=== PATIENT | female | born 1975 | race Caucasian/White ===

== ENCOUNTER 2023-11-08 11:26 | Inpatient (IN) ==
[2023-11-08 12:29] LABS: Partial Thromboplastin Ratio 1.1; Partial Thromboplastin Time 30 Seconds (21-31); Prothrombin Time 11.3 Seconds (9.0-12.0)
[2023-11-08 12:35] LABS: Albumin Level 4.5 gm/dl (3.4-5.0); Bilirubin,Total 0.6 mg/dl (0.2-1.0); Calcium 9.8 mg/dl (8.6-10.3); Potassium 3.5 mmol/L (3.5-5.1)
[2023-11-08 12:41] LABS: Albumin Globulin Ratio 1.5 (0.9-2); BUN Creatinine Ratio 17.2 (10-20); Creatinine Clr Calc Pharmacy 125.3 ml/min; Est GFR (African American) 127.2 ml/min; Est GFR (Non-African American) 109.8 ml/min; Globulin 3.1 gm/dl (2.5-4.0); Total Protein 7.6 gm/dl (6.0-8.3)
[2023-11-08 12:46] LABS: Troponin I High Sensitivity 40.5 pg/ml (0-14)
[2023-11-08 12:50] LABS: Basophils # (auto) 0.05 K/uL (0.00-0.20); Basophils % (auto) 0.5 %; Eosinophils # (auto) 0.25 K/uL (0.00-0.50); Eosinophils % (auto) 2.7 %; Hematocrit (blood only) 47.5 % (37.0-47.0); Hemoglobin 16.1 g/dl (12.0-16.0); Immature Granulocytes # (auto) 0.04 K/uL (0.01-0.20); Immature Granulocytes % (auto) 0.4 %; Lymphocytes # (auto) 2.98 K/uL (1.20-3.40); Lymphocytes % (auto) 32.7 %; Mean Corpuscular Hemoglobin 31.3 pg (25.0-34.0); Mean Corpuscular Hgb Conc 33.9 g/dL (32.0-36.0); Mean Corpuscular Volume 92.2 fL (80.0-100.0); Mean Platelet Volume 10.4 fL (9.4-12.4); Monocytes % (auto) 6.6 %; Neutrophils # (auto) 5.19 K/uL (1.40-6.50); Neutrophils % (auto) 57.1 %; Platelet Count 323 K/uL (130-400); RDW Coefficient of Variation 11.5 % (11.5-14.5); Red Blood Count 5.15 M/uL (4.20-5.40); White Blood Count 9.11 K/ul (4.8-10.8)
--- NOTE | 2023-11-08 12:57 | Emergency Department Note ---
Impression & Plan Heart palpitations, Chest pain, Near syncope, Torsades de pointes ED Provider Note NAME: STIVEN CARLSON AGE: 48 SEX: F : 1975 ARRIVES VIA: Walk-In INFORMANT: Patient, ED PROVIDER(S): Quinten Rai DO CHIEF COMPLAINT: Palpitations HPI: The patient is a 48-year-old female who presented to the emergency department at the request of her primary care physician for evaluation of palpitations. The patient was seen at a different emergency department for chest pain palpitations workup. Everything was normal. The patient went to see her family doctor in follow-up. She had a Holter monitor which revealed that she was having runs of polymorphic ventricular tachycardia. She was sent to the emergency department for further evaluation. The patient denies having any current symptoms. She states she did have symptoms earlier today. She describes episodes of near syncope and palpitations. She also has chest pain. She denies having any shortness of breath at this time. ROS: See above HPI for pertinent positives & negatives. A total of 10 systems reviewed and were otherwise negative. PAST MEDICAL HISTORY: See Below PAST SURGICAL HISTORY: See Below FAMILY HISTORY: See Below SOCIAL HISTORY: See Below HOME MEDICATIONS: See Below ALLERGIES: See Below VITALS: See Below PHYSICAL EXAMINATION: GENERAL: Patient is awake alert in no acute distress patient is resting comfortably and showing no signs of anxiety EYES: The conjunctivae are clear. The pupils are round and reactive. EARS, NOSE, MOUTH AND THROAT: The nose is without any evidence of any deformity. Mucous membranes are moist. Tongue is midline. NECK: The neck is nontender and supple. RESPIRATORY: Normal respiratory effort is noted there is no evidence of wheezing rhonchi or rales CARDIOVASCULAR: Regular rate and rhythm noted there no murmurs rubs or gallops normal S1 normal S2. GASTROINTESTINAL: The abdomen is soft. Abdomen is nontender. PELVIS: The Pelvis is stable. No tenderness to palpation is noted. BACK: No midline tenderness or or step-off noted range of motion in flexion extension as well as rotation no signs of muscle spasm noted MUSCULOSKELETAL/EXTREMITIES: There is no evidence of gross deformity full range of motion is noted in the hips and shoulders. SKIN: There is no obvious evidence of any rash. There are no petechiae, pallor or cyanosis noted. NEUROLOGIC: Patient is awake alert and oriented x3 strength is symmetric patellar reflexes are 2+ bilaterally MEDICAL DECISION MAKING: The patient is a 48-year-old female who presented to the emergency department for an evaluation of palpitations. The patient started having episodes of palpitations fast heart rate and near syncope. She also complained of some chest pain. The patient had an outpatient Holter monitor which showed that she was having episodes of wide-complex tachycardia. The patient was sent to the emergency department for further evaluation. I discussed the patient's laboratory and radiographic studies with her. [facility] They have agreed to evaluate the patient in the emergency department for further management and disposition. Triage Nursing notes reviewed. Prior medical records reviewed Vital Signs: reviewed and remarkable for elevated blood pressure. Differential diagnosis: Premature contractions, electrolyte abnormality, cardiac dysrhythmia, thyroid dysfunction, pulmonary embolism, infection, gastrointestinal, as well as other pathologies. ER treatment provided: See below Diagnostics interpreted by me: ECG: EKG was obtained in the emergency department. My interpretation is normal sinus rhythm at 75 bpm. There was no ectopy. There was no acute ST segment abnormalities noted. QTc was 417. No previous tracings available. Cardiac Monitoring: An order was placed for continuous cardiac monitoring. The monitor shows a rate of 63 bpm with sinus rhythm. Laboratory studies: As stated above and show below. Imaging studies: See below. Radiographic imaging was reviewed by myself Consultation(s): I discussed this case with Dr. Calvin who is [facility]. Past Med/Surg History Medical History (Updated 11/08/23 @ 16:49 by Quinten Rai DO) Seasonal allergies Depression Psoriatic arthritis Hypertension Social History Smoking Status: Current every day smoker Tobacco Type: Cigarettes Do You Dip or Chew Tobacco: No; Tobacco Cessation Education Requested by Patient: No Hx Alcohol Use: Yes Alcohol type: beer Hx Substance Use: No Preferred Language: [place] Islander Hand [employer] Required: No Beliefs That Will Affect Care: None Current Living Situation: Family Current Living Situation Comment: mother Other Information That Helps Us Care for You: No Feels Safe at Home: Yes Assistive Devices: Denture - Upper and Glasses Allergies Allergies Allergy/AdvReac Type Severity Reaction Status Date / Time No Known Allergies Allergy Unverified 11/08/23 14:50 Home Meds Home Medications Medication Instructions Recorded Confirmed citalopram 20 mg tablet 20 mg PO DAILY 11/08/23 11/08/23 clobetasol 0.05 % topical ointment 1 applic topical BID PRN Other 11/08/23 11/08/23 hydrochlorothiazide 25 mg tablet 25 mg PO QAM 11/08/23 11/08/23 lisinopril 40 mg tablet 40 mg PO QAM 11/08/23 11/08/23 loratadine 10 mg tablet (Allergy 10 mg PO DAILY 11/08/23 11/08/23 Relief (loratadine)) triamcinolone acetonide 0.5 % 1 applic topical BID PRN Other 11/08/23 11/08/23 topical ointment Results & Data (ED) Vital Signs Vital Signs - 24 hr 11/08/23 11:31 11/08/23 12:52 11/08/23 13:02 Temperature 36.7 C Temperature Source Skin Pulse Rate 80 70 Pulse Rate from SpO2 Sensor 71 Respiratory Rate 18 16 Blood Pressure 172/106 H 131/89 Blood Pressure Mean 128 103 Pulse Oximetry 100 98 97 Oxygen Delivery Method Room Air Room Air Room Air Sepsis Recent Fever Within 48 Hours No Sepsis New/Unexplained Change in Mental Status No Sepsis Action Taken by Nursing No Action Required 11/08/23 13:10 11/08/23 13:19 11/08/23 13:30 Temperature Temperature Source Pulse Rate 71 73 66 Pulse Rate from SpO2 Sensor 70 67 Respiratory Rate 14 16 Blood Pressure 120/74 Blood Pressure Mean 89 Pulse Oximetry 97 95 Oxygen Delivery Method Sepsis Recent Fever Within 48 Hours Sepsis New/Unexplained Change in Mental Status Sepsis Action Taken by Prison Medications Current Medication List: was personally reviewed by me Laboratory Data Attestation: I reviewed the patient's lab results. 11/08/23 11:50 11/08/23 11:50 Lab Results 11/08/23 11/08/23 Range/Units 11:50 12:55 WBC 9.11 (4.8-10.8) K/ul RBC 5.15 (4.20-5.40) M/uL Hgb 16.1 H (12.0-16.0) g/dl Hct 47.5 H (37.0-47.0) % MCV 92.2 (80.0-100.0) fL MCH 31.3 (25.0-34.0) pg MCHC 33.9 (32.0-36.0) g/dL RDW Std Deviation 39.0 (36.4-46.3) fL RDW Coeff of Suhail 11.5 (11.5-14.5) % Plt Count 323 (130-400) K/uL MPV 10.4 (9.4-12.4) fL Immature Gran % (Auto) 0.4 % Neut % (Auto) 57.1 % Lymph % (Auto) 32.7 % Towner % (Auto) 6.6 % Eos % (Auto) 2.7 % Baso % (Auto) 0.5 % Neut # (Auto) 5.19 (1.40-6.50) K/uL Lymph # (Auto) 2.98 (1.20-3.40) K/uL Towner # (Auto) 0.60 H (0.11-0.59) K/uL Eos # (Auto) 0.25 (0.00-0.50) K/uL Baso # (Auto) 0.05 (0.00-0.20) K/uL Immature Gran # (Auto) 0.04 (0.01-0.20) K/uL PT 11.3 (9.0-12.0) Seconds INR 1.0 (0.9-1.1) APTT 30 (21-31) Seconds PTT Ratio 1.1 Sodium 135 L (136-145) mmol/L Potassium 3.5 (3.5-5.1) mmol/L Chloride 100 (98-107) mmol/L Carbon Dioxide 28 (21-32) mmol/L Anion Gap 7 (3-11) BUN 10 (6-23) mg/dl Creatinine 0.58 L (0.6-1.2) mg/dl Est Cr Clr Drug Dosing 125.3 ml/min Est GFR ( Amer) 127.2 ml/min Est GFR (Non-Af Amer) 109.8 ml/min BUN/Creatinine Ratio 17.2 (10-20) Glucose 103 H (70-99(Fasting)) mg/dl Calcium 9.8 (8.6-10.3) mg/dl Magnesium 1.9 (1.7-2.4) mg/dl Total Bilirubin 0.6 (0.2-1.0) mg/dl AST 21 (13-39) U/L ALT 20 (7-52) U/L Alkaline Phosphatase 84 (34-104) U/L Troponin I High Sens 40.5 H (0-14) pg/ml Total Protein 7.6 (6.0-8.3) gm/dl Albumin 4.5 (3.4-5.0) gm/dl Globulin 3.1 (2.5-4.0) gm/dl Albumin/Globulin Ratio 1.5 (0.9-2) TSH 1.011 (0.300-4.500) uIu/ml Administered Medications Metoprolol Tartrate (Metoprolol Tartrate 25 Mg Tab) 12.5 mg PO Q6H [id number] Stop: 12/08/23 14:59 Last Admin: 11/08/23 15:50 Dose: 12.5 mg Documented By: [facility] Discharge Plan Visit Data Chief Complaint: Cardiac Assessment Stated Complaint: REF BY DOC ED Provider: Quinten Rai Discharge Problem: Heart palpitations, Chest pain, Near syncope, Torsades de pointes Patient Disposition: Admitted As Inpatient Discharge Instructions Interventions: ED Discharge Assessment Last Done: 11/08/23 15:01 Discharge Problem: Chest pain Qualifiers: Chest pain type: unspecified Qualified Code(s): R07.9 - Chest pain, unspecified
[2023-11-08 13:52] LABS: Magnesium 1.9 mg/dl (1.7-2.4)
[2023-11-08 14:19] LABS: Thyroid Stimulating Hormone 1.011 uIu/ml (0.300-4.500)
[2023-11-08] MEDS ORDERED: NITROGLYCERIN SL 0.4 MG/TAB TAB SL PRN (15:00)
--- NOTE | 2023-11-08 15:43 | Cardiology Consultation ---
Date of Consultation November 08, 2023 Assessment & Plan (1) Unstable angina pectoris: (2) Non-sustained ventricular tachycardia: (3) Elevated troponin I level: (4) Hypertension: Plan Assessment: 48 year old female with multiple risk factors for coronary disease presents after OP work up for ongoing chest pain , left arm tightness and tightness at base of neck. Recent protracted cardiac monitoring demonstrates episode of Non-sustained Ventricular tachycardiac > 12 seconds. Requested patient to present for further evaluation. Plan: Patient with concerning cardiac symptoms, multiple risk factors, significant family history and now documented Non-sustained VT on recent ZIO monitor. Discussed patient's symptoms in depth with high concern that she has been having multiple episodes with no clear etiology and no prior ischemia work up. Monitor on telemetry. Continue to trend troponin to peak Obtain echocardiogram to obtain baseline for overall structure, function, any valvular disease and wall motion abnormality. Fasting lipid panel Agree with starting metoprolol tartrate 12.5mg PO BID, ASA 81mg QD, Atorvastatin 40mg QD. patient on Lisinopril at home which we will also restart, but need to assess echo findings first with plan for ischemic work up. Patient may eat a heart healthy diet tonight, but advised NPO after midnight for possible cardiac cath tomorrow. Case has been discussed with Dr. Villanueva. Further recommendations regarding plan of care as per his assessment. I spent a total of 40 minutes on the date of service in preparation, delivery, documentation of the care provided to the patient excluding any time spent in the performance of separately billed services. SARA Brown [facility] Card[facility] Supervising Physician Co-Signing Physician Notes Attending attestation: Case reviewed with the advanced practitioner. I have personally performed a history and physical examination on the patient. I have reviewed the advanced practitioner's documentation on the date of service referenced in note, and I agree with, and take responsibility for the plan of care. Patient with recent symptoms highly suggestive of angina pectoris. Asymptomatic at present. EKG performed today reveals sinus rhythm at 75 bpm with age- indeterminate septal infarct pattern in lead V2. Corrected QT within normal limits. Echocardiogram revealing normal left ventricular myocardial thickness, no left ventricular wall motion abnormalities, LVEF normal in the range of 55 to 60%. No significant valvular heart disease, grade 1 diastolic dysfunction. Risk factors for underlying coronary heart disease include smoking, hypertension, untreated dyslipidemia with recent LDL cholesterol of 172 mg/dL in April,, likely nonfasting sample however. She also has a history of psoriatic arthritis. Continue with medications as noted above. Will proceed with ischemic workup tomorrow. Repeat fasting lipid panel. I spent a total of 30 minutes coordinating, documenting, and providing care for this patient excluding time spent in the performance of separately billed services or time spent by another provider. Jesus Villanueva DO History of Present Illness Reason for Consultation: Abnormal Zio Requesting Physician: Bobby lunaist Attending Physician: Estrella Calvin MD History of Present Illness HPI:Patient is a 48 year-old female with PMHx significant for HTN, psoriatic arthritis, tobacco use (12- PPD), and family history of premature CAD that presented to the ED after being alerted of an abnormal ZIO monitor finding. Patient's recent cardiac concerns date back approx 3 weeks when patient was driving and had sudden onset chest discomfort with a globus sensation in her throat. She states she broke out in a sweat, became short of breath, slightly lightheaded, mild nausea, but had left arm tingling sensation. She pulled over immediately and reported that the entire episodes lasted nearly one hour. She did not seek medical attention at that time. The next day she opted to present to [facility] but on the way had a repeat episodes just like the day before. She pulled over and called 911 with transport to [facility]. No records are available for review. She reports that they did and EKG, labs and sent her home and told to follow up with PCP. She saw her PCP and was placed on a 7 day ZIO monitor. Review of monitor does demonstrate a isolated episode of VT, appearing polymorphic in nature that occurred on 10/29/23 11:12 am lasting 12.6 seconds. EKG upon arrival to our ED demonstrates normal Sinus rhythm with possible prior infarct. labs reviewed. serum NA low end of normal. Initial Troponin 40.5, subsequent trop labs are pending. patient is resting comfortably in bed at this time without cardiac complaint. Denies any recent acute illness, no N/V/D, no fevers or concerns of dehydration. No recent medication changes in the past 2-3 months. Prior to that was switched from Humara for her Psoriatic arthritis to Toltz. HCTZ was also added to her regimen. Family history: Mother: History of NH with stents Father: history of CAD (no prior NH), but has stents. Maternal Grandfather after NH (reports younger age) Paternal Grandmother: History of CAD s/p CABG, after post surgical site infection. Sister (half): recent cardiac work up for palpitations (no definitive results) Social history: Social EOTH use-- Yes. Tobacco use -- Yes, 1/2-1PPD > 10 years Illicit drug use--None Allergies Allergy/AdvReac Type Severity Reaction Status Date / Time No Known Allergies Allergy Unverified 11/08/23 14:50 Home Medications Medication Instructions Recorded Confirmed Type citalopram 20 mg tablet 20 mg PO DAILY 11/08/23 11/08/23 History clobetasol 0.05 % topical ointment 1 applic topical BID PRN Other 11/08/23 11/08/23 History hydrochlorothiazide 25 mg tablet 25 mg PO QAM 11/08/23 11/08/23 History ixekizumab 80 mg/mL subcutaneous 80 mg subcut Q4WK 11/08/23 11/08/23 History syringe (Taltz Syringe) lisinopril 40 mg tablet 40 mg PO QAM 11/08/23 11/08/23 History loratadine 10 mg tablet (Allergy 10 mg PO DAILY 11/08/23 11/08/23 History Relief (loratadine)) triamcinolone acetonide 0.5 % 1 applic topical BID PRN Other 11/08/23 11/08/23 History topical ointment Patient History Medical History Hypertension Seasonal allergies Depression Psoriatic arthritis Surgical History History of dental surgery Family History (Updated 11/08/23 @ 17:24 by SARA Lima) Other Coronary heart disease Social History Smoking Status: Current every day smoker Tobacco Type: Cigarettes Do You Dip or Chew Tobacco: No; Tobacco Cessation Education Requested by Patient: No Hx Alcohol Use: Yes Alcohol type: beer Hx Substance Use: No Preferred Language: Mohawk Information Assistant Required: No Beliefs That Will Affect Care: None Current Living Situation: Family Current Living Situation Comment: mother Other Information That Helps Us Care for You: No Feels Safe at Home: Yes Assistive Devices: Denture - Upper and Glasses Review of Systems Review of Systems: All systems reviewed & are unremarkable except as noted in HPI & below Physical Exam Constitutional: well developed and well nourished; no acute distress Neck: normal visual inspection and trachea midline Respiratory: normal respiratory effort, lungs clear to auscultation Cardiovascular: RRR, no murmur, no edema Heart Sounds: normal S1 and normal S2; no murmur Vessels: dorsalis pedis pulses present; no JVD Extremities: no edema Skin: no rashes, warm and dry Psychiatric: A+Ox3, euthymic affect Results & Data Vital Signs (Past 12 Hours) Vital Signs Temp Pulse Resp BP Pulse Ox O2 Del Method 11/08/23 14:30 61 19 119/94 98 Room Air 11/08/23 14:29 66 16 140/94 98 Room Air 11/08/23 14:00 65 12 141/102 H 99 11/08/23 13:30 66 16 120/74 95 11/08/23 13:19 73 11/08/23 13:10 71 14 97 11/08/23 13:02 70 16 131/89 97 Room Air 11/08/23 12:52 98 Room Air 11/08/23 11:31 36.7 C 80 18 172/106 H 100 Room Air Diagnostic Findings OP ZIO monitor 10/25/2023 Results: Patient had a min HR of 51 bpm, max HR of 240 bpm, and avg HR of 83 bpm. Predominant underlying rhythm was Sinus Rhythm. Slight P wave morphology changes were noted. 1 run of Ventricular Tachycardia occurred lasting 12.6 secs with a max rate of 240 bpm (avg 163 bpm). Isolated SVEs were rare (<1.0%), SVE Couplets were rare (<1.0%), and no SVE Triplets were present. Isolated VEs were rare (<1.0%), and no VE Couplets or VE Triplets were present. The patient recorded 2 event markers and 1 diary entry correlating with sinus and sinus tachycardia only Impression: Sinus rhythm, average rate 83 beats per minute with single episode of nonsustained ventricular tachycardia 12.6 seconds in duration. Pattern consistent with torsade Refer to rhythm strips available for review under the MUSE link for additional detail Referring provider contacted
[2023-11-08] MEDS: METOPROLOL TARTRATE 25 MG TAB PO SCH (15:50)
--- NOTE | 2023-11-08 16:30 | Electrocardiogram Report ---
Test Reason : Blood Pressure : / mmHG Vent. Rate : 075 BPM Atrial Rate : 075 BPM P-R Int : 152 ms QRS Dur : 074 ms QT Int : 374 ms P-R-T Axes : 074 086 075 degrees QTc Int : 417 ms Normal sinus rhythm Septal infarct , age undetermined Abnormal ECG No previous ECGs available Confirmed by Quinten Rivera ([id number]) on 11/08/2023 4:30:05 PM Referred By: Confirmed By:Quinten Rivera
--- NOTE | 2023-11-08 16:51 | XRay Report ---
XR chest 1V portable HISTORY: 48 years-old Female Chest pain, nonspecific COMPARISON: None TECHNIQUE: AP view of the chest FINDINGS: Cardiomediastinal and hilar silhouettes are within normal limits. No pneumothorax, pleural effusion o r airspace consolidation. Benign-appearing sclerosis of the proximal left humerus. The bones appear i ntact. IMPRESSION: No acute process. ACT 112: Negative or not required by law. The above report was generated using voice recognition software. It may contain grammatical, syntax o r spelling errors. Electronically signed by: Anthony Blandon M.D. 11/08/2023 4:49 PM
--- NOTE | 2023-11-08 17:17 | History & Physical Report ---
Date of Service November 08, 2023 Assessment & Plan (1) Chest pain: (2) Non-sustained ventricular tachycardia: (3) Torsades de pointes: Plan: Admit to telemetry Patient presenting from home by referral of PCP after outpatient ZIO monitor demonstrated episode of Non-sustained Ventricular tachycardiac > 12 seconds, with possible polymorphic characteristics consistent with torsades. Has been having episodes of intermittent chest/left arm discomfort x 2 weeks In the ED, EKG without acute ST changes, HS troponin 40 -> 45.1 Continue to trend troponin, resting echo Start ASA 81 mg daily, atorvastatin 40 mg daily, metoprolol tartrate 12.5 mg q6h N.p.o. after midnight for possible additional testing tomorrow Cardiology consult, case discussed with Dr. Villanueva via tiger text (4) Hypertension: Plan: BP elevated on presentation to ED 172/106, recently started on HCTZ 25 mg daily in addition to lisinopril 40 mg daily Continue home lisinopril, hold HCTZ for now in light of starting metoprolol as above Monitor BP, make adjustments as needed DVT PROPHYLAXIS SCDs Patient seen in cooperation with Dr. Calvin. I spent a total of 75 minutes coordinating, documenting, and providing care for this patient excluding time spent in the performance of separately billed services. This included personally reviewing all current laboratories and imaging studies, medication reconciliation, outpatient chart review, and discussion with specialists. Admission and Anticipated Discharge Date Admission Date: November 08, 2023 History of Present Illness Chief Complaint: Chest pain Primary Care Provider: Alexandra Carrion MD 48-year-old female with PMH HTN, psoriatic arthritis, anxiety, and other problems listed below who presents to the ED for evaluation of chest pain and also by referral of PCP for abnormal outpatient ZIO monitor. History is obtained from the patient and review of outpatient PCP and cardiology records. Patient reports that about 2 weeks ago, she developed a midsternal chest discomfort with associated left arm pain. She also experienced palpitations, shortness of breath, diaphoresis, nausea. Patient called EMS and was evaluated at [facility]. Reports that she was discharged home with outpatient follow- up. Patient saw PCP on 10/24 and had a 7-day ZIO monitor placed. Due to el evated BP, patient was also started on HCTZ 25 mg daily. Patient reports she received a call today that she had an abnormality on her ZIO monitor and needed to present to the ED for evaluation. Patient describes her chest discomfort as " something being stuck". Continues to occasionally have left arm discomfort with chest discomfort. Reports that symptoms can be brought on with exertion however also sometimes occur at rest. Reports last episode was 2 evenings ago while she was laying in bed watching TV. Patient denies any other recent illnesses, fevers, chills. No syncopal events. Denies abdominal pain, vomiting, diarrhea. No urinary symptoms. In the ED, EKG is without acute ST changes. HS troponin 40 -> 45.1. Allergies Allergy/AdvReac Type Severity Reaction Status Date / Time No Known Allergies Allergy Unverified 11/08/23 14:50 Home Medications Medication Instructions Recorded Confirmed Type citalopram 20 mg tablet 20 mg PO DAILY 11/08/23 11/08/23 History clobetasol 0.05 % topical ointment 1 applic topical BID PRN Other 11/08/23 0 11/08/23 History hydrochlorothiazide 25 mg tablet 25 mg PO QAM 11/08/23 11/08/23 History ixekizumab 80 mg/mL subcutaneous 80 mg subcut Q4WK 11/08/23 11/08/23 History syringe (Taltz Syringe) lisinopril 40 mg tablet 40 mg PO QAM 11/08/23 11/08/23 History loratadine 10 mg tablet (Allergy 10 mg PO DAILY 11/08/23 11/08/23 History Relief (loratadine)) triamcinolone acetonide 0.5 % 1 applic topical BID PRN Other 11/08/23 11/08/23 History topical ointment Past Med/Surg History Medical History Hypertension Seasonal allergies Depression Psoriatic arthritis Surgical History History of dental surgery Family History (Updated 11/08/23 @ 17:24 by SARA Lima) Other Coronary heart disease Social History Smoking Status: Current every day smoker Tobacco Type: Cigarettes Do You Dip or Chew Tobacco: No; Tobacco Cessation Education Requested by Patient: No Hx Alcohol Use: Yes Alcohol type: beer Hx Substance Use: No Preferred Language: [place] Web Page Developer Required: No Beliefs That Will Affect Care: None Current Living Situation: Family Current Living Situation Comment: mother Other Information That Helps Us Care for You: No Feels Safe at Home: Yes Assistive Devices: Denture - Upper and Glasses Physical Exam Constitutional: WD/WN, vitals as above Eyes: PERRL, conjunctivae normal, anicteric sclerae Respiratory: normal respiratory effort, lungs clear to auscultation Cardiovascular: Rate/Rhythm: regular rate and regular rhythm Vessels: normal peripheral pulses Extremities: no edema Gastrointestinal (Abdomen): normal bowel sounds, soft, nontender, no hepatosplenomegaly Musculoskeletal: no cyanosis or clubbing, extremities motor strength 5/5 Skin: no rashes, warm and dry Neurologic: PERRL, EOMI, accommodation nl, no face palsy, no dysarthria Psychiatric: A+Ox3, euthymic affect Results & Data Results & Data Vital Signs (Past 12 Hours) Vital Signs Temp Pulse Pulse Resp BP Pulse Ox O2 Del Method 11/08/23 16:50 63 18 11/08/23 16:40 71 14 11/08/23 16:30 61 18 100 11/08/23 16:20 62 17 99 11/08/23 16:14 63 12 100 Room Air 11/08/23 16:10 63 15 93 11/08/23 16:07 71 11/08/23 16:02 69 11/08/23 16:01 69 16 98 11/08/23 16:01 166/102 H 11/08/23 16:00 65 12 166/102 H 98 11/08/23 15:54 72 19 98 11/08/23 15:00 100 Room Air 11/08/23 14:30 61 19 119/94 98 Room Air 11/08/23 14:29 66 16 140/94 98 Room Air 11/08/23 14:00 65 12 141/102 H 99 11/08/23 13:30 66 16 120/74 95 11/08/23 13:19 73 11/08/23 13:10 71 14 97 11/08/23 13:02 70 16 131/89 97 Room Air 11/08/23 12:52 98 Room Air 11/08/23 11:31 36.7 C 80 18 172/106 H 100 Room Air Laboratory Results Short CBC 11/08/23 Range/Units 11:50 WBC 9.11 (4.8-10.8) K/ul Hgb 16.1 H (12.0-16.0) g/dl Hct 47.5 H (37.0-47.0) % Plt Count 323 (130-400) K/uL BMP 11/08/23 11:50 Sodium 135 L Potassium 3.5 Chloride 100 Carbon Dioxide 28 BUN 10 Creatinine 0.58 L Glucose 103 H Calcium 9.8 Liver Function 11/08/23 Range/Units 11:50 Total Bilirubin 0.6 (0.2-1.0) mg/dl AST 21 (13-39) U/L ALT 20 (7-52) U/L Alkaline Phosphatase 84 (34-104) U/L Albumin 4.5 (3.4-5.0) gm/dl Diagnostic Findings Chest X-Ray 11/08/23 00:00 XR chest 1V portable HISTORY: 48 years-old Female Chest pain, nonspecific COMPARISON: None TECHNIQUE: AP view of the chest FINDINGS: Cardiomediastinal and hilar silhouettes are within normal limits. No pneumothorax, pleural effusion or airspace consolidation. Benign-appearing sclerosis of the proximal left humerus. The bones appear intact. IMPRESSION: No acute process. ACT 112: Negative or not required by law. The above report was generated using voice recognition software. It may contain grammatical, syntax or spelling errors. Electronically signed by: Anthony Blandon M.D. 11/08/2023 4:49 PM Code Status & VTE Plan VTE Prophylaxis Plan VTE Prophylaxis will be ordered: Yes Supervising Physician Co-Signing Physician Notes Pt was seen and examined by myself, Estrella Calvin MD on the day of service. Care was coordinated with SARA Lima. 48yoF presenting for further evaluation after noted palpitations and heart monitor noting runs of nonsustained v tach. States that she is currently asymptomatic, concerned about her BP on the monitor. AAOx3 on exam RRR Breath sounds clear bilaterally NSVT, elevated trop- hs-trop elevated at ~40, EKG currently showing NSR, echo pending, cardiology consulted, appreciate recs. Ischemic workup planned. Hyponatremia- slight decrease of sodium at 135, continue to monitor with AM labs. Hyperglycemia- AM [id number], r/o pre/DMII Otherwise as above. I spent a total [id number] coordinating, documenting, and providing care for this patient excluding time spent in the performance of separately billed services (1) Chest pain Chest pain type: unspecified Qualified Code(s): R07.9 - Chest pain, unspecified
[2023-11-08] MEDS: MELATONIN 3 MG TAB PO PRN (21:47)
[2023-11-09 07:23] LABS: Estimated Average Glucose 111 mg/dl; Hemoglobin A1C 5.5 % (4.5-5.6)
[2023-11-09 07:27] LABS: Hematocrit (blood only) 45.9 % (37.0-47.0); Hemoglobin 15.3 g/dl (12.0-16.0); Mean Corpuscular Hemoglobin 31.7 pg (25.0-34.0); Mean Corpuscular Hgb Conc 33.3 g/dL (32.0-36.0); Mean Corpuscular Volume 95.2 fL (80.0-100.0); Platelet Count 300 K/uL (130-400); RDW Coefficient of Variation 11.9 % (11.5-14.5); RDW Standard Deviation 41.1 fL (36.4-46.3); Red Blood Count 4.82 M/uL (4.20-5.40); White Blood Count 9.52 K/ul (4.8-10.8)
[2023-11-09 07:45] LABS: BUN Creatinine Ratio 21.3 (10-20); Calcium 9.3 mg/dl (8.6-10.3); Chol HDL Ratio 5.9 (0-5); Creatinine Clr Calc Pharmacy 119.5 ml/min; Est GFR (African American) 125.1 ml/min; Potassium 4.5 mmol/L (3.5-5.1)
[2023-11-09] MEDS: ACETAMINOPHEN 325 MG TAB PO PRN (08:31)
[2023-11-09] MEDS: ASPIRIN 81 MG ECTAB PO SCH (08:32)
[2023-11-09] MEDS: ATORVASTATIN 40 MG TAB PO SCH (08:32)
[2023-11-09] MEDS: LORATADINE 10 MG TAB PO SCH (08:33)
[2023-11-09] MEDS: CITALOPRAM 20 MG TAB PO SCH (08:33)
[2023-11-09] MEDS: lisinopril 40 MG TAB PO SCH (08:34)
[2023-11-09] MEDS: ASPIRIN 81 MG CHEW PO STA (09:21)
--- NOTE | 2023-11-09 12:01 | Pre Anesthesia Assessment ---
Date of Service November 09, 2023 Pre Sedation Assessment Vital Signs Temp Pulse Pulse Resp BP BP BP 11/09/23 11:21 50 L 16 107/49 L 11/09/23 10:55 97.9 F 52 L 21 108/61 11/09/23 08:17 98.1 F 59 L 20 112/69 11/09/23 04:05 97.9 F 71 18 105/65 11/08/23 23:23 66 11/08/23 23:07 97.9 F 63 18 105/67 11/08/23 20:19 66 11/08/23 20:15 98.1 F 65 17 128/75 11/08/23 19:10 124/83 11/08/23 19:10 63 16 124/83 11/08/23 19:01 64 17 11/08/23 18:57 64 18 109/67 11/08/23 18:40 66 18 11/08/23 18:30 67 12 11/08/23 18:20 62 21 11/08/23 18:10 64 21 11/08/23 18:00 63 16 11/08/23 17:50 72 20 11/08/23 17:40 68 15 11/08/23 17:30 59 L 14 11/08/23 17:20 60 13 11/08/23 17:10 75 17 11/08/23 17:00 64 19 11/08/23 16:50 63 18 11/08/23 16:40 71 14 11/08/23 16:30 61 18 11/08/23 16:20 62 17 11/08/23 16:14 63 12 11/08/23 16:10 63 15 11/08/23 16:07 71 11/08/23 16:02 69 11/08/23 16:01 69 16 11/08/23 16:01 166/102 H 11/08/23 16:00 65 12 166/102 H 11/08/23 15:54 72 19 11/08/23 15:00 11/08/23 14:30 61 19 119/94 11/08/23 14:29 66 16 140/94 11/08/23 14:00 65 12 141/102 H 11/08/23 13:30 66 16 120/74 11/08/23 13:19 73 11/08/23 13:10 71 14 11/08/23 13:02 70 16 131/89 11/08/23 12:52 Pulse Ox O2 Del Method 11/09/23 11:21 98 Room Air 11/09/23 10:55 98 Room Air 11/09/23 08:17 97 Room Air 11/09/23 04:05 97 Room Air 11/08/23 23:23 11/08/23 23:07 97 Room Air 11/08/23 20:19 11/08/23 20:15 97 Room Air 11/08/23 19:10 11/08/23 19:10 96 11/08/23 19:01 11/08/23 18:57 96 Room Air 11/08/23 18:40 97 11/08/23 18:30 11/08/23 18:20 11/08/23 18:10 11/08/23 18:00 11/08/23 17:50 11/08/23 17:40 11/08/23 17:30 11/08/23 17:20 11/08/23 17:10 11/08/23 17:00 11/08/23 16:50 11/08/23 16:40 11/08/23 16:30 100 11/08/23 16:20 99 11/08/23 16:14 100 Room Air 11/08/23 16:10 93 11/08/23 16:07 11/08/23 16:02 11/08/23 16:01 98 11/08/23 16:01 11/08/23 16:00 98 11/08/23 15:54 98 11/08/23 15:00 100 Room Air 11/08/23 14:30 98 Room Air 11/08/23 14:29 98 Room Air 11/08/23 14:00 99 11/08/23 13:30 95 11/08/23 13:19 11/08/23 13:10 97 11/08/23 13:02 97 Room Air 11/08/23 12:52 98 Room Air Cardiovascular + regular rate Respiratory + respiratory effort normal Pre-Sedation Airway Assessment Smoking Status: Current every day smoker Hx Sleep Apnea: No Short, Thick Neck: No Thyromental Distance: > or= 3.5 Finger Breadths Oral Cavity: + WNL Mallampati Class: II ASA: ASA3 NPO Status Date of Last Intake of Fluids: 11/08/23 Time of Last Intake of Fluids: 20:00 Date of Last Intake of Solid Food: 11/08/23 Time of Last Intake of Solid Foods: 20:00 Procedure Planning Contraindications for Sedation: none Current Medications Reviewed: Yes Notes The planned sedation has been discussed with the patient. Informed Consent was obtained. I have identified the patient, determined the appropriateness of sedation and have assessed the patient immediately prior to the procedure. All medicine(s) and interventions are by my order.
[2023-11-09] MEDS: fentaNYL citrate PF 100 MCG/2 ML VIAL ONE ×2 (13:26→13:27)
[2023-11-09] MEDS: HEPARIN (PORCINE) 1000 UNIT/ML 10 ML (CATH LAB USE ONLY) ONE ×2 (13:27→13:29)
[2023-11-09] MEDS: MIDAZOLAM HCL 1 MG/ML 2ML VIAL ONE ×2 (13:27→13:29)
--- NOTE | 2023-11-09 13:27 | Hospitalist Progress Note ---
Date of Service November 09, 2023 Assessment & Plan (1) Chest pain: Plan: Patient presenting from home by referral of PCP after outpatient ZIO monitor demonstrated episode of Non-sustained Ventricular tachycardiac > 12 seconds, with possible polymorphic characteristics consistent with torsades. Has been having episodes of intermittent chest/left arm discomfort x 2 weeks In the ED, EKG without acute ST changes, HS troponin 40 -> 45.1 Start ASA 81 mg daily, atorvastatin 40 mg daily, metoprolol tartrate 12.5 mg q6h N.p.o. after midnight for possible additional testing tomorrow Serial troponins were not significantly high and did not have any EKG changes Remains free from any more chest pain since admission Echo of the heart showed-normal LV wall thickness, LV systolic function is normal, EF 55 to 60%, RV is normal in size and function, grade 1 diastolic dy sfunction, there is no significant valvular heart disease and no prior studies to compare Appreciate cardiology input and recommendation She will have cardiac cath this afternoon for further evaluation (2) Non-sustained ventricular tachycardia: Plan: As above (3) Torsades de pointes: Plan: As above (4) Hypertension: Plan: BP elevated on presentation to ED 172/106, recently started on HCTZ 25 mg daily in addition to lisinopril 40 mg daily Continue home lisinopril, hold HCTZ for now in light of starting metoprolol as above Monitor BP, make adjustments as needed Blood pressure remains on the lower side of normal at 107/49 DVT PROPHYLAXIS SCDs Patient seen in cooperation with Dr. Calvin. Admission and Anticipated Discharge Date Admission Date: November 08, 2023 Subjective 11/09/2023 The patient was seen and examined in telemetry unit She has significant risk factors and was admitted with ongoing chest pain No ACS but she will go for cardiac cath this afternoon Review of Systems Review of Systems: All systems reviewed and are unremarkable except as noted below Physical Exam Physical Exam: Sitting on a chair without any acute distress Constitutional: well developed, well nourished and + obese; not ill appearing Eyes: PERRL, conjunctivae normal, anicteric sclerae ENMT: external ear and nose normal, oropharynx normal Neck: trachea midline, no thyromegaly Respiratory: no respiratory distress Auscultation: lungs clear to auscultation bilaterally Cardiovascular: Rate/Rhythm: regular rate, regular rhythm, + bradycardic and + tachycardic Heart Sounds: normal S1 and normal S2; no murmur Extremities: no edema Gastrointestinal (Abdomen): Inspection/Auscultation: normal bowel sounds; abdomen not distended Percussion/Palpation: abdomen soft; abdomen nontender Musculoskeletal: No acute arthritis involving any of the joints Neurologic: normal touch/pain/proprioception and moves all extremities; no focal motor deficits Psychiatric: A+Ox3, euthymic affect Lymphatic: no cervical or axillary lymphadenopathy Results & Data Results & Data Vital Signs (Past 12 Hours) Vital Signs Temp Pulse Resp BP BP Pulse Ox O2 Del Method 11/09/23 11:21 50 L 16 107/49 L 98 Room Air 11/09/23 10:55 36.6 C 52 L 21 108/61 98 Room Air 11/09/23 08:17 36.7 C 59 L 20 112/69 97 Room Air 11/09/23 04:05 36.6 C 71 18 105/65 97 Room Air Laboratory Results Short CBC 11/09/23 Range/Units 06:35 WBC 9.52 (4.8-10.8) K/ul Hgb 15.3 (12.0-16.0) g/dl Hct 45.9 (37.0-47.0) % Plt Count 300 (130-400) K/uL [facility] 11/09/23 06:35 Sodium 140 Potassium 4.5 D Chloride 105 Carbon Dioxide 32 BUN 13 Creatinine 0.61 Glucose 95 Calcium 9.3 Medications Administered Current Inpatient Medications Acetaminophen (Acetaminophen 325 Mg Tab) 650 mg PO Q4H PRN PRN Reason: Pain or Fever Stop: 12/08/23 14:59 Last Admin: 11/09/23 08:31 Dose: 650 mg Aspirin (Aspirin 81 Mg Ectab) [facility] [place] [facility]: 12/09/23 08:59 Last Admin: 11/09/23 08:32 Dose: 81 mg Atorvastatin Calcium (Atorvastatin 40 Mg Tab) 40 mg PO [facility] Stop: 12/09/23 08:59 Last Admin: 11/09/23 08:32 Dose: 40 mg Citalopram Hydrobromide (Citalopram 20 Mg Tab) 20 mg PO DAILY [facility] Stop: 12/09/23 08:59 Last Admin: 11/09/23 08:33 Dose: 20 mg Lisinopril (Lisinopril 40 Mg Tab) 40 mg PO QAM [facility] Stop: 12/09/23 08:59 Last Admin: 11/09/23 08:34 Dose: 40 mg Loratadine (Loratadine 10 Mg Tab) 10 mg PO DAILY [facility] Stop: 12/09/23 08:59 Last Admin: 11/09/23 08:33 Dose: 10 mg Melatonin (Melatonin 3 Mg Tab) 3 mg PO HS PRN PRN Reason: Sleep Stop: 12/08/23 20:30 Last Admin: 11/08/23 21:47 Dose: 3 mg Metoprolol Tartrate (Metoprolol Tartrate 25 Mg Tab) 12.5 mg PO Q6H [facility] Stop: 12/08/23 14:59 Last Admin: 11/09/23 08:33 Dose: 12.5 mg Nitroglycerin (Nitroglycerin Sl 0.4 Mg/Tab Tab) 0.4 mg SL Q5M PRN PRN Reason: Chest Pain Stop: 12/08/23 14:59 (1) Chest pain Chest pain type: unspecified Qualified Code(s): R07.9 - Chest pain, unspecified
[2023-11-09] MEDS: niCARdipine HCL INJ 2.5 MG/ML 10 ML AMP ONE (13:28)
[2023-11-09] MEDS: CLOPIDOGREL BISULFATE 300 MG TAB ONE (13:29)
[2023-11-09] MEDS: NITROGLYCERIN/D5W 100MCG/ML 20ML SYR ONE (13:29)
[2023-11-09] MEDS: OPTIRAY 350 ONE (13:30)
--- OUTSIDE RECORDS SUMMARY | 2023-11-09 13:30 | External Medical Summary | Summary of Care ---
Author Name Unknown Organization [facility] Address [address] [place] [address] Phone [phone] Care Team Providers Care Production Ski Repairer Name Role Phone Alexandra Carrion MD Primary Care Provide r Reason for Visit * Reason Onset Date Comments Medication Question 10/25/2023 Encounter Details Date Type Department Care Team (Late st Contact Info) Description 10/25/2023 Telephone Rheumatology [facility] [address] [place] [address] Yareli Burns CRNP [address] [place] [address] Medication Question Allergies Active Allergy Reactions Criticality Noted Date Comments Caffeine 05/07/2001 Ephedrine Pseudoephedrine 04/01/2008 documented as of this encounter (statuses as of 10/30/2023) Medications Medication Sig Dispensed Refills Start Date End Date Status Clindamycin Phosphate 1 % External GelIndications:Foll iculitis Put 1-2x daily to spots (2x daily when flared) and only 1x daily to areas to prevent spots when not flared 180 g 3 09/16/2021 Active Nystatin 417881 UNIT/GM External Powder (Nystop)Indications :Intertrigo Apply topically to affected area 3 times a day . Apply to groin 60 g 1 09/16/2021 Active Ibuprofen 800 MG Oral Tablet (Motrin)Indications :PSA (psoriatic arthritis) ([facility]) Take by mouth 0.5 Tablets 2 times a day as needed for Pain, Severe. 100 Tablet 1 09/16/2021 Active Citalopram Hydrobromide 20 MG Oral Tablet (CeleXA) TAKE ONE TABLET BY MOUTH EVERY DAY 90 Tablet 2 05/02/2023 Active Lisinopril 40 MG Oral TabletIndications:H TN, goal below 130/80 Take 1 Tablet by mouth in the morning. 90 Tablet 1 05/09/2023 Active Clobetasol Propionate 0.05 % External Ointment (Temovate)Indicatio ns:Pruritus of genitalia Apply topically to affected area 2 times a day. To affected area for up to two weeks. 60 g 1 05/09/2023 Active Allergy Relief 10 MG Oral Tablet (Loratadine)Indicat ions:Seasonal allergic rhinitis due to pollen TAKE ONE TABLET BY MOUTH EVERY DAY 90 Tablet 3 06/01/2023 Active Triamcinolone Acetonide 0.5 % External OintmentIndications :Pustular psoriasis of palms and soles,PSA (psoriatic arthritis) ([facility]) Apply topically to affected area 2 times a day. Apply to hands and feet as directed or more if itchy instead of scratching 45 g 5 06/06/2023 Active Taltz 80 MG/ML Subcutaneous Solution Auto-injector (Ixekizumab) Inject 1 mL under the skin every 4 weeks. Dx code L40.50, loading dose not needed. 1 mL 5 10/03/2023 Active Additional Information Patient not taking.Reported on 10/25/2023 hydroCHLOROthiazide 25 MG Oral Tablet (Hydrodiuril)Indica tions:HTN, goal below 130/80 Take 1 Tablet by mouth in the morning. 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 HTN, goal below 130/80 03/07/2011 Generalized anxiety disorder 04/01/2008 Other acne 04/01/2008 Allergic rhinitis due to pollen 09/08/2004 Adjustment disorder with depressed mood documented as of this encounter (statuses as of 10/30/2023) Resolved Problems Problem Noted Date Diagnosed Date Resolved Date Psoriasis 04/01/2008 10/28/2015 BMI 30.0-30.9,adult 08/23/19 19 documented as of this encounter (statuses as of 10/30/2023) Immunizations Name Administration Dates Next Due Pneumococcal Polysaccharide PPV23 (Pneumovax) Seasonal Influenza, PF, 6 M & above, IM , (FluLaval or Fluzone) 09/16/2021 Seasonal Influenza, Split, IIV3, With Preserve, Inj 07/28/2010 documented as of this encounter Social History Tobacco Use Types Packs/Day Years Used Date Smoking Tobacco: Every Day Cigarettes 1 10 Smokeless Tobacco: Never Alcohol Use Standard Drinks/Week Comments Yes 0 (1 standard drink = 0.6 oz pur e alcohol) ocass PHQ-2 Answer Date Recorded PHQ Adult Total Score 0 05/09/2023 Hunger Vital Sign Answer Date Recorded Within the past 12 months, y ou worried that your food would run out before you got the money to buy more. Never true 01/01/20 21 Within the past 12 months, t he food you bought just didn't last and you didn't have money to get more. Never true 12/31/2020 Sex and Gender Information Value Date Recorded Sex Assigned at Not on file Gender Identity Not on file Sexual Orientation Not on file Job Start Date Occupation Industry Not on file Not on file Not on file documented as of this encounter Miscellaneous Notes * Telephone Encounter - Angelica Deleon RPh - 10/30/2023 10:06 AM EDT LMOM to instruct pt to follow up with pharmacy given message below * Telephone Encounter - Angelica Deleon RPh - 10/25/2023 2:16 PM EDT [facility] claim and was sending to their pharmacist for review. Will follow up with patient again in a few days to ensure patient was contacted to fill medication. * Telephone Encounter - Gabriella Neff OSA - 10/25/2023 11:21 AM EDT Patient wanted to let you know that she still has not received her Taltz. Does not know what to do.Please call her back [phone] documented in this encounter Plan of Treatment Upcoming Encounters Date Type Department Care Team (Late st Contact Info) Description 11/21/2023 1:00 PM EDT Office Visit Cardiology, [facility] [address] [place] [address] [place], [address] [place] [address] 11/22/2023 10:00 AM EDT Office Visit Dermatology [address] [place] [address] Beatriz Solis PA-C [address] [place] [address] [place] [address] 11/22/2023 12:20 PM EDT Office Visit Family Medicine [address] [place] [phone] Olesya Sy PA-C [address] [place] [address] [place] [address] 01/12/2024 1:30 PM EDT Office Visit Rheumatology [address] [place] [phone] Yareli Burns CRNP [address] [place] [address] [place] [address] 01/19/2024 9:20 AM EDT Office Visit Family Medicine [address] [place] [phone] Alexandra Carrion MD [address] [place] [address] [place] [address] Health Maintenance Due Date Last Done Comments DTaP,Tdap,and Td Vaccines (1 - Tdap) 1995 Hepatitis B (1 of 3 - 19+ 3-dose series) 1995 HPV/Co-Test 2006 Pneumococcal Vaccine: Pediatrics (0 to 5 Years) and At-Risk Patients (6 to 64 Years) (2 of 2 - PCV) 07/28/2011 07/28/2010 Mammogram 2016 Colonoscopy 2021 Fecal Occult Blood Test 2021 Sigmoidoscopy 2021 COVID-19 Vaccine (1 - 2022- season) 2023 Influenza Vaccine (FLU shot) (Season Ended) 2024 09/16/2021, 07/28/2010 Depression Screening 05/09/2024 05/09/2023 GFR 10/17/2024 10/18/2023, 04/17, 10/21/2022, Additional history exists Albumin/Creatinine Ratio 05/10/2025 05/10/2022 Cervical Cancer Screening 05/10/2025 Pap Smear 05/10/2025 05/10/2022, 12/16, 05/17/2013 (Done elsewhere), Additional history exists Cologuard 05/25/2026 05/25/2023, 07/2022, 05/17/2023 Colorectal Cancer Screening 05/25/2026 Diabetes Screening 10/17/2026 10/18/2023, 1 , 07/22/2022, Additional history exists Lipid Panel 05/09/2028 05/09/2023, 04/17, 12/31/2020, Additional history exists GARDASIL-HPV IMMUNIZATION SERIES Aged Out No longer eligible based on patient's age to complete this topic MENINGOCOCCAL (MENACTRA/MENVEO) Aged Out No longer eligible based on patient's age to complete this topic documented as of this encounter Medical Devices Not on filedocumented as of this encounter Care Teams Production Ski Repairer Relationship Specialty Start Date End Date Alexandra Carrion MD [address] [place] [address] [place] [id number] PCP - General Family Medicine 02/17/15 documented as of this encounter
--- OUTSIDE RECORDS SUMMARY | 2023-11-09 13:30 | External Medical Summary | Summary of Care ---
Author Name Unknown Organization [facility] Address [address] [place] [address] Phone [phone] Care Team Providers Care Printing Machine Operator Name Role Phone Alexandra Carrion MD Primary Care Provide r Reason for Visit * Reason Comments Medication Refill Encounter Details Date Type Department Care Team (Late st Contact Info) Description 10/05/2023 Refill Rheumatology [place] [address] [place] [address] Yareli Burns CRNP [facility] [place] [address] Allergies Active Allergy Reactions Criticality Noted Date Comments Caffeine 05/07/2001 Ephedrine Pseudoephedrine 04/01/2008 documented as of this encounter (statuses as of 10/09/2023) Medications Medication Sig Dispensed Refills Start Date End Date Status Clindamycin Phosphate 1 % External GelIndications:Foll iculitis Put 1-2x daily to spots (2x daily when flared) and only 1x daily to areas to prevent spots when not flared 180 g 3 09/16/2021 Active Nystatin 467237 UNIT/GM External Powder (Nystop)Indications :Intertrigo Apply topically to affected area 3 times a day . Apply to groin 60 g 1 09/16/2021 Active Ibuprofen 800 MG Oral Tablet (Motrin)Indications :PSA (psoriatic arthritis) ([facility]) Take by mouth 0.5 Tablets 2 times a day as needed for Pain, Severe. 100 Tablet 1 09/16/2021 Active Albuterol Sulfate HFA 108 (90 Base) MCG/ACT Inhalation Aerosol Solution As needed 0 Active Citalopram Hydrobromide 20 MG Oral Tablet [...] of scratching 45 g 5 06/06/2023 Active predniSONE 5 MG Oral Tablet (Deltasone) Take 3 Tablets by mouth daily for 10 days, THEN 2 Tablets daily for 10 days, THEN 1 Tablet daily for 10 days, THEN 0.5 Tablets daily for 10 days. 65 Tablet 0 08/30/2023 10/09/2023 Active Taltz 80 MG/ML Subcutaneous Solution Auto-injector (Ixekizumab) Inject 1 mL under the skin every 4 weeks. Dx code L40.50, loading dose not needed. 1 mL 5 10/03/2023 Active documented as of this encounter (statuses as of 10/09/2023) Active Problems Problem Noted Date Diagnosed Date PSA (psoriatic arthritis) 04/20/2018 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 HTN, goal below 130/80 03/07/2011 Generalized anxiety disorder 04/01/2008 Other acne 04/01/2008 Allergic rhinitis due to pollen 09/08/2004 Adjustment disorder with depressed mood documented as of this encounter (statuses as of 10/09/2023) Resolved Problems Problem Noted Date Diagnosed Date Resolved Date Psoriasis 04/01/2008 10/28/2015 BMI 30.0-30.9,adult 08/23/19 19 documented as of this encounter (statuses as of 10/09/2023) Immunizations Name Administration Dates Next Due Pneumococcal [...] encounter Miscellaneous Notes * Telephone Encounter - Herb Jain RPh - 10/09/2023 9:49 AM EDTRefused Prescriptions: Disp Refills Taltz 80 MG/ML Subcutaneous Solution Auto-*3 mL 0 Sig: Inject 160 mg (2 pens) under the skin once, followed by 80 mg (1 pen) every 4 weeks.Refused By: Robert JAIN for Refusal: Refill Not AppropriateReason for Refusal Comment: using [facility] documented in this encounter Plan of Treatment Upcoming Encounters Date Type Department Care Team (Late st Contact Info) Description 11/22/2023 10:00 AM EDT Office Visit Dermatology [address] [place] [address] Beatriz Solis PA-C [address] [place] [address] [place] [address] 01/12/2024 1:30 PM EDT Office Visit Rheumatology [address] [place] [phone] Yareli Burns CRNP [address] [employer] [place] [address] 01/19/2024 9:20 AM EDT Office Visit Family Medicine [address] [place] [phone] Alexandra Carrion MD [address] [place] [address] [place] [address] Health Maintenance Due Date Last Done Comments DTaP,Tdap,and Td Vaccines (1 - Tdap) 1995 Hepatitis B (1 of 3 - 19+ 3-dose series) 1995 HPV/Co-Test 2006 Pneumococcal Vaccine: Pediatrics (0 to 5 Years) and At-Risk Patients (6 to 64 Years) (2 of 2 - PCV) 07/28/2011 07/28/2010 Mammogram 2016 Colonoscopy 2021 Fecal Occult Blood Test 2021 Sigmoidoscopy 2021 COVID-19 Vaccine (1 - season) 2023 Influenza Vaccine (FLU shot) (#1) 2023 09/16/2021, 07/28/2010 Depression Screening 05/09/2024 05/09/2023 GFR 05/09/2024 05/09/2023, 04/0 01/2023, 07/22/2022, Additional history exists Albumin/Creatinine Ratio 05/10/2025 05/10/2022 Cervical Cancer Screening 05/10/2025 Pap Smear 05/10/2025 05/10/2022, 12/16, 05/17/2013 (Done elsewhere), Additional history exists Diabetes Screening 05/09/2026 05/09/2023, 0 07/22/2022, 05/10/2022, Additional history exists Cologuard 05/25/2026 05/25/2023, 110 07/2022, 05/17/2023 Colorectal Cancer Screening 05/25/2026 Lipid Panel 05/09/2028 05/09/2023, 04/17, 12/31/2020, Additional history exists GARDASIL-HPV IMMUNIZATION SERIES Aged Out No longer eligible based on patient's age to complete this topic MENINGOCOCCAL (MENACTRA/MENVEO) Aged Out No longer eligible based on patient's age to complete this topic documented as of this encounter Medical Devices Not on filedocumented as of this encounter Care Teams Printing Machine Operator Relationship Specialty Start Date End Date Alexandra Carrion MD [address] [place] [address] [place] [address] PCP - General Family Medicine 02/17/15 documented as of this encounter
--- OUTSIDE RECORDS SUMMARY | 2023-11-09 13:30 | External Medical Summary | Summary of Care ---
Author Name Unknown Organization [facility] Address [address] [facility] [place] [address] Phone [phone] Care Team Providers Care Teacher Resource Name Role Phone Alexandra Carrion MD Primary Care Provide r Encounter Details Date Type Department Care Team (Late st Contact Info) Description 11/08/[address] [place] [phone] Olesya Sy PA-C [address] [place] [address] [place] [address] Allergies Active Allergy Reactions Criticality Noted Date Comments Caffeine 05/07/2001 Ephedrine Pseudoephedrine 04/01/2008 documented as of this encounter (statuses as of 11/08/2023) Medications Medication Sig Dispensed Refills Start Date End Date Status Clindamycin Phosphate 1 % External GelIndications:Foll iculitis Put 1-2x daily to spots (2x daily when flared) and only 1x daily to areas to prevent spots when not flared 180 g 3 09/16/2021 Active Nystatin 288744 UNIT/GM External Powder (Nystop)Indications :Intertrigo Apply topically to affected area 3 times a day . 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 HTN, goal below 130/80 03/07/2011 Generalized anxiety disorder 04/01/2008 Other acne 04/01/2008 Allergic rhinitis due to pollen 09/08/2004 Adjustment disorder with depressed mood documented as of this encounter (statuses as of 11/08/2023) Resolved Problems Problem Noted Date Diagnosed Date Resolved Date Psoriasis 04/01/2008 10/28/2015 BMI 30.0-30.9,adult 08/23/19 19 documented as of this encounter (statuses as of 11/08/2023) Immunizations Name Administration Dates Next Due Pneumococcal [...] encounter Miscellaneous Notes * Telephone Encounter - Mai Macias CMA - 11/08/2023 10:14 AM EDT Anastacia called back. She wanted to speak to Olesya. I told her that Olesya was in a room and she neededto go the ER and they would be able to answer all her questions there. She mostly wanted to know how long she would be inpatient. I told her that we couldn't answer that. It would depend on the treatment required. She sounded reluctant to go to the ER but said she was going to before getting off the phone. I called [place] ED and spoke to the charge nurse. Faxed the report from the o to them. * Telephone Encounter - Camila Shea LPN - 11/08/2023 10:00 AM EDT Patient is aware and verbalizes understanding. Patient wanted to speak with Olesya directly. Called and spoke with Mai and warm transferred call. * Telephone Encounter - Lidya Willson LPN - 11/08/2023 9:57 AM EDT Attempted to call patient, no answer, left message to return call. Please transfer patient when they return call to [facility] Triage # [phone] Thank you! * Telephone Encounter - Olesya Sy PA-C - 11/08/2023 9:53 AM EDT Please call pt. Zio shows a type of fast heart rate called torsades. Cardiology contacted me and they want her to go to ER for inpatient treatment. Can we call [facility] and let them know what the zio shows. documented in this encounter Plan of Treatment Upcoming Encounters Date Type Department Care Team (Late st Contact Info) Description 11/21/2023 1:00 PM EDT Office Visit Cardiology, [facility] [address] [place] [address] Adam [place], [address] [facility] [place] [address] 11/22/2023 10:00 AM EDT Office Visit Dermatology [address] [place] [address] Beatriz Solis PA-C [address] [place] [address] [place] [address] 11/22/2023 12:20 PM EDT Office Visit Family Medicine [address] [place] [phone] Olesya Sy PA-C [address] [place] [address] [place] [address] 01/12/2024 1:30 PM EDT Office Visit Rheumatology [address] [place] [phone] Yareli Burns CRNP [address] [facility] [place] [address] 01/19/2024 9:20 AM EDT Office Visit Family Medicine [address] [place] [phone] Alexandra Carrion MD [address] [place] [address] [place] [address] Health Maintenance Due Date Last Done Comments [...] - season) 2023 Influenza Vaccine (FLU shot) (Season Ended) 2024 09/16/2021, 07/28/2010 Depression Screening 05/09/2024 05/09/2023 GFR 10/17/2024 10/18/2023, 04/17, 10/21/2022, Additional history exists Albumin/Creatinine Ratio 05/10/2025 05/10/2022 Cervical Cancer Screening 05/10/2025 Pap Smear 05/10/2025 05/10/2022, 12/16, 05/17/2013 (Done elsewhere), Additional history exists Cologuard 05/25/2026 05/25/2023, 1107/2022, 05/17/2023 Colorectal Cancer Screening 05/25/2026 Diabetes Screening [...] filedocumented as of this encounter Care Teams Teacher Resource Relationship Specialty Start Date End Date Alexandra Carrion MD [address] [place] [address] [place] [id number] PCP - General Family Medicine 02/17/15 documented as of this encounter
--- OUTSIDE RECORDS SUMMARY | 2023-11-09 13:30 | External Medical Summary | Summary of Care ---
Author Name Unknown Organization [facility] Address [address] [place] [address] Phone [phone] Care Team Providers Care Deck Worker Name Role Phone Alexandra Carrion MD Primary Care Provide r Encounter Details Date Type Department Care Team (Late st Contact Info) Description 10/18/2023 Result Scan Unspecified Department <No scans attached> Allergies Active Allergy Reactions Criticality Noted Date Comments Caffeine 05/07/2001 Ephedrine Pseudoephedrine 04/01/2008 documented as of this encounter (statuses as of 10/21/2023) Medications Medication Sig Dispensed Refills Start Date End Date Status Clindamycin Phosphate 1 % External GelIndications:Folli culitis Put 1-2x daily to spots (2x daily when flared) and only 1x daily to areas to prevent spots when not flared 180 g 3 09/16/2021 Active Nystatin 642629 UNIT/GM External Powder (Nystop)Indications: Intertrigo Apply topically to affected area 3 times a day . Apply to groin 60 g 1 09/16/2021 Active Ibuprofen 800 MG Oral Tablet (Motrin)Indications: PSA (psoriatic arthritis) ([facility]) Take by mouth 0.5 Tablets 2 times a day as needed for Pain, Severe. 100 Tablet 1 09/16/2021 Active Albuterol Sulfate HFA 108 (90 Base) MCG/ACT Inhalation Aerosol Solution As needed 0 Active Citalopram Hydrobromide 20 MG Oral Tablet (CeleXA) TAKE ONE TABLET BY MOUTH EVERY DAY 90 Tablet 2 05/02/2023 Active Lisinopril 40 MG Oral TabletIndications:HT N, goal below 130/80 Take 1 Tablet by mouth in the morning. 90 Tablet 1 05/09/2023 Active Clobetasol Propionate 0.05 % External Ointment (Temovate)Indication s:Pruritus of genitalia Apply topically to affected area 2 times a day. To affected area for up to two weeks. 60 g 1 05/09/2023 Active Allergy Relief 10 MG Oral Tablet (Loratadine)Indicati ons:Seasonal allergic rhinitis due to pollen TAKE ONE TABLET BY MOUTH EVERY DAY 90 Tablet 3 06/01/2023 Active Triamcinolone Acetonide 0.5 % External OintmentIndications: Pustular psoriasis of palms and soles,PSA (psoriatic arthritis) [...] as of this encounter (statuses as of 10/21/2023) Active Problems Problem Noted Date Diagnosed Date PSA (psoriatic arthritis) 04/20/2018 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 HTN, goal below 130/80 03/07/2011 Generalized anxiety disorder 04/01/2008 Other acne 04/01/2008 Allergic rhinitis due to pollen 09/08/2004 Adjustment disorder with depressed mood documented as of this encounter (statuses as of 10/21/2023) Resolved Problems Problem Noted Date Diagnosed Date Resolved Date Psoriasis 04/01/2008 10/28/2015 BMI 30.0-30.9,adult 08/23/19 19 documented as of this encounter (statuses as of 10/21/2023) Immunizations Name Administration Dates Next Due Pneumococcal [...] on file documented as of this encounter Plan of Treatment Upcoming Encounters Date Type Department Care Team (Late st Contact Info) Description 10/25/2023 11:00 AM EDT Office Visit Family Medicine [address] [place] [phone] Olesya Sy PA-C [address] [place] [address] [place] [address] 11/22/2023 10:00 AM EDT Office Visit Dermatology [address] [place] [address] Beatriz Solis PA-C [address] [place] [address] [place] [address] 01/12/2024 1:30 PM EDT Office Visit Rheumatology [address] [place] [phone] Yareli Burns CRNP [address] [facility] [place] [address] 01/19/2024 9:20 AM EDT Office Visit Family Medicine [address] [place] [phone] Alexandra Carrion MD [address] [place] [address] [place] [address] Health Maintenance Due Date Last Done Comments DTaP,Tdap,and Td Vaccines (1 - Tdap) 1995 Hepatitis B (1 of 3 - 19+ 3-dose series) 1995 HPV/Co-Test 2006 Pneumococcal Vaccine: Pediatrics (0 to 5 Years) and At-Risk Patients (6 to 64 Years) (2 of 2 - PCV) 07/28/2011 07/28/2010 Mammogram 2016 Colonoscopy 2021 Fecal Occult Blood Test 2021 Sigmoidoscopy 2021 COVID-19 Vaccine ( - 2022- season) 2023 Influenza Vaccine (FLU shot) (Season Ended) 2024 09/16/2021, 07/28/2010 Depression Screening 05/09/2024 05/09/2023 GFR 05/09/2024 10/18/2023, 04/17, 10/21/2022, Additional history exists Albumin/Creatinine Ratio 05/10/2025 05/10/2022 Cervical Cancer Screening 05/10/2025 Pap Smear 05/10/2025 05/10/2022, 12/16, 05/17/2013 (Done elsewhere), Additional history exists Diabetes Screening 05/09/2026 10/18/2023, 1 , 07/22/2022, Additional history exists Cologuard 05/25/2026 05/25/2023, 11/0 07/2022, 05/17/2023 Colorectal Cancer Screening 05/25/2026 Lipid Panel 05/09/2028 05/09/2023, 04/17, 12/31/2020, Additional history exists GARDASIL-HPV IMMUNIZATION SERIES Aged Out No longer eligible based on patient's age to complete this topic MENINGOCOCCAL (MENACTRA/MENVEO) Aged Out No longer eligible based on patient's age to complete this topic documented as of this encounter Medical Devices Not on filedocumented as of this encounter Procedures Procedure Name Priority Date/Time Associated Diagnosis Comments EKG SCANNED RESULT 10/18/2023 documented in this encounter Results * EKG SCANNED RESULT (10/18/2023) 10/18/2023 No Physician Data Unknown EKG documented in this encounter Care Teams Deck Worker Relationship Specialty Start Date End Date Alexandra Carrion MD [address] [place] [address] [place] [address] PCP - General Family Medicine 02/17/15 documented as of this encounter
--- OUTSIDE RECORDS SUMMARY | 2023-11-09 13:30 | External Medical Summary | Summary of Care ---
Author Name Unknown Organization [facility] Address [address] [place] [address] Phone [phone] Care Team Providers Care Legal Financial Specialist Name Role Phone Alexandra Carrion MD Primary Care Provide r Reason for Referral * Evaluate & Treat - Unlimited Visits (Within 10 days (routine)) - Pending Review Specialty Diagnoses / Procedures Referred By Jason vail Referred To Contact Cardiovascular Medicine / Cardiology Diagnoses Chest pain, unspecified type Olesya Sy PA-C [address] [place] [address] [place] [address] Referral ID Status Reason Start Date Expiration Date Visits Requested Visits Authorized [id number] Pending Review Specialty Services Required 10/25/[phone] Question Answer Referral Priority Within 10 days (routine) Where should this appointment be scheduled? Bobby To which of the following clinics are you referring your patient? General Cardiology Clinic Reason for Visit * Reason Comments Emergency Department Follow-Up Encounter Details Date Type Department Care Team (Late st Contact Info) Description 10/25/2023 11:00 AM EDT Office Visit Family Medicine [address] [place] [phone] Olesya Sy PA-C [address] [place] [address] [place] [address] Chest pain, unspecified type*; HTN, goal below 130/80 Allergies Active Allergy Reactions Criticality Noted Date Comments Caffeine 05/07/2001 Ephedrine Pseudoephedrine 04/01/2008 documented as of this encounter (statuses as of 10/25/2023) Medications Medication Sig Dispensed Refills Start Date End Date Status Clindamycin Phosphate 1 % External GelIndications:Fo lliculitis Put 1-2x daily to spots (2x daily when flared) and only 1x daily to areas to prevent spots when not flared 180 g 3 09/16/2021 Active Nystatin 405760 UNIT/GM External Powder (Nystop)Indicatio ns:Intertrigo Apply topically to affected area 3 times a day . Apply to groin 60 g 1 09/16/2021 Active Ibuprofen 800 MG Oral Tablet (Motrin)Indicatio ns:PSA (psoriatic arthritis) ([facility]) Take by mouth 0.5 Tablets 2 times a day as needed for Pain, Severe. 100 Tablet 1 09/16/2021 Active Citalopram Hydrobromide 20 MG Oral Tablet (CeleXA) TAKE ONE TABLET BY MOUTH EVERY DAY 90 Tablet 2 05/02/2023 Active Lisinopril 40 MG Oral TabletIndications :HTN, goal below 130/80 Take 1 Tablet by mouth in the morning. 90 Tablet 1 05/09/2023 Active Clobetasol Propionate 0.05 % External Ointment (Temovate)Indicat ions:Pruritus of genitalia Apply topically to affected area 2 times a day. To affected area for up to two weeks. 60 g 1 05/09/2023 Active Allergy Relief 10 MG Oral Tablet (Loratadine)Indic ations:Seasonal allergic rhinitis due to pollen TAKE ONE TABLET BY MOUTH EVERY DAY 90 Tablet 3 06/01/2023 Active Triamcinolone Acetonide 0.5 % External OintmentIndicatio ns:Pustular psoriasis of palms and soles,PSA (psoriatic arthritis) ([facility]) Apply topically to affected area 2 times a day. Apply to hands and feet as directed or more if itchy instead of scratching 45 g 5 06/06/2023 Active Taltz 80 MG/ML Subcutaneous Solution Auto-injector (Ixekizumab) Inject 1 mL under the skin every 4 weeks. Dx code L40.50, loading dose not needed. 1 mL 5 10/03/2023 Active Additional Information Patient not taking.Reported on 10/25/2023 hydroCHLOROthiazi de 25 MG Oral Tablet (Hydrodiuril)Zenaida cations:HTN, goal below 130/80 Take 1 Tablet by mouth in the morning. 30 Tablet 11 10/25/2023 Active Albuterol Sulfate HFA 108 (90 Base) MCG/ACT Inhalation Aerosol Solution As needed 0 10/25/19 24 Discontinued documented as of this encounter (statuses as of 10/25/2023) Active Problems Problem Noted Date Diagnosed Date PSA (psoriatic arthritis) 04/20/2018 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 HTN, goal below 130/80 03/07/2011 Generalized anxiety disorder 04/01/2008 Other acne 04/01/2008 Allergic rhinitis due to pollen 09/08/2004 Adjustment disorder with depressed mood documented as of this encounter (statuses as of 10/25/2023) Resolved Problems Problem Noted Date Diagnosed Date Resolved Date Psoriasis 04/01/2008 10/28/2015 BMI 30.0-30.9,adult 08/23/19 19 documented as of this encounter (statuses as of 10/25/2023) Immunizations Name Administration Dates Next Due Pneumococcal [...] on file documented as of this encounter Last Filed Vital Signs Vital Sign Reading Time Taken Comments Blood Pressure 170/104 10/25/2023 10:45 AM EDT Pulse 80 10/25/2023 10:45 AM EDT Temperature 36.4 C (97.6 F) 10/25/2023 10:45 AM E DT Respiratory Rate - - Oxygen Saturation 98% 10/25/2023 10:45 AM EDT Inhaled Oxygen Concentration - - Weight 83 kg (183 lb) 10/25/2023 10:45 AM EDT Height 165.1 cm (5' 5") 10/25/2023 10:45 AM EDT Body Mass Index 30.45 10/25/2023 10:45 AM EDT documented in this encounter Progress Notes * Olesya Sy PA-C - 10/25/2023 10:45 AM EDT Nursing Notes: Lidya Willson LPN 10/25/23 1045 Sign at exiting of workspace [facility] Chest pain Pain in left arm SOB Pt here today for ER FU. Pt went to ER on 10/18/23 with chest pain. She called the ambulance but the pain cleared before they got there. She still went to ER. EKG normal - labs normal - chest xray normal. BP was elevated in ER. Pt is taking lisinopril 40 mg daily. BP elevated today at 170/104. Pt doesn't have any chest pain at this time. She has had only 3 episodes of chest pain. It comes on at random. Doesn't seem to happen with activity or exertion. Pt states that she does get SOB, lightheadedness, pain into left arm when she has the episode. Pt denies pain into neck or jaw, heartburn, belching, bloating, cough, URI sx, fever, chills. She does get headaches. Pt has never had anything like this in the past. There is a family hx of heart disease and stroke. She drinks water, some caffeine. Review of patient's allergies indicates: Allergen Reactions Caffeine Ephedrine Pseudo [Pseudoephedrine] Current Outpatient Medications Medication Sig Dispense Refill Clindamycin Phosphate 1 % External Gel Put 1-2x daily to spots (2x daily when flared) and only 1x daily to areas to prevent spots when not flared 180 g 3 Nystatin 533343 UNIT/GM External Powder (Nystop) Apply topically to affected area 3 times a day . Apply to groin 60 g 1 Ibuprofen 800 MG Oral Tablet (Motrin) Take by mouth 0.5 Tablets 2 times a day as needed for Pain, Severe. 100 Tablet 1 Citalopram Hydrobromide 20 MG Oral Tablet (CeleXA) TAKE ONE TABLET BY MOUTH EVERY DAY 90 Tablet 2 Lisinopril 40 MG Oral Tablet Take 1 Tablet by mouth in the morning. 90 Tablet 1 Clobetasol Propionate 0.05 % External Ointment (Temovate) Apply topically to affected area 2 times a day. To affected area for up to two weeks. 60 g 1 Allergy Relief 10 MG Oral Tablet (Loratadine) TAKE ONE TABLET BY MOUTH EVERY DAY 90 Tablet 3 Triamcinolone Acetonide 0.5 % External Ointment Apply topically to affected area 2 times a day. Apply to hands and feet as directed or more if itchy instead of scratching 45 g 5 Taltz 80 MG/ML Subcutaneous Solution Auto-injector (Ixekizumab) Inject 1 mL under the skin every 4 weeks. Dx code L40.50, loading dose not needed. (Patient not taking: Reported on 10/25/2023) 1 mL 5 No current facility-administered medications for this visit. Past Medical History: Diagnosis Date Acne Adjustment disorder with depressed mood Allergic rhinitis due to pollen BMI 30.0-30.9,adult Generalized anxiety disorder HTN, goal below 140/90 Psoriasis Social History Socioeconomic History Marital status: Single Spouse name: Not on file Number of children: Not on file Years of education: Not on file Highest education level: Not on file Occupational History Occupation: unemployed since January 2004 Comment: for depression Tobacco Use Smoking status: Every Day Current packs/day: 1.00 Average packs/day: 1 pack/day for 10.0 years (10.0 ttl pk-yrs) Types: Cigarettes Smokeless tobacco: Never Substance and Sexual Activity Alcohol use: Yes Comment: ocass Drug use: No Sexual activity: Yes Partners: Male Other Topics Concern Not on file Social History Narrative Not on file Social Determinants of Health Financial Resource Strain: Not on file Food Insecurity: No Food Insecurity (12/31/2020) Hunger Vital Sign Worried About Running Out of Food in the Last Year: Never true Ran Out of Food in the Last Year: Never true Transportation Needs: Not on file Physical Activity: Not on file Stress: Not on file Social Connections: Not on file Intimate Partner Violence: Not on file Housing Stability: Not on file O:Blood pressure 170/104, pulse 80, temperature 36.4 C (97.6 F), temperature source Tympanic, height 1.651 m (5' 5"), weight 83 kg (183 lb), SpO2 98%. GENERAL: alert, healthy, and no distress NECK: supple, no adenopathy, no bruits, thyroid normal size, non-tender, without nodularity HEART: regular rate & rhythm, no murmur, and no gallops LUNGS: chest symmetric with normal AP diameter, no chest deformities noted, no chest wall tenderness, lungs clear to auscultation EXTREMITIES: no edema A:Chest pain, unspecified type (Primary) - EXTERNAL EKG 2 TO 7 DAYS; Future; Expected date: 10/26/2023 - CARDIOLOGY REFERRAL OP HTN, goal below 130/80 - hydroCHLOROthiazide 25 MG Oral Tablet (Hydrodiuril); Take 1 Tablet by mouth in the morning. Will get zio. Start HCTZ 25 mg daily. Nurse visit BP recheck in 3 weeks. Schedule with cardiology. Any questions/problems, please call. If anything changes, worsens, develops new sx, please call KRISTINA. Follow Up: Return if symptoms worsen or fail to improve. Olesya Sy PA-C documented in this encounter Nursing Notes * Lidya Willson LPN - 10/25/2023 10:45 AM EDT [facility] Chest pain Pain in left arm SOB documented in this encounter Plan of Treatment Upcoming Encounters Date Type Department Care Team (Late st Contact Info) Description 11/21/2023 1:00 PM EDT Office Visit Cardiology, [facility] [address] [place] [address] Adam Beverly, DO [address] [place] [address] 11/22/2023 10:00 AM EDT Office Visit Dermatology [address] [place] [address] Beatriz Solis PA-C [address] [place] [address] [place] [address] 11/22/2023 12:20 PM EDT Office Visit Family Medicine [address] [phone] Olesya Sy PA-C [address] [place] [address] [place] [address] 01/12/2024 1:30 PM EDT Office Visit Rheumatology [address] [place] [phone] Yareli Burns CRNP [address] [place], [place] [address] [address] 01/19/2024 9:20 AM EDT Office Visit Family Medicine [address] [place] [phone] Alexandra Carrion MD [address] [place] [address] [place] [address] Scheduled Orders Name Type Priority Associated Diagnoses Orde r Schedule EXTERNAL EKG 2 TO 7 DAYS Holter Routine Chest pain, unspecified type Expected: 10/26/2023 (Approximate), Expires: 10/24/2024 Scheduled Referrals Name Type Priority Associated Diagnoses Orde r Schedule CARDIOLOGY REFERRAL OP Referral Within 10 days (routine) Chest pain, unspecified type Ordered: 10/25/2023 Health Maintenance Due Date Last Done Comments [...] elsewhere), Additional history exists Cologuard 05/25/2026 05/25/2023, 11/0 07/2022, 05/17/2023 Colorectal Cancer Screening 05/25/2026 Diabetes [...] Not on filedocumented as of this encounter Visit Diagnoses Diagnosis Chest pain, unspecified type- Primary HTN, goal below 130/80 Unspecified essential hypertension documented in this encounter Care Teams Legal Financial Specialist Relationship Specialty Start Date End Date Alexandra Carrion MD [address] [place] [address] [place] [address] PCP - General Family Medicine 02/17/15 documented as of this encounter
--- OUTSIDE RECORDS SUMMARY | 2023-11-09 13:30 | External Medical Summary | Summary of Care ---
Author Name Unknown Organization [facility] Address [address] [place] [address] Phone [phone] Care Team Providers Care Truck Hopper Name Role Phone Alexandra Carrion MD Primary Care Provide r Reason for Visit * Reason Comments Medication Refill Encounter Details Date Type Department Care Team (Late st Contact Info) Description 10/26/2023 Refill [address]umatology [address] [place] [address] Yareli Burns CRNP [facility] [place] [address] Allergies Active Allergy Reactions Criticality Noted Date Comments Caffeine 05/07/2001 Ephedrine Pseudoephedrine 04/01/2008 documented as of this encounter (statuses as of 10/26/2023) Medications Medication Sig Dispensed Refills Start Date End Date Status Clindamycin Phosphate 1 % External GelIndications:Foll iculitis Put 1-2x daily to spots (2x daily when flared) and only 1x daily to areas to prevent spots when not flared 180 g 3 09/16/2021 Active Nystatin 226412 UNIT/GM External Powder (Nystop)Indications :Intertrigo Apply topically to affected area 3 times a day . Apply to groin 60 g 1 09/16/2021 Active Ibuprofen 800 MG Oral Tablet (Motrin)Indications :PSA (psoriatic arthritis) (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 HTN, goal below 130/80 03/07/2011 Generalized anxiety disorder 04/01/2008 Other acne 04/01/2008 Allergic rhinitis due to pollen 09/08/2004 Adjustment disorder with depressed mood documented as of this encounter (statuses as of 10/26/2023) Resolved Problems Problem Noted Date Diagnosed Date Resolved Date Psoriasis 04/01/2008 10/28/2015 BMI 30.0-30.9,adult 08/23/19 19 documented as of this encounter (statuses as of 10/26/2023) Immunizations Name Administration Dates Next Due Pneumococcal [...] encounter Miscellaneous Notes * Telephone Encounter - Etelvina De Paz CPhT - 10/26/2023 2:56 PM EDTNo prescriptions requested or ordered in this encounter documented in this encounter Plan of Treatment Upcoming Encounters Date Type Department Care Team (Late st Contact Info) Description 11/21/2023 1:00 PM EDT Office Visit Cardiology, [facility] [address] [place] [address] Adam Beverly, 132 [place] [address] 11/22/2023 10:00 AM EDT Office Visit Dermatology [address] [place] [address] Beatriz Solis PA-C [address] [place] [address] [place] [address] 11/22/2023 12:20 PM EDT Office Visit Family Medicine [address] [place] [phone] Olesya Sy PA-C [address] [place] [address] [place] [address] 01/12/2024 1:30 PM EDT Office Visit Rheumatology [address] [place] [phone] Yareli Burns CRNP [address] [place], [place] [address] [address] 01/19/2024 9:20 AM EDT Office Visit [address] [place] [phone] Alexandra Carrion MD [address] [place] [address] [place] [address] Health Maintenance Due Date Last Done Comments [...] filedocumented as of this encounter Care Teams Truck Hopper Relationship Specialty Start Date End Date Alexandra Carrion MD [address] [place] [address] [place] [address] PCP - General Family Medicine 02/17/15 documented as of this encounter
--- OUTSIDE RECORDS SUMMARY | 2023-11-09 13:30 | External Medical Summary | Summary of Care ---
Author Name Unknown Organization [facility] Address [address] [place] [address] Phone [phone] Care Team Providers Care Printing Services Coordinator Name Role Phone Alexandra Carrion MD Primary Care Provide r Encounter Details Date Type Department Care Team (Late st Contact Info) Description 10/21/2023 Orders Only Family Medicine [address] [phone] Alexandra Carrion MD [address] [place], [place] [address] [phone] Allergies Active Allergy Reactions Criticality Noted Date [...] flared 180 g 3 09/16/2021 Active Nystatin 691520 UNIT/GM External Powder (Nystop)Indications: Intertrigo Apply topically to affected area 3 times a day . Apply to groin 60 g 1 09/16/2021 Active Ibuprofen 800 MG Oral Tablet (Motrin)Indications: PSA (psoriatic arthritis) ([facility]) Take by mouth 0.5 Tablets 2 times [...] 11:00 AM EDT Office Visit Family Medicine [address] [place] [phone] Olesya Sy PA-C [address] [place] [address] [place] [address] 11/22/2023 10:00 AM EDT Office Visit Dermatology [address] [place] [address] Beatriz Solis PA-C [address] [place] [address] [place] [address] 01/12/2024 1:30 PM EDT Office Visit Rheumatology [address] [place] [phone] Yareli Burns CRNP [address] [facility] [place] [address] 01/19/2024 9:20 AM EDT Office Visit Family Medicine [address] [place] [phone] Alexandra Carrion MD [address] [place] [address] [place] [address] Health Maintenance Due Date Last Done Comments DTaP,Tdap,and Td Vaccines (1 - Tdap) 1995 Hepatitis B (1 of 3 - 19+ 3-dose series) 1995 HPV/Co-Test 2006 Pneumococcal Vaccine: Pediatrics (0 to 5 Years) and At-Risk Patients (6 to 64 Years) (2 of 2 - PCV) 07/28/2011 07/28/2010 Mammogram 2016 Colonoscopy 2021 Fecal Occult Blood Test 2021 Sigmoidoscopy 2021 COVID-19 Vaccine ( - season) 2023 Influenza Vaccine (FLU shot) [...] Procedure Name Priority Date/Time Associated Diagnosis Comments XR CHEST 1 VIEW Routine 10/18/2023 CHEMISTRY-OUTSIDE Routine 10/18/2023 documented in this encounter Results * CHEMISTRY-OUTSIDE (10/18/2023) Not all results display below - see scan for full detail OUTSIDE LAB (SEE SCANNED REPORT) Comment:SCAN INCLUDES: CBCD, D-DIMER, CMP, LIPASE, TROP X 2 CREATININE-OUTSID E LAB 0.68 0.55 - 1.02 MG/DL OUTSIDE LAB (SEE SCANNED REPORT) EGFR-OUTSIDE LAB >90 >=60 ML/MIN OUTSIDE LAB (SEE SCANNED REPORT) POTASSIUM-OUTSIDE LAB 3.8 3.5 - 5.1 MMOL/L OUTSIDE LAB (SEE SCANNED REPORT) GLUCOSE-OUTSIDE LAB 91 70 - 110 MG/DL OUTSIDE LAB (SEE SCANNED REPORT) HOURS FASTING OUTSID E LAB (SEE SCANNED REPORT) TRIGLYCERIDES-OUT SIDE LAB OUTSIDE LAB (SEE SCANNED REPORT) CHOLESTEROL-OUTSI DE LAB OUTSIDE LAB (SEE SCANNED REPORT) HDL-OUTSIDE LAB OUTS TILA LAB (SEE SCANNED REPORT) CHOL/HDL RATIO-OUTSIDE LAB OUTSIDE LA B (SEE SCANNED REPORT) LDL (CALCULATED)-OUTS TILA LAB OUTSIDE LAB (SEE SCANNED REPORT) LDL (DIRECT MEASURE)-OUTSIDE LAB OUTSIDE LAB (SEE SCANNED REPORT) HEMOGLOBIN, [id number] LAB OUTSIDE LAB (SEE SCANNED REPORT) PHOSPHORUS-OUTSID E LAB OUTSIDE LAB (SEE SCANNED REPORT) PTH-OUTSIDE LAB OUTS TILA LAB (SEE SCANNED REPORT) MICROALBUMIN RATIO-OUTSIDE LAB OUTSIDE LA B (SEE SCANNED REPORT) PROTEIN, UA-OUTSIDE LAB OUTSIDE LAB (SEE SCANNED REPORT) HGB 15.8 12.0 - 16.0 GM/DL OUTSIDE LAB (SEE SCANNED REPORT) 10/18/2023 Etelvina Hayden PA-C LABORATORY OUTSIDE LAB (SEE SCANNED REPORT) * XR CHEST 1 VIEW (10/18/2023) Anatomical Region Laterality Modality Chest Other 10/18/2023 Etelvina Hayden PA-C RADIOLOGY (RAD GENERAL) documented in this encounter Care Teams Printing Services Coordinator Relationship Specialty Start Date End Date Alexandra Carrion MD [address] [place] [address] [place] [address] PCP - General Family Medicine 02/17/15 documented as of this encounter
--- OUTSIDE RECORDS SUMMARY | 2023-11-09 13:31 | External Medical Summary | Summary of Care ---
Author Name Unknown Organization [facility] Address [address] [place] [address] Phone [phone] Care Team Providers Care Commissary Representative Name Role Phone Alexandra Carrion MD Primary Care Provide r Reason for Referral * Evaluate & Treat - Unlimited Visits (Within 3 days (urgent)) - Authorized Specialty Diagnoses / Procedures Referred By Jason vail Referred To Contact Pharmacist / Pharmacy Diagnoses PSA (psoriatic arthritis) ([facility]) Yareli Burns CRNP [address] [place] [id number] Referral ID Status Reason Start Date Expiration Date Visits Requested Visits Authorized [id number] Authorized Specialty Services Required 08/22/2023 99 99 Question Answer Referral Priority Within 3 days (urgent) Where should this appointment be scheduled? [facility] Referring Provider Role: Specialist Specialty: Rheum Reason for Referral: Med Education Comments Rheumatology Pharmacist Disease Modifying Antirheumatic Drug (DMARD) Co- Management Referral for: Char med education Minimum frequency patient should be seen in person for medication management: As appropriate per clinical condition and patient status By my signature, I understand that my patient, Anastacia Zhong will have her medication therapy managed by the [facility] ([facility]) per established policies, procedures, and protocols. I also certify that this referral may serve as an initiation of service for the management of drug therapy in the above noted patient. [facility] providers will be responsible for scheduling patient visits, obtaining appropriate laboratory studies, and adjusting medication management therapy per patient's need, in addition to those roles spelled out in the clinic policy, procedures, and drug management protocols. I understand that the service provided by the [facility] is voluntary and have informed patient that they can refuse the service at their discretion. I am aware that the [facility] will provide me with a copy of the patient encounter via my Guide Financial In-Basket. I authorize the [facility] to carry out these activities on my behalf. I consider this program to be a necessary part of the patient's medical care. Abhi Barrera [facility] Reason for Visit * Reason Onset Date Comments Precert Approved 08/21/2023 TALTZ 80 MG/ML AUTOINJECTOR Encounter Details Date Type Department Care Team (Late st Contact Info) Description 08/21/2023 Refill Rheumatology [address] [place] [address] Yareli Burns CRNP [facility]0 [place] [id number] PSA (psoriatic arthritis) ([facility])* Allergies Active Allergy Reactions Criticality Noted Date Comments Caffeine 05/07/2001 Ephedrine Pseudoephedrine 04/01/2008 documented as of this encounter (statuses as of 08/24/2023) Medications Medication Sig Dispensed Refills Start Date End Date Status Clindamycin Phosphate 1 % External GelIndications:Folli culitis Put 1-2x daily to spots (2x daily when flared) and only 1x daily to areas to prevent spots when not flared 180 g 3 09/16/2021 Active Nystatin 847959 UNIT/GM External Powder (Nystop)Indications: Intertrigo Apply topically to affected area 3 times a day . Apply to groin 60 g 1 09/16/2021 Active Ibuprofen 800 MG Oral Tablet (Motrin)Indications: PSA (psoriatic arthritis) ([facility]) Take by mouth 0.5 Tablets 2 times [...] of scratching 45 g 5 06/06/2023 Active documented as of this encounter (statuses as of 08/24/2023) Active Problems Problem Noted Date Diagnosed Date PSA (psoriatic arthritis) 04/20/2018 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 HTN, goal below 130/80 03/07/2011 Generalized anxiety disorder 04/01/2008 Other acne 04/01/2008 Allergic rhinitis due to pollen 09/08/2004 Adjustment disorder with depressed mood documented as of this encounter (statuses as of 08/24/2023) Resolved Problems Problem Noted Date Diagnosed Date Resolved Date Psoriasis 04/01/2008 10/28/2015 BMI 30.0-30.9,adult 08/23/19 19 documented as of this encounter (statuses as of 08/24/2023) Immunizations Name Administration Dates Next Due Pneumococcal [...] as of this encounter Miscellaneous Notes * Addendum Note - Etelvina Asher CPhT - 08/24/2023 7:40 AM ESTAddended by: ETELVINA ASHER on: 08/24/2023 07:40 AM Modules accepted: Orders * Telephone Encounter - Etelvina Asher CPhT - 08/24/2023 7:38 AM EST Rheumatology Pre-Certification Response Approved - Script pended - to be filled at [facility] (P: [phone]) Etelvina Asher CPhT-Gin Book Mender III [facility] ([facility]) (formerly Telepharmacy) 08/24/2023,7:38 AM * Telephone Encounter - Etelvina Asher CPhT - 08/23/2023 10:18 AM EST Patient Phone Numbers Appointment scheduled as noted below. 09/08/2023 Etelvina Asher CPhT-Gin Book Mender III [facility] ([facility] (formerly Telepharmacy) 08/23/2023,10:18 AM * Telephone Encounter - Abhi Barrera [facility] - 08/22/2023 7:44 AM EST Rheumatology Pharmacist Appointment Request Char medication education in 2 weeks. Rheum west Department & Provider: Rheumatology [facility] Cecilia [[id number]] - Pharmacist Rheumatology [facility] [[id number]] Patient to be scheduled for visit type: Dosage Adj In Person [[id number]], New Video Visit Home [[id number]], or Telephonic Medicine Visit [[id number]] Length of visit: 30 min Reason for visit: Medication Education Time Frame: within 2 weeks Request routed to [facility] Specialty Scheduling Pool ([id number]) Please route this encounter back to [facility] Pharmacist Refill Pool/Class [p [phone]] if unable to schedule patient after 3 attempts. Abhi Barrera Pharm[facility] DP[facility], [facility] Clinical Pharmacist 08/22/2023,7:44 AM * Telephone Encounter - Abhi Barrera RPh - 08/22/2023 7:42 AM EST Rheumatology Pre-Certification Request Required Screening Information: Vaccination(s): Patient has [facility] PCP - plan in place for CDC/ACIP vaccination guidelines usingHealth Maintenance Topics, Best Practice Alerts, and Anticipatory Management Reports within EHR TB Testing: Completed under scans, care everywhere or epic Hepatitis B Screenings: Completed under scans, care everywhere or epic Hepatitis C Screenings: Completed under scans, care everywhere or epic No active, severe, and/or uncontrolled infection Reauthorization: No Rheumatology Office Information: Nuclear Medicine Pet Ct Technologist: JODY COX Rheumatology Pharmacist: Abhi Barrera ([facility] Thank you and have a wonderful day, Abhi Barrera Pharm[facility] DP[facility], [facility] Clinical Pharmacist 08/22/2023,7:42 AM * Telephone Encounter - Yareli Burns CRNP - 08/21/2023 11:22 AM EST Rheumatology Education, Pre-Certification, and/or Pharmacist Co-Management Request Medication Education: yes Pre-Certification: [facility]: Pre-cert for Prednisone, DMARDs & IV/IM/SC Osteoporosis Meds (route rheumatology pharmacist pool p [phone]) Pharmacist Co-Management ([facility] ONLY; [place] select "no"): No Pharmacist Co-Management Medication/Disease State Information: Diagnosis: PSA (psoriatic arthritis) [L40.50] Medication:Ixekizumab 160 mg once, followed by 80 mg every 4 weeks Failed or Intolerant to or Contraindicated: [facility] up to date. Thank you. Rheumatology Pharmacist Disease Modifying Antirheumatic Drug (DMARD) Co- Management (If Applicable) Minimum frequency patient should be seen in person for medication management: As appropriate per clinical condition and patient status By my signature, I understand that my patient will [facility] per established policies, procedures, and protocols. I also certify that this referral may serve as an initiation of service for the management of drug therapy in the above noted patient. [facility] providers will be responsible for scheduling patient visits, obtaining appropriate laboratory studies, and adjusting medication management therapy per patient's need, in addition to those roles spelled out in the clinic policy, procedures, and drug management protocols. I understand that the service provided by the [facility] is voluntary and have informed patient that they can refuse the service at their discretion. I am aware that the [facility] will provide me with a copy of the patient encounter via my Guide Financial In-Basket. I authorize the [facility] to carryout these activities on my behalf. I consider this program to be a necessary part of the patient's medical care. SARA Morales documented in this encounter Plan of Treatment Upcoming Encounters Date Type Department Care Team (Late st Contact Info) Description 09/08/2023 10:30 AM EST Telemedicine Rheumatology, [place] [address] [place] [address] Agc5, Pharmacist Rheumatology [address] [place] [address] 11/22/2023 10:00 AM EDT Office Visit Dermatology [address] [place] [address] Beatriz Solis PA-C [address] [place] [address] [place] [address] 01/12/2024 1:30 PM EDT Office Visit Rheumatology [address] [place] [phone] Yareli Burns CRNP [facility] [address] 01/19/2024 9:20 AM EDT Office Visit Family Medicine [address] [place] [phone] Alexandra Carrion MD [address] [place] [address] [place] [address] Scheduled Referrals Name Type Priority Associated Diagnoses Orde r Schedule PHARMACIST MEDS THERAPY MGMT REFERRAL OP Referral Within 3 days (urgent) PSA (psoriatic arthritis) (HCC) Ordered: 08/22/2023 Health Maintenance Due Date Last Done Comments Hepatitis B (1 of 3 - 3-dose series) 1976 COVID-19 Vaccine (#1) 03/02/1977 DTaP,Tdap,and Td Vaccines (1 - Tdap) 1995 HPV/Co-Test 2006 Pneumococcal Vaccine: Pediatrics (0 to 5 Years) and At-Risk Patients (6 to 64 Years) (2 - PCV) 07/28/2011 07/28/2010 Mammogram 2016 Colonoscopy 2021 Fecal Occult Blood Test 2021 Sigmoidoscopy 2021 Influenza Vaccine (FLU shot) (#1) 2023 09/16/2021, 07/28/2010 Depression Screening 05/09/2024 05/09/2023 GFR 05/09/2024 05/09/2023, 04/0 01/2023, 07/22/2022, Additional history exists Albumin/Creatinine Ratio 05/10/2025 05/10/2022 Cervical Cancer Screening 05/10/2025 Pap Smear 05/10/2025 05/10/2022, 12/16, 05/17/2013 (Done elsewhere), Additional history exists Diabetes Screening 05/09/2026 05/09/2023, 0 07/22/2022, 05/10/2022, Additional history exists Cologuard 05/25/2026 05/25/2023, 1107/2022, 05/17/2023 Colorectal Cancer Screening 05/25/2026 Lipid Panel 05/09/2028 05/09/2023, 04/17, 12/31/2020, Additional history exists GARDASIL-HPV IMMUNIZATION SERIES Aged Out No longer eligible based on patient's age to complete this topic MENINGOCOCCAL (MENACTRA/MENVEO) Aged Out No longer eligible based on patient's age to complete this topic documented as of this encounter Medical Devices Not on filedocumented as of this encounter Visit Diagnoses Diagnosis PSA (psoriatic arthritis) (HCC)- Primary Psoriatic arthropathy documented in this encounter Care Teams Commissary Representative Relationship Specialty Start Date End Date Alexandra Carrion MD [address] [place] [address] [place] [id number] PCP - General Family Medicine 02/17/15 documented as of this encounter
--- OUTSIDE RECORDS SUMMARY | 2023-11-09 13:31 | External Medical Summary | Summary of Care ---
Author Name Unknown Organization [facility] Address [address] [place] [address] Phone [phone] Care Team Providers Care Galvanizer Zinc Name Role Phone Alexandra Carrion MD Primary Care Provide r Reason for Visit * Reason Comments Medication Management Dosage Adjustment Via Phone (anticoag Cl inic) Encounter Details Date Type Department Care Team (Late st Contact Info) Description 09/08/2023 10:30 AM EST Telemedicine Rheumatology, [place] [address], [place] [id number] Agc5, Pharmacist Rheumatology [address] [place] [id number] PSA (psoriatic arthritis) ([facility])* Allergies Active Allergy Reactions Criticality Noted Date Comments Caffeine 05/07/2001 Ephedrine Pseudoephedrine 04/01/2008 documented as of this encounter (statuses as of 09/08/2023) Medications Medication Sig Dispensed Refills Start Date End Date Status Clindamycin Phosphate 1 % External GelIndications:Foll iculitis Put 1-2x daily to spots (2x daily when flared) and only 1x daily to areas to prevent spots when not flared 180 g 3 09/16/2021 Active Nystatin 970622 UNIT/GM External Powder (Nystop)Indications :Intertrigo Apply topically to affected area 3 times a day . Apply to groin 60 g 1 09/16/2021 Active Ibuprofen 800 MG Oral Tablet (Motrin)Indications :PSA (psoriatic arthritis) ([facility]) Take by mouth 0.5 Tablets 2 times [...] 80 MG/ML Subcutaneous Solution Auto-injector (Ixekizumab) Inject 160 mg (2 pens) under the skin once, followed by 80 mg (1 pen) every 4 weeks. 3 mL 0 08/24/2023 Active Taltz 80 MG/ML Subcutaneous Solution Auto-injector (Ixekizumab) Inject 1 mL under the skin every 4 weeks. 1 mL 0 08/24/2023 Active predniSONE 5 MG Oral Tablet (Deltasone) Take 3 Tablets by mouth daily for 10 days, THEN 2 Tablets daily for 10 days, THEN 1 Tablet daily for 10 days, THEN 0.5 Tablets daily for 10 days. 65 Tablet 0 08/30/2023 10/09/2023 Active documented as of this encounter (statuses as of 09/08/2023) Active Problems Problem Noted Date Diagnosed Date PSA (psoriatic arthritis) 04/20/2018 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 HTN, goal below 130/80 03/07/2011 Generalized anxiety disorder 04/01/2008 Other acne 04/01/2008 Allergic rhinitis due to pollen 09/08/2004 Adjustment disorder with depressed mood documented as of this encounter (statuses as of 09/08/2023) Resolved Problems Problem Noted Date Diagnosed Date Resolved Date Psoriasis 04/01/2008 10/28/2015 BMI 30.0-30.9,adult 08/23/19 19 documented as of this encounter (statuses as of 09/08/2023) Immunizations Name Administration Dates Next Due Pneumococcal [...] on file documented as of this encounter Progress Notes * Angelica Deleon, [facility] - 09/08/2023 10:30 AM EST Clinical Pharmacy Service (Rheumatology): Medication Education ASSESSMENT PSA History of TB/Hep B: No History of IBD: No History of Malignancies: No Current Symptomology: Skin and joints PLAN OF ACTION Medication Regimen: START Inject 160 mg (2 pens) under the skin once, followed by 80 mg (1 pen) every 4 weeks. Follow-Up Appointment: 01/12/2024 EDUCATION Medication Information: IL-17 Inhibitors The following information was verbally provided to the patient and afterwards, a copy of the ACR medication guide was provided to supplement with more extensive information: Ixekizumab (Brand Name: Taltz), is within a class of medications known as IL-17 Inhibitors that block further formation of inflammatory markers within your immune system. This medication is availablein a subcutaneous injection. Side effects may include but are not limited to headache, dizziness, upset stomach, rash, infection, runny nose, sore throat, injection site reactions such as localized burning or itching, and the risk of developing malignancies or IBD. Because this medication can lowerthe ability of your immune system to fight infections, there is an increased risk of developing infections, including TB or fungal infections. If any of the above-mentioned side effects occur, please inform your physician or rheumatology pharmacist so that we can take the next appropriate steps in your care. Please make your physician aware if you are or planning to become , have kidney/liver damage, have current infection, any new cancer or malignancy, have a latex allergy, planning to get any vaccinations, or if you have new or changed medications on your medication list as these factors may impact your care plan. This medication may take up to 16-24 weeks to see an effect on your joints. For your safety, we will monitor you routinely through a series of blood work. For further inquiries, please refer to the medication information provided to you as well as your rheumatology care team. Patient Global = 9 Considering all the ways in which your illness may affect you at this time, how are you doing? Angelica Deleon RPh [facility] Clinical Pharmacist Rheumatology Department 09/08/2023,10:30 AM documented in this encounter Plan of Treatment Upcoming Encounters Date Type Department Care Team (Late st Contact Info) Description 11/22/2023 10:00 AM EDT Office Visit Dermatology [address] [place] [address] Beatriz Solis PA-C [address] [place] [address] [place] [address] 01/12/2024 1:30 PM EDT Office Visit Rheumatology [address] [place] [phone] Yareli Burns CRNP [facility] [facility] [address] 01/19/2024 9:20 AM EDT Office Visit Family Medicine [address] [place] [phone] Alexandra Carrion MD [address] [place] [address] [place] [address] Health Maintenance Due Date Last Done Comments [...] arthropathy documented in this encounter Care Teams Galvanizer Zinc Relationship Specialty Start Date End Date Alexandra Carrion MD [address] [place] [address] [place] [address] PCP - General Family Medicine 02/17/15 documented as of this encounter
--- OUTSIDE RECORDS SUMMARY | 2023-11-09 13:31 | External Medical Summary | Summary of Care ---
Author Name Unknown Organization [facility] Address [address] [place] [address] Phone [phone] Care Team Providers Care Support Coordinator Name Role Phone Alexandra Carrion MD Primary Care Provide r Reason for Referral * Evaluate & Treat - Unlimited Visits (Within 3 days (urgent)) - Authorized Specialty Diagnoses / Procedures Referred By Jason vail Referred To Contact Pharmacist / Pharmacy Diagnoses PSA (psoriatic arthritis) ([facility]) Yareli Burns CRNP [address] [place] [address] Referral ID Status Reason Start Date Expiration Date Visits Requested Visits Authorized [id number] Authorized Specialty Services Required 08/22/2023 99 99 Question Answer Referral Priority Within 3 days (urgent) Where should this appointment be scheduled? [facility] Referring Provider Role: Specialist Specialty: Rheum [...] have her medication therapy managed by the [facility] Medication Therapy Disease Management [facility] ([facility]) per established policies, procedures, and protocols. I also certify that this referral may serve as an initiation of service for the management of drug therapy in the above noted patient. [facility] providers will be responsible for scheduling patient [...] their discretion. I am aware that the [facility] Clinic will provide me with a copy of the patient encounter via my C2C Link In-Basket. I authorize the [facility] to carry out these activities on my behalf. I consider this program to be a necessary part of the patient's medical care. Abhi Barrera [facility] Reason for Visit * Reason Onset Date Comments Precert Approved 08/21/2023 TALTZ 80 MG/ML AUTOINJECTOR Encounter Details Date Type Department Care Team (Late st Contact Info) Description 08/21/2023 Telephone Rheumatology [place] [id number] [facility] [place] [address] Yareli Burns CRNP [address] [place] [address] Precert Approved (TALTZ 80 MG/ML AUTOINJEC... Allergies Active Allergy Reactions Criticality Noted Date Comments Caffeine 05/07/2001 Ephedrine Pseudoephedrine 04/01/2008 documented as of this encounter (statuses as of 08/23/2023) Medications Medication Sig Dispensed Refills Start Date End Date Status Clindamycin Phosphate 1 % External GelIndications:Folli culitis Put 1-2x daily to spots (2x daily when flared) and only 1x daily to areas to prevent spots when not flared 180 g 3 09/16/2021 Active Nystatin 893851 UNIT/GM External Powder (Nystop)Indications: Intertrigo Apply topically to affected area 3 times a day . Apply to groin 60 g 1 09/16/2021 Active Ibuprofen 800 MG Oral Tablet (Motrin)Indications: PSA (psoriatic arthritis) (HCC) Take by mouth 0.5 [...] as of this encounter (statuses as of 08/23/2023) Active Problems Problem Noted Date Diagnosed Date PSA (psoriatic arthritis) 04/20/2018 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 HTN, goal below 130/80 03/07/2011 Generalized anxiety disorder 04/01/2008 Other acne 04/01/2008 Allergic rhinitis due to pollen 09/08/2004 Adjustment disorder with depressed mood documented as of this encounter (statuses as of 08/23/2023) Resolved Problems Problem Noted Date Diagnosed Date Resolved Date Psoriasis 04/01/2008 10/28/2015 BMI 30.0-30.9,adult 08/23/19 19 documented as of this encounter (statuses as of 08/23/2023) Immunizations Name Administration Dates Next Due Pneumococcal [...] Miscellaneous Notes * Telephone Encounter - Etelvina Asher CPhT - 08/23/2023 10:18 AM EST Patient Phone Numbers Appointment scheduled as noted below. 09/08/2023 Etelvina Asher CPhT-Adv Laborer [employer] [facility] ([facility]) (formerly Telepharmacy) 08/23/2023,10:18 AM * Telephone Encounter - Abhi Barrera RP - 08/22/2023 7:44 AM EST Rheumatology Pharmacist Appointment Request Char medication education in 2 weeks. [facility] Department & Provider: Rheumatology [facility] [place] [[id number]] - Pharmacist Rheumatology [facility] [[id number]] Patient to be scheduled for visit type: Dosage Adj In Person [[id number]], New Video Visit Home [[id number]], or Telephonic Medicine Visit [[id number]] Length of visit: 30 min Reason for visit: Medication Education Time Frame: within 2 weeks Request routed to [facility] Specialty Scheduling Pool ([id number]) Please route this encounter back to Rheum Pharmacist Refill Pool/Class [p [phone]] if unable to schedule patient after 3 attempts. Abhi Barrera, Pharm. D., [facility] Clinical Pharmacist 08/22/2023,7:44 AM * Telephone Encounter - Abhi Barrera RPh - 08/22/2023 7:42 AM EST Rheumatology Pre-Certification Request Required Screening Information: Vaccination(s): Patient has Bobby PCP - plan in place for CDC/ACIP vaccination guidelines usingHealth Maintenance Topics, Best Practice Alerts, and Anticipatory Management Reports within EHR TB Testing: Completed under scans, care everywhere or epic Hepatitis B Screenings: Completed under scans, care everywhere or epic Hepatitis C Screenings: Completed under scans, care everywhere or epic No active, severe, and/or uncontrolled infection Reauthorization: No Rheumatology Office Information: Refinery Operator Vapor Recovery Unit: JODY [facility] Rheumatology Pharmacist: Abhi Barrera ([facility]) Thank you and have a wonderful day, Abhi Barrera, Pharm. D., [facility] Clinical Pharmacist 08/22/2023,7:42 AM * Telephone Encounter - Yareli Burns CRNP - 08/21/2023 11:22 AM EST Rheumatology Education, Pre-Certification, and/or Pharmacist Co-Management Request Medication Education: yes Pre-Certification: [facility]: Pre-cert for Prednisone, DMARDs & IV/IM/SC Osteoporosis Meds ([facility] rheumatology pharmacist pool p [phone]) Pharmacist Co-Management ([facility] ONLY; West select "no"): No Pharmacist Co-Management Medication/Disease State Information: Diagnosis: PSA (psoriatic arthritis) [L40.50] Medication:Ixekizumab 160 mg once, followed by 80 mg every 4 weeks Failed or Intolerant to or Contraindicated: [facility] up to date. Thank you. Rheumatology Pharmacist Disease Modifying Antirheumatic Drug (DMARD) Co- Management (If Applicable) Minimum frequency patient should be seen in person for medication management: As appropriate per clinical condition and patient status By my signature, I understand that my patient will [facility]) per established policies, procedures, and protocols. I also certify that this referral may serve as an initiation of service for the management of drug therapy in the above noted patient. [facility] providers will be responsible for scheduling patient visits, obtaining appropriate laboratory studies, and adjusting medication management therapy per patient's need, in addition to those roles spelled out in the clinic policy, procedures, and drug management protocols. I understand that the service provided by the [facility] is voluntary and have informed patient that they can refuse the service at their discretion. I am aware that the [facility] will provide me with a copy of the patient encounter via my C2C Link In-Basket. I authorize the [facility] to carryout these activities on my behalf. I consider this program to be a necessary part of the patient's medical care. SARA Morales documented in this encounter Plan of Treatment Upcoming Encounters Date Type Department Care Team (Late st Contact Info) Description 09/08/2023 10:30 AM EST Telemedicine [place] [address] [place] [address] Agc5, Pharmacist Rheumatology [address] [place] [place] [address] 11/22/2023 10:00 AM EDT Office Visit Dermatology [address] [place] [address] Beatriz Solis PA-C [address] [place] [address] [place] [address] 01/12/2024 1:30 PM EDT Office Visit Rheumatology [address] [place] [phone] Yareli Burns CRNP [address] [place] [address] 01/19/2024 9:20 AM EDT Office Visit Family Medicine [address] [phone] Alexandra Carrion MD [address] [place] [address] [place] [address] Scheduled Referrals Name Type Priority Associated Diagnoses [...] Cancer Screening 05/10/2025 Pap Smear 05/10/2025 05/10/2022, 06/12/2018, 05/17/2013 (Done elsewhere), Additional history exists Diabetes Screening 05/09/2026 05/09/2023, 0 07/22/2022, 05/10/2022, Additional history exists Cologuard 05/25/2026 05/25/2023, 11/0 [...] arthropathy documented in this encounter Care Teams Support Coordinator Relationship Specialty Start Date End Date Alexandra Carrion MD [address] [place] [address] [place] [id number] PCP - General Family Medicine 02/17/15 documented as of this encounter
--- OUTSIDE RECORDS SUMMARY | 2023-11-09 13:31 | External Medical Summary | Summary of Care ---
Author Name Unknown Organization [facility] [address] [facility] [address] Phone [phone] Care Team Providers Care Attendant Lodging Facilities Name Role Phone Alexandra Carrion MD Primary Care Provide r Reason for Visit * Reason Onset Date Comments Pre Cert/Prior Auth 09/14/2023 Char Encounter Details Date Type Department Care Team (Late st Contact Info) Description 09/14/2023 Telephone Rheumatology [facility] [address] [place] [address] Yareli Burns CRNP [address] [place] [address] Pre Cert/Prior Auth (Char) Allergies Active Allergy Reactions Criticality Noted Date Comments Caffeine 05/07/2001 Ephedrine Pseudoephedrine 04/01/2008 documented as of this encounter (statuses as of 09/27/2023) Medications Medication Sig Dispensed Refills Start Date End Date Status Clindamycin Phosphate 1 % External GelIndications:Fol liculitis Put 1-2x daily to spots (2x daily when flared) and only 1x daily to areas to prevent spots when not flared 180 g 3 09/16/2021 Active Nystatin 859515 UNIT/GM External Powder (Nystop)Indication s:Intertrigo Apply topically to affected area 3 times a day . Apply to groin 60 g 1 09/16/2021 Active Ibuprofen 800 MG Oral Tablet (Motrin)Indication s:PSA (psoriatic arthritis) (HCC) Take by mouth 0.5 Tablets 2 times a day as needed for Pain, Severe. 100 Tablet 1 09/16/2021 Active Albuterol Sulfate HFA 108 (90 Base) MCG/ACT Inhalation Aerosol Solution As needed 0 Active Citalopram Hydrobromide 20 MG Oral Tablet (CeleXA) TAKE ONE TABLET BY MOUTH EVERY DAY 90 Tablet 2 05/02/2023 Active Lisinopril 40 MG Oral TabletIndications: HTN, goal below 130/80 Take 1 Tablet by mouth in the morning. 90 Tablet 1 05/09/2023 Active Clobetasol Propionate 0.05 % External Ointment (Temovate)Indicati ons:Pruritus of genitalia Apply topically to affected area 2 times a day. To affected area for up to two weeks. 60 g 1 05/09/2023 Active Allergy Relief 10 MG Oral Tablet (Loratadine)Indica tions:Seasonal allergic rhinitis due to pollen TAKE ONE TABLET BY MOUTH EVERY DAY 90 Tablet 3 06/01/2023 Active Triamcinolone Acetonide 0.5 % External OintmentIndication s:Pustular psoriasis of palms and soles,PSA (psoriatic arthritis) [...] for 10 days. 65 Tablet 0 08/30/2023 4 Active Taltz 80 MG/ML Subcutaneous Solution Auto-injector (Ixekizumab) Inject 160 mg (2 pens) under the skin once, followed by 80 mg (1 pen) every 4 weeks. 3 mL 0 08/24/2023 4 Discontinue d(Medicatio n List Clean Up) documented as of this encounter (statuses as of 09/27/2023) Active Problems Problem Noted Date Diagnosed Date PSA (psoriatic arthritis) 04/20/2018 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 HTN, goal below 130/80 03/07/2011 Generalized anxiety disorder 04/01/2008 Other acne 04/01/2008 Allergic rhinitis due to pollen 09/08/2004 Adjustment disorder with depressed mood documented as of this encounter (statuses as of 09/27/2023) Resolved Problems Problem Noted Date Diagnosed Date Resolved Date Psoriasis 04/01/2008 10/28/2015 BMI 30.0-30.9,adult 08/23/19 19 documented as of this encounter (statuses as of 09/27/2023) Immunizations Name Administration Dates Next Due Pneumococcal [...] encounter Miscellaneous Notes * Telephone Encounter - Concepcion Garcia LPN - 09/27/2023 9:37 AM EDT See message from 09/24 * Telephone Encounter - Ritika Garcia LPN - 09/14/2023 10:08 AM EST Called, left a voice message for pt that a copy of her new insurance card is needed to be able to request a prior auth for Enbrel. * Telephone Encounter - Elly Car OSA - 09/14/2023 8:48 AM EST [place] - Patient Related Communication Reason for Call: Prior auth/approval of non-DMARD ([place]): received call from pt. Her insurance will change as of 09.15.2023. [facility] for You will replace [facility]. Pt was informed by insurance that a new auth would be needed under new insurance for medication: Taltz 80 MG/ML Subc Auto-injector [facility] for [facility] ID# [id number] Effective 3.1.24 Please call pt to let her know when auth completed under new insurance EDISON Santana documented in this encounter Plan of Treatment Upcoming Encounters Date Type Department Care Team (Late st Contact Info) Description 11/22/2023 10:00 AM EDT Office Visit Dermatology [address] [place] [address] Beatriz Solis PA-C [address] [place] [address] [place] [address] 01/12/2024 1:30 PM EDT Office Visit Rheumatology [address] [place] [phone] Yareli Burns CRNP [address] [place] [address] [place] [address] 01/19/2024 9:20 AM EDT Office Visit Family Medicine [address] [place] [phone] Alexandra Carrion MD [address] [place] [address] [place] [address] Health Maintenance Due Date Last Done Comments [...] 2022- season) 2023 Influenza Vaccine (FLU shot) (#1) [...] filedocumented as of this encounter Care Teams Attendant Lodging Facilities Relationship Specialty Start Date End Date Alexandra Carrion MD [address] [place] [address] [place] [phone] PCP - General Family Medicine 02/17/15 documented as of this encounter
--- OUTSIDE RECORDS SUMMARY | 2023-11-09 13:31 | External Medical Summary | Summary of Care ---
Author Name Unknown Organization [facility] Address [address] [place] [address] Phone [phone] Care Team Providers Care Food Adviser Name Role Phone Alexandra Carrion MD Primary Care Provide r Reason for Referral * Evaluate & Treat - Unlimited Visits (Within 3 days (urgent)) - Authorized Specialty Diagnoses / Procedures Referred By Jason vail Referred To Contact Pharmacist / Pharmacy Diagnoses PSA (psoriatic [facility]) [facility]) Yareli Burns CRNP [address] [place] [address] Referral ID Status Reason Start Date Expiration Date Visits Requested Visits Authorized [id number] Authorized Specialty Services Required 08/22/2023 99 99 Question Answer Referral Priority Within 3 days (urgent) Where should this appointment be scheduled? [facility] Referring Provider Role: Specialist Specialty: Rheum Reason for Referral: Med Education Comments Rheumatology Pharmacist Disease Modifying Antirheumatic Drug (DMARD) Co- Management Referral for: Char med education Minimum frequency patient should be seen in person for medication management: As appropriate per clinical condition and patient status By my signature, I understand that my patient, Anastacia Zhong will have her medication therapy managed by the [facility] Medication Therapy Disease Management [facility] ([facility]) per established policies, procedures, and protocols. I also certify that this referral may serve as an initiation of service for the management of drug therapy in the above noted patient. [facility] providers will be responsible for scheduling patient [...] their discretion. I am aware that the [facility] Clinic will provide me with a copy of the patient encounter via my [email or web address] In-Basket. I authorize the [facility] [facility] to carry out these activities on my behalf. I consider this program to be a necessary part of the patient's medical care. Abhi Barrera [facility] Reason for Visit * Reason Onset Date Comments Precert In Process 08/21/2023 06 IESHA MILLER TALMYLES 80 MG/ML AUTOINJECTOR Encounter Details Date Type Department Care Team (Late st Contact Info) Description 08/21/2023 Telephone Rheumatology [place] [id number] [place] [facility] [place] [address] Yareli Burns CRNP [address] [place] [address] Precert In Process ( IESHA MILLER TALMYLES 80... Allergies Active Allergy Reactions Criticality Noted Date Comments Caffeine 05/07/2001 Ephedrine Pseudoephedrine 04/01/2008 documented as of this encounter (statuses as of 08/22/2023) Medications Medication Sig Dispensed Refills Start Date End Date Status Clindamycin Phosphate 1 % External GelIndications:Folli culitis Put 1-2x daily to spots (2x daily when flared) and only 1x daily to areas to prevent spots when not flared 180 g 3 09/16/2021 Active Nystatin 628100 UNIT/GM External Powder (Nystop)Indications: Intertrigo Apply topically [...] as of this encounter (statuses as of 08/22/2023) Active Problems Problem Noted Date Diagnosed Date PSA (psoriatic arthritis) 04/20/2018 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 HTN, goal below 130/80 03/07/2011 Generalized anxiety disorder 04/01/2008 Other acne 04/01/2008 Allergic rhinitis due to pollen 09/08/2004 Adjustment disorder with depressed mood documented as of this encounter (statuses as of 08/22/2023) Resolved Problems Problem Noted Date Diagnosed Date Resolved Date Psoriasis 04/01/2008 10/28/2015 BMI 30.0-30.9,adult 08/23/19 19 documented as of this encounter (statuses as of 08/22/2023) Immunizations Name Administration Dates Next Due Pneumococcal [...] encounter Miscellaneous Notes * Telephone Encounter - Abhi Barrera [facility] - 08/22/2023 7:44 AM EST Rheumatology Pharmacist Appointment Request Char medication education in 2 weeks. [facility] Department & Provider: Rheumatology [facility] [place] [[id number]] - Pharmacist Rheumatology [facility] [[id number]] Patient to be scheduled for visit type: Dosage Adj In Person [[id number]], New Video Visit Home [[id number]], or Telephonic Medicine Visit [[id number]] Length of visit: 30 min Reason for visit: Medication Education Time Frame: within 2 weeks Request routed to [facility] Specialty Scheduling Pool ([id number]) Please route this encounter back to Rheum Pharmacist Refill Pool/Class [p [phone]] if unable to schedule patient after 3 attempts. Abhi Barrera, Pharm. D., [facility] Clinical Pharmacist 08/22/2023,7:44 AM * Telephone Encounter - Abhi Barrera [facility] - 08/22/2023 7:42 AM EST Rheumatology Pre-Certification [...] uncontrolled infection Reauthorization: No Rheumatology Office Information: Roller Mill Tender: JODY COX Rheumatology Pharmacist: Abhi Barrera ([facility]) Thank you and have a wonderful day, Abhi Barrera, Pharm. D., [facility] Clinical Pharmacist 08/22/2023,7:42 AM * Telephone Encounter - GrantYareli CRNP - 08/21/2023 11:22 AM EST Rheumatology Education, Pre-Certification, and/or Pharmacist Co-Management Request Medication Education: yes Pre-Certification: [facility]: Pre-cert for Prednisone, DMARDs & IV/IM/SC Osteoporosis Meds ([facility] rheumatology pharmacist pool p [phone]) Pharmacist Co-Management ([facility] ONLY; West select "no"): [...] will have medication [facility]) per established policies, procedures, and protocols. I also certify that this referral may serve as an initiation of service for the management of drug therapy in the above noted patient. [facility] providers will be responsible for scheduling patient visits, obtaining appropriate laboratory studies, and adjusting medication management therapy per patient's need, in addition to those roles spelled out in the clinic policy, procedures, and drug management protocols. I understand that the service provided by the [facility] is voluntary and have informed patient that they can refuse the service at their discretion. I am aware that the [facility] Clinic will provide me with a copy of the patient encounter via my [email or web address] In-Basket. I authorize the [employer] to carryout these activities on my behalf. I consider this program to be a necessary part of the patient's medical care. SARA Morales documented in this encounter Plan of Treatment Upcoming Encounters Date Type Department Care Team (Late st Contact Info) Description 09/08/2023 10:30 AM EST Telemedicine Rheumatology, [address] [address] Agc5, Pharmacist Rheumatology [address] [place] [address] 11/22/2023 10:00 AM EDT Office Visit Dermatology [address] [place] [address] Beatriz Solis PA-C [address] [place] [address] [place] [address] 01/12/2024 1:30 PM EDT Office Visit Rheumatology [address] [place] [phone] Yareli Burns CRNP [address] [facility] [place] [address] 01/19/2024 9:20 AM EDT Office Visit Family Medicine [address] [place] [phone] Alexandra Carrion MD [address] [place] [address] [place] [address] Scheduled Referrals Name Type Priority Associated Diagnoses [...] arthropathy documented in this encounter Care Teams Food Adviser Relationship Specialty Start Date End Date Alexandra Carrion MD [address] [place] [address] [place] [phone] PCP - General Family Medicine 02/17/15 documented as of this encounter
--- OUTSIDE RECORDS SUMMARY | 2023-11-09 13:31 | External Medical Summary | Summary of Care ---
Author Name Unknown Organization [facility] Address [address] [place] [address] Phone [phone] Care Team Providers Care Ledger Clerk Name Role Phone Alexandra Carrion MD Primary Care Provide r Reason for Referral * Evaluate & Treat - Unlimited Visits (Within 3 days (urgent)) - Authorized Specialty Diagnoses / Procedures Referred By Jason vail Referred To Contact Pharmacist / Pharmacy Diagnoses PSA (psoriatic arthritis) ([facility]) Yareli Alcala CRNP [address] [place] [address] Referral ID Status Reason Start Date Expiration Date Visits Requested Visits Authorized [id number] Authorized Specialty Services Required 08/22/2023 99 99 Question Answer Referral Priority Within 3 days (urgent) Where should this appointment be scheduled? [facility] Referring Provider Role: Specialist Specialty: [...] have her medication therapy managed by the [facility] Medication Therapy Disease Management [facility] ([facility]) per established policies, procedures, and protocols. I also certify that this referral may serve as an initiation of service for the management of drug therapy in the above noted patient. [facility] providers will be responsible for scheduling [...] their discretion. I am aware that the [facility] Clinic will provide me with a copy of the patient encounter via my GoPlaceIt In-Basket. I authorize the [facility] to carry out these activities on my behalf. I consider this program to be a necessary part of the patient's medical care. Abhi Barrera [facility] Reason for Visit * Reason Onset Date Comments Precert Approved 08/21/2023 TALTZ 80 MG/ML AUTOINJECTOR Encounter Details Date Type Department Care Team (Late st Contact Info) Description 08/21/2023 Refill Rheumatology [address] [place] [address] Yareli Alcala CRNP [facility] [employer] [place] [address] PSA (psoriatic arthritis) ([facility])* Allergies Active Allergy Reactions Criticality Noted Date [...] flared 180 g 3 09/16/2021 Active Nystatin 574349 UNIT/GM External Powder (Nystop)Indications: Intertrigo Apply topically to affected area 3 times a day . Apply to groin 60 g 1 09/16/2021 Active Ibuprofen 800 MG Oral Tablet (Motrin)Indications: PSA (psoriatic arthritis) ([facility]) Take by mouth 0.5 Tablets 2 times [...] the skin once, followed by 80 mg every 4 weeks 3 mL 0 08/24/2023 Active Taltz 80 MG/ML Subcutaneous Solution Auto-injector (Ixekizumab) Inject 1 mL under the skin every 4 weeks. 1 mL 0 08/24/2023 Active documented as of this encounter (statuses [...] encounter Miscellaneous Notes * Telephone Encounter - Jerman Cuellar [facility] - 08/24/2023 8:44 AM ESTSigned Prescriptions: Disp Refills Taltz 80 MG/ML Subcutaneous Solution Auto-*3 mL 0 Sig: Inject 160 mg (2 pens) under the skin once, followed by 80 mg every 4 weeksAuthorizing Provider: YARELI ALCALA User: JERMAN CUELLAR Taltz 80 MG/ML Subcutaneous Solution Auto-*1 mL 0 Sig: Inject 1 mL under the skin every 4 weeks.Authorizing Provider: YARELI ALCALA User: JERMAN CEE * Addendum Note - Jerman Cuellar [facility] - 08/24/2023 8:44 AM ESTAddended by: JERMAN CUELLAR on: 08/24/2023 08:44 AM Modules accepted: Orders * Telephone Encounter - Jerman Cuellar [facility] - 08/24/2023 8:42 AM EST Sent with zero refills so that dept can be changed to [place] for 340B purposes upon refill Fatou, Jerman Cuellar, PharmD [facility] Clinical Pharmacist Rheumatology Department [phone] 08/24/2023, 8:42 AM * Addendum Note - Etelvina Asher CPhT - 08/24/2023 7:40 AM ESTAddended by: ETELVINA ASHER on: 08/24/2023 07:40 AM Modules accepted: Orders * Telephone Encounter - Etelvina Asher CPhT - 08/24/2023 7:38 AM EST Rheumatology Pre-Certification Response Approved - Script pended - to be filled at [facility] (P: [phone]) Etelvina Asher CPhT-Gin Director Case Management III [facility]acy Services ([facility]) (formerly Telepharmacy) 08/24/2023,7:38 AM * Telephone Encounter - Etelvina Asher CPhT - 08/23/2023 10:18 AM EST Patient Phone Numbers Appointment scheduled as noted below. 09/08/2023 Etelvina Asher CPhT-Gin Director Case Management III [facility] ([facility]) (formerly Telepharmacy) 08/23/2023,10:18 AM * Telephone Encounter - Abhi Barrera RP - 08/22/2023 7:44 AM EST Rheumatology Pharmacist Appointment Request Char medication education in 2 weeks. [facility] Department & Provider: Rheumatology AGC5 Cecilia [[id number]] - Pharmacist Rheumatology [facility] [[id number]] Patient to be scheduled for visit type: Dosage Adj In Person [[id number]], New Video Visit Home [04421], or Telephonic Medicine Visit [[id number]] Length of visit: 30 min Reason for visit: Medication Education Time Frame: within 2 weeks Request routed to [facility] Specialty Scheduling Pool ([id number]) Please route this encounter back to Rheum Pharmacist Refill Pool/Class [p [phone]] if unable to schedule patient after 3 attempts. Abhi Barrera PharmPipo Mcguire, [facility] Clinical Pharmacist 08/22/2023,7:44 AM * Telephone Encounter - Abhi Barrera RPh - 08/22/2023 7:42 AM EST Rheumatology Pre-Certification Request Required Screening Information: Vaccination(s): Patient has [facility] PCP - plan in place for CDC/ACIP vaccination guidelines usingHealth Maintenance Topics, Best Practice Alerts, and Anticipatory Management Reports within EHR TB Testing: Completed under scans, care everywhere or epic Hepatitis B Screenings: Completed under scans, care everywhere or epic Hepatitis C Screenings: Completed under scans, care everywhere or epic No active, severe, and/or uncontrolled infection Reauthorization: No Rheumatology Office Information: Tumbling Instructor: JODY COX Rheumatology Pharmacist: Abhi Barrera ([facility] Thank you and have a wonderful day, Abhi Barrera PharmPipo DPipo, [facility] Clinical Pharmacist 08/22/2023,7:42 AM * Telephone Encounter - Yareli Alcala CRNP - 08/21/2023 11:22 AM EST Rheumatology Education, Pre-Certification, and/or Pharmacist Co-Management Request Medication Education: yes Pre-Certification: [facility]: Pre-cert for Prednisone, DMARDs & IV/IM/SC Osteoporosis Meds (routeto rheumatology pharmacist pool p [phone]) Pharmacist Co-Management ([facility] ONLY; West select "no"): [...] [facility]) per established policies, procedures, and protocols. I also certify that this referral may serve as an initiation of service for the management of drug therapy in the above noted patient. [facility] providers will be responsible for scheduling patient visits, obtaining appropriate laboratory studies, and adjusting medication management therapy per patient's need, in addition to those roles spelled out in the clinic policy, procedures, and drug management protocols. I understand that the service provided by the [facility] Clinic is voluntary and have informed patient that they can refuse the service at their discretion. I am aware that the [facility] will provide me with a copy of the patient encounter via my GoPlaceIt In-Basket. I authorize the [facility] Clinic to carryout these activities on my behalf. I consider this program to be a necessary part of the patient's medical care. SARA Morales documented in this encounter Plan of Treatment Upcoming Encounters Date Type Department Care Team (Late st Contact Info) Description 09/08/2023 10:30 AM EST Telemedicine Rheumatology, [place] [address] [place] [address] Agc5, Pharmacist Rheumatology [address] [place] [address] 11/22/2023 10:00 AM EDT Office Visit Dermatology [address] [place] [address] Beatriz Solis PA-C [address] [place] [address] [place] [address] 01/12/2024 1:30 PM EDT Office Visit Rheumatology [address] [place] [phone] Yareli Alcala CRNP [address] [place], [place] [address] [address] 01/19/2024 9:20 AM EDT Office Visit Family Medicine [address] [place] [phone] Alexandra Carrion MD [address] [place] [address] [place] [address] Scheduled Referrals Name Type Priority Associated Diagnoses [...] arthropathy documented in this encounter Care Teams Ledger Clerk Relationship Specialty Start Date End Date Alexandra Carrion MD [address] [place] [address] [place] [address] PCP - General Family Medicine 02/17/15 documented as of this encounter
--- OUTSIDE RECORDS SUMMARY | 2023-11-09 13:31 | External Medical Summary | Summary of Care ---
Author Name Unknown Organization [facility] Address [address] [facility] [place] [address] Phone [phone] Care Team Providers Care Mortar Carrier Name Role Phone Alexandra Carrion MD Primary Care Provide r Reason for Visit * Reason Onset Date Comments Precert Approved 09/25/2023 Char Encounter Details Date Type Department Care Team (Late st Contact Info) Description 09/25/2023 Telephone Rheumatology [place] [id number] [place] [address] Yareli Burns CRNP [address] [place] [address] Precert Approved ( Char ) Allergies Active Allergy Reactions Criticality Noted Date Comments Caffeine 05/07/2001 Ephedrine Pseudoephedrine 04/01/2008 documented as of this encounter (statuses as of 10/03/2023) Medications Medication Sig Dispensed Refills Start Date End Date Status Clindamycin Phosphate 1 % External GelIndications:Fol liculitis Put 1-2x daily to spots (2x daily when flared) and only 1x daily to areas to prevent spots when not flared 180 g 3 09/16/2021 Active Nystatin 912644 UNIT/GM External Powder (Nystop)Indication s:Intertrigo Apply topically [...] skin every 4 weeks. 1 mL 0 09/28/2023 Active Taltz 80 MG/ML Subcutaneous Solution Auto-injector (Ixekizumab) Inject 160 mg (2 pens) under the skin once, followed by 80 mg (1 pen) every 4 weeks. 3 mL 0 08/24/2023 4 Discontinue d(Medicatio n List Clean Up) Taltz 80 MG/ML Subcutaneous Solution Auto-injector (Ixekizumab) Inject 1 mL under the skin every 4 weeks. 1 mL 0 08/24/2023 4 Discontinue d(Refill) documented as of this encounter (statuses as of 10/03/2023) Active Problems Problem Noted Date Diagnosed Date PSA (psoriatic arthritis) 04/20/2018 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 HTN, goal below 130/80 03/07/2011 Generalized anxiety disorder 04/01/2008 Other acne 04/01/2008 Allergic rhinitis due to pollen 09/08/2004 Adjustment disorder with depressed mood documented as of this encounter (statuses as of 10/03/2023) Resolved Problems Problem Noted Date Diagnosed Date Resolved Date Psoriasis 04/01/2008 10/28/2015 BMI 30.0-30.9,adult 08/23/19 19 documented as of this encounter (statuses as of 10/03/2023) Immunizations Name Administration Dates Next Due Pneumococcal [...] encounter Miscellaneous Notes * Addendum Note - Concepcion Garcia LPN - 10/03/2023 10:20 AM EDTAddended by: CONCEPCION GARCIA on: 10/03/2023 10:20 AM Modules accepted: Orders * Telephone Encounter - Concepcion Garcia LPN - 10/03/2023 10:19 AM EDT Please sign Rx to go to [facility] * Telephone Encounter - Concepcion Garcia LPN - 10/03/2023 10:16 AM EDT TALTZ 80 MG/ML AUTOINJECTOR How Prescribed(directions/sig): MONTHLY Day Supply: 08/13 Valid auth start date: 09/28/23 Valid auth end date: 09/27/24 Rx Insurance Info: [facility] * Telephone Encounter - Concepcion Garcia LPN - 09/27/2023 9:33 AM EDT Please reauth Char for pt under her new insurance, she already did her loading dose just needs themaintenance dose authed thru her new insurance, thx * Telephone Encounter - Gabriella Neff OSA - 09/25/2023 2:29 PM EDT Patient wanted it aware that her new card is in her chart so med can be auth. Just an FYI documented in this encounter Plan of Treatment Upcoming Encounters Date Type Department Care Team (Late st Contact Info) Description 11/22/2023 10:00 AM EDT Office Visit Dermatology [address] [place] [address] Beatriz Solis PA-C [address] [place] [address] [place] [address] 01/12/2024 1:30 PM EDT Office Visit Rheumatology [address] [place] [phone] Yareli Burns CRNP [address] [place] [address] 01/19/2024 9:20 AM EDT Office Visit Family Medicine [address] [phone] Alexandra Carrion MD [address] [place] [address] [place] [address] Scheduled Orders Name Type Priority Associated Diagnoses Orde r Schedule CBC WITH WBC DIFFERENTIAL Lab Routine Encounter for long-term (current) use of medications Expected: 09/28/2023, Expires: 09/26/2024 CREATININE Lab Routine Encounter for long-term (current) use of medications Expected: 09/28/2023, Expires: 09/26/2024 HEPATIC FUNCTION PANEL Lab Routine Encounter for long-term (current) use of medications Expected: 09/28/2023, Expires: 09/26/2024 Health Maintenance Due Date Last Done Comments [...] as of this encounter Visit Diagnoses Diagnosis Encounter for long-term (current) use of medications- Primary Encounter for long-term (current) use of other medications documented in this encounter Care Teams Mortar Carrier Relationship Specialty Start Date End Date Alexandra Carrion MD [address] [place] [address] [place] [address] PCP - General Family Medicine 02/17/15 documented as of this encounter
--- OUTSIDE RECORDS SUMMARY | 2023-11-09 13:31 | External Medical Summary | Summary of Care ---
Author Name Unknown Organization [facility] Address [address] [facility] [place] [address] Phone [phone] Care Team Providers Care Inspector Precision Assembly Name Role Phone Alexandra Carrion MD Primary Care Provide r Reason for Visit * Reason Onset Date Comments Med Request 09/29/2023 Pt called to inf rajani Downs that --Taltz 80 MG/ML Subcutaneous Solution Auto-injector (Ixekizumab) [[id number]]---medication needs to be pre-Auth in order for her insurance to cover this medication, Pt is now with [facility] if you can then fax the script to [phone], she will no longer be using [facility].Please reach out to pt at [phone] when this has been processed. Thank-you! Encounter Details Date Type Department Care Team (Late st Contact Info) Description 09/29/2023 Telephone Rheumatology [facility] [address] [place] [address] [place] [address] Yareli Burns CRNP [address] [facility] [place] [address] Med Request (Pt called to inform Yareli ho Allergies Active Allergy Reactions Criticality Noted Date Comments Caffeine 05/07/2001 Ephedrine Pseudoephedrine 04/01/2008 documented as of this encounter (statuses as of 09/29/2023) Medications Medication Sig Dispensed Refills Start Date End Date Status Clindamycin Phosphate 1 % External GelIndications:Foll iculitis Put 1-2x daily to spots (2x daily when flared) and only 1x daily to areas to prevent spots when not flared 180 g 3 09/16/2021 Active Nystatin 627566 UNIT/GM External Powder (Nystop)Indications :Intertrigo Apply topically to affected area 3 times a day . Apply to groin 60 g 1 09/16/2021 Active Ibuprofen 800 MG Oral Tablet (Motrin)Indications :PSA (psoriatic arthritis) ([facility]) Take by mouth 0.5 Tablets [...] psoriasis of palms and soles,PSA (psoriatic arthritis) ([facility]) Apply topically to affected area 2 times [...] 4 weeks. 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 HTN, goal below 130/80 03/07/2011 Generalized anxiety disorder 04/01/2008 Other acne 04/01/2008 Allergic rhinitis due to pollen 09/08/2004 Adjustment disorder with depressed mood documented as of this encounter (statuses as of 09/29/2023) Resolved Problems Problem Noted Date Diagnosed Date Resolved Date Psoriasis 04/01/2008 10/28/2015 BMI 30.0-30.9,adult 08/23/19 19 documented as of this encounter (statuses as of 09/29/2023) Immunizations Name Administration Dates Next Due Pneumococcal [...] Telephone Encounter - Concepcion Garcia LPN - 09/29/2023 1:16 PM EDT See message from 09/24, we are already working on the auth * Telephone Encounter - DillardIda OSA - 09/29/2023 11:46 AM EDT Pt called to inform Yareli that --Taltz 80 MG/ML Subcutaneous Solution Auto- injector (Ixekizumab) [[id number]]---medication needs to be pre-Auth in order for her insurance to cover this medication, Pt is now with [facility] if you can then fax the script to [phone], she will no longer be using [facility]. Please reach out to pt at [phone] when this has been processed. Thank-you! Ida documented in this encounter Plan of Treatment Upcoming Encounters Date Type Department Care Team (Late st Contact Info) Description 11/22/2023 10:00 AM EDT Office Visit Dermatology [address] [place] [address] Beatriz Solis PA-C [address] [place] [address] [place] [address] 01/12/2024 1:30 PM EDT Office Visit Rheumatology [address] [place] [phone] Yareli Burns CRNP [facility] [place] [address] 01/19/2024 9:20 AM EDT Office Visit Family Medicine [address] [place] [phone] Alexandra Carrion MD [address] [place] [address] [place] [address] Health Maintenance Due Date Last Done Comments [...] filedocumented as of this encounter Care Teams Inspector Precision Assembly Relationship Specialty Start Date End Date Alexandra Carrion MD [address] [place] [address] [place] [id number] PCP - General Family Medicine 02/17/15 documented as of this encounter
--- OUTSIDE RECORDS SUMMARY | 2023-11-09 13:31 | External Medical Summary | Summary of Care ---
Author Name Unknown Organization [facility] Address [address] [place] [facility] [place] [address] Phone [phone] Care Team Providers Care Wool Hat Finisher Name Role Phone Alexandra Carrion MD Primary Care Provide r Reason for Visit * Reason Onset Date Comments Precert Approved 09/25/2023 Char Encounter Details Date Type Department Care Team (Late st Contact Info) Description 09/25/2023 Telephone Rheumatology [place] [id number] [place] [address] Yareli Burns CRNP [address] [place] [address] Precert Approved ( Char ) Allergies Active [...] flared 180 g 3 09/16/2021 Active Nystatin 952991 UNIT/GM External Powder (Nystop)Indication s:Intertrigo Apply topically [...] not needed. 1 mL 5 10/03/2023 Active Taltz 80 MG/ML Subcutaneous Solution Auto-injector (Ixekizumab) Inject 160 mg (2 pens) under the skin once, followed by 80 mg (1 pen) every 4 weeks. 3 mL 0 08/24/2023 4 Discontinue d(Medicatio n List Clean Up) Taltz 80 MG/ML Subcutaneous Solution Auto-injector (Ixekizumab) Inject 1 mL under the skin every 4 weeks. 1 mL 0 08/24/2023 4 Discontinue d(Refill) Taltz 80 MG/ML Subcutaneous Solution Auto-injector (Ixekizumab) Inject 1 mL under the skin every 4 weeks. 1 mL 0 09/28/2023 Discontinue d(Refill) documented as of this encounter [...] encounter Miscellaneous Notes * Addendum Note - Hunter Hernandez, [facility] - 10/03/2023 10:47 AM EDTAddended by: HUNTER HERNANDEZ on: 10/03/2023 10:47 AM Modules accepted: Orders * Addendum Note - Concepcion Garcia LPN - 10/03/2023 10:20 AM EDTAddended by: CONCEPCION GARCIA on: 10/03/2023 10:20 AM Modules accepted: Orders * Telephone Encounter - Concepcion Garcia LPN - 10/03/2023 10:19 AM EDT Please sign Rx to go to [facility] * Telephone Encounter - Concepcion Garcia LPN - 10/03/2023 10:16 AM EDT CHAR 80 MG/ML AUTOINJECTOR How Prescribed(directions/sig): MONTHLY Day Supply: 08/13 Valid auth start date: 09/28/23 Valid auth end date: 09/27/24 Rx Insurance Info: [facility] * Telephone Encounter - Concepcion Garcia [...] 11/22/2023 10:00 AM EDT Office Visit Dermatology [address] [place] [address] Beatriz Solis PA-C [address] [place] [address] [place] [address] 01/12/2024 1:30 PM EDT Office Visit Rheumatology [address] [place] [phone] Yareli Burns CRNP [facility] [place] [address] 01/19/2024 9:20 AM EDT Office Visit Family Medicine [address] [place] [phone] Alexandra Carrion MD [address] [place] [address] [place] [address] Scheduled Orders Name Type Priority Associated Diagnoses [...] Test 2021 Sigmoidoscopy 2021 COVID-19 Vaccine ( season) 2023 Influenza Vaccine (FLU shot) (#1) [...] medications documented in this encounter Care Teams Wool Hat Finisher Relationship Specialty Start Date End Date Alexandra Carrion MD [address] [place] [address] [place] [address] PCP - General Family Medicine 02/17/15 documented as of this encounter
--- OUTSIDE RECORDS SUMMARY | 2023-11-09 13:31 | External Medical Summary | Summary of Care ---
Author Name Unknown Organization [facility] Address [address] [place] [address] Phone [phone] Care Team Providers Care Hooking Machine Operator Name Role Phone Alexandra Carrion MD Primary Care Provide r Reason for Referral * Evaluate & Treat - Unlimited Visits (Within 3 days (urgent)) - Authorized Specialty Diagnoses / Procedures Referred By Jason vail Referred To Contact Pharmacist / Pharmacy Diagnoses PSA (psoriatic arthritis) ([facility]) Yareli Burns CRNP [address] [place] [address] Referral ID Status Reason Start Date Expiration Date Visits Requested Visits Authorized [id number] Authorized Specialty Services Required 08/22/2023 99 99 Question Answer Referral Priority Within 3 days (urgent) Where should this appointment be scheduled? [facility] Referring Provider Role: Specialist Specialty: Rheum Reason for Referral: Med Education Comments Rheumatology Pharmacist Disease Modifying Antirheumatic Drug (DMARD) Co- Management Referral for: Char med education Minimum frequency patient should be seen in person for medication management: As appropriate per clinical condition and patient status By my signature, I understand that my patient, Anastacia Zhong will have her medication therapy managed by the [facility] Medication Therapy Disease Management Clinic ([facility]) per established policies, procedures, and protocols. I also certify that this referral may serve as an initiation of service for the management of drug therapy in the above noted patient. [facility] providers will be responsible for [...] their discretion. I am aware that the [facility] Clinic will provide me with a copy of the patient encounter via my TestObject In-Basket. I authorize the [facility] to carry out these activities on my behalf. I consider this program to be a necessary part of the patient's medical care. Abhi Barrera [facility] Reason for Visit * Reason Onset Date Comments Precert In Process 08/21/2023 06 IESHA MILLER TALMYLES 80 MG/ML AUTOINJECTOR Encounter Details Date Type Department Care Team (Late st Contact Info) Description 08/21/2023 Telephone Rheumatology [place] [id number] [place] [address] Yareli Burns CRNP [address] [place] [address] Precert In Process ( IESHA MILLER TALTZ 80... Allergies Active Allergy Reactions Criticality Noted [...] flared 180 g 3 09/16/2021 Active Nystatin 673150 UNIT/GM External Powder (Nystop)Indications: Intertrigo Apply topically [...] scheduled as noted below. 09/08/2023 Etelvina Asher CPhT-[facility] Cardiovascular Service Line III Centralized Clinical Pharmacy Services (CCPS) (formerly Telepharmacy) 08/23/2023,10:18 AM * Telephone Encounter - Abhi Barrera RPh - 08/22/2023 7:44 AM EST Rheumatology Pharmacist Appointment Request Char medication education in 2 weeks. [facility] Department & Provider: Rheumatology [facility] Obion [[id number]] - Pharmacist Rheumatology [facility] [[id number]] Patient to be scheduled for visit type: Dosage Adj In Person [[id number]], New Video Visit Home [36634], or Telephonic Medicine Visit [80308] Length of visit: 30 min Reason for visit: Medication Education Time Frame: within 2 weeks Request routed to [facility] Specialty Scheduling Pool ([id number]) Please route this encounter back to Rheum Pharmacist Refill Pool/Class [p [phone]] if unable to schedule patient after 3 attempts. Abhi Barrera, Pharm. D., [facility] Clinical Pharmacist 08/22/2023,7:44 AM * Telephone Encounter [...] uncontrolled infection Reauthorization: No Rheumatology Office Information: Hydro Plant Site Manager: JODY COX Rheumatology Pharmacist: Abhi Barrera ([facility]) Thank you and have a wonderful day, Abhi Barrera, Pharm. D., [facility] Clinical Pharmacist 08/22/2023,7:42 AM * Telephone Encounter - Yareli Burns CRNP - 08/21/2023 11:22 AM EST Rheumatology Education, Pre-Certification, and/or Pharmacist Co-Management Request Medication Education: yes Pre-Certification: [facility]: Pre-cert for Prednisone, DMARDs & IV/IM/SC Osteoporosis Meds ([facility] rheumatology pharmacist pool p [phone]) Pharmacist Co-Management ([facility] ONLY; West select "no"): [...] will have [facility] ([facility]) per established policies, procedures, and protocols. I also certify that this referral may serve as an initiation of service for the management of drug therapy in the above noted patient. [facility] providers will be responsible for scheduling patient visits, obtaining appropriate laboratory studies, and adjusting medication management therapy per patient's need, in addition to those roles spelled out in the clinic policy, procedures, and drug management protocols. I understand that the service provided by the [facility] Clinic is voluntary and have informed patient that they can refuse the service at their discretion. I am aware that the [facility] will provide me with a copy of the patient encounter via my TestObject In-Basket. I authorize the [facility] to carryout these activities on my behalf. I consider this program to be a necessary part of the patient's medical care. SARA Morales documented in this encounter Plan of Treatment Upcoming Encounters Date Type Department Care Team (Late st Contact Info) Description 09/08/2023 10:30 AM EST Telemedicine Rheumatology, [address] [address] Agc5, Pharmacist Rheumatology [address] [place] [address] 11/22/2023 10:00 AM EDT Office Visit Dermatology [address] [place] [address] Beatriz Solis PA-C [address] [place] [address] [place] [address] 01/12/2024 1:30 PM EDT Office Visit Rheumatology [address] [place] [phone] Yareli Burns CRNP [address] [place] [address] 01/19/2024 9:20 AM EDT Office Visit Family Medicine [address] [place] [phone] Alexandra Carrion MD [address] [place] [address] [place] [address] Scheduled Referrals Name Type Priority Associated Diagnoses [...] arthropathy documented in this encounter Care Teams Hooking Machine Operator Relationship Specialty Start Date End Date Alexandra Carrion MD [address] [place] [address] [place] [id number] PCP - General Family Medicine 02/17/15 documented as of this encounter
--- OUTSIDE RECORDS SUMMARY | 2023-11-09 13:31 | External Medical Summary | Summary of Care ---
Author Name Unknown Organization [facility] Address [address] [place] [address] Phone [phone] Care Team Providers Care Hall Clerk Name Role Phone Alexandra Carrion MD Primary Care Provide r Reason for Referral * Evaluate & Treat - Unlimited Visits (Within 3 days (urgent)) - Authorized Specialty Diagnoses / Procedures Referred By Jason vail Referred To Contact Pharmacist / Pharmacy Diagnoses PSA (psoriatic arthritis) ([facility]) Yareli Burns CRNP [address] [place] [address] Referral ID Status Reason Start Date Expiration Date Visits Requested Visits Authorized [id number] Authorized Specialty Services Required 08/22/2023 99 99 Question Answer Referral Priority Within 3 days (urgent) Where should this appointment be scheduled? [facility] Referring Provider Role: Specialist Specialty: Rheum [...] have her medication therapy managed by the [facility] Medication Therapy [facility] [...] copy of the patient encounter via my [employer] In-Basket. I authorize the [facility] to carry out these activities on my behalf. I consider this program to be a necessary part of the patient's medical care. Abhi Barrera [facility] Reason for Visit * Reason Onset Date Comments Medication Pre-auth 08/21/2023 Char Encounter Details Date Type Department Care Team (Late st Contact Info) Description 08/21/2023 Telephone Rheumatology [facility] [address] [place] [address] Yareli Burns CRNP [address] [place] [address] Medication Pre-auth (Char) Allergies Active Allergy Reactions Criticality Noted [...] flared 180 g 3 09/16/2021 Active Nystatin 578406 UNIT/GM External Powder (Nystop)Indications: Intertrigo Apply topically [...] Notes * Telephone Encounter - Abhi Barrera [facility] - 08/22/2023 7:44 AM EST Rheumatology Pharmacist Appointment Request Char medication education in 2 weeks. [facility] [place] Department & Provider: Rheumatology [facility] Cec[place] [[id number]] - Pharmacist Rheumatology [facility] [[id number]] Patient to be scheduled for visit type: Dosage Adj In Person [[id number]], New Video Visit Home [26465], or Telephonic Medicine Visit [29850] Length of visit: 30 min Reason for visit: Medication Education Time Frame: within 2 weeks Request routed to [facility] Specialty Scheduling Pool ([id number]) Please route this encounter back to Rheum Pharmacist Refill Pool/Class [p [id number]] if unable to schedule patient after 3 attempts. Abhi Barrera, Pharm. D., [facility] Clinical Pharmacist 08/22/2023,7:44 AM * Telephone Encounter - Abhi Barrera RPh - 08/22/2023 7:42 AM EST Rheumatology Pre-Certification Request Required Screening Information: Vaccination(s): Patient has [facility] PCP - plan in place for CDC/ACIP vaccination guidelines usingHealth Maintenance Topics, Best Practice Alerts, and Anticipatory Management Reports within EHR TB Testing: Completed under scans, care everywhere or epic Hepatitis B Screenings: Completed under scans, care everywhere or epic Hepatitis C Screenings: Completed under scans, care everywhere or epic No active, severe, and/or uncontrolled infection Reauthorization: No Rheumatology Office Information: Drop Hammer Operator Helper: JODY COX Rheumatology Pharmacist: Abhi Barrera ([facility]) Thank you and have a wonderful day, Abhi Barrera, Pharm. D., [facility] Clinical Pharmacist 08/22/2023,7:42 AM * Telephone Encounter - Yareli BurnsSARA - 08/21/2023 11:22 AM EST Rheumatology Education, Pre-Certification, and/or Pharmacist Co-Management Request Medication Education: yes Pre-Certification: [facility]: Pre-cert for Prednisone, DMARDs & IV/IM/SC Osteoporosis Meds ([facility] rheumatology pharmacist pool p [phone]) Pharmacist Co-Management ([facility] ONLY; West select "no"): [...] [facility]) [...] understand that the service provided by the [facility] is voluntary and have informed patient that they can refuse the service at their discretion. I am aware that the [facility] Clinic will provide me with a copy of the patient encounter via my [employer] In-Basket. I authorize the [facility] to carryout these activities on my behalf. I consider this program to be a necessary part of the patient's medical care. SARA Morales documented in this encounter Plan of Treatment Upcoming Encounters Date Type Department Care Team (Late st Contact Info) Description 09/08/2023 10:30 AM EST Telemedicine Rheumatology, [address] [address] Agc5, Pharmacist Rheumatology [address] [place] [address] 11/22/2023 10:00 AM EDT Office Visit Dermatology [address] [place] [address] Beatriz Solis PA-C [address] [place] [address] [place] [address] 01/12/2024 1:30 PM EDT Office Visit Rheumatology [address] [place] [phone] Yareli Burns CRNP [address] [facility] [place] [address] 01/19/2024 9:20 AM EDT Office Visit Family Medicine [address] [place] [phone] Alexandra Carrion MD [address] [place] [address] [place] [address] Scheduled Referrals Name Type Priority Associated Diagnoses [...] arthropathy documented in this encounter Care Teams Hall Clerk Relationship Specialty Start Date End Date Alexandra Carrion MD [address] [place] [address] [place] [address] PCP - General Family Medicine 02/17/15 documented as of this encounter
--- OUTSIDE RECORDS SUMMARY | 2023-11-09 13:31 | External Medical Summary | Summary of Care ---
Author Name Unknown Organization [facility] Address [address] [place] [address] Phone [phone] Care Team Providers Care Court Worker Name Role Phone Alexandra Carrion MD Primary Care Provide r Reason for Visit * Reason Onset Date Comments Medication Refill 08/30/2023 Encounter Details Date Type Department Care Team (Late st Contact Info) Description 08/30/2023 Telephone Rheumatology [facility] [address] [place] [address] Yareli Burns CRNP [address] [place] [address] Medication Refill Allergies Active Allergy Reactions Criticality Noted Date Comments Caffeine 05/07/2001 Ephedrine Pseudoephedrine 04/01/2008 documented as of this encounter (statuses as of 08/30/2023) Medications Medication Sig Dispensed Refills Start Date End Date Status Clindamycin Phosphate 1 % External GelIndications:Foll iculitis Put 1-2x daily to spots (2x daily when flared) and only 1x daily to areas to prevent spots when not flared 180 g 3 09/16/2021 Active Nystatin 171596 UNIT/GM External Powder (Nystop)Indications :Intertrigo Apply topically [...] as of this encounter (statuses as of 08/30/2023) Active Problems Problem Noted Date Diagnosed Date PSA (psoriatic arthritis) 04/20/2018 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 HTN, goal below 130/80 03/07/2011 Generalized anxiety disorder 04/01/2008 Other acne 04/01/2008 Allergic rhinitis due to pollen 09/08/2004 Adjustment disorder with depressed mood documented as of this encounter (statuses as of 08/30/2023) Resolved Problems Problem Noted Date Diagnosed Date Resolved Date Psoriasis 04/01/2008 10/28/2015 BMI 30.0-30.9,adult 08/23/19 19 documented as of this encounter (statuses as of 08/30/2023) Immunizations Name Administration Dates Next Due Pneumococcal [...] encounter Miscellaneous Notes * Telephone Encounter - Yareli Burns CRNP - 08/30/2023 3:38 PM EST Spoke to the patient at this time. Sendtin a prednisone taper. Patient complaining of back and neckpains. States her Taltz did not get delivered yet she is still waiting. Encouraged patient to contact clinic with any questions or concerns. * Telephone Encounter - Denisha Solorzano CPhT - 08/30/2023 11:31 AM EST Pt requesting a steroid while she waits for the new med to be authorized. She has pain and inflammation. Pt uses [facility] [place]. Thanks, Denisha Solorzano CPhT, Tech II Centralized Clincal Pharmacy Services (CCPS) (formerly Telepharmacy) [address] [place] [address] documented in this encounter Plan of Treatment Upcoming Encounters Date Type Department Care Team (Late st Contact Info) Description 09/08/2023 10:30 AM EST Telemedicine Rheumatology, [place] [address] [place] [address] Agc5, Pharmacist Rheumatology [address] [place] [address] 11/22/2023 10:00 AM EDT Office Visit Dermatology [address] [place] [address] Beatriz Solis PA-C [address] [place] [address] [place] [address] 01/12/2024 1:30 PM EDT Office Visit Rheumatology [address] [place] [phone] Yareli Burns CRNP [facility] [address] 01/19/2024 9:20 AM EDT Office Visit Family Medicine [address] [place] [phone] Alexandra Carrion MD [address] [place] [address] [place] [address] Health Maintenance Due Date Last Done Comments [...] filedocumented as of this encounter Care Teams Court Worker Relationship Specialty Start Date End Date Alexandra Carrion MD [address] [place] [address] [place] [id number] PCP - General Family Medicine 02/17/15 documented as of this encounter
--- OUTSIDE RECORDS SUMMARY | 2023-11-09 13:31 | External Medical Summary | Summary of Care ---
Author Name Unknown Organization [facility] Address [address] [place] [place] [address] Phone [phone] Care Team Providers Care Candle Making Supervisor Name Role Phone Alexandra Carrion MD Primary Care Provide r Reason for Visit * Reason Onset Date Comments Precert Approved 09/25/2023 Char Encounter Details Date Type Department Care Team (Late st Contact Info) Description 09/25/2023 Telephone Rheumatology [place] [address] [place] [address] Yareli Burns CRNP [address] [place] [address] Precert Approved ( Char ) Allergies Active Allergy Reactions Criticality Noted Date Comments Caffeine 05/07/2001 Ephedrine Pseudoephedrine 04/01/2008 documented as of this encounter (statuses as of 09/28/2023) Medications Medication Sig Dispensed Refills Start Date End Date Status Clindamycin Phosphate 1 % External GelIndications:Fol liculitis Put 1-2x daily to spots (2x daily when flared) and only 1x daily to areas to prevent spots when not flared 180 g 3 09/16/2021 Active Nystatin 150545 UNIT/GM External Powder (Nystop)Indication s:Intertrigo Apply topically [...] as of this encounter (statuses as of 09/28/2023) Active Problems Problem Noted Date Diagnosed Date PSA (psoriatic arthritis) 04/20/2018 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 HTN, goal below 130/80 03/07/2011 Generalized anxiety disorder 04/01/2008 Other acne 04/01/2008 Allergic rhinitis due to pollen 09/08/2004 Adjustment disorder with depressed mood documented as of this encounter (statuses as of 09/28/2023) Resolved Problems Problem Noted Date Diagnosed Date Resolved Date Psoriasis 04/01/2008 10/28/2015 BMI 30.0-30.9,adult 08/23/19 19 documented as of this encounter (statuses as of 09/28/2023) Immunizations Name Administration Dates Next Due Pneumococcal [...] 11/22/2023 10:00 AM EDT Office Visit Dermatology [address] [place] [address] Beatriz Solis PA-C [address] [place] [address] [place] [address] 01/12/2024 1:30 PM EDT Office Visit Rheumatology [address] [place] [phone] Yareli Burns CRNP [address] [place] [address] [place] [address] 01/19/2024 9:20 AM EDT Office Visit Family Medicine [address] [place] [phone] Alexandra Carrion MD [address] [place] [address] [place] [address] Scheduled Orders Name Type Priority Associated Diagnoses [...] medications documented in this encounter Care Teams Candle Making Supervisor Relationship Specialty Start Date End Date Alexandra Carrion MD [address] [place] [address] [place] [address] PCP - General Family Medicine 02/17/15 documented as of this encounter
--- OUTSIDE RECORDS SUMMARY | 2023-11-09 13:32 | External Medical Summary | Summary of Care ---
Author Name Unknown Organization [facility] Address [address] [place] [address] Phone [phone] Care Team Providers Care Asphalt Coater Name Role Phone Alexandra Carrion MD Primary Care Provide r Reason for Visit * Reason Comments Medication Refill Encounter Details Date Type Department Care Team (Late st Contact Info) Description 08/15/2023 Refill Rheumatology, [place] [address] [place] [address] Hany Lyn MD [facility] [place] [address] PSA (psoriatic arthritis) ([facility]) Allergies Active Allergy Reactions Criticality Noted Date Comments Caffeine 05/07/2001 Ephedrine Pseudoephedrine 04/01/2008 documented as of this encounter (statuses as of 08/15/2023) Medications Medication Sig Dispensed Refills Start Date End Date Status Clindamycin Phosphate 1 % External GelIndications:Folli culitis Put 1-2x daily to spots (2x daily when flared) and only 1x daily to areas to prevent spots when not flared 180 g 3 09/16/2021 Active Nystatin 771542 UNIT/GM External Powder (Nystop)Indications: Intertrigo Apply topically to affected area 3 times a day . Apply to groin 60 g 1 09/16/2021 Active Ibuprofen 800 MG Oral Tablet (Motrin)Indications: PSA (psoriatic arthritis) ([facility]) Take by mouth 0.5 Tablets 2 [...] as of this encounter (statuses as of 08/15/2023) Active Problems Problem Noted Date Diagnosed Date PSA (psoriatic arthritis) 04/20/2018 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 HTN, goal below 130/80 03/07/2011 Generalized anxiety disorder 04/01/2008 Other acne 04/01/2008 Allergic rhinitis due to pollen 09/08/2004 Adjustment disorder with depressed mood documented as of this encounter (statuses as of 08/15/2023) Resolved Problems Problem Noted Date Diagnosed Date Resolved Date Psoriasis 04/01/2008 10/28/2015 BMI 30.0-30.9,adult 08/23/19 19 documented as of this encounter (statuses as of 08/15/2023) Immunizations Name Administration Dates Next Due Pneumococcal [...] encounter Miscellaneous Notes * Telephone Encounter - Kindra Houston CPhT - 08/15/2023 11:28 AM ESTNo prescriptions requested or ordered in this encounter documented in this encounter Plan of Treatment Upcoming Encounters Date Type Department Care Team (Late st Contact Info) Description 09/08/2023 10:30 AM EST Telemedicine Rheumatology, [place] [address] [place] [address] Agc5, Pharmacist Rheumatology [facility] [place] [address] 11/22/2023 10:00 AM EDT Office Visit Dermatology [address] [place] [address] Beatriz Solis PA-C [address] [place] [address] [place] [address] 01/12/2024 1:30 PM EDT Office Visit Rheumatology [address] [place] [phone] Yareli Burns CRNP [address] [facility] [address] 01/19/2024 9:20 AM EDT Office Visit Family Medicine [address] [place] [phone] Alexandra Carrion MD [address] [place] [address] [place] [address] Health Maintenance Due Date Last Done Comments [...] encounter Visit Diagnoses Diagnosis PSA (psoriatic arthritis) (HCC) Psoriatic arthropathy documented in this encounter Care Teams Asphalt Coater Relationship Specialty Start Date End Date Alexandra Carrion MD [address] [place] [address] [place] [address] PCP - General Family Medicine 02/17/15 documented as of this encounter
--- OUTSIDE RECORDS SUMMARY | 2023-11-09 13:32 | External Medical Summary | Summary of Care ---
Author Name Unknown Organization [facility] Address [address] [place] [address] Phone [phone] Care Team Providers Care Pre Billing Clinician Name Role Phone Alexandra Carrion MD Primary Care Provide r Reason for Visit * Reason Onset Date Comments Pre Cert/Prior Auth 08/21/2023 Encounter Details Date Type Department Care Team (Late st Contact Info) Description 08/21/2023 Telephone [facility] [place] [address] [place], [place] [phone] [facility] [address] [place], [place] [phone] Pre Cert/Prior Auth Allergies Active Allergy Reactions Criticality Noted Date Comments Caffeine 05/07/2001 Ephedrine Pseudoephedrine 04/01/2008 documented as of this encounter (statuses as of 08/21/2023) Medications Medication Sig Dispensed Refills Start Date End Date Status Clindamycin Phosphate 1 % External GelIndications:Folli culitis Put 1-2x daily to spots (2x daily when flared) and only 1x daily to areas to prevent spots when not flared 180 g 3 09/16/2021 Active Nystatin 010181 UNIT/GM External Powder (Nystop)Indications: Intertrigo Apply topically [...] as of this encounter (statuses as of 08/21/2023) Active Problems Problem Noted Date Diagnosed Date PSA (psoriatic arthritis) 04/20/2018 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 HTN, goal below 130/80 03/07/2011 Generalized anxiety disorder 04/01/2008 Other acne 04/01/2008 Allergic rhinitis due to pollen 09/08/2004 Adjustment disorder with depressed mood documented as of this encounter (statuses as of 08/21/2023) Resolved Problems Problem Noted Date Diagnosed Date Resolved Date Psoriasis 04/01/2008 10/28/2015 BMI 30.0-30.9,adult 08/23/19 19 documented as of this encounter (statuses as of 08/21/2023) Immunizations Name Administration Dates Next Due Pneumococcal [...] Encounter - Yareli Burns CRNP - 08/21/2023 11:26 AM EST Thank you. * Telephone Encounter - Colleen Esquivel RPh - 08/21/2023 10:17 AM EST Images from the original note were not included. Insurance denied Cosentyx and provided formulary alternatives as follows: Of note, patient has tried and failed Humira. Mellissa - I received your TE that you would like to start PA for Taltz. Please place initial SmartPhrase then route to endo [facility] pool if you would still like to proceed with Taltz. We can then submit forauth. Thanks! documented in this encounter Plan of Treatment Upcoming Encounters Date Type Department Care Team (Late st Contact Info) Description 09/08/2023 10:30 AM EST [place]icine [place] [address] [place] [address] Agc5, Pharmacist Rheumatology [facility] [place] [address] 11/22/2023 10:00 AM EDT Office Visit Dermatology [address] [place] [address] Beatriz Solis PA-C [address] [place] [address] [place] [address] 01/12/2024 1:30 PM EDT Office Visit Rheumatology [address] [place] [phone] Yareli Burns CRNP [address] [facility] [place] [address] 01/19/2024 9:20 AM EDT Office Visit Family Medicine [address] [place] [phone] Alexandra Carrion MD [address] [place] [address] [place] [address] Health Maintenance Due Date Last Done Comments [...] filedocumented as of this encounter Care Teams Pre Billing Clinician Relationship Specialty Start Date End Date Alexandra Carrion MD [address] [place] [address] [place] [address] PCP - General Family Medicine 02/17/15 documented as of this encounter
--- OUTSIDE RECORDS SUMMARY | 2023-11-09 13:32 | External Medical Summary | Summary of Care ---
Author Name Unknown Organization [facility] Address [address] [place] [address] Phone [phone] Care Team Providers Care Oracle Application Architect Name Role Phone Alexandra Carrion MD Primary Care Provide r Reason for Referral * Evaluate & Treat - Unlimited Visits (Within 3 days (urgent)) - Authorized Specialty Diagnoses / Procedures Referred By Jason vail Referred To Contact Pharmacist / Pharmacy Diagnoses PSA (psoriatic arthritis) ([facility]) Yareli Burns CRNP [address] [place] [address] Referral ID Status Reason Start Date Expiration Date Visits Requested Visits Authorized [id number] Authorized Specialty Services Required 08/22/2023 99 99 Question Answer Referral Priority Within 3 days (urgent) Where should this appointment be scheduled? [facility] Referring Provider Role: Specialist [...] her medication therapy managed by the [facility] Medication Therapy Disease Management Clinic ([facility]) per established policies, procedures, and protocols. I also certify that this referral may serve as an initiation of service for the management of drug therapy in the above noted patient. [facility] providers will be responsible for scheduling [...] their discretion. I am aware that the [facility] Clinic will provide me with a copy of the patient encounter via my Scoop.it In-Basket. I authorize the [facility] to carry out these activities on my behalf. I consider this program to be a necessary part of the patient's medical care. Abhi Barrera [facility] Reason for Visit * Reason Onset Date Comments Medication Pre-auth 08/21/2023 Char Encounter Details Date Type Department Care Team (Late st Contact Info) Description 08/21/2023 Telephone Rheumatology [facility] [address] [place] [address] Yareli Burns CRNP [address] [place] [address] Medication Pre-auth (Char) Allergies Active Allergy Reactions [...] flared 180 g 3 09/16/2021 Active Nystatin 331926 UNIT/GM External Powder (Nystop)Indications: Intertrigo Apply topically [...] * Telephone Encounter - Abhi Barrera [facility] - 08/22/2023 7:44 AM EST Rheumatology Pharmacist Appointment Request Char medication education in 2 weeks. Rheum spraggs Department & Provider: Rheumatology [facility] [place] [[id number]] - Pharmacist Rheumatology [facility] [[id number]] Patient to be scheduled for visit type: Dosage Adj In Person [[id number]], New Video Visit Home [62882], or Telephonic Medicine Visit [68868] Length of visit: 30 min Reason for visit: Medication Education Time Frame: within 2 weeks [address] routed [address] [facility] Specialty Scheduling Pool ([id number]) Please route this encounter back to Rheum Pharmacist Refill Pool/Class [p [phone]] if unable to schedule patient after 3 attempts. Abhi Barrera, Pharm. D., [facility] Clinical Pharmacist 08/22/2023,7:44 AM * Telephone Encounter - Abhi Barrera RPh - 08/22/2023 7:42 AM EST Rheumatology Pre-Certification Request Required Screening Information: Vaccination(s): Patient has [facility] PCP - plan in [...] uncontrolled infection Reauthorization: No Rheumatology Office Information: Community Health Education Coordinator: JODY COX Rheumatology Pharmacist: Abhi Barrera ([facility]) Thank you and have a wonderful day, Abhi Barrera, Pharm. D., [facility] Clinical Pharmacist 08/22/2023,7:42 AM * Telephone Encounter - Yareli BurnsSARA - 08/21/2023 11:22 AM EST Rheumatology Education, Pre-Certification, and/or Pharmacist Co-Management Request Medication Education: yes Pre-Certification: [facility]: Pre-cert for Prednisone, DMARDs & IV/IM/SC Osteoporosis Meds ([facility] rheumatology pharmacist pool p [phone]) Pharmacist Co-Management ([facility] ONLY; West select "no"): [...] will have medication [facility]) per established policies, procedures, and protocols. I also certify that this referral may serve as an initiation of service for the management of drug therapy in the above noted patient. [facility] providers will be responsible for scheduling patient visits, obtaining appropriate laboratory studies, and adjusting medication management therapy per patient's need, in addition to those roles spelled out in the clinic policy, procedures, and drug management protocols. I understand that the service provided by the [facility] is voluntary and have informed patient that they can refuse the service at their discretion. I am aware that the [facility] Clinic will provide me with a copy of the patient encounter via my Scoop.it In-Basket. I authorize the [facility] to carryout these activities on my behalf. I consider this program to be a necessary part of the patient's medical care. SARA [place] documented in this encounter Plan of Treatment Upcoming Encounters Date Type Department Care Team (Late st Contact Info) Description 09/08/2023 10:30 AM EST Telemedicine Rheumatology, [address] [address] Agc5, Pharmacist Rheumatology [address] [place] [address] 11/22/2023 10:00 AM EDT Office Visit Dermatology [address] [place] [address] Beatriz Solis PA-C [address] [place] [address] [place] [address] 01/12/2024 1:30 PM EDT Office Visit Rheumatology [address] [place] [phone] Yareli Burns CRNP [address] [facility] [place] [address] 01/19/2024 9:20 AM EDT Office Visit Family Medicine [address] [place] [phone] Alexandra Carrion MD [address] [place] [address] [place] [address] Scheduled Referrals Name Type Priority Associated Diagnoses [...] arthropathy documented in this encounter Care Teams Oracle Application Architect Relationship Specialty Start Date End Date Alexandra Carrion MD [address] [place] [address] [place] [address] PCP - General Family Medicine 02/17/15 documented as of this encounter
--- OUTSIDE RECORDS SUMMARY | 2023-11-09 13:32 | External Medical Summary | Summary of Care ---
Author Name Unknown Organization [facility] Address [address] [place] [address] Phone [phone] Care Team Providers Care Nut And Bolt Assembler Name Role Phone Alexandra Carrion MD Primary Care Provide r Reason for Referral * Evaluate & Treat - Unlimited Visits (Within 3 days (urgent)) - Authorized Specialty Diagnoses / Procedures Referred By Jason vail Referred To Contact Pharmacist / Pharmacy Diagnoses PSA (psoriatic arthritis) ([facility]) Yareli Burns CRNP [address] [place] [address] Referral ID Status Reason Start Date Expiration Date Visits Requested Visits Authorized [id number] Authorized Specialty Services Required 08/11/2023 99 99 Question Answer Referral Priority Within 3 days (urgent) Where should this appointment be scheduled? [facility] Referring Provider Role: Specialist Specialty: Rheum Reason for Referral: Med Education Comments Rheumatology Pharmacist Disease Modifying Antirheumatic Drug (DMARD) Co- Management Referral for: cosentyx med education Minimum frequency patient should be seen in person for medication management: As appropriate per clinical condition and patient status By my signature, I understand that my patient, Anastacia Zhong will have her medication therapy managed by the [facility] Medication Therapy Disease Management Clinic ([facility]) per established policies, procedures, and protocols. I also certify that this referral may serve as an initiation of service for the management of drug therapy in the above noted patient. [facility] providers will be responsible for scheduling patient [...] their discretion. I am aware that the [facility] Clinic will provide me with a copy of the patient encounter via my FrameBuzz In-Basket. I authorize the [facility] to carry out these activities on my behalf. I consider this program to be a necessary part of the patient's medical care. Abhi Barrera [facility] Reason for Visit * Reason Onset Date Comments Precert Denied 08/11/2023 COSENTYX SENSORE ARAMIS 150 MG PEN Encounter Details Date Type Department Care Team (Late st Contact Info) Description 08/11/2023 Telephone Rhe[address] [place] [phone] Yareli Burns CRNP [address] [facility] [place] [address] Precert Denied (COSENTYX SENSOREADY 150 MG... Allergies Active Allergy Reactions Criticality Noted Date [...] flared 180 g 3 09/16/2021 Active Nystatin 866481 UNIT/GM External Powder (Nystop)Indications: Intertrigo Apply topically [...] encounter Miscellaneous Notes * Telephone Encounter - Colleen Esquivel RPh - 08/21/2023 10:17 AM EST See TE 08/21/2023. * Telephone Encounter - Yareli Burns CRNP - 08/18/2023 12:55 PM EST The patient has to try Char, could you please get approval. Thank you, SARA Thomas Rheumatology Department * Telephone Encounter - Etelvina Asher CPhT - 08/14/2023 1:15 PM EST Patient Phone Numbers Left message for patient to schedule [facility] appointment for Medication Education. Appointment scheduled as noted below. 09/08/2023 Etelvina Asher CPhT-Adv Assistant Bookkeeper III Central[facility] Services ([facility]) (formerly Telepharmacy) 08/14/2023,1:15 PM * Telephone Encounter - Abhi Barrera RPh - 08/11/2023 3:16 PM EST Rheumatology Pharmacist Appointment Request Cosentyx med education. Rheum west Department & Provider: Rheumatology [facility] [place] [[id number]] - Pharmacist Rheumatology [facility] [[id number]] Patient to be scheduled for visit type: Dosage Adj In Person [[id number]], New Video Visit Home [54076], or Telephonic Medicine Visit [68103] Length of visit: 30 min Reason for visit: Medication Education Time Frame: within 2 weeks Request routed to [facility] Specialty Scheduling Pool ([id number]) Please route this encounter back to Rheum Pharmacist Refill Pool/Class [p [phone]] if unable to schedule patient after 3 attempts. Abhi Barrera PharmPipo Mcguire, [facility] Clinical Pharmacist 08/11/2023,3:16 PM * Telephone Encounter - Abhi Barrera RPh - 08/11/2023 3:15 PM EST Rheumatology Pre-Certification Request Required Screening Information: Vaccination(s): Patient has [facility] PCP - plan in place for CDC/ACIP vaccination guidelines usingHealth Maintenance Topics, Best Practice Alerts, and Anticipatory Management Reports within EHR TB Testing: Completed under scans, care everywhere or epic Hepatitis B Screenings: Completed under scans, care everywhere or epic Hepatitis C Screenings: Completed under scans, care everywhere or epic No active, severe, and/or uncontrolled infection Reauthorization: No Rheumatology Office Information: Commercial Sewing Instructor: JODY COX Rheumatology Pharmacist: Abhi Barrera ([facility]) Thank you and have a wonderful day, Abhi Barrera PharmPipo Mcguire, [facility] Clinical Pharmacist 08/11/2023,3:15 PM * Telephone Encounter - Yareli Burns CRNP - 08/11/2023 1:06 PM EST Rheumatology Education, Pre-Certification, and/or Pharmacist Co-Management Request Medication Education: yes Pre-Certification: [facility]: Pre-cert for Prednisone, DMARDs & IV/IM/SC Osteoporosis Meds (route rheumatology pharmacist pool p [phone]) Pharmacist Co-Management ([facility] ONLY; West select "no"): No Pharmacist Co-Management Medication/Disease State Information: Diagnosis: PSA (psoriatic arthritis) [L40.50] Medication:Secukinumab SQ Intial/Maintenance: 150 mg weekly x 5 weeks, then 150 mg once monthly Failed or Intolerant to or Contraindicated: Phan Tejada Labs up to date Rheumatology Pharmacist Disease Modifying Antirheumatic Drug (DMARD) Co- Management (If Applicable) Minimum frequency patient should be seen in person for medication management: As appropriate per clinical condition and patient status By my signature, I understand that my patient will have medication [facility]) per established policies, procedures, and protocols. I also certify that this referral may serve as an initiation of service for the management of drug therapy in the above noted patient. [facility] providers will be responsible for scheduling patient [...] copy of the patient encounter via my FrameBuzz In-Basket. I authorize the [facility] to carryout these activities on my behalf. I consider this program to be a necessary part of the patient's medical care. SARA [place] documented in this encounter Plan of Treatment Upcoming Encounters Date Type Department Care Team (Late st Contact Info) Description 09/08/2023 10:30 AM EST Telemedicine Rheumatology, [place] [address] [place] [address] Agc5, Pharmacist Rheumatology [address] [place] [address] 11/22/2023 10:00 AM EDT Office Visit Dermatology [address] [place] [address] Beatriz Solis PA-C [address] [place] [address] [place] [address] 01/12/2024 1:30 PM EDT Office Visit Rheumatology [address] [place] [phone] Yareli Burns CRNP [facility] [employer] [facility] [place] [address] 01/19/2024 9:20 AM EDT Office Visit Family Medicine [address] [place] [phone] Alexandra Carrion MD [address] [place] [address] [place] [address] Scheduled Referrals Name Type Priority Associated Diagnoses Orde r Schedule PHARMACIST MEDS THERAPY MGMT REFERRAL OP Referral Within 3 days (urgent) PSA (psoriatic arthritis) (HCC) Ordered: 08/11/2023 Health Maintenance Due Date Last Done Comments [...] arthropathy documented in this encounter Care Teams Nut And Bolt Assembler Relationship Specialty Start Date End Date Alexandra Carrion MD [address] [place] [address] [place] [id number] PCP - General Family Medicine 02/17/15 documented as of this encounter
--- OUTSIDE RECORDS SUMMARY | 2023-11-09 13:32 | External Medical Summary | Summary of Care ---
Author Name Unknown Organization [facility] Address [address] [place] [address] Phone [phone] Care Team Providers Care Meat Slicer Name Role Phone Alexandra Carrion MD Primary Care Provide r Reason for Visit * Reason Onset Date Comments Med Request 08/18/2023 Encounter Details Date Type Department Care Team (Late st Contact Info) Description 08/18/2023 Telephone Rheumatology [facility] [address] [place] [address] Yareli Burns CRNP [address] [place] [id number] Med Request Allergies Active Allergy Reactions Criticality Noted Date Comments Caffeine 05/07/2001 Ephedrine Pseudoephedrine 04/01/2008 documented as of this encounter (statuses as of 08/18/2023) Medications Medication Sig Dispensed Refills Start Date End Date Status Clindamycin Phosphate 1 % External GelIndications:Folli culitis Put 1-2x daily to spots (2x daily when flared) and only 1x daily to areas to prevent spots when not flared 180 g 3 09/16/2021 Active Nystatin 332054 UNIT/GM External Powder (Nystop)Indications: Intertrigo Apply topically to affected area 3 times a day . Apply to groin 60 g 1 09/16/2021 Active Ibuprofen 800 MG Oral Tablet (Motrin)Indications: PSA (psoriatic arthritis) ([facility]) Take by mouth 0.5 Tablets 2 [...] psoriasis of palms and soles,PSA (psoriatic arthritis) ([facility]) Apply topically to affected area 2 times a day. 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 HTN, goal below 130/80 03/07/2011 Generalized anxiety disorder 04/01/2008 Other acne 04/01/2008 Allergic rhinitis due to pollen 09/08/2004 Adjustment disorder with depressed mood documented as of this encounter (statuses as of 08/18/2023) Resolved Problems Problem Noted Date Diagnosed Date Resolved Date Psoriasis 04/01/2008 10/28/2015 BMI 30.0-30.9,adult 08/23/19 19 documented as of this encounter (statuses as of 08/18/2023) Immunizations Name Administration Dates Next Due Pneumococcal [...] Encounter - Yareli Burns CRNP - 08/18/2023 12:58 PM EST Left voicemail to call back regarding medication changes. * Telephone Encounter - Lucille Gambino OSA - 08/18/2023 8:55 AM EST Pt calling in about new medication that her insurance denied it. Pt wants to know if she can stay on humira she is getting new insurance as of September 14. Can someone please advise? documented in this encounter Plan of Treatment Upcoming Encounters Date Type Department Care Team (Late st Contact Info) Description 09/08/2023 10:30 AM EST Telemedicine Rheumatology, [place] [address] [place] [address] Agc5, Pharmacist Rheumatology [facility][note 3] [place] [address] 11/22/2023 10:00 AM EDT Office Visit Dermatology [address] [place] [address] Beatriz Solis PA-C [address] [place] [address] [place] [address] 01/12/2024 1:30 PM EDT Office Visit Rheumatology [address] [place] [address] Yareli Burns, SARA [address] [facility] [place] [address] 01/19/2024 9:20 AM EDT Office Visit Family Medicine [address] [place] [phone] Alexandra Carrion MD [address] [place] [address] [place] [address] Health Maintenance Due Date Last Done Comments [...] filedocumented as of this encounter Care Teams Meat Slicer Relationship Specialty Start Date End Date Alexandra Carrion MD [address] [place] [address] [place] [address] PCP - General Family Medicine 02/17/15 documented as of this encounter
--- OUTSIDE RECORDS SUMMARY | 2023-11-09 13:32 | External Medical Summary | Summary of Care ---
Author Name Unknown Organization [facility] Address [address] [place] [address] Phone [phone] Care Team Providers Care Financial Reporting Analyst Name Role Phone Alexandra Carrion MD Primary Care Provide r Reason for Visit * Reason Onset Date Comments Med Request 08/18/2023 Encounter Details Date Type Department Care Team (Late st Contact Info) Description 08/18/2023 Telephone Rheumatology [facility] [address] [place] [address] Yareli Burns CRNP [address] [place] [id number] Med Request Allergies Active Allergy Reactions Criticality [...] flared 180 g 3 09/16/2021 Active Nystatin 491212 UNIT/GM External Powder (Nystop)Indications: Intertrigo Apply topically to affected area 3 times a day . Apply to groin 60 g 1 09/16/2021 Active Ibuprofen 800 MG Oral Tablet (Motrin)Indications: PSA (psoriatic arthritis) ([facility]) Take by mouth 0.5 Tablets [...] psoriasis of palms and soles,PSA (psoriatic arthritis) ([facility]) Apply topically to affected area [...] encounter Miscellaneous Notes * Telephone Encounter - Lucille Gambino OSA [...] Description 09/08/2023 10:30 AM EST Telemedicine Rheumatology, [place] [address] [place] [address] Agc5, Pharmacist Rheumatology [address] [place] [address] 11/22/2023 10:00 AM EDT Office Visit Dermatology [address] [place] [address] Beatriz Solis PA-C [address] [place] [address] [place] [address] 01/12/2024 1:30 PM EDT Office Visit Rheumatology [address] [place] [phone] Yareli Burns CRNP [address] [place] [address] 01/19/2024 9:20 AM EDT Office Visit Family Medicine [address] [phone] Alexandra Carrion MD [address] [place] [address] [place] [address] Health Maintenance Due Date Last Done Comments [...] filedocumented as of this encounter Care Teams Financial Reporting Analyst Relationship Specialty Start Date End Date Alexandra Carrion MD [address] [place] [address] [place] [id number] PCP - General Family Medicine 02/17/15 documented as of this encounter
--- OUTSIDE RECORDS SUMMARY | 2023-11-09 13:32 | External Medical Summary | Summary of Care ---
Author Name Unknown Organization [facility] Address [address] [place] [address] Phone [phone] Care Team Providers Care Retail Experience Specialist Name Role Phone Alexandra Carrion MD Primary Care Provide r Reason for Referral * Evaluate & Treat - Unlimited Visits (Within 3 days (urgent)) - Authorized Specialty Diagnoses / Procedures Referred By Jason vail Referred To Contact Pharmacist / Pharmacy Diagnoses PSA (psoriatic arthritis) ([facility]) Yareli Burns CRNP [address] [place] [address] Referral ID Status Reason Start Date Expiration Date Visits Requested Visits Authorized [id number] Authorized Specialty Services Required 08/11/2023 99 99 Question Answer Referral Priority Within 3 days (urgent) Where should this appointment be scheduled? [facility] Referring Provider Role: Specialist Specialty: [...] have her medication therapy managed by the [facility] Medication Therapy Disease Management Clinic ([facility]) per established policies, procedures, and protocols. I also certify that this referral may serve as an initiation of service for the management of drug therapy in the above noted patient. [facility] providers will be responsible for scheduling [...] their discretion. I am aware that the [facility] will provide me with a copy of the patient encounter via my [employer] In-Basket. I authorize the [facility] to carry out these activities on my behalf. I consider this program to be a necessary part of the patient's medical care. Abhi Barrera [facility] Reason for Visit * Reason Onset Date Comments Precert Denied 08/11/2023 COSENTYX SENSORE ARAMIS 150 MG PEN Encounter Details Date Type Department Care Team (Late st Contact Info) Description 08/11/2023 Telephone Rheumatology [address] [place] [phone] Yareli Burns CRNP [address] [facility] [place] [address] Precert Denied (COSENTYX SENSOREADY 150 MG... Allergies Active Allergy Reactions Criticality Noted Date Comments Caffeine 05/07/2001 Ephedrine Pseudoephedrine 04/01/2008 documented as of this encounter (statuses as of 08/14/2023) Medications Medication Sig Dispensed Refills Start Date End Date Status Clindamycin Phosphate 1 % External GelIndications:Folli culitis Put 1-2x daily to spots (2x daily when flared) and only 1x daily to areas to prevent spots when not flared 180 g 3 09/16/2021 Active Nystatin 991436 UNIT/GM External Powder (Nystop)Indications: Intertrigo Apply topically [...] as of this encounter (statuses as of 08/14/2023) Active Problems Problem Noted Date Diagnosed Date PSA (psoriatic arthritis) 04/20/2018 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 HTN, goal below 130/80 03/07/2011 Generalized anxiety disorder 04/01/2008 Other acne 04/01/2008 Allergic rhinitis due to pollen 09/08/2004 Adjustment disorder with depressed mood documented as of this encounter (statuses as of 08/14/2023) Resolved Problems Problem Noted Date Diagnosed Date Resolved Date Psoriasis 04/01/2008 10/28/2015 BMI 30.0-30.9,adult 08/23/19 19 documented as of this encounter (statuses as of 08/14/2023) Immunizations Name Administration Dates Next Due Pneumococcal [...] Numbers Left message for patient to schedule [facility] appointment for Medication Education. Appointment scheduled as noted below. 09/08/2023 Etelvina Asher CPhT-Adv [employer] III Centralized Clinical Pharmacy Services (CCPS) (formerly Telepharmacy) 08/14/2023,1:15 PM * Telephone Encounter - Abhi Barrera RP - 08/11/2023 3:16 PM EST Rheumatology Pharmacist Appointment Request Cosentyx med education. [facility] Department & Provider: Rheumatology [facility] Cecilia [[id number]] - Pharmacist Rheumatology [facility] [[id number]] Patient to be scheduled for visit type: Dosage Adj In Person [235508], New Video Visit Home [[id number]], or Telephonic Medicine Visit [[id number]] Length of visit: 30 min Reason for visit: Medication Education Time Frame: within 2 weeks Request routed to [facility] Specialty Scheduling Pool ([id number]) Please route this encounter back to Rheum Pharmacist Refill Pool/Class [p [phone]] if unable to schedule patient after 3 attempts. Abhi Barrera, Pharm. D., [facility] Clinical Pharmacist 08/11/2023,3:16 PM * Telephone Encounter - Abhi Barrera [facility] - 08/11/2023 3:15 PM EST Rheumatology Pre-Certification [...] uncontrolled infection Reauthorization: No Rheumatology Office Information: Infectious Diseases Physician: JODY COX Rheumatology Pharmacist: Abhi Barrera ([facility]) Thank you and have a wonderful day, Abhi Barrera, Pharm. D., [facility] Clinical Pharmacist 08/11/2023,3:15 PM * Telephone Encounter - Yareli Burns CRNP - 08/11/2023 1:06 PM EST Rheumatology Education, Pre-Certification, and/or Pharmacist Co-Management Request Medication Education: yes Pre-Certification: [facility]: Pre-cert for Prednisone, DMARDs & IV/IM/SC Osteoporosis Meds ([facility] rheumatology pharmacist pool p [phone]) Pharmacist Co-Management ([facility] ONLY; West select "no"): No Pharmacist Co-Management Medication/Disease State Information: Diagnosis: PSA (psoriatic arthritis) [L40.50] Medication:Secukinumab SQ Intial/Maintenance: 150 mg weekly x 5 weeks, then 150 mg once monthly Failed or Intolerant to or Contraindicated: Phan Comments Labs up to date Rheumatology Pharmacist Disease Modifying Antirheumatic Drug (DMARD) Co- Management (If Applicable) Minimum frequency patient should be seen in person for medication management: As appropriate per clinical condition and patient status By my signature, I understand that my patient [facility] per established policies, procedures, and protocols. I also certify that this referral may serve as an initiation of service for the management of drug therapy in the above noted patient. [facility] providers will be responsible for scheduling patient visits, obtaining appropriate laboratory studies, and adjusting medication management therapy per patient's need, in addition to those roles spelled out in the clinic policy, procedures, and drug management protocols. I understand that the service provided by the [facility] is voluntary and have informed patient that they can refuse the service at their discretion. I am aware that the [facility] will provide me with a copy of the patient encounter via my [employer] In-Basket. I authorize the [facility] to carryout these activities on my behalf. I consider this program to be a necessary part of the patient's medical care. SARA Morales documented in this encounter Plan of Treatment Upcoming Encounters Date Type Department Care Team (Late st Contact Info) Description 09/08/2023 10:30 AM EST Telemedicine Rheumatology[address] [address] Agc5, Pharmacist Rheumatology [address] [place] [address] 11/22/2023 10:00 AM EDT Office Visit Dermatology [address] [place] [address] Beatriz Solis PA-C [address] [place] [address] [place] [address] 01/12/2024 1:30 PM EDT Office Visit Rheumatology [address] [place] [phone] Yareli Burns CRNP [address] [facility] [place] [address] 01/19/2024 9:20 AM EDT Office Visit Family Medicine [address] [place] [phone] Alexandra Carrion MD [address] [place] [address] [place] [address] Scheduled Referrals Name Type Priority Associated Diagnoses [...] arthropathy documented in this encounter Care Teams Retail Experience Specialist Relationship Specialty Start Date End Date Alexandra Carrion MD [address] [place] [address] [place] [address] PCP - General Family Medicine 02/17/15 documented as of this encounter
--- OUTSIDE RECORDS SUMMARY | 2023-11-09 13:32 | External Medical Summary | Summary of Care ---
Author Name Unknown Organization [facility] Address [address] [place] [address] Phone [phone] Care Team Providers Care Drier Belt Conveyor Name Role Phone Alexandra Carrion MD Primary Care Provide r Reason for Visit * Reason Comments Medication Refill Encounter Details Date Type Department Care Team (Late st Contact Info) Description 08/16/2023 Refill Rheumatology, [place] [address] [place] [address] Hany Lyn MD [facility] [place] [address] PSA (psoriatic arthritis) ([facility]) Allergies Active Allergy Reactions Criticality Noted Date Comments Caffeine 05/07/2001 Ephedrine Pseudoephedrine 04/01/2008 documented as of this encounter (statuses as of 08/16/2023) Medications Medication Sig Dispensed Refills Start Date End Date Status Clindamycin Phosphate 1 % External GelIndications:Folli culitis Put 1-2x daily to spots (2x daily when flared) and only 1x daily to areas to prevent spots when not flared 180 g 3 09/16/2021 Active Nystatin 663903 UNIT/GM External Powder (Nystop)Indications: Intertrigo Apply topically to affected area 3 times a day . Apply to groin 60 g 1 09/16/2021 Active Ibuprofen 800 MG Oral Tablet (Motrin)Indications: PSA (psoriatic arthritis) ([facility]) Take by mouth 0.5 Tablets [...] as of this encounter (statuses as of 08/16/2023) Active Problems Problem Noted Date Diagnosed Date PSA (psoriatic arthritis) 04/20/2018 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 HTN, goal below 130/80 03/07/2011 Generalized anxiety disorder 04/01/2008 Other acne 04/01/2008 Allergic rhinitis due to pollen 09/08/2004 Adjustment disorder with depressed mood documented as of this encounter (statuses as of 08/16/2023) Resolved Problems Problem Noted Date Diagnosed Date Resolved Date Psoriasis 04/01/2008 10/28/2015 BMI 30.0-30.9,adult 08/23/19 19 documented as of this encounter (statuses as of 08/16/2023) Immunizations Name Administration Dates Next Due Pneumococcal [...] encounter Miscellaneous Notes * Telephone Encounter - Karuna Shea PHARM Tech - 08/16/2023 4:26 PM ESTNo prescriptions requested or ordered in this encounter documented in this encounter Plan of Treatment Upcoming Encounters Date Type Department Care Team (Late st Contact Info) Description 09/08/2023 10:30 AM EST Telemedicine Rheumatology, [place] [address] [place] [address] Agc5, Pharmacist Rheumatology [facility] [place] [address] 11/22/2023 10:00 AM EDT Office Visit Dermatology [address] [place] [address] Beatriz Solis PA-C [address] [place] [address] [place] [address] 01/12/2024 1:30 PM EDT Office Visit Rheumatology [address] [place] [phone] Yareli Burns CRNP [address] [facility] [place] [address] 01/19/2024 9:20 AM EDT Office Visit Family Medicine [address] [place] [phone] Alexandra Carrion MD [address] [place] [address] [place] [address] Health Maintenance Due Date Last Done Comments [...] arthropathy documented in this encounter Care Teams Drier Belt Conveyor Relationship Specialty Start Date End Date Alexandra Carrion MD [address] [place] [address] [place] [address] PCP - General Family Medicine 02/17/15 documented as of this encounter
--- OUTSIDE RECORDS SUMMARY | 2023-11-09 13:32 | External Medical Summary | Summary of Care ---
Author Name Unknown Organization [facility] Address [address] [place] [address] Phone [phone] Care Team Providers Care Hair Boiler Operator Name Role Phone Alexandra Carrion MD Primary Care Provide r Reason for Visit * Reason Onset Date Comments Pre Cert/Prior Auth 08/21/2023 Encounter Details Date Type Department Care Team (Late st Contact Info) Description 08/21/2023 Telephone [facility] [place] [address] [place], [place] [id number] [facility] [address] [place], [place] [phone] Pre Cert/Prior Auth Allergies Active Allergy Reactions [...] flared 180 g 3 09/16/2021 Active Nystatin 524898 UNIT/GM External Powder (Nystop)Indications: Intertrigo Apply topically [...] psoriasis of palms and soles,PSA (psoriatic arthritis) ([facility]) Apply topically to affected area [...] Notes * Telephone Encounter - Colleen Esquivel [facility] - 08/21/2023 10:17 AM EST Images from the original note were not included. Insurance denied Cosentyx and provided formulary alternatives as follows: Of note, patient has tried and failed Humira. Mellissa - I received your TE that you would like to start PA for Taltz. Please place initial SmartPhrase then route to [facility]o [facility] pool if you would still like to proceed with Taltz. We can then submit forauth. Thanks! documented in this encounter Plan of Treatment Upcoming Encounters Date Type Department Care Team (Late st Contact Info) Description 09/08/2023 10:30 AM EST Telemedicine Rheumatology, [place] [address] [place] [address] Agc5, Pharmacist Rheumatology [place] [address] 11/22/2023 10:00 AM EDT Office Visit Dermatology [address] [place] [address] Beatriz Solis PA-C [address] [place] [address] [place] [address] 01/12/2024 1:30 PM EDT Office Visit Rheumatology [address] [place] [phone] Yareli Burns CRNP [address] [facility] [place] [address] 01/19/2024 9:20 AM EDT Office Visit Family Medicine [address] [place] [phone] Alexandra Carrion MD [address] [place] [address] [place] [address] Health Maintenance Due Date Last Done Comments [...] 05/10/2022, Additional history exists Cologuard 05/25/2026 05/25/2023, 07/2022, 05/17/2023 Colorectal Cancer Screening 05/25/2026 Lipid Panel 05/09/2028 05/09/2023, 04/17, 12/31/2020, Additional history exists GARDASIL-HPV IMMUNIZATION SERIES Aged Out No longer eligible based on patient's age to complete this topic MENINGOCOCCAL (MENACTRA/MENVEO) Aged Out No longer eligible based on patient's age to complete this topic documented as of this encounter Medical Devices Not on filedocumented as of this encounter Care Teams Hair Boiler Operator Relationship Specialty Start Date End Date Alexandra Carrion MD [address] [place] [address] [place] [id number] PCP - General Family Medicine 02/17/15 documented as of this encounter
--- OUTSIDE RECORDS SUMMARY | 2023-11-09 13:32 | External Medical Summary | Summary of Care ---
Author Name Unknown Organization [facility] Address [address] [place] [address] Phone [phone] Care Team Providers Care Riprap Worker Name Role Phone Alexandra Carrion MD Primary Care Provide r Reason for Referral * Evaluate & Treat - Unlimited Visits (Within 3 days (urgent)) - Authorized Specialty Diagnoses / Procedures Referred By Jason vail Referred To Contact Pharmacist / Pharmacy Diagnoses PSA (psoriatic arthritis) ([facility]) Yareli Burns CRNP [address] [place] [address] Referral ID Status Reason Start Date Expiration Date Visits Requested Visits Authorized [id number] Authorized Specialty Services Required 08/11/2023 99 99 Question Answer Referral Priority Within 3 days (urgent) Where should this appointment be scheduled? [facility] Referring Provider Role: Specialist Specialty: Rheum Reason for Referral: Med Education Comments Rheumatology Pharmacist Disease Modifying Antirheumatic Drug (DMARD) Co- Management Referral for: cosentyx med education Minimum frequency patient should be seen in person for medication management: As appropriate per clinical condition and patient status By my signature, I understand that my patient, Anastacia Zhong will have her medication therapy managed by the [facility] Medication Therapy Disease Management Clinic ([facility]) per established policies, procedures, and protocols. I also certify that this referral may serve as an initiation of service for the management of drug therapy in the above noted patient. [facility] providers will be responsible for scheduling [...] their discretion. I am aware that the [facility] Clinic will provide me with a copy of the patient encounter via my [employer] In-Basket. I authorize the [facility] to carry out these activities on my behalf. I consider this program to be a necessary part of the patient's medical care. Abhi Barrera formerly [facility] Reason for Visit * Reason Onset Date Comments Precert Denied 08/11/2023 COSENTYX SENSORE ARAMIS 150 MG PEN Encounter Details Date Type Department Care Team (Late st Contact Info) Description 08/11/2023 Telephone Rheumatology [address] [place] [phone] Yareli Burns CRNP [address] [facility] [place] [address] Precert Denied (COSENTYX SENSOREADY 150 MG... Allergies [...] flared 180 g 3 09/16/2021 Active Nystatin 142784 UNIT/GM External Powder (Nystop)Indications: Intertrigo Apply topically [...] Numbers Left message for patient to schedule [facility] appointment for Medication Education. Appointment scheduled as noted below. 09/08/2023 Etelvina Asher CPhT-[facility] Administration Internship III Centralized Clinical Pharmacy Services (CCPS) (formerly Telepharmacy) 08/14/2023,1:15 PM * Telephone Encounter - Abhi Barrera formerly [facility] - 08/11/2023 3:16 PM EST Rheumatology Pharmacist Appointment Request Cosentyx med education. [facility] [place] Department & Provider: Rheumatology [facility] [place] [[id number]] - Pharmacist Rheumatology [facility] [[id number]] Patient to be scheduled for visit type: Dosage Adj In Person [067160], New Video Visit Home [33645], or Telephonic Medicine Visit [85719] Length of visit: 30 min Reason for visit: Medication Education Time Frame: within 2 weeks Request routed to [facility] Specialty Scheduling Pool ([id number]) Please route this encounter back to [facility] Pharmacist Refill Pool/Class [p [id number]] if unable to schedule patient after 3 attempts. Pharm. Shayla Khan, [facility] Clinical Pharmacist 08/11/2023,3:16 PM * Telephone Encounter - Abhi Barrera [facility] - 08/11/2023 3:15 PM EST Rheumatology Pre-Certification Request Required Screening Information: Vaccination(s): Patient has [facility] PCP - plan in place for CDC/ACIP vaccination guidelines usingHealth Maintenance Topics, Best Practice Alerts, and Anticipatory Management Reports within EHR TB Testing: Completed under scans, care everywhere or epic Hepatitis B Screenings: Completed under scans, care everywhere or epic Hepatitis C Screenings: Completed under scans, care everywhere or epic No active, severe, and/or uncontrolled infection Reauthorization: No Rheumatology Office Information: Driver'S License Reviewing Officer: JODY COX Rheumatology Pharmacist: Abhi Barrera ([facility]) Thank you and have a wonderful day, Pharm. Shayla Khan, [facility] Clinical Pharmacist 08/11/2023,3:15 PM * Telephone Encounter - Yareli Burns CRNP - 08/11/2023 1:06 PM EST Rheumatology Education, Pre-Certification, and/or Pharmacist Co-Management Request Medication Education: yes Pre-Certification: [facility]: Pre-cert for Prednisone, DMARDs & IV/IM/SC Osteoporosis Meds ([facility] rheumatology pharmacist pool p [phone]) Pharmacist Co-Management ([facility] ONLY; West select "no"): No Pharmacist Co-Management Medication/Disease State Information: Diagnosis: PSA (psoriatic arthritis) [L40.50] Medication:Secukinumab SQ Intial/Maintenance: 150 mg weekly x 5 weeks, then 150 mg once monthly Failed or Intolerant to or Contraindicated: Humira Comments Labs up to date Rheumatology Pharmacist Disease Modifying Antirheumatic Drug (DMARD) Co- Management (If Applicable) Minimum frequency patient should be seen in person for medication management: As appropriate per clinical condition and patient status By my signature, I understand that my patient will [facility] per established policies, procedures, and protocols. I also certify that this referral may serve as an initiation of service for the management of drug therapy in the above noted patient. [facility] providers will be responsible for scheduling patient visits, obtaining appropriate laboratory studies, and adjusting medication management therapy per patient's need, in addition to those roles spelled out in the clinic policy, procedures, and drug management protocols. I understand that the service provided by the [facility] is voluntary and have informed patient that they can refuse the service at their discretion. I am aware that the [facility] Clinic will provide me with a copy of the patient encounter via my [employer] In-Basket. I authorize the [facility] to carryout these activities on my behalf. I consider this program to be a necessary part of the patient's medical care. SARA Morales documented in this encounter Plan of Treatment Upcoming Encounters Date Type Department Care Team (Late st Contact Info) Description 09/08/2023 10:30 AM EST [place]medicine [place] [address] [place] [address] Agc5, Pharmacist Rheumatology [address] [place] [address] 11/22/2023 10:00 AM EDT Office Visit Dermatology [address] [place] [address] Beatriz Solis PA-C [address] [place] [address] [place] [address] 01/12/2024 1:30 PM EDT Office Visit Rheumatology [address] [place] [phone] Yareli Burns CRNP [address] [facility] [place] [address] 01/19/2024 9:20 AM EDT Office Visit Family Medicine [address] [place] [phone] Alexandra Carrion MD [address] [place] [address] [place] [address] Scheduled Referrals Name Type Priority Associated Diagnoses [...] encounter Visit Diagnoses Diagnosis PSA (psoriatic arthritis) ([facility])- Primary Psoriatic arthropathy documented in this encounter Care Teams Riprap Worker Relationship Specialty Start Date End Date Alexandra Carrion MD [address] [place] [address] [place] [id number] PCP - General Family Medicine 02/17/15 documented as of this encounter
--- OUTSIDE RECORDS SUMMARY | 2023-11-09 13:33 | External Medical Summary | Summary of Care ---
Author Name Unknown Organization [facility] [address] [facility] [address] Phone [phone] Care Team Providers Care Business Intelligence Director Name Role Phone Alexandra Carrion MD Primary Care Provide r Reason for Visit * Reason Comments Rheum Follow Up Recheck PSA Encounter Details Date Type Department Care Team (Late st Contact Info) Description 08/11/2023 10:00 AM EST Office Visit Rheumatology [address] [place] [address] Yareli Burns CRNP [address] [place] [address] [place] [address] PSA (psoriatic arthritis) ([facility])*; Encounter for long-term (current) use of medications; Pustular psoriasis of palms and soles Allergies Active Allergy Reactions Criticality Noted Date Comments Caffeine 05/07/2001 Ephedrine Pseudoephedrine 04/01/2008 documented as of this encounter (statuses as of 08/11/2023) Medications Medication Sig Dispensed Refills Start Date End Date Status Clindamycin Phosphate 1 % External GelIndications:Folli culitis Put 1-2x daily to spots (2x daily when flared) and only 1x daily to areas to prevent spots when not flared 180 g 3 09/16/2021 Active Nystatin 581193 UNIT/GM External Powder (Nystop)Indications: Intertrigo Apply topically [...] psoriasis of palms and soles,PSA (psoriatic arthritis) ([facility]) Apply topically to affected area 2 times a day. Apply to hands and feet as directed or more if itchy instead of scratching 45 g 5 06/06/2023 Active Humira Pen 40 MG/0.8ML Subcutaneous Pen-injector Kit (Adalimumab)Indicati ons:PSA (psoriatic arthritis) (HCC) Inject 40 mg (1 pen) under the skin every 14 days. 2 mL 2 07/24/2023 Active documented as of this encounter (statuses as of 08/11/2023) Active Problems Problem Noted Date Diagnosed Date PSA (psoriatic arthritis) 04/20/2018 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 HTN, goal below 130/80 03/07/2011 Generalized anxiety disorder 04/01/2008 Other acne 04/01/2008 Allergic rhinitis due to pollen 09/08/2004 Adjustment disorder with depressed mood documented as of this encounter (statuses as of 08/11/2023) Resolved Problems Problem Noted Date Diagnosed Date Resolved Date Psoriasis 04/01/2008 10/28/2015 BMI 30.0-30.9,adult 08/23/19 19 documented as of this encounter (statuses as of 08/11/2023) Immunizations Name Administration Dates Next Due Pneumococcal Polysaccharide PPV23 (Pneumovax) Seasonal Influenza, PF, 6 M & above, IM , (FluLaval or Fluzone) 09/16/2021 Seasonal Influenza, Split, IIV3, With Preserve, Inj 07/28/2010 documented as of this encounter Social History Tobacco Use Types Packs/Day Years Used Date Smoking Tobacco: Every Day Cigarettes 1 10 Smokeless Tobacco: Never Tobacco Cessation:Ready to Q uit: Not Asked; Counseling Given: Not Answered Alcohol Use Standard Drinks/Week Comments Yes 0 [...] Sign Reading Time Taken Comments Blood Pressure 150/100 08/11/2023 9:54 AM EST Pulse - - Temperature 36.6 C (97.8 F) 08/11/2023 9:54 AM ES T Respiratory Rate - - Oxygen Saturation - - Inhaled Oxygen Concentration - - Weight 81.2 kg (179 lb) 08/11/2023 9:54 AM EST Height - - Body Mass Index 29.79 01/23/2023 10:00 AM EDT documented in this encounter Patient Instructions * Patient Instructions* Yareli Burns CRNP - 08/11/2023 10:30 AM EST Update labs 1 month after starting New Biologic Discontinue Humira Follow up 4 months Contact clinic with any questions or concerns Secukinumab Prefilled Syringe Brands: Cosentyx Uses This medicine is used for the following purposes: arthritis psoriasis Instructions This medicine is injected into the skin. Ask your doctor, nurse, or pharmacist where on your body this medicine can be injected and how to inject it. The liquid should be clear or light yellow. Check the medicine before each use. If the liquid medicine has any particles in it, appears discolored, or if the vial appears damaged, do not use it. Do not shake the medicine before using. Keep medicine in refrigerator. Do not freeze. Protect from light. Keep the medicine in its original container. Take the medicine out of the refrigerator about 30 minutes before use to warm to room temperature. Speak with your nurse or pharmacist about how long the medicine can be stored safely at room temperature or in the refrigerator before it needs to be discarded. Never use any medicine that has . Discard any remaining medicine after your dose is given. Please ask your doctor, nurse, or pharmacist how to discard unused medicines safely. Wash your hands before and after handling this medicine. You or a family member can be trained to give this medicine at home. Avoid injecting the medicine within 2 inches around the navel. Do not inject into skin that is red, swollen or itchy. If your dose is 2 syringes or injections, inject each in 2 different locations. Change the location of the injection each time. Choose a location at least 1 inch from the last injection. Do not rub or massage the area where the injection was given. Tell your doctor if you have ever had an allergic reaction to latex. It is important that you keep taking each dose of this medicine on time even if you are feeling well. If you miss a dose, contact your doctor for instructions. Drug interactions can change how medicines work or increase risk for side effects. Tell your healthcare providers about all medicines taken. Include prescription and [id number]-tlnlxje medicines, vitamins, and herbal medicines. Speak with your doctor or pharmacist before starting or stopping any medicine. Tell your doctor if symptoms do not get better or if they get worse. Talk to your doctor before taking other medicines, including aspirins and ibuprofen containing products. Speak to your doctor about which medicines are safe to use while you are on this medicine. Keep all appointments for medical exams and tests while on this medicine. Cautions During , this medicine should be used only when clearly needed. Talk to your doctor about the risks and benefits. Tell your doctor and pharmacist if you ever had an allergic reaction to a medicine. Your doctor should check you for tuberculosis (TB) before you start this medicine and while you areusing it. Tell your doctor if you are being treated for TB or any other infection. Some patients on this medicine have developed severe, life-threatening infections. Please speak with your doctor about the risks and benefits of using this medicine. Do not use the medication any more than instructed. This medicine may reduce your body's ability to fight infections. Avoid contact with people with colds, flu or other infections. Contact your doctor if you develop fever, cough, sore throat, or chills. Speak with your health care provider before receiving any vaccinations. It is unknown if this medicine passes into breast milk. Ask your doctor before . Ask your pharmacist how to properly throw away used needles or syringes. Do not share this medicine with anyone who has not been prescribed this medicine. Some patients have serious side effects from this medicine. Ask your pharmacist to show you the information from the Food and Drug Administration (FDA) and discuss it with you. Side Effects The following is a list of some common side effects from this medicine. Please speak with your doctor about what you should do if you experience these or other side effects. diarrhea Call your doctor or get medical help right away if you notice any of these more serious side effects: severe abdominal or pelvic pain coughing severe, watery or bloody diarrhea fever or chills sore throat stomach pain yeast infection of mouth A few people may have an allergic reaction to this medicine. Symptoms can include difficulty breathing, skin rash, itching, swelling, or severe dizziness. If you notice any of these symptoms, seek medical help quickly. documented in this encounter Progress Notes * Yareli Burns CRNP - 08/11/2023 9:56 AM EST Date of last clinic visit reviewed: 10/21/2022 Current medication therapy: Humira Date of last labs reviewed from 05/09/2023 ESR, CMP, CRP Subjective: Patient seen today for further follow up evaluation of psoriatic arthritis. Since the last visit she continues on Humira and thinks she it is not working as well for her skin and joint. She reports on a bad every couple weeks she has limited mobility. She notes she will get stiffness and pain in her hands. She notes heat and ibuprofen will benefit her joints but she tires to limit the amount due to side effects of HTN. She notes she did not find benefit the last time she [facility] would like to find a new one. Her X-ray from Jul, 2022 show C-spine DDD. She notes she uses Voltaren or Icy hot for her neck as needed with minimal benefit. She continue taking Triamcinolone and Clobetasol but her Psoriasis is worsening on her feet. Patient is due for Humira today. Musculoskeletal ROS: . Abnormal: joint pain, joint swelling, and neck pain . AM stiffness (hours): 1 . Pain scale (0-10): 5 . Fatigue scale (0-10): 5 Other ROS: . Constitutional: fatigue and trouble sleeping . Head headaches . Eyes: dryness . Ears, nose, throat, mouth: normal . Cardiovascular: normal . Respiratory: normal . Gastrointestinal: normal . Genitourinary: normal . Skin: Psoriasis on heel and sides of feet . Neurologic: normal . Psychiatric: normal . Endocrine: normal . Hematologic/lymphatic: normal . Allergic/immunologic: normal Social History: Social History Tobacco Use Smoking status: Every Day Packs/day: 1.00 Years: 10.00 Additional pack years: 0.00 Total pack years: 10.00 Types: Cigarettes Smokeless tobacco: Never Substance Use Topics Alcohol use: Yes Comment: ocass Vaping/E-Cigarette Use Vaping/E-Cigarette Substances Vaping/E-Cigarette Devices Current Outpatient Medications Medication Sig Dispense Refill Clindamycin Phosphate 1 % External Gel Put 1-2x daily to spots (2x daily when flared) and only 1x daily to areas to prevent spots when not flared 180 g 3 Nystatin 383918 UNIT/GM External Powder (Nystop) Apply topically to affected area 3 times a day . Apply to groin 60 g 1 Ibuprofen 800 MG Oral Tablet (Motrin) Take by mouth 0.5 Tablets 2 times a day as needed for Pain, Severe. 100 Tablet 1 Albuterol Sulfate HFA 108 (90 Base) MCG/ACT Inhalation Aerosol Solution As needed Citalopram Hydrobromide 20 MG Oral Tablet (CeleXA) [...] itchy instead of scratching 45 g 5 Humira Pen 40 MG/0.8ML Subcutaneous Pen-injector Kit (Adalimumab) Inject 40 mg (1 pen) under the skin every 14 days. 2 mL 2 No current facility-administered medications for this visit. Physical Exam: BP 150/100 | Temp 36.6 C (97.8 F) (Infrared ) | Wt 81.2 kg (179 lb) | BMI 29.79 kg/m | BSA 1.93 m General: alert, healthy, and no distress HENT: normocephalic, external ears normal, no mucosal erythema, no mucosal edema, moist mucosa, no oral ulcers Eye Exam: PERRL, EOMI, conjunctiva are pink and non-injected, sclera clear Neck: supple, no adenopathy, no bruits, thyroid normal size, non-tender, without nodularity Lymph: no palpable lymphadenopathy Heart: regular rate & rhythm, no murmur, and no gallops Lungs: clear to auscultation , no rales, wheezes or rhonchi Pulses: radial=2/4, dorsalis pedis=2/4 Abdomen: abdomen soft, non-tender, normal bowel sounds, and no masses or organomegaly Extremities: no edema, no clubbing, no cyanosis Neuro Exam: alert & oriented x 3 with fluent speech, no focal motor/sensory deficits, gait normal, reflexes normal and symmetric Skin: Dry skin on hands, psoriasis patches on bilateral feet Musculoskeletal Exam: . Synovitis: bilateral 2nd and 3rd MCPs . Tenderness: Bilateral MCPs and PIPs . Range of Motion: Reduced ROM of shoulders Assessment: (L40.50) PSA (psoriatic arthritis) ([facility]) (primary encounter diagnosis) (Z79.899) Encounter for long-term (current) use of medications (L40.3) Pustular psoriasis of palms and soles Ms. Zhong presents today with worsening Skin and joint disease. She has been on Humria for 1 year at this point. She is having worsening psoriasis on her feet, and increased joint pain and swelling of the hands. Recommend discontinuing Humira and starting an auth for Cosentyx. Will update labs one month after starting Cosentyx. Side effects and benefits discussed with patient and printed out at checkout. Discussed taking Humria dose today then starting Cosentyx no sooner than two weeks. Patient advised to hold any immunosuppressant medication if they are sick or on antibiotics. Labs ordered for monitoring for medication toxicity. Patient advised to contact the clinic with questions. Plan: Update labs 1 month after starting New Biologic Discontinue Humira Follow up 4 months Contact clinic with any questions or concerns Discussed the above in detail with the patient. All questions answered. CC SARA Hoffman Department of Rheumatology The patient was discussed with me. I agree with the findings and plan as documented by Yareli RUIZ in this note. Hany Lyn MD Rheumatology Department documented in this encounter Nursing Notes * Osiris Das LPN - 08/11/2023 9:53 AM EST Chief Complaint Patient presents with Rheum Follow Up Recheck PSA documented in this encounter Plan of Treatment Upcoming Encounters Date Type Department Care Team (Late st Contact Info) Description 11/22/2023 10:00 AM EDT Office Visit Dermatology [address] [place] [address] Beatriz Solis PA-C [address] [place] [address] [place] [address] 01/12/2024 1:30 PM EDT Office Visit Rheumatology [address] [place] [phone] Yareli Burns CRNP [address] [place] [address] [place] [address] 01/19/2024 9:20 AM EDT Office Visit Family Medicine [address] [place] [phone] Alexandra Carrion MD [address] [place] [address] [place] [address] Health Maintenance Due Date Last Done Comments Hepatitis B (1 of 3 - 3-dose series) 1976 COVID-19 Vaccine (#1) 1981 DTaP,Tdap,and Td Vaccines (1 - Tdap) 1995 [...] PSA (psoriatic arthritis) (HCC)- Primary Psoriatic arthropathy Encounter for long-term (current) use of medications Encounter for long-term (current) use of other medications Pustular psoriasis of palms and soles Other psoriasis documented in this encounter Care Teams Business Intelligence Director Relationship Specialty Start Date End Date Alexandra Carrion MD [address] [place] [address] [place] [address] PCP - General Family Medicine 02/17/15 documented as of this encounter"
--- OUTSIDE RECORDS SUMMARY | 2023-11-09 13:33 | External Medical Summary | Summary of Care ---
Author Name Unknown Organization [facility] Address [address] [place] [address] Phone [phone] Care Team Providers Care Vice President Of Compliance Name Role Phone Alexandra Carrion MD Primary Care Provide r Reason for Referral * Evaluate & Treat - Unlimited Visits (Within 3 days (urgent)) - Authorized Specialty Diagnoses / Procedures Referred By Jason vail Referred To Contact Pharmacist / Pharmacy Diagnoses PSA (psoriatic arthritis) ([facility]) Yareli Burns CRNP [address] [place] [address] Referral ID Status Reason Start Date Expiration Date Visits Requested Visits Authorized [id number] Authorized Specialty Services Required 08/11/2023 99 99 Question Answer Referral Priority Within 3 days (urgent) Where should this appointment be scheduled? [facility] Referring Provider Role: Specialist Specialty: Rheum Reason for Referral: Med Education Comments Rheumatology Pharmacist Disease Modifying Antirheumatic Drug (DMARD) Co- Management Referral for: cosentyx med education Minimum frequency patient should be seen in person for medication management: As appropriate per clinical condition and patient status By my signature, I understand that my patient, Anastacia Zhong will have her medication therapy managed by the [facility] Medication Therapy Disease Management Clinic ([facility]) per established policies, procedures, and protocols. I also certify that this referral may serve as an initiation of service for the management of drug therapy in the above noted patient. [facility] providers will be responsible for [...] their discretion. I am aware that the [facility] Clinic will provide me with a copy of the patient encounter via my [facility] In[facility]. I authorize the [facility] to carry out these activities on my behalf. I consider this program to be a necessary part of the patient's medical care. Abhi Barrera [facility] Reason for Visit * Reason Onset Date Comments Medication Pre-auth 08/11/2023 Cosentyx Encounter Details Date Type Department Care Team (Late st Contact Info) Description 08/11/2023 Telephone Rheumatology [address] [place] [phone] Yareli Burns CRNP [address] [facility] [place] [address] Medication Pre-auth (Cosentyx) Allergies Active Allergy Reactions Criticality Noted Date [...] flared 180 g 3 09/16/2021 Active Nystatin 987111 UNIT/GM External Powder (Nystop)Indications: Intertrigo Apply topically [...] Notes * Telephone Encounter - Abhi Barrera RP - 08/11/2023 3:16 PM EST Rheumatology Pharmacist Appointment Request Cosentyx med education. Rheum mather Department & Provider: Rheumatology [facility] [place] [[id number]] - Pharmacist Rheumatology [facility] [[id number]] Patient to be scheduled for visit type: Dosage Adj In Person [[id number]], New Video Visit Home [[id number]], or Telephonic Medicine Visit [[id number]] Length of visit: 30 min Reason for visit: Medication Education Time Frame: within 2 weeks Request routed to [facility] Specialty Scheduling Pool ([id number]) Please route this encounter back to Rheum Pharmacist Refill Pool/Class [p [phone]] if unable to schedule patient after 3 attempts. Abhi Barrera, Pharm. D., [facility] Clinical Pharmacist 08/11/2023,3:16 PM * Telephone Encounter - Abhi Barrera RPh - 08/11/2023 3:15 PM EST Rheumatology Pre-Certification Request Required Screening Information: Vaccination(s): Patient has [facility] - plan in place for CDC/ACIP vaccination guidelines usingHealth Maintenance Topics, Best Practice Alerts, and Anticipatory Management Reports within EHR TB Testing: Completed under scans, care everywhere or epic Hepatitis B Screenings: Completed under scans, care everywhere or epic Hepatitis C Screenings: Completed under scans, care everywhere or epic No active, severe, and/or uncontrolled infection Reauthorization: No Rheumatology Office Information: Transplant Worker: JODY COX Rheumatology Pharmacist: Abhi Barrera ([facility]) Thank you and have a wonderful day, Abhi Barrera, Pharm. D., [facility] Clinical Pharmacist 08/11/2023,3:15 PM * Telephone Encounter - Yareli BurnsSARA - 08/11/2023 1:06 PM EST Rheumatology Education, Pre-Certification, and/or Pharmacist Co-Management Request Medication Education: yes Pre-Certification: [facility]: Pre-cert for Prednisone, DMARDs & IV/IM/SC Osteoporosis Meds ([facility] rheumatology pharmacist pool p [id number]) Pharmacist Co-Management ([facility] ONLY; [place] select "no"): No Pharmacist Co-Management [...] [facility] per established policies, procedures, and protocols. I also certify that this referral may serve as an initiation of service for the management of drug therapy in the above noted patient. [facility] providers will be responsible for scheduling patient visits, obtaining appropriate laboratory studies, and adjusting medication management therapy per patient's need, in addition to those roles spelled out in the clinic policy, procedures, and drug management protocols. I understand that the service provided by the [facility] is voluntary and have informed patient that they can refuse the service at their discretion. I am aware that the [facility] Clinic will provide me with a copy of the patient encounter via my [facility]. I authorize the [facility] to carryout these activities on my behalf. I consider this program to be a necessary part of the patient's medical care. SARA Morales documented in this encounter Plan of Treatment Upcoming Encounters Date Type Department Care Team (Late st Contact Info) Description 11/22/2023 10:00 AM EDT Office Visit Dermatology [address] [place] [address] Beatriz Solis PA-C [address] [place] [address] [place] [address] 01/12/2024 1:30 PM EDT Office Visit Rheumatology [address] [place] [phone] Yareli Burns CRNP [address] [place] [address] 01/19/2024 9:20 AM EDT Office Visit Family Medicine [address] [place] [phone] Alexandra Carrion MD [address] [place] [address] [place] [address] Scheduled Referrals Name Type Priority Associated Diagnoses [...] arthropathy documented in this encounter Care Teams Vice President Of Compliance Relationship Specialty Start Date End Date Alexandra Carrion MD [address] [place] [address] [place] [address] PCP - General Family Medicine 02/17/15 documented as of this encounter
--- OUTSIDE RECORDS SUMMARY | 2023-11-09 13:33 | External Medical Summary | Summary of Care ---
Author Name Unknown Organization [facility] Address [address] [place] [address] Phone [phone] Care Team Providers Care Solar Energy Installation Manager Name Role Phone Alexandra Carrion MD Primary Care Provide r Reason for Referral * Evaluate & Treat - Unlimited Visits (Within 3 days (urgent)) - Authorized Specialty Diagnoses / Procedures Referred By Jason vail Referred To Contact Pharmacist / Pharmacy Diagnoses PSA (psoriatic arthritis) ([facility]) Yareli Burns CRNP [address] [place] [address] Referral ID Status Reason Start Date Expiration Date Visits Requested Visits Authorized [id number] Authorized Specialty Services Required 08/11/2023 99 99 Question Answer Referral Priority Within 3 days (urgent) Where should this appointment be scheduled? [facility] Referring Provider Role: Specialist Specialty: Rheum Reason for Referral: Med Education Comments Rheumatology Pharmacist Disease Modifying Antirheumatic Drug (DMARD) Co- Management Referral for: cosentyx med education Minimum frequency patient should be seen in person for medication management: As appropriate per clinical condition and patient status By my signature, I understand that my patient, Anastacia Zhong will have her medication therapy managed by the [facility] Medication Therapy Disease Management Clinic ([facility]) per established policies, procedures, and protocols. I also certify that this referral may serve as an initiation of service for the management of drug therapy in the above noted patient. [facility] providers will be responsible for scheduling patient [...] their discretion. I am aware that the [facility] Clinic will provide me with a copy of the patient encounter via my Echo360 In-Basket. I authorize the [facility] to carry out these activities on my behalf. I consider this program to be a necessary part of the patient's medical care. Abhi Barrera [facility] Reason for Visit * Reason Onset Date Comments Precert In Process 08/11/2023 26 IESHA Hiwot COSENTYX SENSOREADY 150 MG PEN Encounter Details Date Type Department Care Team (Late st Contact Info) Description 08/11/2023 Telephone Rheumatology [address] [place] [address] Yareli Burns CRNP [address] [place] [address] [place] [address] Precert In Process ( IESHA MILLER COSENTYX... Allergies Active Allergy Reactions Criticality Noted Date [...] flared 180 g 3 09/16/2021 Active Nystatin 284449 UNIT/GM External Powder (Nystop)Indications: Intertrigo Apply topically [...] Rheumatology Pharmacist Appointment Request Cosentyx med education. [facility] Department & Provider: Rheumatology [facility] Kiron [[id number]] - Pharmacist Rheumatology [facility] [[id number]] Patient to be scheduled for visit type: Dosage Adj In Person [237090], New Video Visit Home [96757], or Telephonic Medicine Visit [08527] Length of visit: 30 min Reason for visit: Medication Education Time Frame: within 2 weeks Request routed to [facility] Specialty Scheduling Pool ([id number]) Please route this encounter back to Rheum Pharmacist Refill Pool/Class [p [phone]] if unable to schedule patient after 3 attempts. Abhi Barrera, Pharm. D., [facility] Clinical Pharmacist 08/11/2023,3:16 PM * Telephone Encounter - Ahbi Barrera RPh - 08/11/2023 3:15 PM EST [...] uncontrolled infection Reauthorization: No Rheumatology Office Information: Records Management Specialist: JODY COX Rheumatology Pharmacist: Abhi Barrera ([facility]) Thank you and have a wonderful day, Abhi Barrera, Pharm. D., [facility] Clinical Pharmacist 08/11/2023,3:15 PM * Telephone Encounter - Yareli Burns CRNP - 08/11/2023 1:06 PM EST Rheumatology Education, Pre-Certification, and/or Pharmacist Co-Management Request Medication Education: yes Pre-Certification: [facility]: Pre-cert for Prednisone, DMARDs & IV/IM/SC Osteoporosis Meds ([facility] rheumatology pharmacist pool p [id number]) Pharmacist Co-Management ([facility] ONLY; West select "no"): [...] [facility]) per established policies, procedures, and protocols. I also certify that this referral may serve as an initiation of service for the management of drug therapy in the above noted patient. [facility] providers will be responsible for scheduling patient visits, obtaining appropriate laboratory studies, and adjusting medication management therapy per patient's need, in addition to those roles spelled out in the clinic policy, procedures, and drug management protocols. I understand that the service provided by the [facility] is voluntary and have informed patient that they can refuse the service at their discretion. I am aware that the [facility] will provide me with a copy of the patient encounter via my Echo360 In-Basket. I authorize the [facility] to carryout these activities on my behalf. I consider this program to be a necessary part of the patient's medical care. SARA Morales documented in this encounter Plan of Treatment Upcoming Encounters Date Type Department Care Team (Late st Contact Info) Description 11/22/2023 10:00 AM EDT Office Visit Dermatology [address] [place] [address] Beatriz Solis PA-C [address] [place] [address] [place] [address] 01/12/2024 1:30 PM EDT Office Visit Rheumatology [address] [place] [address] Yareli Burns CRNP [facility] [facility] [address] 01/19/2024 9:20 AM EDT Office Visit Family Medicine [address] [place] [address] Alexandra Cariron MD [address] [place] [address] [place] [address] Scheduled Referrals Name Type Priority Associated Diagnoses [...] Sigmoidoscopy 2021 Influenza Vaccine (FLU shot) (#1) 03/17/202309/16/2021, 07/28/2010 Depression Screening 05/09/2024 05/09/2023 GFR 05/09/2024 [...] arthropathy documented in this encounter Care Teams Solar Energy Installation Manager Relationship Specialty Start Date End Date Alexandra Carrion MD [address] [place] [address] [place] [address] PCP - General Family Medicine 02/17/15 documented as of this encounter
--- OUTSIDE RECORDS SUMMARY | 2023-11-09 13:33 | External Medical Summary | Summary of Care ---
Author Name Unknown Organization [facility] Address [address] [place] [address] Phone [phone] Care Team Providers Care Leverman Name Role Phone Alexandra Carrion MD Primary Care Provide r Reason for Referral * Evaluate & Treat - Unlimited Visits (Within 3 days (urgent)) - Authorized Specialty Diagnoses / Procedures Referred By Jason vail Referred To Contact Pharmacist / Pharmacy Diagnoses PSA (psoriatic arthritis) ([facility]) Yareli Burns CRNP [address] [place] [address] Referral ID Status Reason Start Date Expiration Date Visits Requested Visits Authorized [id number] Authorized Specialty Services Required 08/11/2023 99 99 Question Answer Referral Priority Within 3 days (urgent) Where should this appointment be scheduled? [facility] Referring Provider Role: Specialist Specialty: Rheum [...] have her medication therapy managed by the [facility] Medication Therapy Disease Management Clinic ([facility]) per established policies, procedures, and protocols. I also certify that this referral may serve as an initiation of service for the management of drug therapy in the above noted patient. [facility] providers will be responsible for scheduling [...] their discretion. I am aware that the [facility] Clinic will provide me with a copy of the patient encounter via my Electron Database In-Basket. I authorize the [facility] to carry out these activities on my behalf. I consider this program to be a necessary part of the patient's medical care. Abhi Barrera [facility] Reason for Visit * Reason Onset Date Comments Precert Denied 08/11/2023 COSENTYX SENSORE [place]AMIS 150 MG PEN Encounter Details Date Type Department Care Team (Late st Contact Info) Description 08/11/2023 Telephone Rheumatology [address] [place] [address] Yareli Burns CRNP [address] [employer] [facility] [place] [address] Precert Denied (COSENTYX SENSOREADY 150 MG... Allergies [...] flared 180 g 3 09/16/2021 Active Nystatin 840737 UNIT/GM External Powder (Nystop)Indications: Intertrigo Apply topically [...] Rheumatology Pharmacist Appointment Request Cosentyx med education. [facility] Department & Provider: Rheumatology [facility] Cecilia [[id number]] - Pharmacist Rheumatology [facility] [[id number]] Patient to be scheduled for visit type: Dosage Adj In Person [973574], New Video Visit Home [62684], or Telephonic Medicine Visit [33950] Length of visit: 30 min Reason for visit: Medication Education Time Frame: within 2 weeks Request routed to [facility] Specialty Scheduling Pool ([id number]) Please route this encounter back to Rheum Pharmacist Refill Pool/Class [p [id number]] if unable to schedule patient after 3 attempts. Abhi Barrera, Pharm. D., [facility] Clinical Pharmacist 08/11/2023,3:16 PM * Telephone Encounter - Abhi Barrera RP - 08/11/2023 3:15 PM EST Rheumatology Pre-Certification [...] uncontrolled infection Reauthorization: No Rheumatology Office Information: Manager Social Work: JODY COX Rheumatology Pharmacist: Abhi Barrera ([facility]) Thank you and have a wonderful day, Abhi Barrera, Pharm. D., [facility] Clinical Pharmacist 08/11/2023,3:15 PM * Telephone Encounter - GrantYareli CRNP - 08/11/2023 1:06 PM EST Rheumatology Education, Pre-Certification, and/or Pharmacist Co-Management Request Medication Education: yes Pre-Certification: [facility]: Pre-cert for Prednisone, DMARDs & IV/IM/SC Osteoporosis Meds ([facility] pharmacist pool p [id number]) Pharmacist Co-Management ([facility] ONLY; West select "no"): [...] [facility]) per established policies, procedures, and protocols. I also certify that this referral may serve as an initiation of service for the management of drug therapy in the above noted patient. [facility] providers will be responsible for scheduling patient visits, obtaining appropriate laboratory studies, and adjusting medication management therapy per patient's need, in addition to those roles spelled out in the clinic policy, procedures, and drug management protocols. I understand that the service provided by the [facility] is voluntary and have informed patient that they can refuse the service at their discretion. I am aware that the [facility] Clinic will provide me with a copy of the patient encounter via my Electron Database In-Basket. I authorize the [facility] to carryout these activities on my behalf. I consider this program to be a necessary part of the patient's medical care. SARA Morales documented in this encounter Plan of Treatment Upcoming Encounters Date Type Department Care Team (Late st Contact Info) Description 11/22/2023 10:00 AM EDT Office Visit Dermatology [address] [place] [address] Beatriz Solis PA-C [address] [place] [address] [place] [address] 01/12/2024 1:30 PM EDT Office Visit Rheumatology [address] [place] [address] Yareli Burns CRNP [address] [facility] [place] [address] 01/19/2024 9:20 AM EDT Office Visit Family Medicine [address] [place] [address] Alexandra Carrion MD [address] [place] [address] [place] [address] Scheduled Referrals Name Type Priority Associated Diagnoses [...] arthropathy documented in this encounter Care Teams Leverman Relationship Specialty Start Date End Date Alexandra Carrion MD [address] [place] [address] [place] [id number] PCP - General Family Medicine 02/17/15 documented as of this encounter
--- OUTSIDE RECORDS SUMMARY | 2023-11-09 13:33 | External Medical Summary | Summary of Care ---
Author Name Unknown Organization [facility] Address [address] [place] [address] Phone [phone] Care Team Providers Care Shell Mold Bonder Name Role Phone Alexandra Carrion MD Primary Care Provide r Reason for Referral * Evaluate & Treat - Unlimited Visits (Within 3 days (urgent)) - Authorized Specialty Diagnoses / Procedures Referred By Jason vail Referred To Contact Pharmacist / Pharmacy Diagnoses PSA (psoriatic arthritis) ([facility]) Yareli Burns CRNP [address] [place] [address] Referral ID Status Reason Start Date Expiration Date Visits Requested Visits Authorized [id number] Authorized Specialty Services Required 08/11/2023 99 99 Question Answer Referral Priority Within 3 days (urgent) Where should this appointment be scheduled? [facility] Referring Provider Role: Specialist Specialty: Rheum Reason for Referral: Med Education Comments Rheumatology Pharmacist Disease Modifying Antirheumatic Drug (DMARD) Co- Management Referral for: cosentyx med education Minimum frequency patient should be seen in person for medication management: As appropriate per clinical condition and patient status By my signature, I understand that my patient, Anastacia Zhong will have her medication therapy managed by the [facility] Medication Therapy Disease Management Clinic ([facility]) per established policies, procedures, and protocols. I also certify that this referral may serve as an initiation of service for the management of drug therapy in the above noted patient. [facility] providers will be responsible for scheduling [...] their discretion. I am aware that the [facility] Clinic will provide me with a copy of the patient encounter via my Cuciniale In-Basket. I authorize the [facility] to carry out these activities on my behalf. I consider this program to be a necessary part of the patient's medical care. Abhi Barrera [facility] Reason for Visit * Reason Onset Date Comments Medication Pre-auth 08/11/2023 Cosentyx Encounter Details Date Type Department Care Team (Late st Contact Info) Description 08/11/2023 Telephone Rheumatology [address] [place] [address] Yareli Burns CRNP [address] [employer] [facility] [place] [address] Medication Pre-auth (Cosentyx) Allergies Active Allergy Reactions [...] flared 180 g 3 09/16/2021 Active Nystatin 439732 UNIT/GM External Powder (Nystop)Indications: Intertrigo Apply topically [...] Pharmacist Appointment Request Cosentyx med education. [facility] [place] Department & Provider: Rheumatology [facility] [place] [[id number]] - Pharmacist Rheumatology [facility] [[id number]] Patient to be scheduled for visit type: Dosage Adj In Person [[id number]], New Video Visit Home [14183], or Telephonic Medicine Visit [81624] Length of visit: 30 min Reason for visit: Medication Education Time Frame: within 2 weeks Request routed to [facility] Specialty Scheduling Pool ([id number]) Please route this encounter back to Rheum Pharmacist Refill Pool/Class [p [id number]] if unable to schedule patient after 3 attempts. Abhi Barrera, Pharm. D., [facility] Clinical Pharmacist 08/11/2023,3:16 PM * Telephone Encounter - Abhi Barrera RPh - 08/11/2023 3:15 PM EST Rheumatology Pre-Certification Request Required Screening Information: Vaccination(s): Patient has [facility] PCP - plan in place for CDC/ACIP vaccination guidelines usingHealth Maintenance Topics, Best Practice Alerts, and Anticipatory Management Reports within EHR TB Testing: Completed under scans, care everywhere or epic Hepatitis B Screenings: Completed under scans, care everywhere or epic Hepatitis C Screenings: Completed under scans, care everywhere or epic No active, severe, and/or uncontrolled infection Reauthorization: No Rheumatology Office Information: Production Statistical Clerk: JODY COX Rheumatology Pharmacist: Abhi Barrera ([facility]) Thank you and have a wonderful day, Abhi Barrera, Pharm. D., [facility] Clinical Pharmacist 08/11/2023,3:15 PM * Telephone Encounter - Yareli BurnsSARA - 08/11/2023 1:06 PM EST Rheumatology Education, Pre-Certification, and/or Pharmacist Co-Management Request Medication Education: yes Pre-Certification: [facility]: Pre-cert for Prednisone, DMARDs & IV/IM/SC Osteoporosis Meds ([facility] rheumatology pharmacist pool p [phone]) Pharmacist Co-Management ([facility] ONLY; West select "no"): No Pharmacist Co-Management [...] drug therapy in the above noted patient. [facility] providers will be responsible for scheduling patient visits, obtaining appropriate laboratory studies, and adjusting medication management therapy per patient's need, in addition to those roles spelled out in the clinic policy, procedures, and drug management protocols. I understand that the service provided by the [facility] is voluntary and have informed patient that they can refuse the service at their discretion. I am aware that the [facility] will provide me with a copy of the patient encounter via my Cuciniale In-Basket. I authorize the [facility] to carryout these activities on my behalf. I consider this program to be a necessary part of the patient's medical care. SARA Morales documented in this encounter Plan of Treatment Upcoming Encounters Date Type Department Care Team (Late st Contact Info) Description 11/22/2023 10:00 AM EDT Office Visit Dermatology [address] [place] [address] Beatriz Solis PA-C [address] [place] [address] [place] [address] 01/12/2024 1:30 PM EDT Office Visit Rheumatology [address] [place] [phone] Yareli Burns CRNP [address] [facility] [place] [address] 01/19/2024 9:20 AM EDT Office Visit Family Medicine [address] [place] [address] Alexandra Carrion MD [address] [place] [address] [place] [address] Scheduled Referrals Name Type Priority Associated Diagnoses [...] arthropathy documented in this encounter Care Teams Shell Mold Bonder Relationship Specialty Start Date End Date Alexandra Carrion MD [address] [place] [address] [place] [address] PCP - General Family Medicine 02/17/15 documented as of this encounter
--- OUTSIDE RECORDS SUMMARY | 2023-11-09 13:33 | External Medical Summary | Summary of Care ---
Author Name Unknown Organization [facility] Address [address] [facility] [address] Phone [phone] Care Team Providers Care Cargo Surveyor Name Role Phone Alexandra Carrion MD Primary Care Provide r Reason for Visit * Reason Comments Rheum Follow Up Recheck PSA Encounter Details Date Type Department Care Team (Late st Contact Info) Description 08/11/2023 10:00 AM EST Office Visit Rheumatology [address] [place] [address] Umu Alcala CRNP [address] [place] [address] [place] [address] PSA (psoriatic arthritis) ([facility])*; Encounter for long-term (current) use [...] flared 180 g 3 09/16/2021 Active Nystatin 008029 UNIT/GM External Powder (Nystop)Indication s:Intertrigo Apply topically [...] psoriasis of palms and soles,PSA (psoriatic arthritis) ([facility]) Apply topically to affected area 2 times a day. Apply to hands and feet as directed or more if itchy instead of scratching 45 g 5 06/06/2023 Active Humira Pen 40 MG/0.8ML Subcutaneous Pen-injector Kit (Adalimumab)Indica tions:PSA (psoriatic arthritis) ([facility]) Inject 40 mg (1 pen) under the skin every 14 days. 2 mL 2 07/24/2023 Discontinue d(Medicatio n/Dose Changed) documented as of this encounter (statuses as [...] this encounter Patient Instructions * Patient Instructions* Umu Alcala CRNP - 08/11/2023 10:30 AM EST Update [...] about all medicines taken. Include prescription and [id number] medicines, vitamins, and herbal medicines. Speak with [...] documented in this encounter Progress Notes * Umu Alcala CRNP - 08/11/2023 9:56 AM EST Date [...] when not flared 180 g 3 Nystatin 921663 UNIT/GM External Powder (Nystop) Apply topically to [...] of shoulders Assessment: (L40.50) PSA (psoriatic arthritis) ([facility]) (primary encounter diagnosis) (Z79.899) Encounter [...] the findings and plan as documented by Umu RUIZ in this note. Hany Lyn MD Rheumatology Department documented in this encounter Nursing Notes * Osiris Das LPN - 08/11/2023 9:53 AM EST Chief Complaint Patient presents with Rheum Follow Up Recheck PSA documented in this encounter Miscellaneous Notes * Addendum Note - Umu Alcala CRNP - 08/11/2023 3:12 PM ESTAddended by: UMU ALCALA on: 08/11/2023 03:12 PM Modules accepted: Orders documented in this encounter Plan of Treatment Upcoming Encounters Date Type Department Care Team (Late st Contact Info) Description 11/22/2023 10:00 AM EDT Office Visit Dermatology [address] [place] [address] Beatriz Solis PA-C [address] [place] [address] [place] [address] 01/12/2024 1:30 PM EDT Office Visit Rheumatology [address] [place] [address] Umu Alcala CRNP [facility] [address] 01/19/2024 9:20 AM EDT Office Visit Family Medicine [address] [place] [phone] Alexandra Carrion MD [address] [place] [address] [place] [address] Health Maintenance Due Date Last Done Comments [...] psoriasis documented in this encounter Care Teams Cargo Surveyor Relationship Specialty Start Date End Date Alexandra Carrion MD [address] [place] [address] [place] [address] PCP - General Family Medicine 02/17/15 documented as of this encounter"
--- OUTSIDE RECORDS SUMMARY | 2023-11-09 13:34 | External Medical Summary | Summary of Care ---
Author Name Unknown Organization [facility] Address [address] [place] [address] Phone [phone] Care Team Providers Care Bell Captain Name Role Phone Alexandra Carrion MD Primary Care Provide r Reason for Visit * Reason Comments Medication Refill Encounter Details Date Type Department Care Team (Late st Contact Info) Description 07/20/2023 Refill Rheumatology, [place] [address] [place] [address] Jody Cox MD [facility] [place] [address] PSA (psoriatic arthritis) ([facility]) Allergies Active Allergy Reactions Criticality Noted Date Comments Caffeine 05/07/2001 Ephedrine Pseudoephedrine 04/01/2008 documented as of this encounter (statuses as of 07/24/2023) Medications Medication Sig Dispensed Refills Start Date End Date Status Clindamycin Phosphate 1 % External GelIndications:Fol liculitis Put 1-2x daily to spots (2x daily when flared) and only 1x daily to areas to prevent spots when not flared 180 g 3 09/16/2021 Active Nystatin 533423 UNIT/GM External Powder (Nystop)Indication s:Intertrigo Apply topically to affected area 3 times a day . Apply to groin 60 g 1 09/16/2021 Active Ibuprofen 800 MG Oral Tablet (Motrin)Indication s:PSA (psoriatic arthritis) ([facility]) Take by mouth 0.5 Tablets 2 times [...] of palms and soles,PSA (psoriatic arthritis) ([facility]) Apply topically to affected area 2 times a day. Apply to hands and feet as directed or more if itchy instead of scratching 45 g 5 06/06/2023 Active Humira Pen 40 MG/0.8ML Subcutaneous Pen-injector Kit (Adalimumab)Indica tions:PSA (psoriatic arthritis) ([facility]) INJECT 40MG UNDER THE SKIN EVERY 14 DAYS 2 mL 2 07/24/2023 Active Adalimumab 40 MG/0.8ML Subcutaneous Pen-injector Kit (Humira)Indication s:PSA (psoriatic arthritis) ([facility]) INJECT 40MG UNDER THE SKIN EVERY 14 DAYS 2 mL 5 01/13/2023 Discontinue d(Refill) documented as of this encounter (statuses as of 07/24/2023) Active Problems Problem Noted Date Diagnosed Date PSA (psoriatic arthritis) 04/20/2018 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 HTN, goal below 130/80 03/07/2011 Generalized anxiety disorder 04/01/2008 Other acne 04/01/2008 Allergic rhinitis due to pollen 09/08/2004 Adjustment disorder with depressed mood documented as of this encounter (statuses as of 07/24/2023) Resolved Problems Problem Noted Date Diagnosed Date Resolved Date Psoriasis 04/01/2008 10/28/2015 BMI 30.0-30.9,adult 08/23/19 19 documented as of this encounter (statuses as of 07/24/2023) Immunizations Name Administration Dates Next Due Pneumococcal [...] Telephone Encounter - Herb Jain RPh - 07/24/2023 2:05 PM ESTSigned Prescriptions: Disp Refills Humira Pen 40 MG/0.8ML Subcutaneous Pen-in*2 mL 2 Sig: INJECT 40MG UNDER THE SKIN EVERY 14 DAYSAuthorizing Provider: JODY COX User: TIM JAIN * Telephone Encounter - Herb Jain RPh - 07/24/2023 2:03 PM EST Rheumatology: Refill Request(s) Per review of the refill parameters, Medication was refilled Herb Jain RPh [facility] Clinical Pharmacist Rheumatology Department 07/24/2023,2:03 PM documented in this encounter Plan of Treatment Upcoming Encounters Date Type Department Care Team (Late st Contact Info) Description 08/11/2023 10:00 AM EST Office Visit Rheumatology [address] [place] [phone] Yareli Burns CRNP [address] [facility] [place] [address] 11/22/2023 10:00 AM EDT Office Visit Dermatology [address] [place] [address] Beatriz Solis PA-C [address] [place] [address] [place] [address] 01/19/2024 9:20 AM EDT Office Visit Family Medicine [address] [place] [phone] Alexandra Carrion MD [address] [place] [address] [place] [address] Health Maintenance Due Date Last Done Comments [...] arthropathy documented in this encounter Care Teams Bell Captain Relationship Specialty Start Date End Date Alexandra Carrion MD [address] [place] [address] [place] [id number] PCP - General Family Medicine 02/17/15 documented as of this encounter
--- OUTSIDE RECORDS SUMMARY | 2023-11-09 13:34 | External Medical Summary | Summary of Care ---
Author Name Unknown Organization [facility] Address [address] [place] [address] Phone [phone] Care Team Providers Care Medical Billing And Coding Specialist Name Role Phone Alexandra Carrion MD Primary Care Provide r Encounter Details Date Type Department Care Team ([facility] st Contact Info) Description 06/02/2023 Specialty Pharmacy [facility], [address] [address] Refill, [address] [address] Allergies Active Allergy Reactions Criticality Noted Date Comments Caffeine 05/07/2001 Ephedrine Pseudoephedrine 04/01/2008 documented as of this encounter (statuses as of 06/02/2023) Medications Medication Sig Dispensed Refills Start Date End Date Status Clindamycin Phosphate 1 % External GelIndications:Folli culitis Put 1-2x daily to spots (2x daily when flared) and only 1x daily to areas to prevent spots when not flared 180 g 3 09/16/2021 Active Triamcinolone Acetonide 0.5 % External OintmentIndications: Pustular psoriasis of palms and soles,PSA (psoriatic arthritis) (HCC) Apply topically to affected area 2 times a day . Apply to hands and feet as directed or more if itchy instead of scratching 45 g 5 09/16/2021 Active Nystatin 173448 UNIT/GM External Powder (Nystop)Indications: Intertrigo Apply topically to affected area 3 times a day . Apply to groin 60 g 1 09/16/2021 Active Ibuprofen 800 MG Oral Tablet (Motrin)Indications: PSA (psoriatic arthritis) ([facility]) Take by mouth 0.5 Tablets 2 times a day as needed for Pain, Severe. 100 Tablet 1 09/16/2021 Active Albuterol Sulfate HFA 108 (90 Base) MCG/ACT Inhalation Aerosol Solution As needed 0 Active Adalimumab 40 MG/0.8ML Subcutaneous Pen-injector Kit (Humira)Indications: PSA (psoriatic arthritis) ([facility]) INJECT 40MG UNDER THE SKIN EVERY 14 DAYS 2 mL 5 01/13/2023 Active Citalopram Hydrobromide 20 MG Oral Tablet [...] EVERY DAY 90 Tablet 3 06/01/2023 Active documented as of this encounter (statuses as of 06/02/2023) Active Problems Problem Noted Date Diagnosed Date PSA (psoriatic arthritis) 04/20/2018 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 HTN, goal below 130/80 03/07/2011 Generalized anxiety disorder 04/01/2008 Other acne 04/01/2008 Allergic rhinitis due to pollen 09/08/2004 Adjustment disorder with depressed mood documented as of this encounter (statuses as of 06/02/2023) Resolved Problems Problem Noted Date Diagnosed Date Resolved Date Psoriasis 04/01/2008 10/28/2015 BMI 30.0-30.9,adult 08/23/19 19 documented as of this encounter (statuses as of 06/02/2023) Immunizations Name Administration Dates Next Due Pneumococcal Polysaccharide PPV23 (Pneumovax) SEASONAL INFLUENZA, PF, 6 M & Above, IM , (FLULAVAL or FLUZONE) 09/16/2021 Seasonal Influenza, Split, IIV3, With Preserve, [...] as of this encounter Progress Notes * Tayler Pollack CPhT - 06/02/2023 8:05 AM EST Prescribed medication: Medication: humira Shipment date: 06/06 Delivery method: Specialty Mail Location Medication Delivered too? [address] [place] [phone] Tayler Pollack CPhT [facility] 06/02/2023,8:06 AM documented in this encounter Plan of Treatment Upcoming Encounters Date Type Department Care Team (Late st Contact Info) Description 08/11/2023 10:00 AM EST Office Visit Rheumatology [address] [place] [phone] Yareli Burns CRNP [facility] [place] [address] 11/22/2023 10:00 AM EDT Office Visit Dermatology [address] [place] [address] Beatriz Solis PA-C [address] [place] [address] [place] [address] 01/19/2024 9:20 AM EDT Office Visit Family Medicine [address] [place] [phone] Alexandra Carrion MD [address] [place] [address] [place] [address] Health Maintenance Due Date Last Done Comments [...] 0 07/22/2022, 05/10/2022, Additional history exists Cologuard 05/17/2026 05/17/2023 Colorectal Cancer Screening 05/17/2026 Lipid Panel 05/09/2028 05/09/2023, 04/17, 12/31/2020, Additional history exists GARDASIL-HPV IMMUNIZATION SERIES Aged Out No longer eligible based on patient's age to complete this topic MENINGOCOCCAL (MENACTRA/MENVEO) Aged Out No longer eligible based on patient's age to complete this topic documented as of this encounter Medical Devices Not on filedocumented as of this encounter Care Teams Medical Billing And Coding Specialist Relationship Specialty Start Date End Date Alexandra Carrion MD [address] [place] [address] [place] [address] PCP - General Family Medicine 02/17/15 documented as of this encounter
--- OUTSIDE RECORDS SUMMARY | 2023-11-09 13:34 | External Medical Summary | Summary of Care ---
Author Name Unknown Organization [facility] Address [address] [place] [address] Phone [phone] Care Team Providers Care Physical Therapy Aides Teacher Name Role Phone Alexandra Carrion MD Primary Care Provide r Reason for Visit * Reason Onset Date Comments Letter Requests 07/04/2023 Med list Encounter Details Date Type Department Care Team (Late st Contact Info) Description 07/04/[address] [phone] Alexandra Carrion MD [address] [place], [place] [address] [address] Letter Requests (Med list ) Allergies Active Allergy Reactions Criticality Noted Date Comments Caffeine 05/07/2001 Ephedrine Pseudoephedrine 04/01/2008 documented as of this encounter (statuses as of 07/14/2023) Medications Medication Sig Dispensed Refills Start Date End Date Status Clindamycin Phosphate 1 % External GelIndications:Folli culitis Put 1-2x daily to spots (2x daily when flared) and only 1x daily to areas to prevent spots when not flared 180 g 3 09/16/2021 Active Nystatin 523923 UNIT/GM External Powder (Nystop)Indications: Intertrigo Apply topically to affected area 3 times a day . Apply to groin 60 g 1 09/16/2021 Active Ibuprofen 800 MG Oral Tablet (Motrin)Indications: PSA (psoriatic arthritis) ([facility]) Take by mouth 0.5 Tablets 2 times a day as needed for Pain, Severe. 100 Tablet 1 09/16/2021 Active Albuterol Sulfate HFA 108 (90 Base) MCG/ACT Inhalation Aerosol Solution As needed 0 Active Adalimumab 40 MG/0.8ML Subcutaneous Pen-injector Kit (Humira)Indications: PSA (psoriatic arthritis) ([facility]) INJECT 40MG UNDER THE SKIN EVERY [...] psoriasis of palms and soles,PSA (psoriatic arthritis) ([facility]) Apply topically to affected area 2 times a day. Apply to hands and feet as directed or more if itchy instead of scratching 45 g 5 06/06/2023 Active documented as of this encounter (statuses as of 07/14/2023) Active Problems Problem Noted Date Diagnosed Date PSA (psoriatic arthritis) 04/20/2018 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 HTN, goal below 130/80 03/07/2011 Generalized anxiety disorder 04/01/2008 Other acne 04/01/2008 Allergic rhinitis due to pollen 09/08/2004 Adjustment disorder with depressed mood documented as of this encounter (statuses as of 07/14/2023) Resolved Problems Problem Noted Date Diagnosed Date Resolved Date Psoriasis 04/01/2008 10/28/2015 BMI 30.0-30.9,adult 08/23/19 19 documented as of this encounter (statuses as of 07/14/2023) Immunizations Name Administration Dates Next Due Pneumococcal [...] encounter Miscellaneous Notes * Telephone Encounter - Renetta Bains LPN - 07/14/2023 4:18 PM EST I tried to call pt- no answer. If pt needs a med list we can print one at any [facility] facility orshe could sign up for [employer]. * Telephone Encounter - Sheila Bangura CPhT - 07/14/2023 12:20 PM EST pt calling to check on status of medication list. She did not receive from 07/06. She needs this by07/18/23 for her appointment Thank you, Sheila Bangura CPhT II Private Branch Exchange Installer [facility] ([facility]) 07/14/2023, 12:20 PM * Telephone Encounter - Becca Barajas RN - 07/06/2023 11:38 AM EST Med list mailed to patient * Telephone Encounter - Arcelia Guillen OSA - 07/04/2023 2:33 PM EST Pt is requesting a copy of her med list to be mailed to her home. She needs this for a disability appt that is coming up. Please let her know when mailed. documented in this encounter Plan of Treatment Upcoming Encounters Date Type Department Care Team (Late st Contact Info) Description 08/11/2023 10:00 AM EST Office Visit Rheumatology [address] [place] [phone] Yareli Burns CRNP [facility] [employer] [place] [address] 11/22/2023 10:00 AM EDT Office Visit Dermatology [address] [place] [address] Beatriz Solis PA-C [address] [place] [address] [place] [address] 01/19/2024 9:20 AM EDT Office Visit Family Medicine [address] [place] [phone] Alexandra Carrion MD [address] [place] [address] [place] [address] Health Maintenance Due Date Last Done Comments [...] filedocumented as of this encounter Care Teams Physical Therapy Aides Teacher Relationship Specialty Start Date End Date Alexandra Carrion MD [address] [place] [address] [place] [phone] PCP - General Family Medicine 02/17/15 documented as of this encounter
--- OUTSIDE RECORDS SUMMARY | 2023-11-09 13:34 | External Medical Summary | Summary of Care ---
Author Name Unknown Organization [facility] Address [address] [place] [address] Phone [phone] Care Team Providers Care Commercial Stripper Name Role Phone Alexandra Carrion MD Primary Care Provide r Reason for Visit * Reason Onset Date Comments Letter Requests 07/04/2023 Med list Encounter Details Date Type Department Care Team (Late st Contact Info) Description 07/04/[address] [phone] Alexandra Carrion MD [address] [place], [place] [address] [address] Letter Requests (Med list ) Allergies Active Allergy Reactions Criticality Noted Date Comments Caffeine 05/07/2001 Ephedrine Pseudoephedrine 04/01/2008 documented as of this encounter (statuses as of 07/06/2023) Medications Medication Sig Dispensed Refills Start Date End Date Status Clindamycin Phosphate 1 % External GelIndications:Folli culitis Put 1-2x daily to spots (2x daily when flared) and only 1x daily to areas to prevent spots when not flared 180 g 3 09/16/2021 Active Nystatin 726578 UNIT/GM External Powder (Nystop)Indications: Intertrigo Apply topically to affected area 3 times a day . Apply to groin 60 g 1 09/16/2021 Active Ibuprofen 800 MG Oral Tablet (Motrin)Indications: PSA (psoriatic arthritis) ([facility]) Take by mouth 0.5 Tablets 2 times a day as needed for Pain, Severe. 100 Tablet 1 09/16/2021 Active Albuterol Sulfate HFA 108 (90 Base) MCG/ACT Inhalation Aerosol Solution As needed 0 Active Adalimumab 40 MG/0.8ML Subcutaneous Pen-injector Kit (Humira)Indications: PSA (psoriatic arthritis) ([facility]) INJECT 40MG UNDER THE SKIN EVERY 14 [...] psoriasis of palms and soles,PSA (psoriatic arthritis) ([facility]) Apply topically to affected area 2 times a day. Apply to hands and feet as directed or more if itchy instead of scratching 45 g 5 06/06/2023 Active documented as of this encounter (statuses as of 07/06/2023) Active Problems Problem Noted Date Diagnosed Date PSA (psoriatic arthritis) 04/20/2018 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 HTN, goal below 130/80 03/07/2011 Generalized anxiety disorder 04/01/2008 Other acne 04/01/2008 Allergic rhinitis due to pollen 09/08/2004 Adjustment disorder with depressed mood documented as of this encounter (statuses as of 07/06/2023) Resolved Problems Problem Noted Date Diagnosed Date Resolved Date Psoriasis 04/01/2008 10/28/2015 BMI 30.0-30.9,adult 08/23/19 19 documented as of this encounter (statuses as of 07/06/2023) Immunizations Name Administration Dates Next Due Pneumococcal [...] encounter Miscellaneous Notes * Telephone Encounter - Becca Barajas RN [...] 10:00 AM EST Office Visit Rheumatology [address] [place] [phone] Yareli Burns CRNP [address] [place] [address] [place] [address] 11/22/2023 10:00 AM EDT Office Visit Dermatology [address] [place] [address] Beatriz Solis PA-C [address] [place] [address] [place] [address] 01/19/2024 9:20 AM EDT Office Visit Family Medicine [address] [place] [phone] Alexandra Carrion MD [address] [place] [address] [place] [address] Health Maintenance Due Date Last Done Comments [...] Cancer Screening 05/10/2025 Pap Smear 05/10/2025 05/10/2022, 0612/2018, 05/17/2013 (Done elsewhere), Additional history exists Diabetes [...] filedocumented as of this encounter Care Teams Commercial Stripper Relationship Specialty Start Date End Date Alexandra Carrion MD [address] [place] [address] [place] [address] PCP - General Family Medicine 02/17/15 documented as of this encounter
--- OUTSIDE RECORDS SUMMARY | 2023-11-09 13:34 | External Medical Summary | Summary of Care ---
Author Name Unknown Organization [facility] Address [address] [facility] [place] [address] Phone [phone] Care Team Providers Care Materials Engineering Technician Name Role Phone Dulce Carrion MD Primary Care Provide r Reason for Visit * Reason Comments eRx-Medication Refill Encounter Details Date Type Department Care Team (Late st Contact Info) Description 06/06/2023 Refill Family Medicine [address] [phone] Olesya Sy PA-C [address] [place] [address] [place] [address] Pustular psoriasis of palms and soles; PSA (psoriatic arthritis) ([facility]) Allergies Active Allergy Reactions Criticality Noted Date Comments Caffeine 05/07/2001 Ephedrine Pseudoephedrine 04/01/2008 documented as of this encounter (statuses as of 06/06/2023) Medications Medication Sig Dispensed Refills Start Date End Date Status Clindamycin Phosphate 1 % External GelIndications:Fo lliculitis Put 1-2x daily to spots (2x daily when flared) and only 1x daily to areas to prevent spots when not flared 180 g 3 09/16/2021 Active Nystatin 100716 UNIT/GM External Powder (Nystop)Indicatio ns:Intertrigo Apply topically to affected area 3 times a day . Apply to groin 60 g 1 09/16/2021 Active Ibuprofen 800 MG Oral Tablet (Motrin)Indicatio ns:PSA (psoriatic arthritis) ([facility]) Take by mouth 0.5 Tablets 2 times a day as needed for Pain, Severe. 100 Tablet 1 09/16/2021 Active Albuterol Sulfate HFA 108 (90 Base) MCG/ACT Inhalation Aerosol Solution As needed 0 Active Adalimumab 40 MG/0.8ML Subcutaneous Pen-injector Kit (Humira)Indicatio ns:PSA (psoriatic arthritis) ([facility]) INJECT 40MG UNDER THE SKIN EVERY 14 [...] psoriasis of palms and soles,PSA (psoriatic arthritis) ([facility]) Apply topically to affected area 2 times a day. Apply to hands and feet as directed or more if itchy instead of scratching 45 g 5 06/06/2023 Active Triamcinolone Acetonide 0.5 % External OintmentIndicatio ns:Pustular psoriasis of palms and soles,PSA (psoriatic arthritis) ([facility]) Apply topically to affected area 2 times a day . Apply to hands and feet as directed or more if itchy instead of scratching 45 g 5 09/16/2021 3 Discontinued documented as of this encounter (statuses as of 06/06/2023) Active Problems Problem Noted Date Diagnosed Date PSA (psoriatic arthritis) 04/20/2018 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 HTN, goal below 130/80 03/07/2011 Generalized anxiety disorder 04/01/2008 Other acne 04/01/2008 Allergic rhinitis due to pollen 09/08/2004 Adjustment disorder with depressed mood documented as of this encounter (statuses as of 06/06/2023) Resolved Problems Problem Noted Date Diagnosed Date Resolved Date Psoriasis 04/01/2008 10/28/2015 BMI 30.0-30.9,adult 08/23/19 19 documented as of this encounter (statuses as of 06/06/2023) Immunizations Name Administration Dates Next Due Pneumococcal [...] encounter Miscellaneous Notes * Telephone Encounter - Dulce Carrion MD - 06/06/2023 2:44 PM EST Signed Prescriptions: Disp Refills Triamcinolone Acetonide 0.5 % External Oin*45 g 5 Sig: Apply topically to affected area 2 times a day. Apply to hands and feet as directed or more if itchy instead of scratching Authorizing Provider: DULCE CARRION * Telephone Encounter - Renetta Bains LPN - 06/06/2023 2:26 PM ESTPending Prescriptions: Disp Refills Triamcinolone Acetonide 0.5 % External Oin*45 g 5 Sig: Apply topically to affected area 2 times a day . Apply to hands and feet as directed or more if itchy instead of scratching * Telephone Encounter - Renetta Bains LPN - 06/06/2023 2:26 PM EST Did you pend patient's preferred pharmacy and medication before forwarding?yes Pharmacy: [facility], [address] [place] Pending Prescriptions: Disp Refills Triamcinolone Acetonide 0.5 % External Oi*45 g 5 Sig: Apply topically to affected area 2 times a day. Apply to hands and feet as directed or more if itchy instead of scratching Last Visit: 05/09/2023 (in office), Visit date not found (telemedicine) Next Visit: 01/19/2024 If no future appointments scheduled, and last appointment is greater than a year ago, please schedule patient for a follow-up appointment Last date the medication was ordered: 09/16/21 Is this request for a controlled substance?No Urine Drug Screen:No results found for this or any previous visit. Patient Phone Numbers Labs: Lab Results Component Value Date/Time CREAT 0.7 05/09/2023 10:39 AM CREAT 0.7 01/09/2019 10:00 AM POTASSIUM 4.6 05/09/2023 10:39 AM POTASSIUM 4.8 01/09/2019 10:00 AM TSH 1.33 01/03/2017 01:34 PM LDLCALC 172 (H) 05/09/2023 10:39 AM LDLCALC 160 (H) 08/10/2016 10:43 AM LDLDIRECT NOT APPLICABLE 08/10/2016 10:43 AM ALT 21 05/09/2023 10:39 AM ALT 19 04/20/2018 08:35 AM HGBA1C 5.4 05/10/2022 04:20 PM * Telephone Encounter - Jada Joyner - 06/06/2023 1:26 PM ESTPending Prescriptions: Disp Refills Triamcinolone Acetonide 0.5 % External Oin*45 g 5 Sig: Apply topically to affected area 2 times a day . Apply to hands and feet as directed or more if itchy instead of scratching documented in this encounter Plan of Treatment Upcoming Encounters Date Type Department Care Team (Late st Contact Info) Description 08/11/2023 10:00 AM EST Office Visit Rheumatology [address] [place] [phone] Yareli Burns CRNP [facility] [address] 11/22/2023 10:00 AM EDT Office Visit Dermatology [address] [place] [address] Beatriz Solis PA-C [address] [place] [address] [place] [address] 01/19/2024 9:20 AM EDT Office Visit Family Medicine [address] [place] [phone] Dulce Carrion MD [address] [place] [address] [place] [phone] Health Maintenance Due Date Last Done Comments [...] as of this encounter Visit Diagnoses Diagnosis Pustular psoriasis of palms and soles Other psoriasis PSA (psoriatic arthritis) (HCC) Psoriatic arthropathy documented in this encounter Care Teams Materials Engineering Technician Relationship Specialty Start Date End Date Dulce Carrion MD [address] [place] [address] [place] [id number] PCP - General Family Medicine 02/17/15 documented as of this encounter
--- OUTSIDE RECORDS SUMMARY | 2023-11-09 13:34 | External Medical Summary | Summary of Care ---
Author Name Unknown Organization [facility] Address [address] [place] [address] Phone [phone] Care Team Providers Care Door To Door Salesman Name Role Phone Alexandra Carrion MD Primary Care Provide r Reason for Visit * Reason Onset Date Comments Letter Requests 07/04/2023 Med list Encounter Details Date Type Department Care Team (Late st Contact Info) Description 07/04/[address] [phone] Alexandra Carrion MD [address] [place], [place] [address] [address] Letter Requests (Med list ) Allergies [...] flared 180 g 3 09/16/2021 Active Nystatin 995461 UNIT/GM External Powder (Nystop)Indications: Intertrigo Apply topically to affected area 3 times a day . Apply to groin 60 g 1 09/16/2021 Active Ibuprofen 800 MG Oral Tablet (Motrin)Indications: PSA (psoriatic arthritis) ([facility]) Take by mouth 0.5 Tablets 2 times a day as needed for Pain, Severe. 100 Tablet 1 09/16/2021 Active Albuterol Sulfate HFA 108 (90 Base) MCG/ACT Inhalation Aerosol Solution As needed 0 Active Adalimumab 40 MG/0.8ML Subcutaneous Pen-injector Kit (Humira)Indications: PSA (psoriatic arthritis) ([facility]) INJECT 40MG UNDER THE SKIN EVERY [...] psoriasis of palms and soles,PSA (psoriatic arthritis) ([facility]) Apply topically to affected area 2 [...] encounter Miscellaneous Notes * Telephone Encounter - Sheila Bangura CPhT - 07/14/2023 12:20 PM EST pt calling to check on status of medication list. She did not receive from 07/06. She needs this by07/18/23 for her appointment Thank you, Sheila Bangura CPhT II Supervisor Jewelry Department [facility] ([facility]) (Formerly Telepharmacy) [...] 10:00 AM EST Office Visit Rheumatology [address] [place] [address] Yareli Burns CRNP [facility] [address] 11/22/2023 10:00 AM EDT Office Visit Dermatology [address] [place] [address] Beatriz Solis PA-C [address] [place] [address] [place] [address] 01/19/2024 9:20 AM EDT Office Visit Family Medicine [address] [place] Alexandra Carrion MD [address] [place] [address] [place] [address] Health Maintenance Due Date Last Done Comments [...] filedocumented as of this encounter Care Teams Door To Door Salesman Relationship Specialty Start Date End Date Alexandra Carrion MD [address] [place] [address] [place] [address] PCP - General Family Medicine 02/17/15 documented as of this encounter
--- OUTSIDE RECORDS SUMMARY | 2023-11-09 13:34 | External Medical Summary | Summary of Care ---
Author Name Unknown Organization [facility] Address [address] [place] [address] Phone [phone] Care Team Providers Care Toys [employer] Games Hand Finisher Name Role Phone Dulce Carrion MD Primary Care Provide r Reason for Visit * Reason Comments eRx-Medication Refill Encounter Details Date Type Department Care Team (Late st Contact Info) Description 05/31/2023 Refill Family Medicine [address] [phone] Dulce Carrion MD [address] [place] [address] [place] [address] Seasonal allergic rhinitis due to pollen Allergies Active Allergy Reactions Criticality Noted Date Comments Caffeine 05/07/2001 Ephedrine Pseudoephedrine 04/01/2008 documented as of this encounter (statuses as of 06/01/2023) Medications Medication Sig Dispensed Refills Start Date End Date Status Clindamycin Phosphate 1 % External GelIndications:Fo lliculitis Put 1-2x daily to spots (2x daily when flared) and only 1x daily to areas to prevent spots when not flared 180 g 3 09/16/2021 Active Triamcinolone Acetonide 0.5 % External OintmentIndicatio ns:Pustular psoriasis of palms and soles,PSA (psoriatic arthritis) ([facility]) Apply topically to affected area 2 times a day . Apply to hands and feet as directed or more if itchy instead of scratching 45 g 5 09/16/2021 Active Nystatin 025473 UNIT/GM External Powder (Nystop)Indicatio ns:Intertrigo Apply topically to affected area 3 times a day . Apply to groin 60 g 1 09/16/2021 Active Ibuprofen 800 MG Oral Tablet (Motrin)Indicatio ns:PSA (psoriatic arthritis) ([facility]) Take by mouth 0.5 Tablets 2 times a day as needed for Pain, Severe. 100 Tablet 1 09/16/2021 Active Albuterol Sulfate HFA 108 (90 Base) MCG/ACT Inhalation Aerosol Solution As needed 0 Active Adalimumab 40 MG/0.8ML Subcutaneous Pen-injector Kit (Humira)Indicatio ns:PSA (psoriatic arthritis) ([facility]) INJECT 40MG UNDER THE SKIN EVERY [...] EVERY DAY 90 Tablet 3 06/01/2023 Active Allergy Relief 10 MG Oral Tablet (Loratadine)Indic ations:Seasonal allergic rhinitis due to pollen TAKE ONE TABLET BY MOUTH EVERY DAY 90 Tablet 3 05/29/2022 3 Discontinued documented as of this encounter (statuses as of 06/01/2023) Active Problems Problem Noted Date Diagnosed Date PSA (psoriatic arthritis) 04/20/2018 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 HTN, goal below 130/80 03/07/2011 Generalized anxiety disorder 04/01/2008 Other acne 04/01/2008 Allergic rhinitis due to pollen 09/08/2004 Adjustment disorder with depressed mood documented as of this encounter (statuses as of 06/01/2023) Resolved Problems Problem Noted Date Diagnosed Date Resolved Date Psoriasis 04/01/2008 10/28/2015 BMI 30.0-30.9,adult 08/23/19 19 documented as of this encounter (statuses as of 06/01/2023) Immunizations Name Administration Dates Next Due Pneumococcal [...] encounter Miscellaneous Notes * Telephone Encounter - Harlan Grier RPh - 06/01/2023 9:18 AM ESTSigned Prescriptions: Disp Refills Allergy Relief 10 MG Oral Tablet (Loratadi*90 Tab*3 Sig: TAKE ONE TABLET BY MOUTH EVERY DAYAuthorizing Provider: DULCE CARRION User: HARLAN GRIER documented in this encounter Plan of Treatment Upcoming Encounters Date Type Department Care Team (Late st Contact Info) Description 08/11/2023 10:00 AM EST Office Visit Rheumatology [address] [place] [phone] Yareli Burns, SARA [facility] [facility] [place] [address] 11/22/2023 10:00 AM EDT Office Visit Dermatology [address] [place] [address] Beatriz Solis PA-C [address] [place] [address] [place] [address] 01/19/2024 9:20 AM EDT Office Visit Family Medicine [address] [place] [phone] Dulce Carrion MD [address] [place] [address] [place] [address] Health Maintenance Due Date Last Done Comments [...] as of this encounter Visit Diagnoses Diagnosis Seasonal allergic rhinitis due to pollen documented in this encounter Care Teams Toys And Games Hand Finisher Relationship Specialty Start Date End Date Dulce Carrion MD [address] [place] [address] [place] [address] PCP - General Family Medicine 02/17/15 documented as of this encounter
--- OUTSIDE RECORDS SUMMARY | 2023-11-09 13:34 | External Medical Summary | Summary of Care ---
Author Name Unknown Organization [facility] Address [address] [place] [address] Phone [phone] Care Team Providers Care Patent Agent Name Role Phone Alexandra Carrion MD Primary Care Provide r Encounter Details Date Type Department Care Team ([facility] st Contact Info) Description 07/20/2023 Specialty Pharmacy [facility], [address] [address] Medication, [facility] Specialty Refill, [address] [address] Allergies Active Allergy Reactions Criticality Noted Date Comments Caffeine 05/07/2001 Ephedrine Pseudoephedrine 04/01/2008 documented as of this encounter (statuses as of 07/20/2023) Medications Medication Sig Dispensed Refills Start Date End Date Status Clindamycin Phosphate 1 % External GelIndications:Folli culitis Put 1-2x daily to spots (2x daily when flared) and only 1x daily to areas to prevent spots when not flared 180 g 3 09/16/2021 Active Nystatin 681826 UNIT/GM External Powder (Nystop)Indications: Intertrigo Apply topically [...] Subcutaneous Pen-injector Kit (Humira)Indications: PSA (psoriatic arthritis) ([facility]) INJECT 40MG UNDER THE SKIN [...] psoriasis of palms and soles,PSA (psoriatic arthritis) ([facility]) Apply topically to affected area 2 times a day. 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 HTN, goal below 130/80 03/07/2011 Generalized anxiety disorder 04/01/2008 Other acne 04/01/2008 Allergic rhinitis due to pollen 09/08/2004 Adjustment disorder with depressed mood documented as of this encounter (statuses as of 07/20/2023) Resolved Problems Problem Noted Date Diagnosed Date Resolved Date Psoriasis 04/01/2008 10/28/2015 BMI 30.0-30.9,adult 08/23/19 19 documented as of this encounter (statuses as of 07/20/2023) Immunizations Name Administration Dates Next Due Pneumococcal [...] as of this encounter Progress Notes * Camila Chavez CPhT - 07/20/2023 9:37 AM EST Prescribed medication: Medication: Humira Shipment date: 07/26 pending refills Delivery method: Specialty Mail Location Medication Delivered too? Prescription Address: [address] [place] [address] [place] [address] Camila Chavez CPhT [facility] 07/20/2023,9:37 AM documented in this encounter Plan of Treatment Upcoming Encounters Date Type Department Care Team (Late st Contact Info) Description 08/11/2023 10:00 AM EST Office Visit Rheumatology [address] [place] [phone] Yareli Burns CRNP [address] [place] [address] [place] [address] 11/22/2023 10:00 AM EDT Office Visit Dermatology [address] [place] [address] Beatriz Solis PA-C [address] [place] [address] [place] [address] 01/19/2024 9:20 AM EDT Office Visit Family Medicine [address] [place] [phone] Alexandra Carrion MD [address] [place] [address] [place] [address] Health Maintenance Due Date Last Done Comments [...] 07/22/2022, 05/10/2022, Additional history exists Cologuard 05/17/2026 05/25/2023, 1107/2022, 05/17/2023 Colorectal Cancer Screening 05/17/2026 Lipid Panel 05/09/2028 05/09/2023, 04/17, 12/31/2020, Additional history exists GARDASIL-HPV IMMUNIZATION SERIES Aged Out No longer eligible based on patient's age to complete this topic MENINGOCOCCAL (MENACTRA/MENVEO) Aged Out No longer eligible based on patient's age to complete this topic documented as of this encounter Medical Devices Not on filedocumented as of this encounter Care Teams Patent Agent Relationship Specialty Start Date End Date Alexandra Carrion MD [address] [place] [address] [place] [id number] PCP - General Family Medicine 02/17/15 documented as of this encounter
--- NOTE | 2023-11-09 13:53 | Cardiology Progress Note ---
Date of Service November 09, 2023 Assessment & Plan (1) Unstable angina pectoris: (2) Non-sustained ventricular tachycardia: (3) Elevated troponin I level: (4) Hypertension: Plan Assessment: 48 year old female with multiple risk factors for coronary disease presents after OP work up for ongoing chest pain , left arm tightness and tightness at base of neck. Recent protracted cardiac monitoring demonstrates episode of Non-sustained Ventricular tachycardiac > 12 seconds. Requested patient to present for further evaluation. Plan: Patient with concerning cardiac symptoms, multiple risk factors, significant family history and now documented Non-sustained VT on recent ZIO monitor. Discussed patient's symptoms in depth with high concern that she has been having multiple episodes with no clear etiology and no prior ischemia work up. Monitor on telemetry. -Echocardiogram as noted with normal LVEF and no significant valvular disease. -Fasting lipid panel demonstrates elevated total cholesterol. -Continue metoprolol tartrate 12.5mg PO BID, ASA 81mg QD, Atorvastatin 40mg QD. patient on Lisinopril at home which we will also restart post ischemic work up. NPO for Left heart catheterization today. Case has been discussed with Dr. Villanueva. Further recommendations regarding plan of care as per his assessment. I spent a total of 30 minutes on the date of service in preparation, delivery, documentation of the care provided to the patient excluding any time spent in the performance of separately billed services. SARA Brown [facility] Admission and Anticipated Discharge Date Admission Date: November 08, 2023 Supervising Physician Co-Signing Physician Notes Attending attestation: Case reviewed with the advanced practitioner. I have personally performed a history and physical examination on the patient. I have reviewed the advanced practitioner's documentation on the date of service referenced in note, and I agree with, and take responsibility for the plan of care. Patient seen by the undersigned prior to and after cardiac catheterization. Coronary angiography had been recommended due to symptoms that were suggestive of unstable angina with mildly elevated troponin and significant risk factors for underlying coronary heart disease. Coronary angiography films reviewed in person with Dr. Finney in the control room, decision made to proceed with PCI/drug-eluting stenting of LAD and RCA. Patient tolerated procedure well. Post procedure EKG performed 11/08/2023 at 1352 revealing sinus bradycardia 46 bpm, stable findings. Several doses of metoprolol tartrate 12.5 mg held due to hold parameters with heart rates in the 50s, most recently in the upper 40s. Will transition to metoprolol succinate, 12.5 mg daily, next dose to start a.m. of 11/10/2023. Continue aspirin, clopidogrel, lisinopril, atorvastatin 40 mg daily. Will need titration of statin for LDL goal less than 70 mg/dL as an outpatient. Future considerations include the addition of ezetimibe or PCSK9 inhibitor if necessary. I spent a total of 20 minutes coordinating, documenting, and providing care for this patient excluding time spent in the performance of separately billed services or time spent by another provider. Jesus Villanueva DO Subjective 11/09/2023: Patient seen an examined in follow up. she is resting in bed at this time, NPO awaiting to go for her Left heart cath at the time of my visit. Denies any acute events overnight. labs, vitals, telemetry, diagnostics and documentation reviewed. Review of telemetry demonstrates SB/SR rates 50-60's. No acute events overnight. Review of Systems Review of Systems: All systems reviewed & are unremarkable except as noted in HPI & below Physical Exam Constitutional: well developed and well nourished; no acute distress Neck: normal visual inspection and trachea midline Respiratory: normal respiratory effort, lungs clear to auscultation Cardiovascular: RRR, no murmur, no edema Heart Sounds: normal S1 and normal S2; no murmur Vessels: dorsalis pedis pulses present; no JVD Extremities: no edema Skin: no rashes, warm and dry Psychiatric: A+Ox3, euthymic affect Results & Data Vital Signs (Past 12 Hours) Vital Signs Temp Pulse Resp BP BP Pulse Ox O2 Del Method 11/09/23 11:21 50 L 16 107/49 L 98 Room Air 11/09/23 10:55 36.6 C 52 L 21 108/61 98 Room Air 11/09/23 08:17 36.7 C 59 L 20 112/69 97 Room Air 11/09/23 04:05 36.6 C 71 18 105/65 97 Room Air Laboratory Results Cardiac Enzymes 11/08/23 11/08/23 Range/Units 15:39 21:03 Troponin I High Sens 45.1 H 46.7 H (0-14) pg/ml Lipids 11/09/23 Range/Units 06:35 Triglycerides 93 (0-150) mg/dl Cholesterol 248 H (0-200) mg/dl HDL Cholesterol 42 mg/dl Cholesterol/HDL Ratio 5.9 H (0-5) CBC 11/09/23 Range/Units 06:35 WBC 9.52 (4.8-10.8) K/ul RBC 4.82 (4.20-5.40) M/uL Hgb 15.3 (12.0-16.0) g/dl Hct 45.9 (37.0-47.0) % Plt Count 300 (130-400) K/uL Comprehensive Metabolic Panel 11/09/23 Range/Units 06:35 Sodium 140 (136-145) mmol/L Potassium 4.5 D (3.5-5.1) mmol/L Chloride 105 (98-107) mmol/L Carbon Dioxide 32 (21-32) mmol/L BUN 13 (6-23) mg/dl Creatinine 0.61 (0.6-1.2) mg/dl Glucose 95 (70-99(Fasting)) mg/dl Calcium 9.3 (8.6-10.3) mg/dl Intake and Output 11/08/23 11/09/23 11/09/23 22:59 06:59 14:59 Other: # Unmeasured Voids 2 Weight 80.5 kg 80.5 kg Weight Measurement Method Standing Scale Built in [facility] Diagnostic Findings Echocardiogram 11/07/2024 Normal LV wall thickness Normal LV systolic function LVEF 55-60% Right ventricle is normal in size and function Grade I diastolic dysfunction No significant valvular disease.
--- NOTE | 2023-11-09 15:35 | Post Anesthesia Assessment ---
Date of Service November 09, 2023 Post Sedation Assessment Vital Signs Temp Pulse Pulse Resp BP BP BP 11/09/23 14:09 97.5 F L 52 L 13 112/79 11/09/23 13:55 65 18 116/71 114/67 11/09/23 13:40 62 18 116/71 102/54 L 11/09/23 11:21 50 L 16 107/49 L 11/09/23 10:55 97.9 F 52 L 21 108/61 11/09/23 08:17 98.1 F 59 L 20 112/69 11/09/23 04:05 97.9 F 71 18 105/65 11/08/23 23:23 66 11/08/23 23:07 97.9 F 63 18 105/67 11/08/23 20:19 66 11/08/23 20:15 98.1 F 65 17 128/75 11/08/23 19:10 124/83 11/08/23 19:10 63 16 124/83 11/08/23 19:01 64 17 11/08/23 18:57 64 18 109/67 11/08/23 18:40 66 18 11/08/23 18:30 67 12 11/08/23 18:20 62 21 11/08/23 18:10 64 21 11/08/23 18:00 63 16 11/08/23 17:50 72 20 11/08/23 17:40 68 15 11/08/23 17:30 59 L 14 11/08/23 17:20 60 13 11/08/23 17:10 75 17 11/08/23 17:00 64 19 11/08/23 16:50 63 18 11/08/23 16:40 71 14 11/08/23 16:30 61 18 11/08/23 16:20 62 17 11/08/23 16:14 63 12 11/08/23 16:10 63 15 11/08/23 16:07 71 11/08/23 16:02 69 11/08/23 16:01 69 16 11/08/23 16:01 166/102 H 11/08/23 16:00 65 12 166/102 H 11/08/23 15:54 72 19 Pulse Ox O2 Del Method 11/09/23 14:09 96 Room Air 11/09/23 13:55 96 Room Air 11/09/23 13:40 96 Room Air 11/09/23 11:21 98 Room Air 11/09/23 10:55 98 Room Air 11/09/23 08:17 97 Room Air 11/09/23 04:05 97 Room Air 11/08/23 23:23 11/08/23 23:07 97 Room Air 11/08/23 20:19 11/08/23 20:15 97 Room Air 11/08/23 19:10 11/08/23 19:10 96 11/08/23 19:01 11/08/23 18:57 96 Room Air 11/08/23 18:40 97 11/08/23 18:30 11/08/23 18:20 11/08/23 18:10 11/08/23 18:00 11/08/23 17:50 11/08/23 17:40 11/08/23 17:30 11/08/23 17:20 11/08/23 17:10 11/08/23 17:00 11/08/23 16:50 11/08/23 16:40 11/08/23 16:30 100 11/08/23 16:20 99 11/08/23 16:14 100 Room Air 11/08/23 16:10 93 11/08/23 16:07 11/08/23 16:02 11/08/23 16:01 98 11/08/23 16:01 11/08/23 16:00 98 11/08/23 15:54 98 Recovery Score Activity: Moves 4 extremities Respiration: Deep Breath/Cough Circulation: +/-20% PreAnes Value Consciousness: Fully Awake Oxygen Saturation: > 92% On Room Air Post Anesthesia Score: 10 Discharge Sedation Level of Care: Fast Track Phase II Post Sedation Plan On clinical assessment, the patient appears to have tolerated the sedation without complications. Patient is recovering as anticipated. Patient will continue to be monitored by nursing and may be discharged when sedation discharge criteria are met per below protocol. Upon Completions of procedure up to 15 minutes continue every 5 minute vital signs and the P.A.R. score; then discharge to a Phase I or Fast Track to Phase II per the following guidelines: * Discharge Patient to appropriate Phase II area if PAR is 8 or greater or return to pre- procedure baseline. The post - procedure orders will be as directed. * If PAR score is less than 8 or not return to pre-procedure baseline then patient will follow Phase I monitoring till PAR is reached for Phase II. The Phase I may be done in procedure room or may call to secure a Phase I area. * If naloxone or flumazenil are used for reversal, hold in Phase I for continued monitoring from when last reversal dose was given for a minimum of 60 minutes or longer pending the nurse and/or physician discretion of patient condition before discharge to Phase II. Please call the Sedation Physician to re-evaluate and complete post-note for discharge to Phase II area. Do NOT discharge from procedure sedation or Phase 1 until post- sedation evaluation note is complete by procedure /sedation MD Sedation Discharge Instructions to be given to the patient at discharge to home.
--- NOTE | 2023-11-09 15:43 | Cardiac Catheterization ---
[facility] Data: Director [employer] Cardiac Status Clinical evaluation leading to the procedure CAD Presenation: Non STEMI Diagnostic Physicians Name: David Finney MD Closure Device Recommendations: PCI without planned CABG Cardiac Cath Procedure Full Procedure Date November 09, 2023 Pre-Procedure Diagnosis Pre-Procedure Diagnosis: Angina and Arrhythmia AUC Score AUC Score: 7 Post-Procedure Diagnosis Post-Procedure Diagnosis: Severe CAD, Successful PCI and Normal Intracardiac Pressures Procedure(s) Performed Procedure(s) Performed: Coronary Angiography, Left Heart Cath and Drug Eluting Stent [employer] Teammate David Finney MD Associate Dean Of Women(s) Showers Estimated Blood Loss Estimated Blood Loss: 20 Medication(s) Medication(s): Clopidogrel, Fentanyl, Heparin, Lidocaine 1%, Nicardipine, Nitroglycerin and Versed Summary of Findings Indication: Angina, mildly elevated troponin, nonsustained VT Access: 6 Fr right radial artery Catheters: Thatcher, JL 3.5, JR4 guide, EBU 3.0 guide Findings: LM -normal caliber, no significant disease LAD -medium caliber, proximal luminal irregularities, 70% mid segment disease after takeoff of first septal. Remainder of mid and distal vessel without significant disease, tapers prior to apex. Small D1 without disease. Medium D2 without disease Circumflex -medium caliber vessel, 25% mid segment disease, small distal vessel with 40-50% stenosis. Medium OM 3 without disease. RCA -dominant, medium caliber, 95% mid RCA stenosis, 30% distal disease. Medium PDA without disease. LVEDP -11 -- PCI -- Antithrombotic therapy: Heparin, clopidogrel Procedure: RCA cannulated with JR4 guide Pre-procedure flow MARIELOS 3 BMW wire passed across lesion into distal vessel Mid RCA lesion predilated with 2.5 compliant balloon Dilated lesion stented with 2.75 x 22 mm Empire drug-eluting stent Stent post-dilated with 3.5 noncompliant balloon IC vasodilators administered for spasm Post procedure MARIELOS 3 flow, stent well expanded with minimal residual stenosis. No flow in small, jailed acute marginal. Otherwise no complications. Left main cannulated with EBU 3.5 guide Pre-procedure flow MARIELOS 3 With some difficulty due to tortuosity/overlap, eventually yard pilot 50 wire passed across lesion into distal vessel Mid LAD lesion predilated with 2.0 compliant balloon Dilated lesion stented with 2.5 x 26 mm Empire drug-eluting stent Stent post-dilated with 2.75 noncompliant balloon IC vasodilators administered for spasm Post procedure MARIELOS 3 flow, stent well expanded with minimal residual stenosis and no apparent cardiac complications. Arterial Closure: TR band Summary: 1. Multivessel coronary artery disease -95% mid RCA stenosis 70% mid LAD 45% small distal circumflex 2. Normal intracardiac filling pressure 3. Successful PCI of mid RCA with single drug-eluting stent (2.75 x 22 mm Empire; postdilated with 3.5 NC). 4. Successful PCI of mid LAD with single drug-eluting stent (2.5 x 26 mm Empire; postdilated with 2.75 NC). Recommendations: To PCU for continued monitoring Loaded with clopidogrel 600 mg in [employer] Continue dual-antiplatelet therapy for at least 1 year Continue statin, and ASCVD risk factor modification Consult cardiac Rehab Hemodynamics Rest Ao:: 112/63/87 Final Ao: 116/53/81 LV: 101/11 Recommendations Recommendations: PCI without planned CABG Specimens Specimens: None Radiation Exposure (mGy) 4258 Contrast (mls) 240 Anesthesia Moderate 9868-4136 Procedural Complication(s) None Disposition PCU I attest to the content of the Intraoperative Record and any orders documented therein. Any exceptions are noted below. [facility] Card Cath Procedure Codes Cardiac Catheterization Procedure 1: Cardiovascular Cath Procedures: 17293 Coronaries and LHC (+/-LV) Moderate Sedation Procedure 1: Sedation/Anesthesia: 41416 Mod Sedation by the same physician;Init15 Min Child Age 5 & Up Procedure 2: Sedation/Anesthesia: 22781 Mod Sedation by the same physician; Ea [id number] Minutes Stenting Procedure 1: Cardiovascular Stent Procedures: 85748 Perc transcatheter placement of intracoronary stent(s), with ang Procedure 2: Cardiovascular Stent Procedures: 21128 Ea addl branch of a major coronary artery PG Care Time/CCT Total # of Minutes Spent Total Time Spent with Patient: Total time spent is greater than 50% in coordination of care (as documented) at patient's floor/unit and/or counseling patient:
--- NOTE | 2023-11-09 15:50 | Electrocardiogram Report ---
Test Reason : Blood Pressure : / mmHG Vent. Rate : 053 BPM Atrial Rate : 053 BPM P-R Int : 176 ms QRS Dur : 078 ms QT Int : 434 ms P-R-T Axes : 033 083 066 degrees QTc Int : 407 ms Sinus bradycardia Septal infarct (cited on or before 08-NOV-2023) Abnormal ECG When compared with ECG of 08-NOV-2023 11:46, No significant change was found Confirmed by Quinten Rivera ([id number]) on 11/09/2023 3:50:14 PM Referred By: Alexandra Carrion Confirmed By:Quinten Rivera
--- NOTE | 2023-11-09 16:03 | Electrocardiogram Report ---
Test Reason : Blood Pressure : / mmHG Vent. Rate : 046 BPM Atrial Rate : 046 BPM P-R Int : 152 ms QRS Dur : 080 ms QT Int : 480 ms P-R-T Axes : 035 080 065 degrees QTc Int : 420 ms Sinus bradycardia Otherwise normal ECG When compared with ECG of 09-NOV-2023 06:21, (unconfirmed) Criteria for Septal infarct are no longer Present Confirmed by Quinten Rivera ([id number]) on 11/09/2023 4:03:26 PM Referred By: Alexandra Carrion Confirmed By:Quinten Rivera
[2023-11-09] MEDS: NICOTINE 14 MG/24 HR PATCH TD SCH (16:22)
[2023-11-09] MEDS: SODIUM CHLORIDE 0.9% 1,000 ML IV SCH (16:24)
[2023-11-10 07:30] LABS: Basophils # (auto) 0.04 K/uL (0.00-0.20); Basophils % (auto) 0.4 %; Eosinophils % (auto) 3.9 %; Hematocrit (blood only) 42.3 % (37.0-47.0); Hemoglobin 14.1 g/dl (12.0-16.0); Immature Granulocytes # (auto) 0.05 K/uL (0.01-0.20); Immature Granulocytes % (auto) 0.5 %; Lymphocytes # (auto) 2.74 K/uL (1.20-3.40); Lymphocytes % (auto) 26.7 %; Mean Corpuscular Hemoglobin 31.8 pg (25.0-34.0); Mean Corpuscular Hgb Conc 33.3 g/dL (32.0-36.0); Mean Corpuscular Volume 95.3 fL (80.0-100.0); Mean Platelet Volume 10.1 fL (9.4-12.4); Monocytes # (auto) 0.79 K/uL (0.11-0.59); Monocytes % (auto) 7.7 %; Neutrophils # (auto) 6.24 K/uL (1.40-6.50); Neutrophils % (auto) 60.8 %; Platelet Count 263 K/uL (130-400); RDW Coefficient of Variation 11.9 % (11.5-14.5); RDW Standard Deviation 40.9 fL (36.4-46.3); Red Blood Count 4.44 M/uL (4.20-5.40); White Blood Count 10.26 K/ul (4.8-10.8)
[2023-11-10 07:56] LABS: BUN Creatinine Ratio 16.7 (10-20); Calcium 8.4 mg/dl (8.6-10.3); Creatinine Clr Calc Pharmacy 111.2 ml/min; Est GFR (African American) 121.9 ml/min; Est GFR (Non-African American) 105.2 ml/min; Potassium 4.1 mmol/L (3.5-5.1)
[2023-11-10] MEDS: METOPROLOL SUCC 25MG EXT REL TAB PO SCH ×2 (08:35→20:23)
[2023-11-10] MEDS: CLOPIDOGREL BISULFATE 75 MG TAB PO SCH (08:43)
--- NOTE | 2023-11-10 08:57 | Cardiology Progress Note ---
Date of Service November 10, 2023 Assessment & Plan (1) Unstable angina pectoris: (2) Non-sustained ventricular tachycardia: (3) Elevated troponin I level: (4) Hypertension: Plan Assessment: 48 year old female with multiple risk factors for coronary disease presents after OP work up for ongoing chest pain , left arm tightness and tightness at base of neck. Recent protracted cardiac monitoring demonstrates episode of Non-sustained Ventricular tachycardiac > 12 seconds. Requested patient to present for further evaluation. Plan: -Patient underwent cardiac catheterization yesterday s/p PCI with DESx1 Mid- RCA and Mid-LAD -She is feeling well today without complaints. -Right wrist cath site stable. Site is clean/dry/intact. +pulses/motor sensation. -Review of telemetry does demonstrate a single 10 beat run of Non-sustained VT which patient does endorse that she felt. This may be likely reperfusion VT in etiology as well as her evening dose of beta rubin was held. No recurrence at this point today. -labs are stable. -patient's blood BP is above target this morning premeds. repeat shows significant improvement. -Continue Metoprolol succinate 12.5mg PO BID, Atorvastatin 40mg Daily, Lisinopril 40mg PO Daily as part of GDMT -Continue ASA 81mg in addition to Plavix 75mg PO Daily for DAPT for a minimum of one year. -Given her episode of VT, would recommend that patient stay with plans for possible discharge in the AM if she is tolerating medications well and no further episodes of VT. -Echocardiogram as noted with normal LVEF and no significant valvular disease. -Recommend OP labs in one week with CBC and BMP, Fasting lipid panel in 6 months. -Discussed and encouraged smoking cessation. -Recommend for cardiac rehab (will be discussed at OP Follow up) -Close follow up with Cardiology in 3-4 weeks outpatient. -heart healthy diet and encourage patient to be out of bed to ambulate today Case has been discussed with Dr. Villanueva. Further recommendations regarding plan of care as per his assessment. I spent a total of 30 minutes on the date of service in preparation, delivery, documentation of the care provided to the patient excluding any time spent in the performance of separately billed services. SARA Brown [facility] Admission and Anticipated Discharge Date Admission Date: November 08, 2023 Supervising Physician Co-Signing Physician Notes Attending attestation: Case reviewed with the advanced practitioner. I have personally performed a history and physical examination on the patient. I have reviewed the advanced practitioner's documentation on the date of service referenced in note, and I agree with, and take responsibility for the plan of care. Patient feeling well, but she did have subjective palpitations last night that correlated with the 10 beat run of monomorphic ventricular tachycardia observed at 2319 treated with rate of 117 bpm. She had been in the process of being transition from Toprol tartrate to metoprolol succinate, and therefore proceeding DiSipio rubin had been held at that time. Also this was within the timeframe to be expected for reperfusion arrhythmia status post complex PCI. Continue aspirin, clopidogrel, lisinopril, atorvastatin 40 mg daily. Will need titration of statin for LDL goal less than 70 mg/dL as an outpatient. Future considerations include the addition of ezetimibe or PCSK9 inhibitor if necessary. Patient remained in the hospital on telemetry overnight tonight. Proceed with metoprolol succinate 12.5 mg twice daily, likely transition to 25 mg daily tomorrow. I spent a total of 20 minutes coordinating, documenting, and providing care for this patient excluding time spent in the performance of separately billed services or time spent by another provider. Jesus Villanueva, Subjective 11/10/2023: Patient seen an examined in follow up today. She is resting comfortably in bed without complaint. Denies any chest pain, or pressure. Patient did experience a "fluttering" sensation accompanied by a globus sensation in her throat at 2319 last evening. Telemetry was reviewed and demonstrates a predominant NSR; however, symptoms were verified and shows a 10 beat run of non-sustained ventricular tachycardia at 2319. patient underwent cardiac catheterization yesterday (11/09/23) and is s/p PCI with CHRIS to mid RCA with [id number] Onxy and PCI with CHRIS to the mid LAD with 2.5x26mm Pablo stent) Labs, vitals, diagnostics, telemetry and documentation reviewed. Review of Systems Review of Systems: All systems reviewed & are unremarkable except as noted in HPI & below Physical Exam Constitutional: well developed and well nourished; no acute distress Neck: normal visual inspection and trachea midline Respiratory: normal respiratory effort, lungs clear to auscultation Cardiovascular: RRR, no murmur, no edema Heart Sounds: normal S1 and normal S2; no murmur Vessels: dorsalis pedis pulses present; no JVD Extremities: no edema Skin: no rashes, warm and dry (right wrist OPsite in place, puncture site C/D/I, +pms ) Psychiatric: A+Ox3, euthymic affect Results & Data Vital Signs (Past 12 Hours) Vital Signs Temp Pulse Pulse Resp BP BP Pulse Ox 11/10/23 08:39 36.5 C 69 18 153/122 H 98 11/10/23 03:33 36.7 C 61 18 128/72 96 11/10/23 00:00 70 11/09/23 23:07 36.6 C 74 17 107/68 97 O2 Del Method 11/10/23 08:39 Room Air 11/10/23 03:33 Room Air 11/10/23 00:00 11/09/23 23:07 Room Air Laboratory Results CBC 11/10/23 Range/Units 07:01 WBC 10.26 (4.8-10.8) K/ul RBC 4.44 (4.20-5.40) M/uL Hgb 14.1 (12.0-16.0) g/dl Hct 42.3 (37.0-47.0) % Plt Count 263 (130-400) K/uL Neut # (Auto) 6.24 (1.40-6.50) K/uL Lymph # (Auto) 2.74 (1.20-3.40) K/uL [place] # (Auto) 0.79 H (0.11-0.59) K/uL Eos # (Auto) 0.40 (0.00-0.50) K/uL Baso # (Auto) 0.04 (0.00-0.20) K/uL Comprehensive Metabolic Panel 11/10/23 Range/Units 07:01 Sodium 138 (136-145) mmol/L Potassium 4.1 (3.5-5.1) mmol/L Chloride 106 (98-107) mmol/L Carbon Dioxide 29 (21-32) mmol/L BUN 11 (6-23) mg/dl Creatinine 0.66 (0.6-1.2) mg/dl Glucose 119 H (70-99(Fasting)) mg/dl Calcium 8.4 L (8.6-10.3) mg/dl Intake and Output 11/09/23 11/10/23 11/10/23 22:59 06:59 14:59 Intake Total 700 / 1700 1000 / 1700 Output Total Balance 700 / 1700 1000 / 1700 - Intake: IV 750 / 750 Sodium Chloride 0.9% 1,000 ml @ 750 / 750 100 mls/hr IV .Q10H [id number] Rx#: [id number] Oral 700 / 950 250 / 950 Output: # Bowel Movements Other: # Unmeasured Voids 2 2 1 Weight 81.6 kg Weight Measurement Method Built in [facility] Diagnostic Findings Cardiac catheterization 11/09/2023 Summary: 1. Multivessel coronary artery disease -95% mid RCA stenosis 70% mid LAD 45% small distal circumflex 2. Normal intracardiac filling pressure 3. Successful PCI of mid RCA with single drug-eluting stent (2.75 x 22 mm Pablo; postdilated with 3.5 NC). 4. Successful PCI of mid LAD with single drug-eluting stent (2.5 x 26 mm Marion; postdilated with 2.75 NC). Recommendations: To PCU for continued monitoring Loaded with clopidogrel 600 mg in [employer] Continue dual-antiplatelet therapy for at least 1 year Continue statin, and ASCVD risk factor modification Consult cardiac Rehab
[2023-11-10] MEDS: bisacodyL 10 MG SUPP PR STA (10:29)
--- NOTE | 2023-11-10 11:54 | Hospitalist Progress Note ---
Date of Service November 10, 2023 Assessment & Plan (1) Chest pain: Plan: Patient presenting from home by referral of PCP after outpatient ZIO monitor demonstrated episode of Non-sustained Ventricular tachycardiac > 12 seconds, with possible polymorphic characteristics consistent with torsades. Has been having episodes of intermittent chest/left arm discomfort x 2 weeks In the ED, EKG without acute ST changes, HS troponin 40 -> 45.1 Start ASA 81 mg daily, atorvastatin 40 mg daily, metoprolol tartrate 12.5 mg q6h N.p.o. after midnight for possible additional testing tomorrow Serial troponins were not significantly high and did not have any EKG changes Remains free from any more chest pain since admission Echo of the heart showed-normal LV wall thickness, LV systolic function is normal, EF 55 to 60%, RV is normal in size and function, grade 1 diastolic dy sfunction, there is no significant valvular heart disease and no prior studies to compare Appreciate cardiology input and recommendation She will have cardiac cath this afternoon for further evaluation Status post cardiac cath with successful PCI mid RCA and mid LAD Started on aspirin and Plavix Likely discharge tomorrow (2) Non-sustained ventricular tachycardia: Plan: As above (3) Torsades de pointes: Plan: As above (4) Hypertension: Plan: BP elevated on presentation to ED 172/106, recently started on HCTZ 25 mg daily in addition to lisinopril 40 mg daily Continue home lisinopril, hold HCTZ for now in light of starting metoprolol as above Monitor BP, make adjustments as needed Blood pressure remains on the lower side of normal at 107/49 DVT PROPHYLAXIS SCDs Patient seen in cooperation with Dr. Calvin. Admission and Anticipated Discharge Date Admission Date: November 08, 2023 Subjective 11/09/2023 The patient was seen and examined in telemetry unit She has significant risk factors and was admitted with ongoing chest pain No ACS but she will go for cardiac cath this afternoon 11/10/2023 The patient was seen and examined in telemetry unit She has been feeling much better today Has had 10 beats of V. tach last evening without any symptoms Will be staying tonight Review of Systems Review of Systems: All systems reviewed and are unremarkable except as noted below Physical Exam Physical Exam: Sitting on a chair without any acute distress Constitutional: well developed, well nourished and + obese; not ill appearing Eyes: PERRL, conjunctivae normal, anicteric sclerae ENMT: external ear and nose normal, oropharynx normal Neck: trachea midline, no thyromegaly Respiratory: no respiratory distress Auscultation: lungs clear to auscultation bilaterally Cardiovascular: Rate/Rhythm: regular rate, regular rhythm, + bradycardic and + tachycardic Heart Sounds: normal S1 and normal S2; no murmur Extremities: no edema Gastrointestinal (Abdomen): Inspection/Auscultation: normal bowel sounds; abdomen not distended Percussion/Palpation: abdomen soft; abdomen nontender Neurologic: normal touch/pain/proprioception and moves all extremities; no focal motor deficits Psychiatric: A+Ox3, euthymic affect Lymphatic: no cervical or axillary lymphadenopathy Results & Data Results & Data Vital Signs (Past 12 Hours) Vital Signs Temp Pulse Pulse Resp BP BP Pulse Ox 11/10/23 10:34 70 110/69 11/10/23 08:39 36.5 C 69 18 153/122 H 98 11/10/23 03:33 36.7 C 61 18 128/72 96 11/10/23 00:00 70 O2 Del Method 11/10/23 10:34 11/10/23 08:39 Room Air 11/10/23 03:33 Room Air 11/10/23 00:00 Laboratory Results Short CBC 11/10/23 Range/Units 07:01 WBC 10.26 (4.8-10.8) K/ul Hgb 14.1 (12.0-16.0) g/dl Hct 42.3 (37.0-47.0) % Plt Count 263 (130-400) K/uL [facility] 11/10/23 07:01 Sodium 138 Potassium 4.1 Chloride 106 Carbon Dioxide 29 BUN 11 Creatinine 0.66 Glucose 119 H Calcium 8.4 L Medications Administered Current Inpatient Medications Acetaminophen (Acetaminophen 325 Mg Tab) 650 mg PO Q4H PRN PRN Reason: Pain or Fever Stop: 12/08/23 14:59 Last Admin: 11/09/23 08:31 Dose: 650 mg Aspirin (Aspirin 81 Mg Ectab) 81 mg PO [facility] Stop: 12/09/23 08:59 Last Admin: 11/10/23 08:35 Dose: 81 mg Atorvastatin Calcium (Atorvastatin 40 Mg Tab) 40 mg PO [facility] Stop: 12/09/23 08:59 Last Admin: 11/10/23 08:43 Dose: 40 mg Citalopram Hydrobromide (Citalopram 20 Mg Tab) 20 mg PO DAILY [facility] Stop: 12/09/23 08:59 Last Admin: 11/10/23 08:43 Dose: 20 mg Clopidogrel Bisulfate (Clopidogrel Bisulfate 75 Mg Tab) [facility] Stop: 12/10/23 08:59 Last Admin: 11/10/23 08:43 Dose: 75 mg Lisinopril (Lisinopril 40 Mg Tab) [facility] Stop: 12/09/23 08:59 Last Admin: 11/10/23 08:44 Dose: 40 mg Loratadine (Loratadine 10 Mg Tab) 10 mg PO DAILY [facility] Stop: 12/09/23 08:59 Last Admin: 11/10/23 08:44 Dose: 10 mg Melatonin (Melatonin 3 Mg Tab) 3 mg PO HS PRN PRN Reason: Sleep Stop: 12/08/23 20:30 Last Admin: 11/08/23 21:47 Dose: 3 mg Metoprolol Succinate (Metoprolol Succ 25mg Ext Rel Tab) 12.5 mg PO [facility] Stop: 12/10/23 08:59 Last Admin: 11/10/23 08:35 Dose: 12.5 mg Miscellaneous (Remove Nicoderm Patch) 1 each N/A DAILY@0859 [facility] Stop: 12/10/23 08:58 Last Admin: 11/10/23 08:43 Dose: 1 each Nicotine (Nicotine 14 Mg/24 Hr Patch) 1 patch TD [facility] Stop: 12/09/23 15:44 Last Admin: 11/10/23 08:44 Dose: 1 patch Nitroglycerin (Nitroglycerin Sl 0.4 Mg/Tab Tab) 0.4 mg SL Q5M PRN PRN Reason: Chest Pain Stop: 12/08/23 14:59 (1) Chest pain Chest pain type: unspecified Qualified Code(s): R07.9 - Chest pain, unspecified
--- NOTE | 2023-11-10 12:59 | Electrocardiogram Report ---
Test Reason : Blood Pressure : / mmHG Vent. Rate : 068 BPM Atrial Rate : 068 BPM P-R Int : 160 ms QRS Dur : 082 ms QT Int : 412 ms P-R-T Axes : 067 072 060 degrees QTc Int : 438 ms Normal sinus rhythm Normal ECG When compared with ECG of 09-NOV-2023 13:52, Vent. rate has increased BY 22 BPM Confirmed by Quinten Rivera ([id number]) on 11/10/2023 12:59:14 PM Referred By: Alexandra Carrion Confirmed By:Quinten Rivera
[2023-11-11 07:21] LABS: Basophils # (auto) 0.04 K/uL (0.00-0.20); Basophils % (auto) 0.4 %; Eosinophils # (auto) 0.44 K/uL (0.00-0.50); Eosinophils % (auto) 4.4 %; Hematocrit (blood only) 41.8 % (37.0-47.0); Hemoglobin 13.6 g/dl (12.0-16.0); Immature Granulocytes # (auto) 0.03 K/uL (0.01-0.20); Immature Granulocytes % (auto) 0.3 %; Lymphocytes # (auto) 2.71 K/uL (1.20-3.40); Lymphocytes % (auto) 26.8 %; Mean Corpuscular Hemoglobin 31.3 pg (25.0-34.0); Mean Corpuscular Hgb Conc 32.5 g/dL (32.0-36.0); Mean Corpuscular Volume 96.3 fL (80.0-100.0); Mean Platelet Volume 9.9 fL (9.4-12.4); Monocytes # (auto) 0.96 K/uL (0.11-0.59); Monocytes % (auto) 9.5 %; Neutrophils # (auto) 5.92 K/uL (1.40-6.50); Neutrophils % (auto) 58.6 %; Platelet Count 240 K/uL (130-400); RDW Coefficient of Variation 11.6 % (11.5-14.5); RDW Standard Deviation 41.1 fL (36.4-46.3); Red Blood Count 4.34 M/uL (4.20-5.40)
[2023-11-11 07:32] LABS: BUN Creatinine Ratio 18.3 (10-20); Calcium 8.4 mg/dl (8.6-10.3); Creatinine Clr Calc Pharmacy 121.7 ml/min; Est GFR (African American) 125.8 ml/min; Est GFR (Non-African American) 108.5 ml/min; Phosphorus 3.7 mg/dl (2.5-4.9)
--- NOTE | 2023-11-11 09:12 | Cardiology Progress Note ---
Date of Service November 11, 2023 Assessment & Plan (1) Unstable angina pectoris: (2) Non-sustained ventricular tachycardia: (3) Elevated troponin I level: (4) Hypertension: Plan Assessment: 48 year old female with multiple risk factors for coronary disease presents after OP work up for ongoing chest pain , left arm tightness and tightness at base of neck. Recent protracted cardiac monitoring demonstrates episode of Non-sustained Ventricular tachycardiac > 12 seconds. Requested patient to present for further evaluation. Plan: -Patient underwent cardiac catheterization yesterday s/p PCI with DESx1 Mid- RCA and Mid-LAD -She is feeling well today without complaints. -Right wrist cath site stable. Site is clean/dry/intact. +pulses/motor sensation. -No additional arrhythmias on telemetry. -Stable for discharge on the following medications: * Aspirin enteric-coated, 81 mg daily (lifelong therapy * Clopidogrel 75 mg daily (likely x 1 year given presentation with acute coronary syndrome) * Metoprolol succinate 25 mg daily (received 12.5 mg this morning, I have ordere d an additional 12.5 mg x 1 now) * Lisinopril 40 mg daily * Atorvastatin 40 mg daily Patient has a history of psoriatic arthritis and was to start treatment with Taltz which just arrived in the mail. I have a call out to her Supervisor [employer], and will obtain advice about plan. Admission and Anticipated Discharge Date Admission Date: November 08, 2023 Subjective Patient seen in cardiology follow-up. Feeling well. Denies chest discomfort. Telemetry reveals sinus rhythm in the 70s with no recurrent arrhythmia. Physical Exam Constitutional: well developed and well nourished; no acute distress Neck: normal visual inspection and trachea midline Respiratory: normal respiratory effort, lungs clear to auscultation Cardiovascular: RRR, no murmur, no edema Heart Sounds: normal S1 and normal S2; no murmur Vessels: dorsalis pedis pulses present; no JVD Extremities: no edema Skin: no rashes, warm and dry (right wrist OPsite in place, puncture site C/D/I, +pms ) Psychiatric: A+Ox3, euthymic affect Results & Data Vital Signs (Past 12 Hours) Vital Signs Temp Pulse Pulse Resp BP BP Pulse Ox 11/11/23 08:34 77 122/79 11/11/23 07:10 36.6 C 58 L 18 119/72 99 11/11/23 07:00 59 L 11/11/23 03:24 36.6 C 69 18 121/72 96 11/10/23 23:50 36.6 C 71 18 108/64 97 11/10/23 23:00 63 O2 Del Method 11/11/23 08:34 11/11/23 07:10 Room Air 11/11/23 07:00 11/11/23 03:24 Room Air 11/10/23 23:50 Room Air 11/10/23 23:00
[2023-11-11] MEDS ORDERED: METOPROLOL SUCC 25MG EXT REL TAB PO SCH (09:15)
[2023-11-11] MEDS: METOPROLOL SUCC 25MG EXT REL TAB PO ONE (09:53)
--- NOTE | 2023-11-11 11:45 | Hospitalist Progress Note ---
Date of Service November 11, 2023 Assessment & Plan (1) Chest pain: Plan: Patient presenting from home by referral of PCP after outpatient ZIO monitor demonstrated episode of Non-sustained Ventricular tachycardiac > 12 seconds, with possible polymorphic characteristics consistent with torsades. Has been having episodes of intermittent chest/left arm discomfort x 2 weeks In the ED, EKG without acute ST changes, HS troponin 40 -> 45.1 Start ASA 81 mg daily, atorvastatin 40 mg daily, metoprolol tartrate 12.5 mg q6h N.p.o. after midnight for possible additional testing tomorrow Serial troponins were not significantly high and did not have any EKG changes Remains free from any more chest pain since admission Echo of the heart showed-normal LV wall thickness, LV systolic function is normal, EF 55 to 60%, RV is normal in size and function, grade 1 diastolic dy sfunction, there is no significant valvular heart disease and no prior studies to compare Appreciate cardiology input and recommendation She will have cardiac cath this afternoon for further evaluation Status post cardiac cath with successful PCI mid RCA and mid LAD Started on aspirin and Plavix No more chest pain and/or palpitation Blood pressure is controlled and she will be discharged home this afternoon (2) Non-sustained ventricular tachycardia: Plan: As above Only has had 1 episode of 10 beats of V. tach No more for the last 24 hours or more (3) Torsades de pointes: Plan: As above (4) Hypertension: Plan: BP elevated on presentation to ED 172/106, recently started on HCTZ 25 mg daily in addition to lisinopril 40 mg daily Continue home lisinopril, hold HCTZ for now in light of starting metoprolol as above Monitor BP, make adjustments as needed Blood pressure remains on the lower side of normal at 107/49 DVT PROPHYLAXIS SCDs Patient seen in cooperation with Dr. Calvin. Admission and Anticipated Discharge Date Admission Date: November 08, 2023 Subjective 11/09/2023 The patient was seen and examined in telemetry unit She has significant risk factors and was admitted with ongoing chest pain No ACS but she will go for cardiac cath this afternoon 11/10/2023 The patient was seen and examined in telemetry unit She has been feeling much better today Has had 10 beats of V. tach last evening without any symptoms Will be staying tonight 11/11/2023 The patient was seen and examined in telemetry unit She has been stable without any symptoms No more V. tach and the blood pressure is controlled She will be discharged home this afternoon Review of Systems Review of Systems: All systems reviewed and are unremarkable except as noted below Physical Exam Physical Exam: Sitting on a chair without any acute distress Constitutional: well developed, well nourished and + obese; not ill appearing Eyes: PERRL, conjunctivae normal, anicteric sclerae ENMT: external ear and nose normal, oropharynx normal Neck: trachea midline, no thyromegaly Respiratory: no respiratory distress Auscultation: lungs clear to auscultation bilaterally Cardiovascular: Rate/Rhythm: regular rate, regular rhythm, + bradycardic and + tachycardic Heart Sounds: normal S1 and normal S2; no murmur Extremities: no edema Gastrointestinal (Abdomen): Inspection/Auscultation: normal bowel sounds; abdomen not distended Percussion/Palpation: abdomen soft; abdomen nontender Musculoskeletal: No acute arthritis involving any of the joint Neurologic: normal touch/pain/proprioception and moves all extremities; no focal motor deficits Psychiatric: A+Ox3, euthymic affect Lymphatic: no cervical or axillary lymphadenopathy Results & Data Results & Data Vital Signs (Past 12 Hours) Vital Signs Temp Pulse Pulse Resp BP BP Pulse Ox 11/11/23 08:34 77 122/79 11/11/23 07:10 36.6 C 58 L 18 119/72 99 11/11/23 07:00 59 L 11/11/23 03:24 36.6 C 69 18 121/72 96 11/10/23 23:50 36.6 C 71 18 108/64 97 O2 Del Method 11/11/23 08:34 11/11/23 07:10 Room Air 11/11/23 07:00 11/11/23 03:24 Room Air 11/10/23 23:50 Room Air Laboratory Results Short CBC 11/11/23 Range/Units 06:42 WBC 10.10 (4.8-10.8) K/ul Hgb 13.6 (12.0-16.0) g/dl Hct 41.8 (37.0-47.0) % Plt Count 240 (130-400) K/uL BMP 11/11/23 06:42 Sodium 140 Potassium 4.0 Chloride 109 H Carbon Dioxide 28 BUN 11 Creatinine 0.60 Glucose 97 Calcium 8.4 L (1) Chest pain Chest pain type: unspecified Qualified Code(s): R07.9 - Chest pain, unspecified
--- NOTE | 2023-11-12 08:14 | Discharge Summary ---
Date of Service November 11, 2023 Admission HPI Per Admitting Provider 48-year-old female with PMH HTN, psoriatic arthritis, anxiety, and other problems listed below who presents to the ED for evaluation of chest pain and also by referral of PCP for abnormal outpatient ZIO monitor. History is obtained from the patient and review of outpatient PCP and cardiology records. Patient reports that about 2 weeks ago, she developed a midsternal chest discomfort with associated left arm pain. She also experienced palpitations, shortness of breath, diaphoresis, nausea. Patient called EMS and was evaluated at [facility]. Reports that she was discharged home with outpatient follow- up. Patient saw PCP on 10/24 and had a 7-day ZIO monitor placed. Due to elevated BP, patient was also started on HCTZ 25 mg daily. Patient reports she received a call today that she had an abnormality on her ZIO monitor and needed to present to the ED for evaluation. Patient describes her chest discomfort as " something being stuck". Continues to occasionally have left arm discomfort with chest discomfort. Reports that symptoms can be brought on with exertion however also sometimes occur at rest. Reports last episode was 2 evenings ago while she was laying in bed watching TV. Patient denies any other recent illnesses, fevers, chills. No syncopal events. Denies abdominal pain, vomiting, diarrhea. No urinary symptoms. In the ED, EKG is without acute ST changes. HS troponin 40 -> 45.1. Admission Exam Per Admitting Provider Constitutional: WD/WN, vitals as above Eyes: PERRL, conjunctivae normal, anicteric sclerae Respiratory: normal respiratory effort, lungs clear to auscultation Cardiovascular: Rate/Rhythm: regular rate and regular rhythm Vessels: normal peripheral pulses Extremities: no edema Gastrointestinal (Abdomen): normal bowel sounds, soft, nontender, no hepatosplenomegaly Musculoskeletal: no cyanosis or clubbing, extremities motor strength 5/5 Skin: no rashes, warm and dry Neurologic: PERRL, EOMI, accommodation nl, no face palsy, no dysarthria Psychiatric: A+Ox3, euthymic affect Principal Diagnosis Unstable angina status post cardiac cath and PCI with CHRIS x 1 mid RCA and mid LAD, nonsustained V. tach, hypertension Discharge Exam Sitting on a chair without any acute distress Constitutional well developed, well nourished and + obese; not ill appearing Eyes PERRL, conjunctivae normal, anicteric sclerae ENMT external ear and nose normal, oropharynx normal Neck trachea midline, no thyromegaly Respiratory no respiratory distress Auscultation: lungs clear to auscultation bilaterally Cardiovascular Rate/Rhythm: regular rate, regular rhythm, + bradycardic and + tachycardic Heart Sounds: normal S1 and normal S2; no murmur Extremities: no edema Gastrointestinal (Abdomen) Inspection/Auscultation: normal bowel sounds; abdomen not distended Percussion/Palpation: abdomen soft; abdomen nontender Neurologic normal touch/pain/proprioception and moves all extremities; no focal motor deficits Psychiatric A+Ox3, euthymic affect Lymphatic no cervical or axillary lymphadenopathy Discharge Data Allergies Allergy/AdvReac Type Severity Reaction Status Date / Time No Known Allergies Allergy Unverified 11/08/23 14:50 Consultations 11/08/23 13:25 ED Decision to Admit Stat 11/08/23 14:43 Consult Cardiology Routine Procedures Performed Operation Date: 11/09/23 11:00 Actual Procedures p Cath, Left with Cors and Vent - David Finney MD s Cineradiography w/Routine Exam - David Finney MD p Drug Eluting Stent SGl Vessel - David Finney MD Ordered Studies 11/09/23 11:00 CL Cath Imgs for PACS use only Routine Hospital Course (1) Chest pain: Patient presenting from home by referral of PCP after outpatient ZIO monitor demonstrated episode of Non-sustained Ventricular tachycardiac > 12 seconds, with possible polymorphic characteristics consistent with torsades. Has been having episodes of intermittent chest/left arm discomfort x 2 weeks In the ED, EKG without acute ST changes, HS troponin 40 -> 45.1 Start ASA 81 mg daily, atorvastatin 40 mg daily, metoprolol tartrate 12.5 mg q6h N.p.o. after midnight for possible additional testing tomorrow Serial troponins were not significantly high and did not have any EKG changes Remains free from any more chest pain since admission Echo of the heart showed-normal LV wall thickness, LV systolic function is normal, EF 55 to 60%, RV is normal in size and function, grade 1 diastolic dysfunction, there is no significant valvular heart disease and no prior studies to compare Appreciate cardiology input and recommendation She will have cardiac cath this afternoon for further evaluation Status post cardiac cath with successful PCI mid RCA and mid LAD Started on aspirin and Plavix No more chest pain and/or palpitation Blood pressure is controlled and she will be discharged home this afternoon (2) Non-sustained ventricular tachycardia: As above Only has had 1 episode of 10 beats of V. tach No more for the last 24 hours or more (3) Torsades de pointes: As above (4) Hypertension: BP elevated on presentation to ED 172/106, recently started on HCTZ 25 mg daily in addition to lisinopril 40 mg daily Continue home lisinopril, hold HCTZ for now in light of starting metoprolol as above Monitor BP, make adjustments as needed Blood pressure remains on the lower side of normal at 107/49 DVT PROPHYLAXIS SCDs Patient seen in cooperation with Dr. Calvin. Total Time Total Time Spent Total Time Spent (In Minutes): 40 minutes Discharge Plan Discharge Items Patient Disposition: Home - Self-Care Reason For Visit: ARRYTHMIA Discharge Diagnosis: Unstable angina status post cardiac cath and PCI with CHRIS x 1 mid RCA and mid LAD, nonsustained V. tach, hypertension Condition on Discharge: Fair Activity: Resume your previous activity Non-emergency contact: Primary Care Provider Call non-emergency contact if: you have any medication questions and your symptoms worsen Follow-up/Referrals: Alexandra Carrion MD [Primary Care Provider] - (Date & Time 11/16/2023 1:00 PM Provider Jarrod Rawls MD Department Family Medicine [facility] ) Adam Beverly DO [[employer]] - (Date & Time 11/21/2023 1:00 PM Provider Adam Beverly DO Department Cardiology, [facility] ) Diet: Heart Healthy Addtl Attending Provider Instructions: Please take precautions to avoid fall Strongly advised to take your medications as advised Aspirin 81 mg daily for lifelong and Plavix 75 mg daily for 1 year at least Do not restart your antirheumatic medication for at least 2 weeks Hydrochlorothiazide has been stopped Please keep appointments with the healthcare providers Pending Studies at Discharge: No Stand-Alone Forms: My [employer], Smoking Cessation Medications and DC Order Prescriptions: New atorvastatin 40 mg Tablet 40 mg PO QAM Qty: 3 0RF clopidogrel 75 mg Tablet 75 mg PO QAM Qty: 30 0RF aspirin 81 mg Tablet,Delayed Release (Dr/Ec) 81 mg PO QAM Qty: 30 0RF metoprolol succinate 25 mg Tablet Extended Release 24 Hr 25 mg PO QAM Qty: 30 0RF nicotine 7 mg/24 hr Patch 24 Hour 1 patch transdermal QAM Qty: 30 0RF Continued triamcinolone acetonide 0.5 % ointment 1 applic TOPICAL BID PRN (Reason: Other) citalopram 20 mg tablet 20 mg PO DAILY clobetasol 0.05 % ointment 1 applic TOPICAL BID PRN (Reason: Other) lisinopril 40 mg tablet 40 mg PO QAM loratadine [Allergy Relief (loratadine)] 10 mg tablet 10 mg PO DAILY Held Taltz Syringe 80 mg/mL Syringe 80 mg SUBCUT Q4WK Hold Instructions: Resume on 11/25/23. Do not start for 2 weeks and or as advised by diesel tractor engine mechanic Discontinued hydrochlorothiazide 25 mg tablet 25 mg PO QAM Discharge Orders: Discharge Order (Routine); Ordered 11/11/23 Ordered By: Iqra Vieira Admission Data Admit Date/Time: 11/08/23 13:34 Attending Provider: Iqra Vieira Admit Provider: Estrella Calvin Primary Care Provider: Alexandra Carrion Other Providers: Estrella Calvin Other Interventions: Discharge Summary Assessment (RN) Last Done: 11/11/23 12:20
[2023-11-12] MEDS ORDERED: METOPROLOL SUCC 25MG EXT REL TAB PO SCH (09:00)
== END 2023-11-11 12:59 | disposition home or self-care (01) | DRG 322 ==
LOC: ED 11:26 → EDINP 13:34 → SUATTDRO 13:34 → 2E 15:01

== ENCOUNTER 2024-01-30 12:24 | Observation (INO) ==
--- NOTE | 2024-01-30 12:35 | Emergency Department Note ---
Impression & Plan Chest tightness, Heart palpitations, History of CAD (coronary artery disease) ED Provider Note NAME: STIVEN CARLSON AGE: 48 SEX: F : 1975 ARRIVES VIA: Ambulance INFORMANT: Patient, ED PROVIDER(S): Nik Marie MD CHIEF COMPLAINT: Chest tightness, palpitations, rapid heart rate MEDICAL DECISION MAKING: Patient presents due to concern for chest tightness palpitations and rapid heart rate. IV was established and blood work was obtained. The patient has a normal white count H&H and platelet count kidney function is unremarkable. Initial troponin negative. Patient has a known history of heart disease given the patient's symptoms do not think it unreasonable for repeat cardiac enzyme testing and possible further evaluation. The patient is currently asymptomatic at this time. I did speak the on-call hospital service Dr. Grigsby. I also did message on-call cardiology Dr. Villaneuva and the patient was admitted to the medicine service. Discussion w/ other healthcare providers: Dr. Grigsby inpatient medicine service Dr. Villanueva cardiology Prior /Outside records reviewed: I reviewed a discharge summary from November 04, 2023. Known history of hypertension psoriatic arthritis anxiety who presented for chest pain and PCP referral for abnormal outpatient ZIO monitor. Patient did have a cardiac catheterization did have PCI to the mid RCA and mid LAD started on aspirin and Plavix. Patient did had nonsustained V. tach and torsades. I did review cardiac catheterization summary which showed multivessel coronary disease with 95% mid RCA stenosis and 70% mid LAD stenosis. Patient did have PCI of drug-eluting stents to the mid RCA and mid LAD. Differential diagnosis: Cardiac ischemia, aortic dissection, pulmonary embolism, pneumothorax, pneumonia, pericarditis, myocarditis, GERD, cholecystitis, pancreatitis, musculoskeletal, as well as other pathologies were considered. Diagnostics, as interpreted by me: ECG: Normal sinus rhythm, rate of 64, normal intervals, normal axis no ST elevations or TWI. No significant change from comparison November 10, 2023 although V2 with lead artifact. Cardiac monitoring: An order was placed for continuous cardiac monitoring. The monitor shows a rate of 62 with sinus rhythm. Patient was placed on pulse oximetry Medical decision rules: None Imaging studies: I informally interpreted the patient's chest x-ray does not show obvious pneumonia or pneumothorax with formal report to follow. HPI: Patient presents due to concern for chest tightness and associated clamminess nausea and sweatiness. Patient states that she had left-sided chest tightness with the associated symptoms that began around 1140 [id number] while she [place]. Patient states that she was going to see her father at the [place] and subsequently had a disability appointment. Patient states that symptoms felt similar to when she required her stents. The patient states at the same time the patient did feel as though she had fast pounding heart rate. Patient does have a history of torsades and has been on medications since the time of being admitted around this time status post PCI to RCA and LAD. Patient states that her symptoms lasted about 10 to 15 minutes. The patient was seen by EMS and given some Ativan which did have some improvement in symptoms but states that she knows what anxiety is like and this felt different. Patient denies any leg swelling or calf pain. Patient does admit that over the last several days she has felt more fatigable. Patient currently does feel tired. PAST MEDICAL HISTORY: See Below PAST SURGICAL HISTORY: See Below SOCIAL HISTORY: See Below HOME MEDICATIONS: See Below ALLERGIES: See Below VITALS: See Below PHYSICAL EXAMINATION: GENERAL: NAD, non-toxic. Wearing glasses. EYE EXAM: Normal conjunctiva. PERRL, no anisocoria and EOM's grossly intact w/o pain. OROPHARYNX: Moist mucus membranes, grossly normal dentition. NECK: Trachea midline, no stridor. Supple, no nuchal rigidity, no adenopathy, non-tender. No signs of meningismus. FROM of the neck with good chin to chest and neck extension. LUNGS: Clear to auscultation. Normal chest wall mechanics. HEART: NSR, no MRG. ABDOMEN: Abdomen soft, non-tender, no masses, no rebound or guarding. BACK: No CVA TTP. SKIN: No rashes and no bruising. UPPER EXTREMITIES: Upper extremities are grossly normal. LOWER EXTREMITIES: Grossly normal, no edema. NEURO EXAM: A&O x3, cranial nerves II-XII grossly intact, normal speech, moves all 4 extremities. Past Med/Surg History Problem List (Updated 01/30/24 @ 19:21 by Nik Marie MD) History of CAD (coronary artery disease) (Acute) Heart palpitations (Acute) Chest tightness (Acute) History of ventricular tachycardia Familial hypercholesteremia CAD (coronary artery disease) Unstable angina pectoris Angina pectoris Hypertension Torsades de pointes (Acute) Elevated troponin I level Non-sustained ventricular tachycardia Near syncope (Acute) Chest pain (Acute) Heart palpitations (Acute) Medical History Seasonal allergies Depression Psoriatic arthritis Surgical History History of dental surgery Family History Other Coronary heart disease Social History Smoking Status: Current every day smoker Tobacco Type: Cigarettes Cigarettes Per Day: less then a ppd; Second Hand Exposure: No; Do You Dip or Chew Tobacco: No; Tobacco Cessation Education Requested by Patient: No Hx Alcohol Use: Yes Alcohol type: beer Hx Substance Use: No Preferred Language: Romansh Communication Ability: Effective Marketing Communications Associate Required: No Beliefs That Will Affect Care: None Current Living Situation: Parent Current Living Situation Comment: rent a room from mother Other Information That Helps Us Care for You: No Feels Safe at Home: Yes Assistive Devices: Denture - Upper and Glasses Allergies Allergies Allergy/AdvReac Type Severity Reaction Status Date / Time No Known Allergies Allergy Unverified 01/30/24 14:30 Home Meds Home Medications Medication Instructions Recorded Confirmed citalopram 20 mg tablet 20 mg PO DAILY 11/08/23 01/30/24 clobetasol 0.05 % topical ointment 1 applic topical BID PRN Other 11/08/23 01/30/24 ixekizumab 80 mg/mL subcutaneous 80 mg subcut Q4WK 11/08/23 01/30/24 syringe (Taltz Syringe) lisinopril 40 mg tablet 40 mg PO QAM 11/08/23 01/30/24 loratadine 10 mg tablet (Allergy 10 mg PO DAILY 11/08/23 01/30/24 Relief (loratadine)) triamcinolone acetonide 0.5 % 1 applic topical BID PRN Other 11/08/23 01/30/24 topical ointment melatonin 10 mg tablet 10 mg PO HS PRN Sleep 01/30/24 01/30/24 Previous Rx's Medication Instructions Recorded aspirin 81 mg tablet,delayed 81 mg PO QAM #30 tabs 11/11/23 release clopidogrel 75 mg tablet 75 mg PO QAM #30 tabs 11/11/23 metoprolol succinate 25 mg 25 mg PO QAM #30 tabs 11/11/23 tablet,extended release 24 hr nicotine 7 mg/24 hr daily 1 patch transdermal QAM #30 ea 11/11/23 transdermal patch atorvastatin 40 mg tablet 40 mg PO DAILY #30 tabs 11/13/23 Results & Data (ED) Vital Signs Vital Signs - 24 hr 01/30/24 12:36 01/30/24 12:39 01/30/24 12:43 Temperature 36.9 C 36.9 C Temperature Source Oral Oral Pulse Rate 63 Pulse Rate [Right Finger] 63 Respiratory Rate 16 16 Respiratory Effort / Characteristics Non-Labored Non-Labored Blood Pressure 154/99 H Blood Pressure [Right Arm] 154/99 H Blood Pressure Mean 117 Blood Pressure Mean [Right Arm] 117 Blood Pressure Position Lying Blood Pressure Position [Right Arm] Lying Pulse Oximetry 95 95 Oxygen Delivery Method Room Air Room Air Room Air Sepsis Recent Fever Within 48 Hours No Sepsis New/Unexplained Change in Mental Status No Sepsis Action Taken by Nursing No Action Required 01/30/24 13:15 Temperature Temperature Source Pulse Rate 67 Pulse Rate [Right Finger] Respiratory Rate Respiratory Effort / Characteristics Blood Pressure Blood Pressure [Right Arm] Blood Pressure Mean Blood Pressure Mean [Right Arm] Blood Pressure Position Blood Pressure Position [Right Arm] Pulse Oximetry Oxygen Delivery Method Sepsis Recent Fever Within 48 Hours Sepsis New/Unexplained Change in Mental Status Sepsis Action Taken by Intermediate Medications Current Medication List: was personally reviewed by me Laboratory Data Attestation: I reviewed the patient's lab results. 01/30/24 12:35 01/30/24 12:35 Lab Results 01/30/24 Range/Units 12:35 WBC 8.90 (4.8-10.8) K/ul RBC 4.64 (4.20-5.40) M/uL Hgb 14.3 (12.0-16.0) g/dl Hct 43.4 (37.0-47.0) % MCV 93.5 (80.0-100.0) fL MCH 30.8 (25.0-34.0) pg MCHC 32.9 (32.0-36.0) g/dL RDW Std Deviation 42.5 (36.4-46.3) fL RDW Coeff of Suhail 12.4 (11.5-14.5) % Plt Count 270 (130-400) K/uL MPV 10.2 (9.4-12.4) fL Immature Gran % (Auto) 0.4 % Neut % (Auto) 61.4 % Lymph % (Auto) 26.6 % [place] % (Auto) 7.5 % Eos % (Auto) 3.5 % Baso % (Auto) 0.6 % Neut # (Auto) 5.46 (1.40-6.50) K/uL Lymph # (Auto) 2.37 (1.20-3.40) K/uL [place]sworth # (Auto) 0.67 H (0.11-0.59) K/uL Eos # (Auto) 0.31 (0.00-0.50) K/uL Baso # (Auto) 0.05 (0.00-0.20) K/uL Immature Gran # (Auto) 0.04 (0.01-0.20) K/uL PT 10.9 (9.0-12.0) Seconds INR 1.0 (0.9-1.1) APTT 26 (21-31) Seconds PTT Ratio 1.0 Sodium 140 (136-145) mmol/L Potassium 3.7 (3.5-5.1) mmol/L Chloride 108 H (98-107) mmol/L Carbon Dioxide 26 (21-32) mmol/L Anion Gap 6 (3-11) BUN 10 (6-23) mg/dl Creatinine 0.61 (0.6-1.2) mg/dl Est Cr Clr Drug Dosing 120.9 ml/min Est GFR ( Amer) 125.1 ml/min Est GFR (Non-Af Amer) 108.0 ml/min BUN/Creatinine Ratio 16.4 (10-20) Glucose 107 H (70-99(Fasting)) mg/dl Calcium 9.5 (8.6-10.3) mg/dl Magnesium 1.9 (1.7-2.4) mg/dl Total Bilirubin 0.5 (0.2-1.0) mg/dl AST 19 (13-39) U/L ALT 21 (7-52) U/L Alkaline Phosphatase 83 (34-104) U/L Troponin I High Sens 3.4 (0-14) pg/ml Total Protein 6.9 (6.0-8.3) gm/dl Albumin 4.0 (3.4-5.0) gm/dl Globulin 2.9 (2.5-4.0) gm/dl Albumin/Globulin Ratio 1.4 (0.9-2) TSH 1.192 (0.300-4.500) uIu/ml Imaging Data Radiologist's Impression: Chest X-Ray 01/30/24 12:54 XR chest 1V portable CLINICAL HISTORY: Dysrhythmia COMPARISON STUDY: Chest radiograph November 08, 2023. FINDINGS: Lung volumes are normal. Lungs are clear. There is no pneumothorax or pleural effusion. Cardiac size is normal. Mediastinal contours are normal. There is no evidence for pulmonary edema. Lesion with chondroid matrix within the left humeral head remains unchanged. This is likely benign. IMPRESSION: No acute cardiopulmonary findings. ACT 112: Negative or not required by law. Electronically signed by: Phong Larkin M.D. 01/30/2024 1:28 PM Discharge Plan Visit Data Chief Complaint: Arrhythmia/Palpitations ED Provider: Nik Marie Discharge Problem: Chest tightness, Heart palpitations, History of CAD (coronary artery disease) Patient Disposition: Admitted As Inpatient Discharge Instructions Interventions: ED Discharge Assessment Last Done: 01/30/24 16:25
[2024-01-30 13:20] LABS: Basophils # (auto) 0.05 K/uL (0.00-0.20); Basophils % (auto) 0.6 %; Eosinophils # (auto) 0.31 K/uL (0.00-0.50); Eosinophils % (auto) 3.5 %; Hematocrit (blood only) 43.4 % (37.0-47.0); Hemoglobin 14.3 g/dl (12.0-16.0); Immature Granulocytes # (auto) 0.04 K/uL (0.01-0.20); Immature Granulocytes % (auto) 0.4 %; Lymphocytes # (auto) 2.37 K/uL (1.20-3.40); Lymphocytes % (auto) 26.6 %; Mean Corpuscular Hemoglobin 30.8 pg (25.0-34.0); Mean Corpuscular Hgb Conc 32.9 g/dL (32.0-36.0); Mean Corpuscular Volume 93.5 fL (80.0-100.0); Mean Platelet Volume 10.2 fL (9.4-12.4); Monocytes # (auto) 0.67 K/uL (0.11-0.59); Monocytes % (auto) 7.5 %; Neutrophils # (auto) 5.46 K/uL (1.40-6.50); Neutrophils % (auto) 61.4 %; Platelet Count 270 K/uL (130-400); RDW Coefficient of Variation 12.4 % (11.5-14.5); RDW Standard Deviation 42.5 fL (36.4-46.3); Red Blood Count 4.64 M/uL (4.20-5.40)
--- NOTE | 2024-01-30 13:29 | XRay Report ---
XR chest 1V portable CLINICAL HISTORY: Dysrhythmia COMPARISON STUDY: Chest radiograph November 08, 2023. FINDINGS: Lung volumes are normal. Lungs are clear. There is no pneumothorax or pleural effusion. Car diac size is normal. Mediastinal contours are normal. There is no evidence for pulmonary edema. Lesio n with chondroid matrix within the left humeral head remains unchanged. This is likely benign. IMPRESSION: No acute cardiopulmonary findings. ACT 112: Negative or not required by law. Electronically signed by: Phong Larkin M.D. 01/30/2024 1:28 PM
--- NOTE | 2024-01-30 13:38 | Electrocardiogram Report ---
Test Reason : Blood Pressure : / mmHG Vent. Rate : 064 BPM Atrial Rate : 064 BPM P-R Int : 170 ms QRS Dur : 072 ms QT Int : 400 ms P-R-T Axes : 059 067 072 degrees QTc Int : 412 ms Normal sinus rhythm Normal ECG When compared with ECG of 10-NOV-2023 06:21, No significant change was found Confirmed by Quinten Rivera ([id number]) on 01/30/2024 1:38:20 PM Referred By: Confirmed By:Quinten Rivera
[2024-01-30 13:39] LABS: Albumin Globulin Ratio 1.4 (0.9-2); BUN Creatinine Ratio 16.4 (10-20); Bilirubin,Total 0.5 mg/dl (0.2-1.0); Calcium 9.5 mg/dl (8.6-10.3); Creatinine Clr Calc Pharmacy 120.9 ml/min; Est GFR (African American) 125.1 ml/min; Globulin 2.9 gm/dl (2.5-4.0); Magnesium 1.9 mg/dl (1.7-2.4); Potassium 3.7 mmol/L (3.5-5.1); Total Protein 6.9 gm/dl (6.0-8.3)
[2024-01-30 13:44] LABS: Partial Thromboplastin Time 26 Seconds (21-31); Prothrombin Time 10.9 Seconds (9.0-12.0)
[2024-01-30 13:51] LABS: Thyroid Stimulating Hormone 1.192 uIu/ml (0.300-4.500)
[2024-01-30 14:23] LABS: Troponin I High Sensitivity 3.4 pg/ml (0-14)
--- NOTE | 2024-01-30 14:59 | Cardiology Consultation ---
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 Carries a strong family history of premature CAD with herself receiving her first stents 4 months ago. Cardiology requested for evaluation. Plan -Patient of known Non-sustained VT with associated palpitations in the past which ultimately led to a cardiac cath demonstrating obstructive disease s/p PCI as noted. -Initially felt great after her PCI, but has been noting increasing fatigue and then today's episode of intense palpitations and pre-syncopal symptoms which resonated with her prior event prompting her to present. -EKG shows no acute ischemic changes. -Initial troponin negative. Will continue to trend -Obtain resting echocardiogram to assess overall structure/function and examine for any wall motion abnormality. -If troponin is negative x 2 and there are no significant changes on her echocardiogram, will plan for patient to be NPO at midnight for a stress echocardiogram in the AM. There is concern given her history/comorbidities as well that this may be her anginal equivalent as she had similar "atypical" presentation in October and required multiple stents. -Please continue to monitor on telemetry overnight. -Continue Toprol xl, Lisinopril, ASA, Plavix and Atorvastatin as per current regimen. Case has been discussed with Dr. Villanueva. Further recommendations regarding plan of care as per his assessment. I spent a total of 40 minutes on the date of service in preparation, delivery, documentation of the care provided to the patient excluding any time spent in the performance of separately billed services. SARA Brown [facility] Cardiology [facility] Supervising Physician Co-Signing Physician Notes Attending attestation: Case reviewed with the advanced practitioner. I have personally performed a history and physical examination on the patient. I have reviewed the advanced practitioner's documentation on the date of service referenced in note, and I agree with, and take responsibility for the plan of care. Patient with recurrent palpitations, symptoms reminiscent of those which prompted previous cardiac catheterization and coronary stents. Initial EKG reassuring without significant repolarization abnormalities. Initial troponin I normal 3.4 but is trended up to 16.4. Repeat level has been obtained at 1831 the result of which is pending. --Patient has been admitted to the telemetry unit. Continue aspirin, clopidogrel, metoprolol, atorvastatin, lisinopril. --Trend troponin levels. --Resting echocardiogram performed in the emergency department today revealing normal LVEF, no regional wall motion abnormalities. Depending upon progress with regards to symptoms and troponin levels, will determine next step with regards to proceeding with stress echocardiogram versus other evaluation tomorrow. I spent a total of 20 minutes coordinating, documenting, and providing care for this patient excluding time spent in the performance of separately billed services or time spent by another provider. Jesus Villanueva, History of Present Illness Reason for Consultation: Chest pain Requesting Physician: Bobby curtis History of Present Illness Anastacia Zhong is a 48-year-old female seen in cardiology consultation per the request of Dr. Grigsby for the evaluation of palpitations. Patient presented to the ED today via ambulance after experiencing sudden onset "heart pounding and racing" She states that she has not felt herself for the past 2-3 days. She has felt increasingly fatigued, depressed and described herself as just being "blah". No fevers or chills, no acute URI symptoms. She was driving to [place] to [place] when she developed this sudden onset palpitations, broke out in a profuse sweat and because nauseated. She felt somewhat dizzy, but more so that she was shaking uncontrollably. She pulled over and called 911. EMS arrived and patient reports that her entire episode probably lasted 10-15 minutes. She did report receiving Ativan in the ambulance with improvement overall. Patient is asymptomatic at the time of my examination. She has remained compliant on all medication therapies. EKG upon arrival shows NSR with no acute ST-T wave changes rate 64 bpm. Chest x-ray negative for an acute process. Initial troponin negative at 12:35. will await repeat. Of note, patient had been admitted to [facility] 11/08/23 after being advised to present for an abnormal ZIO monitor suggesting non-sustained VT. Patient had similar symptoms as her event today and had ultimately undergone cardiac catheterization at that time with PCI and CHRIS to the Mid-RCA and Mid-LAD. there was also notation of non-obstructive 45% small distal cx disease to be medically managed. Past Cardiac History: 1.Coronary artery disease a.Status post CHRIS to the mid RCA and mid LAD, 11/09/2023 (nonobstructive 45% small distal circumflex- medically managed) 2.History of Non-sustained Ventricular tachycardiac > 12 seconds, per Zio 10/25/2023 (prior to cardiac catheterization 11/09/2023) 3.Phenotypic Familial hypercholesteremia + elevated LP(a). a.Genetic testing negative 4.Hypertension 5.Systemic inflammatory psoriatic arthritis 6.Tobacco use, 1/2 pack per day 7.Strong family history of premature coronary disease Allergies Allergy/AdvReac Type Severity Reaction Status Date / Time No Known Allergies Allergy Unverified 01/30/24 14:30 Home Medications Medication Instructions Recorded Confirmed Type citalopram 20 mg tablet 20 mg PO DAILY 11/08/23 01/30/24 History clobetasol 0.05 % topical ointment 1 applic topical BID PRN Other 11/08/23 01/30/24 History ixekizumab 80 mg/mL subcutaneous 80 mg subcut Q4WK 11/08/23 01/30/24 History syringe (Taltz Syringe) lisinopril 40 mg tablet 40 mg PO QAM 11/08/23 01/30/24 History loratadine 10 mg tablet (Allergy 10 mg PO DAILY 11/08/23 01/30/24 History Relief (loratadine)) triamcinolone acetonide 0.5 % 1 applic topical BID PRN Other 11/08/23 01/30/24 History topical ointment aspirin 81 mg tablet,delayed 81 mg PO QAM #30 tabs 11/11/23 01/30/24 Rx release clopidogrel 75 mg tablet 75 mg PO QAM #30 tabs 11/11/23 01/30/24 Rx metoprolol succinate 25 mg 25 mg PO QAM #30 tabs 11/11/23 01/30/24 Rx tablet,extended release 24 hr nicotine 7 mg/24 hr daily 1 patch transdermal QAM #30 ea 11/11/23 01/30/24 Rx transdermal patch atorvastatin 40 mg tablet 40 mg PO DAILY #30 tabs 11/13/23 01/30/24 Rx melatonin 10 mg tablet 10 mg PO HS PRN Sleep 01/30/24 01/30/24 History Patient History Medical History Seasonal allergies Depression Psoriatic arthritis Surgical History History of dental surgery Family History Other Coronary heart disease Social History Smoking Status: Current every day smoker Tobacco Type: Cigarettes Cigarettes Per Day: less then a ppd; Second Hand Exposure: No; Do You Dip or Chew Tobacco: No; Tobacco Cessation Education Requested by Patient: No Hx Alcohol Use: Yes Alcohol type: beer Hx Substance Use: No Preferred Language: Citizen Of [place] Communication Ability: Effective Livestock Broker Required: No Beliefs That Will Affect Care: None Current Living Situation: Parent Current Living Situation Comment: rent a room from mother Other Information That Helps Us Care for You: No Feels Safe at Home: Yes Assistive Devices: Denture - Upper and Glasses Review of Systems Review of Systems: All systems reviewed & are unremarkable except as noted in HPI & below Physical Exam Constitutional: well developed and well nourished; no acute distress and not ill appearing Neck: normal visual inspection and trachea midline Respiratory: normal respiratory effort; no respiratory distress, no labored breathing and no cough Auscultation: lungs clear to auscultation bilaterally; no crackles, no rales, no rhonchi and no wheezes Cardiovascular: RRR, no murmur, no edema Heart Sounds: normal S1 and normal S2; no murmur Vessels: dorsalis pedis pulses present; no JVD Extremities: no edema Skin: no rashes, warm and dry Psychiatric: A+Ox3, euthymic affect Results & Data Vital Signs (Past 12 Hours) Vital Signs Temp Pulse Pulse Resp BP BP Pulse Ox 01/30/24 13:15 67 01/30/24 12:43 36.9 C 63 16 154/99 H 95 01/30/24 12:39 36.9 C 63 16 154/99 H 95 01/30/24 12:36 O2 Del Method 01/30/24 13:15 01/30/24 12:43 Room Air 01/30/24 12:39 Room Air 01/30/24 12:36 Room Air Laboratory Results Cardiac Enzymes 01/30/24 Range/Units 12:35 AST 19 (13-39) U/L Troponin I High Sens 3.4 (0-14) pg/ml Coagulation 01/30/24 Range/Units 12:35 PT 10.9 (9.0-12.0) Seconds APTT 26 (21-31) Seconds CBC 01/30/24 Range/Units 12:35 WBC 8.90 (4.8-10.8) K/ul RBC 4.64 (4.20-5.40) M/uL Hgb 14.3 (12.0-16.0) g/dl Hct 43.4 (37.0-47.0) % Plt Count 270 (130-400) K/uL Neut # (Auto) 5.46 (1.40-6.50) K/uL Lymph # (Auto) 2.37 (1.20-3.40) K/uL Stephenson # (Auto) 0.67 H (0.11-0.59) K/uL Eos # (Auto) 0.31 (0.00-0.50) K/uL Baso # (Auto) 0.05 (0.00-0.20) K/uL Comprehensive Metabolic Panel 01/30/24 Range/Units 12:35 Sodium 140 (136-145) mmol/L Potassium 3.7 (3.5-5.1) mmol/L Chloride 108 H (98-107) mmol/L Carbon Dioxide 26 (21-32) mmol/L BUN 10 (6-23) mg/dl Creatinine 0.61 (0.6-1.2) mg/dl Glucose 107 H (70-99(Fasting)) mg/dl Calcium 9.5 (8.6-10.3) mg/dl AST 19 (13-39) U/L ALT 21 (7-52) U/L Alkaline Phosphatase 83 (34-104) U/L Total Protein 6.9 (6.0-8.3) gm/dl Albumin 4.0 (3.4-5.0) gm/dl Intake and Output 01/30/24 01/30/24 01/30/24 06:59 14:59 22:59 Other: Weight 82.4 kg Weight Measurement Method Built in [facility] Patient Weight 01/31/24 06:59 Weight 82.4 kg Diagnostic Findings Echocardiogram 11/08/2023: Normal LV wall thickness LVEF 55-60% RV normal in size and function Grade I diastolic dysfunction No significant valvular heart disease. (4) Chest pain Chest pain type: unspecified Qualified Code(s): R07.9 - Chest pain, unspecified
--- NOTE | 2024-01-30 15:12 | History & Physical Report ---
Date of Service January 30, 2024 Assessment & Plan (1) Chest pain: (2) CAD (coronary artery disease): (3) Familial hypercholesteremia: (4) History of ventricular tachycardia: Plan: 48 year old female with history of CAD, s/p PCI to RCA and LAD last October of this year, NSVT, HTN, Familial Hypercholesterolemia, presenting with chest pain today. CHEST PAIN R/O ACUTE CORONARY SYNDROME HISTORY OF CAD, S/P PCI TO RCA AND LAD 2023 NON SUSTAINED V TACH FAMILIAL HYPERCHOLESTEROLEMIA resolved with Ativan given by EMS, did not receive Nitro chest pain free at the ER trop x 1 negative, trop x 2 pending EKG no signs of acute ischemia/infarct Echo ordered continue ASA, Plavix, Metoprolol, Lisinopril, Atorvastatin, Ezetimibe HYPERTENSION continue above meds PSORIASIS medication - Taltz- on hold SMOKING HISTORY Nicotine Full Code Disposition admit to PCU lives at home History of Present Illness Chief Complaint: chest pain this afternoon Primary Care Provider: Alexandra Carrion MD 48 year old female with history of CAD, s/p PCI to RCA and LAD last October of this year, NSVT, HTN, Familial Hypercholesterolemia, presenting with chest pain today. Patient was driving to [place] when she suddenly experienced chest pain- left sided, described as tightness, Associated with Palpitations, cold clammy skin, diaphoresis,reminiscent of her symptoms in October when she was diagnosed with CAD and subsequently underwent PCI. She managed to tube puller the road and call the EMS. EMS administered Ativan which resolved the symptoms. Upon arrival at the ED, BP 154/99, HR 63, O2 sat 95%. Trop negative EKG no acute ischemia No recurrence of chest pain while at the ED. On exam, patient seen resting in bed, echocardiogram in progress. States she feels tired, but denies active chest pain, shortness of breath, dizziness, nausea, palpitations. Allergies Allergy/AdvReac Type Severity Reaction Status Date / Time No Known Allergies Allergy Unverified 01/30/24 14:30 Home Medications Medication Instructions Recorded Confirmed Type citalopram 20 mg tablet 20 mg PO DAILY 11/08/23 01/30/24 History clobetasol 0.05 % topical ointment 1 applic topical BID PRN Other 11/08/23 01/30/24 History ixekizumab 80 mg/mL subcutaneous 80 mg subcut Q4WK 11/08/23 01/30/24 History syringe (Taltz Syringe) lisinopril 40 mg tablet 40 mg PO QAM 11/08/23 01/30/24 History loratadine 10 mg tablet (Allergy 10 mg PO DAILY 11/08/23 01/30/24 History Relief (loratadine)) triamcinolone acetonide 0.5 % 1 applic topical BID PRN Other 11/08/23 01/30/24 History topical ointment aspirin 81 mg tablet,delayed 81 mg PO QAM #30 tabs 11/11/23 01/30/24 Rx release clopidogrel 75 mg tablet 75 mg PO QAM #30 tabs 11/11/23 01/30/24 Rx metoprolol succinate 25 mg 25 mg PO QAM #30 tabs 11/11/23 01/30/24 Rx tablet,extended release 24 hr nicotine 7 mg/24 hr daily 1 patch transdermal QAM #30 ea 11/11/23 01/30/24 Rx transdermal patch atorvastatin 40 mg tablet 40 mg PO DAILY #30 tabs 11/13/23 01/30/24 Rx melatonin 10 mg tablet 10 mg PO HS PRN Sleep 01/30/24 01/30/24 History Past Med/Surg History Problem List (Updated 01/30/24 @ 19:21 by Nik Marie MD) History of CAD (coronary artery disease) (Acute) Heart palpitations (Acute) Chest tightness (Acute) History of ventricular tachycardia Familial hypercholesteremia CAD (coronary artery disease) Unstable angina pectoris Angina pectoris Hypertension Torsades de pointes (Acute) Elevated troponin I level Non-sustained ventricular tachycardia Near syncope (Acute) Chest pain (Acute) Heart palpitations (Acute) Medical History Seasonal allergies Depression Psoriatic arthritis Surgical History History of dental surgery Family History Other Coronary heart disease Social History Smoking Status: Current every day smoker Tobacco Type: Cigarettes Cigarettes Per Day: less then a ppd; Second Hand Exposure: No; Do You Dip or Chew Tobacco: No; Tobacco Cessation Education Requested by Patient: No Hx Alcohol Use: Yes Alcohol type: beer Hx Substance Use: No Preferred Language: Nepali Communication Ability: Effective Resizer Operator Required: No Beliefs That Will Affect Care: None Current Living Situation: Parent Current Living Situation Comment: rent a room from mother Other Information That Helps Us Care for You: No Feels Safe at Home: Yes Assistive Devices: Denture - Upper and Glasses Review of Systems Review of Systems: all noted and negative except for above Physical Exam Physical Exam: General- oriented x 3, not in distress, speaks in sentences with no effort or accessory muscle use Eyes- anicteric Neck- no JVD Lungs- clear breath sounds bilaterally, no rales/wheezes Heart- normal rate, regular rhythm; no murmurs Abdomen- normal bowel sounds, nondistended, soft, nontender Extremities- no pretibial edema, no calf tenderness Neuro- alert, oriented x 3; no gross focal neurologic deficits Skin- warm & dry Results & Data Results & Data Vital Signs (Past 12 Hours) Vital Signs Temp Pulse Pulse Resp BP BP Pulse Ox 01/30/24 13:15 67 01/30/24 12:43 36.9 C 63 16 154/99 H 95 01/30/24 12:39 36.9 C 63 16 154/99 H 95 01/30/24 12:36 O2 Del Method 01/30/24 13:15 01/30/24 12:43 Room Air 01/30/24 12:39 Room Air 01/30/24 12:36 Room Air all noted and reviewed including below Code Status & VTE Plan VTE Prophylaxis Plan VTE Prophylaxis will be ordered: Yes (1) Chest pain Chest pain type: unspecified Qualified Code(s): R07.9 - Chest pain, unspecified
[2024-01-30] MEDS ORDERED: PROMETHAZINE HCL 12.5 MG in SODIUM CHLORIDE 0.9% 50 ML IV PRN (17:02)
[2024-01-30] MEDS: NICOTINE 14 MG/24 HR PATCH TD SCH (21:04)
[2024-01-30] MEDS: MELATONIN 3 MG TAB PO PRN (21:04)
[2024-01-30] MEDS: ACETAMINOPHEN 325 MG TAB PO PRN (21:10)
--- OUTSIDE RECORDS SUMMARY | 2024-01-30 21:30 | External Medical Summary | Summary of Care ---
Author Name Unknown Organization [facility] Address [address] [place] [address] Phone [phone] Care Team Providers Care Mending Carrier Name Role Phone Alexandra Carrion MD Primary Care Provide r Reason for Visit * Reason Onset Date Comments Test Results 01/03/2024 Encounter Details Date Type Department Care Team (Late st Contact Info) Description 01/03/2024 Telephone Cardiology, [facility] [address] [place] [address] Annita Cooper CRNP [address] [facility] [place] [address] Test Results Allergies Active Allergy Reactions Criticality Noted Date Comments Caffeine 05/07/2001 Ephedrine Pseudoephedrine 04/01/2008 documented as of this encounter (statuses as of 01/03/2024) Medications Medication Sig Dispensed Refills Start Date End Date Status Nystatin 132552 UNIT/GM External Powder (Nystop)Indications: Intertrigo Apply topically to affected area 3 times a day . Apply to groin 60 g 1 09/16/2021 Active Citalopram Hydrobromide 20 MG Oral Tablet (CeleXA) TAKE ONE TABLET BY MOUTH EVERY DAY 90 Tablet 2 05/02/2023 Active Allergy Relief 10 MG Oral Tablet (Loratadine)Indicati ons:Seasonal allergic rhinitis due to pollen TAKE ONE TABLET BY MOUTH EVERY DAY 90 Tablet 3 06/01/2023 Active Taltz 80 MG/ML Subcutaneous Solution Auto-injector (Ixekizumab) Inject 1 mL under the skin every 4 weeks. Dx code L40.50, loading dose not needed. 1 mL 5 10/03/2023 Active Nicotine 7 MG/24HR Transdermal Patch 24 Hour (Nicoderm CQ) Place 1 Patch topically on the skin daily. Active Salicylic Acid 3 % External OintmentIndications: Pustular psoriasis of palms and soles Apply to psoriasis on hands and feet 2x daily when flaring and lesions are itchy 30 g 3 11/22/2023 Active Triamcinolone Acetonide 0.1 % External Cream (Aristocort)Indicati ons:Pustular psoriasis of palms and soles Apply to hands and feet as directed or more if itchy instead of scratching 454 g 1 11/22/2023 Active Clindamycin Phosphate 1 % External GelIndications:Folli culitis,Hidradenitis suppurativa Put 1-2x daily to spots in groin region (2x daily when flared) and only 1x daily to areas to prevent spots when not flared, see printed routine from visit 60 g 2 11/22/2023 Active Ezetimibe 10 MG Oral Tablet (Zetia) Take 1 Tablet by mouth in the morning. 90 Tablet 3 12/07/2023 Active Metoprolol Succinate ER 25 MG Oral Tablet Extended Release 24 Hour (toPROL XL)Indications:Coron dirk artery disease involving soboba coronary artery of soboba heart without angina pectoris,NSVT (nonsustained ventricular tachycardia) (HCC),Dyslipidemia, goal LDL below 70 Take 1.5 Tablets by mouth in the morning. 150 Tablet 3 12/19/2023 Active Aspirin 81 MG Oral Tablet Delayed ReleaseIndications:C oronary artery disease involving soboba coronary artery of soboba heart without angina pectoris,NSVT (nonsustained ventricular tachycardia) (HCC),Dyslipidemia, goal LDL below 70 Take 1 Tablet by mouth in the morning. 90 Tablet 3 12/19/2023 Active Clopidogrel Bisulfate 75 MG Oral Tablet (pLAVix)Indications: Coronary artery disease involving soboba coronary artery of soboba heart without angina pectoris,NSVT (nonsustained ventricular tachycardia) (HCC),Dyslipidemia, goal LDL below 70 Take 1 Tablet by mouth in the morning. 90 Tablet 3 12/19/2023 Active Atorvastatin Calcium 40 MG Oral Tablet (Lipitor) Take 1 Tablet by mouth in the morning. 90 Tablet 3 12/19/2023 Active Lisinopril 40 MG Oral TabletIndications:HT N, goal below 130/80 Take 1 Tablet by mouth in the morning. 90 Tablet 3 12/19/2023 Active documented as of this encounter (statuses as of 01/03/2024) Active Problems Problem Noted Date Diagnosed Date PSA (psoriatic arthritis) 04/20/2018 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 HTN, goal below 130/80 03/07/2011 Generalized anxiety disorder 04/01/2008 Other acne 04/01/2008 Allergic rhinitis due to pollen 09/08/2004 Adjustment disorder with depressed mood documented as of this encounter (statuses as of 01/03/2024) Resolved Problems Problem Noted Date Diagnosed Date Resolved Date Psoriasis 04/01/2008 10/28/2015 BMI 30.0-30.9,adult 08/23/19 19 documented as of this encounter (statuses as of 01/03/2024) Immunizations Name Administration Dates Next Due Pneumococcal [...] encounter Miscellaneous Notes * Telephone Encounter - Demetri Hanson LPN - 01/03/2024 11:21 AM EDT Called patient and left a message to make aware. ----- Message from Annita Cooper sent at 01/03/2024 11:21 AM EDT ----- LVEF normal 59%. No wall motion abnormalities. No significant valvular disease. documented in this encounter Plan of Treatment Upcoming Encounters Date Type Department Care Team (Late st Contact Info) Description 01/12/2024 1:30 PM EDT Office Visit Rheumatology [address] [place] [address] Yareli Burns CRNP [address] [facility] [place] [address] 01/19/2024 9:20 AM EDT Office Visit Family Medicine [address] [place] [phone] Alexandra Carrion MD [address] [place] [address] [place] [address] 02/05/2024 10:30 AM EDT Office Visit Cardiology, [facility] [address] [facility] [place] [address] Annita Cooper CRNP [address] [place] [address] 05/22/2024 8:40 AM EST Office Visit Dermatology [address] [place] [address] Beatriz Solis PA-C [address] [place] [address] [place] [address] Health Maintenance Due Date Last Done Comments DTaP,Tdap,and Td Vaccines (1 - Tdap) 1995 Hepatitis B (1 of 3 - 19+ 3-dose series) 1995 HPV/Co-Test 2006 Pneumococcal Vaccine: Pediatrics (0 to 5 Years) and At-Risk Patients (6 to 64 Years) (2 of 2 - PCV) 07/28/2011 07/28/2010 Colonoscopy 2021 Fecal Occult Blood Test 2021 Sigmoidoscopy 2021 COVID-19 Vaccine (1 - 2022- season) 2023 Influenza Vaccine (FLU shot) (Season Ended) 2024 09/16/2021, 07/28/2010 Depression Screening 05/09/2024 05/09/2023 GFR 11/29/2024 11/30/2023, 04/0 09/2023, 05/09/2023, Additional history exists Mammogram 12/28/2024 12/29/2023 Albumin/Creatinine Ratio 05/10/2025 05/10/2022 Cervical Cancer Screening 05/10/2025 Pap Smear 05/10/2025 05/10/2022, 12/16, 05/17/2013 (Done elsewhere), Additional history exists Cologuard 05/25/2026 05/25/2023, 11/0 07/2022, 05/17/2023 Colorectal Cancer Screening 05/25/2026 Diabetes Screening 10/17/2026 10/18/2023, 1 , 07/22/2022, Additional history exists Lipid Panel 12/28/2028 12/29/2023, 05/1 12/2023, 05/09/2023, Additional history exists GARDASIL-HPV IMMUNIZATION SERIES Aged Out No longer eligible based on patient's age to complete this topic MENINGOCOCCAL (MENACTRA/MENVEO) Aged Out No longer eligible based on patient's age to complete this topic documented as of this encounter Medical Devices Not on filedocumented as of this encounter Care Teams Mending Carrier Relationship Specialty Start Date End Date Alexandra Carrion MD [address] [place] [address] [place] [address] PCP - General Family Medicine 02/17/15 documented as of this encounter
--- OUTSIDE RECORDS SUMMARY | 2024-01-30 21:30 | External Medical Summary | Summary of Care ---
Author Name Unknown Organization [facility] Address [address] [place] [address] Phone [phone] Care Team Providers Care Director Agricultural Services Name Role Phone Alexandra Carrion MD Primary Care Provide r Reason for Visit * Reason Onset Date Comments Test Results 01/08/2024 Encounter Details Date Type Department Care Team (Late st Contact Info) Description 01/08/2024 Telephone Cardiology, [facility] [address] [place] [address] Annita Cooper CRNP [address] [facility] [place] [address] Test Results Allergies Active Allergy Reactions Criticality Noted Date Comments Caffeine 05/07/2001 Ephedrine Pseudoephedrine 04/01/2008 documented as of this encounter (statuses as of 01/09/2024) Medications Medication Sig Dispensed Refills Start Date End Date Status Nystatin 132848 UNIT/GM External Powder (Nystop)Indications: Intertrigo Apply topically [...] Hour (toPROL XL)Indications:Coron dirk artery disease involving y[place]utat coronary artery of yakutat heart without angina pectoris,NSVT (nonsustained ventricular tachycardia) (HCC),Dyslipidemia, goal LDL below 70 Take 1.5 Tablets by mouth in the morning. 150 Tablet 3 12/19/2023 Active Aspirin 81 MG Oral Tablet Delayed ReleaseIndications:C oronary artery disease involving y[place]utat coronary artery of yakutat heart without angina pectoris,NSVT (nonsustained ventricular tachycardia) (HCC),Dyslipidemia, goal LDL below 70 Take 1 Tablet by mouth in the morning. 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 HTN, goal below 130/80 03/07/2011 Generalized anxiety disorder 04/01/2008 Other acne 04/01/2008 Allergic rhinitis due to pollen 09/08/2004 Adjustment disorder with depressed mood documented as of this encounter (statuses as of 01/09/2024) Resolved Problems Problem Noted Date Diagnosed Date Resolved Date Psoriasis 04/01/2008 10/28/2015 BMI 30.0-30.9,adult 08/23/19 19 documented as of this encounter (statuses as of 01/09/2024) Immunizations Name Administration Dates Next Due Pneumococcal [...] encounter Miscellaneous Notes * Telephone Encounter - Burak Silva RN - 01/09/2024 2:05 PM EDT Called and spoke to the patient and reviewed the message with her from Annita Cooper in regards to her lab work. She stated she understood. * Telephone Encounter - Burak Silva RN - 01/09/2024 2:05 PM EDT ----- Message from Annita Cooper sent at 01/08/2024 12:16 PM EDT ----- Results reviewed in coverage of Dr. Villanueva Lipids are much improved and LDL is below goal. As long as the patient is feeling well on Lipitor and Zetia, no changes need made. * Telephone Encounter - Rizwana Roche CMA - 01/08/2024 3:21 PM EDT ----- Message from Annita Cooper sent at 01/08/2024 12:16 PM EDT ----- Results reviewed in coverage of Dr. Villanueva Lipids are much improved and LDL is below goal. As long as the patient is feeling well on Lipitor and Zetia, no changes need made. documented in this encounter Plan of Treatment Upcoming Encounters Date Type Department Care Team (Late st Contact Info) Description 01/12/2024 1:30 PM EDT Office Visit Rheumatology [address] [place] [phone] Yareli Burns CRNP [facility] [place] [address] 01/19/2024 9:20 AM EDT Office Visit Family Medicine [address] [place] [address] Alexandra Carrion MD [address] [place] [address] [place] [address] 02/05/2024 10:30 AM EDT Office Visit Cardiology, [facility] [address] [place] [address] Annita Cooper CRNP [address] [place] [address] 05/22/2024 8:40 AM EST Office Visit Dermatology [address] [place] [address] Beatriz Solis PA-C [address] [place] [address] [place] [address] Health Maintenance Due Date Last Done Comments [...] Depression Screening 05/09/2024 05/09/2023 GFR 11/29/2024 11/30/2023, 09/2023, 05/09/2023, Additional history exists Mammogram 12/28/2024 12/29/2023 Albumin/Creatinine Ratio 05/10/2025 05/10/2022 Cervical Cancer Screening 05/10/2025 Pap Smear 05/10/2025 05/10/2022, 12/16, 05/17/2013 (Done elsewhere), Additional history exists Cologuard 05/25/2026 05/25/2023, 07/2022, 05/17/2023 Colorectal Cancer Screening 05/25/2026 Diabetes Screening 10/17/2026 10/18/2023, 1 , 07/22/2022, Additional history exists Lipid Panel 12/28/2028 12/29/2023, 11/14, 05/09/2023, Additional history exists GARDASIL-HPV IMMUNIZATION SERIES Aged Out No longer eligible based on patient's age to complete this topic MENINGOCOCCAL (MENACTRA/MENVEO) Aged Out No longer eligible based on patient's age to complete this topic documented as of this encounter Medical Devices Not on filedocumented as of this encounter Care Teams Director Agricultural Services Relationship Specialty Start Date End Date Alexandra Carrion MD [address] [place] [address] [place] [address] PCP - General Family Medicine 02/17/15 documented as of this encounter
--- OUTSIDE RECORDS SUMMARY | 2024-01-30 21:31 | External Medical Summary | Summary of Care ---
Author Name Unknown Organization [facility] Address [address] [facility] [place] [address] Phone [phone] Care Team Providers Care Asphalt Tar And Gravel Roofer Name Role Phone Alexandra Carrion MD Primary Care Provide r Reason for Visit * Reason Onset Date Comments Precert Not Needed 08/29/2023 jacey Encounter Details Date Type Department Care Team (Late st Contact Info) Description 08/29/2023 Telephone Rheumatology [facility] [address] [place] [address] Yareli Burns CRNP [address] [place] [address] Precert Not Needed (jacey) Allergies Active Allergy Reactions Criticality Noted Date Comments Caffeine 05/07/2001 Ephedrine Pseudoephedrine 04/01/2008 documented as of this encounter (statuses as of 11/28/2023) Medications Medication Sig Dispensed Refills Start Date End Date Status Nystatin 578606 UNIT/GM External Powder (Nystop)Indicatio ns:Intertrigo Apply topically to affected area 3 times a day . Apply to groin 60 g 1 2 Active Ibuprofen 800 MG Oral Tablet (Motrin)Indicatio ns:PSA (psoriatic arthritis) ([facility]) Take by mouth 0.5 Tablets 2 times a day as needed for Pain, Severe. 100 Tablet 1 2 Active Citalopram Hydrobromide 20 MG Oral Tablet (CeleXA) TAKE ONE TABLET BY MOUTH EVERY DAY 90 Tablet 2 3 Active Lisinopril 40 MG Oral TabletIndications :HTN, goal below 130/80 Take 1 Tablet by mouth in the morning. 90 Tablet 1 3 Active Allergy Relief 10 MG Oral Tablet (Loratadine)Indic ations:Seasonal allergic rhinitis due to pollen TAKE ONE TABLET BY MOUTH EVERY DAY 90 Tablet 3 3 Active Clindamycin Phosphate 1 % External GelIndications:Fo lliculitis Put 1-2x daily to spots (2x daily when flared) and only 1x daily to areas to prevent spots when not flared 180 g 3 2 11/22/19 24 Discontinued(Ref ill) Albuterol Sulfate HFA 108 (90 Base) MCG/ACT Inhalation Aerosol Solution As needed 0 10/25/19 24 Discontinued Clobetasol Propionate 0.05 % External Ointment (Temovate)Indicat ions:Pruritus of genitalia Apply topically to affected area 2 times a day. To affected area for up to two weeks. 60 g 1 3 11/22/19 24 Discontinued(Ref ill) Triamcinolone Acetonide 0.5 % External OintmentIndicatio ns:Pustular psoriasis of palms and soles,PSA (psoriatic arthritis) (HCC) Apply topically to affected area 2 times a day. Apply to hands and feet as directed or more if itchy instead of scratching 45 g 5 3 11/22/19 24 Discontinued(Med ication/Dose Changed) Taltz 80 MG/ML Subcutaneous Solution Auto-injector (Ixekizumab) Inject 160 mg (2 pens) under the skin once, followed by 80 mg (1 pen) every 4 weeks. 3 mL 0 4 09/27/19 24 Discontinued(Med ication List Clean Up) Taltz 80 MG/ML Subcutaneous Solution Auto-injector (Ixekizumab) Inject 1 mL under the skin every 4 weeks. 1 mL 0 4 09/27/19 24 Discontinued(Ref ill) documented as of this encounter (statuses as of 11/28/2023) Active Problems Problem Noted Date Diagnosed Date PSA (psoriatic arthritis) 04/20/2018 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 HTN, goal below 130/80 03/07/2011 Generalized anxiety disorder 04/01/2008 Other acne 04/01/2008 Allergic rhinitis due to pollen 09/08/2004 Adjustment disorder with depressed mood documented as of this encounter (statuses as of 11/28/2023) Resolved Problems Problem Noted Date Diagnosed Date Resolved Date Psoriasis 04/01/2008 10/28/2015 BMI 30.0-30.9,adult 08/23/19 19 documented as of this encounter (statuses as of 11/28/2023) Immunizations Name Administration Dates Next Due Pneumococcal [...] encounter Miscellaneous Notes * Telephone Encounter - Camila Fernandes patient case coordinator - 08/29/2023 3:10 PM EST New or re-auth: New Patient Anastacia Zhong needs a prior authorization for a medication through their [facility] family insurance. Medication: Taltz Formulation: 80mg/ml prefilled pen Dosage: 2 pens (160mg) under the skin once, followed by 1 pen (80mg) every 4 weeks ID: [id number] [id number] PCN:[id number] Target ship date is 08/30. Thank you very much, Camila Fernandes [employer] [facility] 08/29/2023,3:13 PM documented in this encounter Plan of Treatment Upcoming Encounters Date Type Department Care Team (Late st Contact Info) Description 12/19/2023 3:00 PM EDT Office Visit Cardiology, [facility] [address] [place] [address] Annita Cooper CRNP [address] [place] [address] 01/12/2024 1:30 PM EDT Office Visit Rheumatology [address] [place] [phone] Yareli Burns CRNP [address] [place] [address] 01/19/2024 9:20 AM EDT Office Visit Family Medicine [address] [place] [phone] Alexandra Carrion MD [address] [place] [address] [place] [address] 05/22/2024 8:40 AM EST Office Visit Dermatology [address] [place] [address] Beatriz Solis PA-C [address] [place] [address] [place] [address] Health Maintenance Due Date Last Done Comments [...] ( season) 2023 Influenza Vaccine (FLU shot) (Season [...] filedocumented as of this encounter Care Teams Asphalt Tar And Gravel Roofer Relationship Specialty Start Date End Date Alexandra Carrion MD [address] [place] [address] [place] [address] PCP - General Family Medicine 02/17/15 documented as of this encounter
--- OUTSIDE RECORDS SUMMARY | 2024-01-30 21:31 | External Medical Summary ---
Author Name Unknown Address Unknown Organization : Laboratory Report Ordering Provider Test Date Status CHERELLE CRISTINA 11/30/2023 08:25:27 Final Observation Date Value Abnormality Reference (Units ) Status Lipoprotein A 11/30/2023 08:25:27 256 Above high mariam l <75 (nmol/L) Final Risk Category
Optimal < 75 nmol/L
Moderate 75 - 125 nmol/L
High > 125 nmol/L
Cardiovascular event risk category cut points
(optimal, moderate, high) are based on Zainab Pinto
[facility] 2017;69:692-711.

Test Performed at:
[facility]
[address]
[place] [address]
Sanjay Velez M.D., Ph.D.,Director of Laboratories Performing Location
--- OUTSIDE RECORDS SUMMARY | 2024-01-30 21:31 | External Medical Summary ---
Author Name Unknown Address Unknown Organization K01:[facility]ATORY [facility] - [address] [place] [address] Laboratory Report Ordering Provider Test Date Status EVONARTIE 12/29/2023 12:53:16 Final Observation Date Value Abnormality Reference (Units ) Status TSH 12/29/2023 12:53:16 0.93 0.27-4.20 (uIU/mL) Final Performing Location LABORATORY C - [address] [place] [address]
--- OUTSIDE RECORDS SUMMARY | 2024-01-30 21:31 | External Medical Summary | Summary of Care ---
Author Name Unknown Organization [facility] Address [address] [facility] [place] [address] Phone [phone] Care Team Providers Care Slunk Skin Curer Name Role Phone Alexandra Carrion MD Primary Care Provide r Reason for Visit * Reason Comments Outpatient Testing Encounter Details Date Type Department Care Team (Latest Contact Info) Description 11/30/2023 8:30 AM EDT Laboratory Laboratory [address] [place] [phone] [place] [address] Encounter for long-term (current) use of medications; Coronary artery disease involving yomba shoshone coronary artery of yomba shoshone heart without angina pectoris; S/P primary angioplasty with coronary stent; Familial hypercholesterolemia Allergies Active Allergy Reactions Criticality Noted Date Comments Caffeine 05/07/2001 Ephedrine Pseudoephedrine 04/01/2008 documented as of this encounter (statuses as of 11/30/2023) Medications Medication Sig Dispensed Refills Start Date End Date Status Nystatin 595939 UNIT/GM External Powder (Nystop)Indications :Intertrigo Apply topically [...] the morning. 90 Tablet 1 05/09/2023 Active Allergy Relief 10 MG Oral Tablet (Loratadine)Indicat ions:Seasonal allergic rhinitis due to pollen TAKE ONE TABLET BY MOUTH EVERY DAY 90 Tablet 3 06/01/2023 Active Taltz 80 MG/ML Subcutaneous Solution Auto-injector (Ixekizumab) Inject 1 mL under the skin every 4 weeks. Dx code L40.50, loading dose not needed. 1 mL 5 10/03/2023 Active hydroCHLOROthiazide 25 MG Oral Tablet (Hydrodiuril)Indica tions:HTN, goal below 130/80 Take 1 Tablet by mouth in the morning. 30 Tablet 11 10/25/2023 Active Additional Information Patient not taking.Reported on 11/21/2023 Atorvastatin Calcium 40 MG Oral Tablet (Lipitor) Take 1 Tablet by mouth in the morning. 30 Tablet 5 11/13/2023 Active Aspirin 81 MG Oral Tablet Delayed Release Take 1 Tablet by mouth in the morning. 0 Active Clopidogrel Bisulfate 75 MG Oral Tablet (pLAVix) Take 1 Tablet by mouth in the morning. 0 Active Metoprolol Succinate ER 25 MG Oral Tablet Extended Release 24 Hour (toPROL XL) Take 1 Tablet by mouth in the morning. 0 Active Nicotine 7 MG/24HR Transdermal Patch 24 Hour (Nicoderm CQ) Place 1 Patch topically on the skin daily. 0 Active Salicylic Acid 3 % External OintmentIndications :Pustular psoriasis of palms and soles Apply to psoriasis on hands and feet 2x daily when flaring and lesions are itchy 30 g 3 11/22/2023 Active Clobetasol Propionate 0.05 % External Ointment (Temovate)Indicatio ns:Pustular psoriasis of palms and soles To affected area for up to two weeks. 60 g 0 11/22/2023 Active Triamcinolone Acetonide 0.1 % External Cream (Aristocort)Indicat ions:Pustular psoriasis of palms and soles Apply to hands and feet as directed or more if itchy instead of scratching 454 g 1 11/22/2023 Active Clindamycin Phosphate 1 % External GelIndications:Foll iculitis,Hidradenit is suppurativa Put 1-2x daily to spots in groin region (2x daily when flared) and only 1x daily to areas to prevent spots when not flared, see printed routine from visit 60 g 2 11/22/2023 Active documented as of this encounter (statuses as of 11/30/2023) Active Problems Problem Noted Date Diagnosed Date PSA (psoriatic arthritis) 04/20/2018 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 HTN, goal below 130/80 03/07/2011 Generalized anxiety disorder 04/01/2008 Other acne 04/01/2008 Allergic rhinitis due to pollen 09/08/2004 Adjustment disorder with depressed mood documented as of this encounter (statuses as of 11/30/2023) Resolved Problems Problem Noted Date Diagnosed Date Resolved Date Psoriasis 04/01/2008 10/28/2015 BMI 30.0-30.9,adult 08/23/19 19 documented as of this encounter (statuses as of 11/30/2023) Immunizations Name Administration Dates Next Due Pneumococcal [...] Care Team (Late st Contact Info) Description 12/06/2023 9:00 AM EDT Imaging Radiology [address] [place] [address] 12/19/2023 3:00 PM EDT Office Visit Cardiology, [facility] [address] [place] [address] Annita Cooper CRNP [address] [place] [address] 01/12/2024 1:30 PM EDT Office Visit Rheumatology [address] [place] [phone] Yareli Burns CRNP [address] [place] [address] [place] [address] 01/19/2024 9:20 AM EDT Office Visit Family Medicine [address] [place] [phone] Alexandra Carrion MD [address] [place] [address] [place] [address] 05/22/2024 8:40 AM EST Office Visit Dermatology [address] [place] [address] Beatriz Solis PA-C [address] [place] [address] [place] [address] Pending Results Name Type Priority Associated Diagnoses Date /Time CBC WITH WBC DIFFERENTIAL Lab Routine Encounter for long-term (current) use of medications 11/30/2023 8:25 AM EDT CREATININE Lab Routine Encounter for long-term (current) use of medications 11/30/2023 8:25 AM EDT HEPATIC FUNCTION PANEL Lab Routine Encounter for long-term (current) use of medications 11/30/2023 8:25 AM EDT FAMILIAL HYPERCHOLESTEROLEMIA PANEL, INVITAE Lab Routine Coronary artery disease involving y[place]a shoshone coronary artery of y[place] shoshone heart without angina pectoris S/P primary angioplasty with coronary stent Familial hypercholesterolemia 11/30/2023 8:25 AM EDT LIPID PANEL WITH DIRECT LDL IF TG IS HIGH Lab Routine Coronary artery disease involving y[place]a shoshone coronary artery of yomba shoshone heart without angina pectoris S/P primary angioplasty with coronary stent Familial hypercholesterolemia 11/30/2023 8:25 AM EDT LIPOPROTEIN (A) Lab Routine Coronary artery disease involving y[place] shoshone coronary artery of yomba shoshone heart without angina pectoris S/P primary angioplasty with coronary stent Familial hypercholesterolemia 11/30/2023 8:25 AM EDT CBC Lab Routine Encounter for long-term (current) use of medications 11/30/2023 8:25 AM EDT DIFFERENTIAL, AUTOMATED Lab Routine Encounter for long-term (current) use of medications 11/30/2023 8:25 AM EDT Health Maintenance Due Date Last Done Comments [...] elsewhere), Additional history exists Cologuard 05/25/2026 05/25/2023, 11/07/2022, 05/17/2023 Colorectal Cancer Screening 05/25/2026 Diabetes Screening [...] Diagnosis Encounter for long-term (current) use of medications Encounter for long-term (current) use of other medications Coronary artery disease involving y[place] shoshone coronary artery of yomb[place] shoshone heart without angina pectoris S/P primary angioplasty with coronary stent Postsurgical percutaneous transluminal coronary angioplasty status Familial hypercholesterolemia Pure hypercholesterolemia documented in this encounter Care Teams Slunk Skin Curer Relationship Specialty Start Date End Date Alexandra Carrion MD [address] [place] [address] [place] [address] PCP - General Family Medicine 02/17/15 documented as of this encounter
--- OUTSIDE RECORDS SUMMARY | 2024-01-30 21:31 | External Medical Summary ---
Author Name Unknown Address Unknown Organization K01:LAB[facility]ATORY [facility] [place] - [address] [place] [address] Laboratory Report Ordering Provider Test Date Status ANDREE YEUNG 12/29/2023 12:53:16 Final Observation Date Value Abnormality Reference (Units ) Status Triglyceride 12/29/2023 12:53:16 88 <=174 ( mg/dL) Final Triglyceride Reference Range s (mg/dL):
<150 Acceptable
150-174 Borderline high
175-499 High
>=500 Very high Cholesterol 12/29/2023 12:53:16 131 <200 (mg /dL) Final Total Cholesterol Reference Ranges (mg/dL):
<200 Desirable
200-239 Borderline high
>=240 High HDL 12/29/2023 12:53:16 45 Below low normal >49 (mg/dL) Final HDL Cholesterol Reference Ra nges (mg/dL):
>=60 High (Desirable)
<50 Low (Undesirable) For Females
<40 Low (Undesirable) For Males NON-HDL CHOLESTEROL 12/29/2023 12:53:16 86 <=159 (mg/dL) Final Non-HDL Cholesterol Referenc e Range (mg/dL):
<100 Target level for high risk ASCVD patient
<130 Optimal for general population
130-159 Near optimal for general population
160-189 Borderline High
190-219 High
>=220 Very High LDL, (calculated) 12/29/2023 12:53:16 68 <= 129 (mg/dL) Final LDL Cholesterol Reference Ra nges (mg/dL):
<70 Target level for high risk ASCVD patient
<100 Optimal for general population
100-129 Near optimal for general population
130-159 Borderline high
160-189 High
>=190 Very high Performing Location LAB[facility]ORY [facility] [place] - [address] [facility] [address]
--- OUTSIDE RECORDS SUMMARY | 2024-01-30 21:31 | External Medical Summary | Summary of Care ---
Author Name Unknown Organization [facility] Address [address] [place] [address] Phone [phone] Care Team Providers Care Pipeline Superintendent Name Role Phone Alexandra Carrion MD Primary Care Provide r Encounter Details Date Type Department Care Team (Latest Contact Info) Description 11/22/2023 10:08 AM EDT - 11/22/2023 11:59 PM EDT Hospital Encounter Radiology Film File [address] [place] [address] Arrived Discharge Disposition: Home - Self Care Allergies Active Allergy Reactions Criticality Noted Date Comments Caffeine 05/07/2001 Ephedrine Pseudoephedrine 04/01/2008 documented as of this encounter (statuses as of 11/23/2023) Medications Medication Sig Dispensed Refills Start Date End Date Status Nystatin 134668 UNIT/GM External Powder (Nystop)Indications :Intertrigo Apply topically [...] as of this encounter (statuses as of 11/23/2023) Active Problems Problem Noted Date Diagnosed Date PSA (psoriatic arthritis) 04/20/2018 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 HTN, goal below 130/80 03/07/2011 Generalized anxiety disorder 04/01/2008 Other acne 04/01/2008 Allergic rhinitis due to pollen 09/08/2004 Adjustment disorder with depressed mood documented as of this encounter (statuses as of 11/23/2023) Resolved Problems Problem Noted Date Diagnosed Date Resolved Date Psoriasis 04/01/2008 10/28/2015 BMI 30.0-30.9,adult 08/23/19 19 documented as of this encounter (statuses as of 11/23/2023) Immunizations Name Administration Dates Next Due Pneumococcal [...] 12/19/2023 3:00 PM EDT Office Visit Cardiology, [facility] [address] [place] [address] Annita Cooper CRNP [address] [place] [address] 01/12/2024 1:30 PM EDT Office Visit Rheumatology [address] [place] [phone] Yareli Burns CRNP [address] [facility] [place] [address] 01/19/2024 9:20 AM EDT Office Visit Family Medicine [address] [place] [phone] Alexandra Carrion MD [address] [place] [address] [place] [address] 05/22/2024 8:40 AM EST Office Visit Dermatology [address] [place] [address] Beatriz Solis PA-C [address] [place] [address] [place] [address] Health Maintenance Due Date Last Done Comments [...] Procedure Name Priority Date/Time Associated Diagnosis Comments DERM EXAM - DERM (IMAGES ONLY, NO REPORT) Routine 11/22/2023 10:08 AM EDT Pustular psoriasis of palms and soles PSA (psoriatic arthritis) (HCC) Folliculitis Hidradenitis suppurativa documented in this encounter Results * DERM EXAM - DERM (IMAGES ONLY, NO REPORT) (11/22/2023 10:08 AM EDT) Narrative Scheduling, Silent - 11/22/2023 10:08 AM EDT This is an imaging study not interpreted or resulted by a [facility] or [facility] contracted radiologist. Beatriz Solis PA-C RADIOLOGY (RAD GENERAL) documented in this encounter Care Teams Pipeline Superintendent Relationship Specialty Start Date End Date Alexandra Carrion MD [address] [place] [address] [place] [id number] PCP - General Family Medicine 02/17/15 documented as of this encounter
--- OUTSIDE RECORDS SUMMARY | 2024-01-30 21:31 | External Medical Summary | Summary of Care ---
Author Name Unknown Organization [facility] [address] [facility] [address] Phone [phone] Care Team Providers Care Book Publisher Name Role Phone Alexandra Carrion MD Primary Care Provide r Reason for Visit * Reason Onset Date Comments Other 11/22/2023 Email address en tered Encounter Details Date Type Department Care Team (Late st Contact Info) Description 11/22/2023 Telephone Cardiology, [facility] [address] [place] [address] Adam Beverly, [address] [place] [address] Other (Email address entered ) Allergies Active Allergy Reactions Criticality Noted Date Comments Caffeine 05/07/2001 Ephedrine Pseudoephedrine 04/01/2008 documented as of this encounter (statuses as of 11/22/2023) Medications Medication Sig Dispensed Refills Start Date End Date Status Nystatin 478814 UNIT/GM External Powder (Nystop)Indications :Intertrigo Apply topically to affected area 3 times a day . 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 HTN, goal below 130/80 03/07/2011 Generalized anxiety disorder 04/01/2008 Other acne 04/01/2008 Allergic rhinitis due to pollen 09/08/2004 Adjustment disorder with depressed mood documented as of this encounter (statuses as of 11/22/2023) Resolved Problems Problem Noted Date Diagnosed Date Resolved Date Psoriasis 04/01/2008 10/28/2015 BMI 30.0-30.9,adult 08/23/19 19 documented as of this encounter (statuses as of 11/22/2023) Immunizations Name Administration Dates Next Due Pneumococcal [...] encounter Miscellaneous Notes * Telephone Encounter - Donya Lopez OSA - 11/22/2023 11:49 AM EDT Pt returned phone call I got her email address entered for [facility] Thank you EDISON Green * Telephone Encounter - Stefanie Zelaya RN - 11/22/2023 10:33 AM EDT Called, left message for patient to return call. Order for genetic testing placed during evaluation yesterday with Dr. Beverly. For ordering of testing through [facility] will either need mobile phone number OR e-mail address. Upon return call, please obtain either both or one of these from patient. documented in this encounter Plan of Treatment Upcoming Encounters Date Type Department Care Team (Late st Contact Info) Description 12/19/2023 3:00 PM EDT Office Visit Cardiology, [facility] [address] [place] [address] Annita Cooper CRNP [address] [place] [address] 01/12/2024 1:30 PM EDT Office Visit Rheumatology [address] [place] [phone] Yareli Burns [facility] [address] [facility] [address] 01/19/2024 9:20 AM EDT Office Visit Family Medicine [address] [place] [phone] Alexandra Carrion MD [address] [place] [address] [place] [address] 05/22/2024 8:40 AM EST Office Visit Dermatology [address] [place] [address] Beatriz Solis PA-C [address] [place] [address] [place] [address] Health Maintenance Due Date Last Done Comments [...] filedocumented as of this encounter Care Teams Book Publisher Relationship Specialty Start Date End Date Alexandra Carrion MD [address] [place] [address] [place] [phone] PCP - General Family Medicine 02/17/15 documented as of this encounter
--- OUTSIDE RECORDS SUMMARY | 2024-01-30 21:31 | External Medical Summary ---
Author Name Unknown Address Unknown Organization K01:[facility] [place] - [address] [facility] [place] [address] Laboratory Report Ordering Provider Test Date Status ARTIE BARNARD 12/29/2023 12:53:16 Final Observation Date Value Abnormality Reference (Units ) Status SYNC LEUKOCYTES IN BLOOD BY AUTOMATED COUNT 12/29/2023 12:53:16 8.69 4.00-10.80 (K/uL) Final Segs 12/29/2023 12:53:16 62.3 40.0-75.0 (%) Final Lymphs % 12/29/2023 12:53:16 23.0 18.0-42.0 (%) Final Monos 12/29/2023 12:53:16 9.0 1.0-11.0 (%) Final Eosinophils 12/29/2023 12:53:16 4.7 0.0-6.0 (%) Final Basos 12/29/2023 12:53:16 0.5 0.0-2.0 (%) Final Immature Granulocyte, Percent 12/29/2023 12:53:16 0.5 0.0-2.0 (%) Final Absolute Segs 12/29/2023 12:53:16 5.42 1.80-7.70 (K/uL) Final Lymphs, absolute 12/29/2023 12:53:16 2.00 1.00-4.80 (K/ul) Final Monos, Abs 12/29/2023 12:53:16 0.78 0.00-1.10 (K/uL) Final Eos, Abs 12/29/2023 12:53:16 0.41 0.00-0.70 (K/uL) Final Basos, Abs 12/29/2023 12:53:16 0.04 0.00-0.20 (K/uL) Final Immature Granulocytes, Number 12/29/2023 12:53:16 0.04 0.00-0.20 (K/uL) Final Performing Location [facility] - [facility] [place] [address]
--- OUTSIDE RECORDS SUMMARY | 2024-01-30 21:31 | External Medical Summary ---
Author Name Unknown Address Unknown Organization : Laboratory Report Ordering Provider Test Date Status CHERELLE CRISTINA 11/30/2023 08:25:27 Final Observation Date Value Abnormality Reference (Units ) Status REFERENCE LAB SCANNED REPORT 11/30/2023 08:25:27 RESULT SCAN Final Performing Location
--- OUTSIDE RECORDS SUMMARY | 2024-01-30 21:31 | External Medical Summary ---
Author Name Unknown Address Unknown Organization K01:[facility] [place] [facility] [address] [place] [address] Laboratory Report Ordering Provider Test Date Status FREDRICK SANZ 11/30/2023 08:25:27 Final Observation Date Value Abnormality Reference (Units ) Status Creatinine 11/30/2023 08:25:27 0.7 0.5-1.0 (mg/dL) Final Glomerular filtration rate/1.73 sq M.predicted [Volume Rate/Area] in Serum, Plasma or Blood by Creatinine-based formula (CKD-EPI) 11/30/2023 08:25:27 >90 >=60 (mL/min) Final eGFR is calculated based on the CKD-EPI 2020 equation Performing Location [facility] [place] - [facility] [address] [place] [address]
--- OUTSIDE RECORDS SUMMARY | 2024-01-30 21:31 | External Medical Summary | Summary of Care ---
Author Name Unknown Organization [facility] Address [address] [place] [place] [address] Phone [phone] Care Team Providers Care Schedule Planning Manager Name Role Phone Alexandra Carrion MD Primary Care Provide r Reason for Referral * Evaluate & Treat - Unlimited Visits (Within 10 days (routine)) - Pending Review Specialty Diagnoses / Procedures Referred By Jason vail Referred To Contact CARDIAC REHAB / Cardiology Diagnoses Coronary artery disease involving [place] coronary artery of [place] heart without angina pectoris NSVT (nonsustained ventricular tachycardia) (HCC) Dyslipidemia, goal LDL below 70 Annita Cooper CRNP [address] [place] [address] Referral ID Status Reason Start Date Expiration Date Visits Requested Visits Authorized [id number] Pending Review Specialty Services Required 12/19/[phone] Question Answer Referral Priority Within 10 days (routine) Where should this appointment be scheduled? External - [facility] Cardiac Rehabilitation Modality [facility] Based Cardiac Rehab Only [facility] Identify Cardiac Risk Low to Moderate Risk * Precert (Within 10 days (routine)) - Pending Review Specialty Diagnoses / Procedures Referred By Jason vail Referred To Contact Cardiac Studies Diagnoses Coronary artery disease involving [place] coronary artery of [place] heart without angina pectoris NSVT (nonsustained ventricular tachycardia) (HCC) Dyslipidemia, goal LDL below 70 Procedures ECHO, COMPLETE (2D), TRANS-THORACIC Annita Cooper CRNP [address] [place] [address] Referral ID Status Reason Start Date Expiration Date Visits Requested Visits Authorized [id number] Pending Review Precert 12/19/[phone] Reason for Visit * Reason Comments Follow Up Encounter Details Date Type Department Care Team (Late st Contact Info) Description 12/19/2023 3:00 PM EDT Office Visit Cardiology, [facility] [address] [place] [address] Annita Cooper CRNP [address] [place] [address] Coronary artery disease involving [place] coronary artery of [place] heart without angina pectoris*; NSVT (nonsustained ventricular tachycardia) ([facility]); Dyslipidemia, goal LDL below 70; HTN, goal below 130/80 Allergies Active Allergy Reactions Criticality Noted Date Comments Caffeine 05/07/2001 Ephedrine Pseudoephedrine 04/01/2008 documented as of this encounter (statuses as of 12/19/2023) Medications Medication Sig Dispensed Refills Start Date End Date Status Nystatin 686251 UNIT/GM External Powder (Nystop)Indicatio ns:Intertrigo Apply topically to affected area 3 times a day . Apply to groin 60 g 1 2 Active Citalopram Hydrobromide 20 MG Oral Tablet (CeleXA) TAKE ONE TABLET BY MOUTH EVERY DAY 90 Tablet 2 3 Active Allergy Relief 10 MG Oral Tablet (Loratadine)Indic ations:Seasonal allergic rhinitis due to pollen TAKE ONE TABLET BY MOUTH EVERY DAY 90 Tablet 3 3 Active Taltz 80 MG/ML Subcutaneous Solution Auto-injector (Ixekizumab) Inject 1 mL under the skin every 4 weeks. Dx code L40.50, loading dose not needed. 1 mL 5 4 Active Nicotine 7 MG/24HR Transdermal Patch 24 Hour (Nicoderm CQ) Place 1 Patch topically on the skin daily. Active Salicylic Acid 3 % External OintmentIndicatio ns:Pustular psoriasis of palms and soles Apply to psoriasis on hands and feet 2x daily when flaring and lesions are itchy 30 g 3 4 Active Triamcinolone Acetonide 0.1 % External Cream (Aristocort)Indic ations:Pustular psoriasis of palms and soles Apply to hands and feet as directed or more if itchy instead of scratching 454 g 1 4 Active Clindamycin Phosphate 1 % External GelIndications:Fo lliculitis,Hidrad enitis suppurativa Put 1-2x daily to spots in groin region (2x daily when flared) and only 1x daily to areas to prevent spots when not flared, see printed routine from visit 60 g 2 4 Active Ezetimibe 10 MG Oral Tablet (Zetia) Take 1 Tablet by mouth in the morning. 90 Tablet 3 4 Active Metoprolol Succinate ER 25 MG Oral Tablet Extended Release 24 Hour (toPROL XL)Indications:Co ronary artery disease involving [place] coronary artery of [place] heart without angina pectoris,NSVT (nonsustained ventricular tachycardia) (HCC),Dyslipidemi a, goal LDL below 70 Take 1.5 Tablets by mouth in the morning. 150 Tablet 3 4 Active Aspirin 81 MG Oral Tablet Delayed ReleaseIndication s:Coronary artery disease involving [place] coronary artery of [place] heart without angina pectoris,NSVT (nonsustained ventricular tachycardia) (HCC),Dyslipidemi a, goal LDL below 70 Take 1 Tablet by mouth in the morning. 90 Tablet 3 4 Active Clopidogrel Bisulfate 75 MG Oral Tablet (pLAVix)Indicatio ns:Coronary artery disease involving [place] coronary artery of [place] heart without angina pectoris,NSVT (nonsustained ventricular tachycardia) (HCC),Dyslipidemi a, goal LDL below 70 Take 1 Tablet by mouth in the morning. 90 Tablet 3 4 Active Atorvastatin Calcium 40 MG Oral Tablet (Lipitor) Take 1 Tablet by mouth in the morning. 90 Tablet 3 4 Active Lisinopril 40 MG Oral TabletIndications :HTN, goal below 130/80 Take 1 Tablet by mouth in the morning. 90 Tablet 3 4 Active Ibuprofen 800 MG Oral Tablet (Motrin)Indicatio ns:PSA (psoriatic arthritis) (HCC) Take by mouth 0.5 Tablets 2 times a day as needed for Pain, Severe. 100 Tablet 1 2 12/19/19 24 Discontinued(Med ication List Clean Up) Lisinopril 40 MG Oral TabletIndications :HTN, goal below 130/80 Take 1 Tablet by mouth in the morning. 90 Tablet 1 3 12/19/19 24 Discontinued(Ref ill) hydroCHLOROthiazi de 25 MG Oral Tablet (Hydrodiuril)Zenaida cations:HTN, goal below 130/80 Take 1 Tablet by mouth in the morning. 30 Tablet 11 4 12/19/19 24 Discontinued(Med ication List Clean Up) Atorvastatin Calcium 40 MG Oral Tablet (Lipitor) Take 1 Tablet by mouth in the morning. 30 Tablet 5 4 12/19/19 24 Discontinued(Ref ill) Aspirin 81 MG Oral Tablet Delayed Release Take 1 Tablet by mouth in the morning. 12/19/19 24 Discontinued(Ref ill) Clopidogrel Bisulfate 75 MG Oral Tablet (pLAVix) Take 1 Tablet by mouth in the morning. 12/19/19 24 Discontinued(Ref ill) Metoprolol Succinate ER 25 MG Oral Tablet Extended Release 24 Hour (toPROL XL) Take 1 Tablet by mouth in the morning. 12/19/19 24 Discontinued Clobetasol Propionate 0.05 % External Ointment (Temovate)Indicat ions:Pustular psoriasis of palms and soles To affected area for up to two weeks. 60 g 4 12/19/19 24 Discontinued(Med ication List Clean Up) documented as of this encounter (statuses as of 12/19/2023) Active Problems Problem Noted Date Diagnosed Date PSA (psoriatic arthritis) 04/20/2018 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 HTN, goal below 130/80 03/07/2011 Generalized anxiety disorder 04/01/2008 Other acne 04/01/2008 Allergic rhinitis due to pollen 09/08/2004 Adjustment disorder with depressed mood documented as of this encounter (statuses as of 12/19/2023) Resolved Problems Problem Noted Date Diagnosed Date Resolved Date Psoriasis 04/01/2008 10/28/2015 BMI 30.0-30.9,adult 08/23/19 19 documented as of this encounter (statuses as of 12/19/2023) Immunizations Name Administration Dates Next Due Pneumococcal [...] Sign Reading Time Taken Comments Blood Pressure 126/82 12/19/2023 2:56 PM EDT Pulse 68 12/19/2023 2:56 PM EDT Temperature - - Respiratory Rate 16 12/19/2023 2:56 PM EDT Oxygen Saturation - - Inhaled Oxygen Concentration - - Weight 80.7 kg (178 lb) 12/19/2023 2:56 PM EDT Height - - Body Mass Index 29.62 10/25/2023 10:45 AM EDT documented in this encounter Patient Instructions * Patient Instructions* Annita Cooper CRNP - 12/19/2023 3:08 PM EDT Labs in 1 month Schedule echo Wear monitor x14 days Increase metoprolol to 37.5 mg (1.5 tablets) daily. documented in this encounter Progress Notes * Annita CooperSARA - 12/19/2023 3:00 PM EDT Images from the original note were not included. Cardiology Outpatient Visit 12/19/2023 Primary Garage Helper: Keron Beverly Past medical history: Coronary artery disease Status post CHRIS to the mid RCA and mid LAD, 11/09/2023 (nonobstructive 45% small distal circumflex- medically managed) History of Non-sustained Ventricular tachycardiac > 12 seconds, per Zio 10/25/2023 (prior to cardiac catheterization 11/09/2023) Phenotypic Familial hypercholesteremia + elevated LP(a). Genetic testing negative Hypertension Systemic inflammatory psoriatic arthritis Tobacco use, 1/2 pack per day Strong family history of premature coronary disease HPI Very pleasant 48-year-old female presenting to the cardiology office today in routine follow-up. Was initially evaluated by Dr. Beverly approximately 1 month ago. Patient carries a history of multivessel coronary disease undergoing PCI to the mid RCA and mid Dmitriy 11/09/2023. She is maintained on dual anti-platelet therapy with aspirin and Plavix currently. Zio monitor completed prior to cardiac catheterization revealed a 12 seconds episode of polymorphic VT, she is currently maintained on metoprolol succinate. She also has known hypercholesteremia with recent genetic testing negative for familial cause. Lipoprotein a is elevated. Today the patient presents with ongoing concerns regarding a fleeting sharp and stabbing chest discomfort located above her left breast. Symptoms are nonexertional and can happen for no rhyme or reason. Takes her breath away. No palpitations. Denies lightheadedness or dizziness. No nausea or left arm pain. No orthopnea, PND, or increased lower extremity edema. No fever, chills, cough, hematochezia, melena, or hemoptysis. Patient is compliant with all medications, and offers no side effects. Current Outpatient Medications Medication Sig Dispense Refill Nystatin 774269 UNIT/GM External Powder (Nystop) Apply topically to affected area 3 times a day . Apply to groin 60 g 1 Citalopram Hydrobromide 20 MG Oral Tablet (CeleXA) TAKE ONE TABLET BY MOUTH EVERY DAY 90 Tablet 2 Taltz 80 MG/ML Subcutaneous Solution Auto-injector (Ixekizumab) Inject 1 mL under the skin every 4 weeks. Dx code L40.50, loading dose not needed. 1 mL 5 Nicotine 7 MG/24HR Transdermal Patch 24 Hour (Nicoderm CQ) Place 1 Patch topically on the skin daily. Salicylic Acid 3 % External Ointment Apply to psoriasis on hands and feet 2x daily when flaring andlesions are itchy 30 g 3 Clindamycin Phosphate 1 % External Gel Put 1-2x daily to spots in groin region (2x daily when flared) and only 1x daily to areas to prevent spots when not flared, see printed routine from visit 60 g 2 Ezetimibe 10 MG Oral Tablet (Zetia) Take 1 Tablet by mouth in the morning. 90 Tablet 3 Metoprolol Succinate ER 25 MG Oral Tablet Extended Release 24 Hour (toPROL XL) Take 1.5 Tablets by mouth in the morning. 150 Tablet 3 Aspirin 81 MG Oral Tablet Delayed Release Take 1 Tablet by mouth in the morning. 90 Tablet 3 Clopidogrel Bisulfate 75 MG Oral Tablet (pLAVix) Take 1 Tablet by mouth in the morning. 90 Tablet 3 Atorvastatin Calcium 40 MG Oral Tablet (Lipitor) Take 1 Tablet by mouth in the morning. 90 Tablet 3 Lisinopril 40 MG Oral Tablet Take 1 Tablet by mouth in the morning. 90 Tablet 3 Allergy Relief 10 MG Oral Tablet (Loratadine) TAKE ONE TABLET BY MOUTH EVERY DAY 90 Tablet 3 Triamcinolone Acetonide 0.1 % External Cream (Aristocort) Apply to hands and feet as directed or more if itchy instead of scratching 454 g 1 No current facility-administered medications for this visit. Past Medical History: Diagnosis Date Acne Adjustment disorder with depressed mood Allergic rhinitis due to pollen BMI 30.0-30.9,adult Generalized anxiety disorder HTN, goal below 140/90 Psoriasis Past Surgical History: Procedure Laterality Date DENTAL SURGERY PROCEDURE [facility] 2011 Social History Tobacco Use Smoking status: Every Day Current packs/day: 1.00 Average packs/day: 1 pack/day for 10.0 years (10.0 ttl pk-yrs) Types: Cigarettes Smokeless tobacco: Never Substance Use Topics Alcohol use: Yes Comment: ocass Drug use: No Review of patient's allergies indicates: Allergen Reactions Caffeine Ephedrine Pseudo [Pseudoephedrine] Review of Systems: See HPI for pertinent positives. All others negative, other than those noted in HPI. Physical Exam: BP 126/82 | Pulse 68 | Resp 16 | Wt 80.7 kg (178 lb) | BMI 29.62 kg/m | BSA 1.92 m General: No acute distress. A+Ox3. HEENT: Normocephalic. Atraumatic. Conjunctiva and sclera clear. NECK: No carotid bruits. No JVD. Carotid upstrokes are brisk. Heart: RRR. S1 and S2 noted without murmur, rubs, gallops. PMI non displaced. Lungs: Clear to auscultation. No wheezes, rhonchi, rales. Abdomen: Normal bowel sounds. Soft. Nontender. No masses or organomegaly. No abdominal bruits. Extremities: No edema. No clubbing or cyanosis. Pulses: radial=2/4, posterior tibial=2/4, dorsalis pedis = 2/4. NEURO: No focal deficits. PSYCH: Normal. Lab data/imaging study review: Cardiac catheterization at [facility] 11/09/2023 Summary: 1. Multivessel coronary artery disease -95% mid RCA stenosis -70% mid LAD - 45% small distal circumflex 2. Normal intracardiac filling pressure 3. Successful PCI of mid RCA with single drug-eluting stent (2.75 x 22 mm [place]; postdilated with 3.5 NC). 4. Successful PCI of mid LAD with single drug-eluting stent (2.5 x 26 mm Pablo; postdilated with 2.75 NC). Echo at [facility] 11/08/2023 Zio 10/25/2023 Results: Patient had a min HR of 51 bpm, max HR of 240 bpm, and avg HR of 83 bpm. Predominant underlying rhythm was Sinus Rhythm. Slight P wave morphology changes were noted. 1 run of Ventricular Tachycardia occurred lasting 12.6 secs with a max rate of 240 bpm (avg 163 bpm). Isolated SVEs were rare (<1.0%), SVE Couplets were rare (<1.0%), and no SVE Triplets were present. Isolated VEs were rare (<1.0%), and no VE Couplets or VE Triplets were present. The patient recorded 2 event markers and 1 diary entry correlating with sinus and sinus tachycardiaonly Impression: Sinus rhythm, average rate 83 beats per minute with single episode of nonsustained ventricular tachycardia 12.6 seconds in duration. Pattern consistent with torsade Impression/Plan: This is a 48 year old female who is being evaluated in the cardiology office for ongoing care/risk management for the below diagnoses. 1. Coronary artery disease involving [place] coronary artery of [place] heart without angina pectoris -Status post CHRIS to the mid RCA and mid LAD, 11/09/2023 (nonobstructive 45% small distal circumflex-medically managed) -Atypical chest discomfort suspicious for sensed ectopy. Plan as stated below. -EKG showing normal sinus rhythm, 62 beats per minute Continue dual anti-platelet therapy with aspirin 81 mg daily and Plavix 75 mg daily uninterrupted for 1 year. After 1 year of DAPT is complete can consider aspirin monotherapy. Cardiac rehab referral placed, to be completed at [facility]. 2. NSVT (nonsustained ventricular tachycardia) (HCC) -History of Non-sustained Ventricular tachycardiac > 12 seconds, per Zio 10/25/2023 (prior to cardiac catheterization 11/09/2023) -Symptoms of atypical chest discomfort, possibly symptomatic ectopy. Cautiously Increase metoprolol succinate to 37.5 mg daily. Repeat 14 day Zio monitor for reassessment of ventricular ectopy 3. Dyslipidemia, goal LDL below 70 -Phenotypic familial hypercholesteremia, genetic testing negative, 11/2023 -Elevated LP(a) 256 -LDL currently 96 1. Patient has concerns regarding statin side effects, currently maintained on 40 mg daily plus Zetia 10 mg daily which was started on 12/07/2023. Repeat fasting cholesterol panel in 4 weeks. Likely need to transitioned to rosuvastatin versus Cardio MTM clinic referral for PCSK9 inhibitor 4. Hypertension, goal below 130/80 Well controlled. Continue lisinopril 40 mg daily The patient agrees to the above plan and will call with additional questions or concerns. ER with all emergencies advised. Follow-up: Return in about 6 weeks (around 01/30/2024). | Check-out note: Labs in 1 month (fasting). Echo prior to follow up (wearing 14 day zio). Cardiac rehab referral-- [facility] I spent a total of 40 minutes on the date of service in preparation, delivery, and documentation ofthe care provided to Anastacia Zhong excluding any time spent in the performance of separately billed services. SARA Armenta, Department of Cardiology This chart was completed in part utilizing [employer] Speech Voice Recognition Software. Grammatical errors, random word insertions, prounoun errors, and incomplete sentences are an occasional consequence of this system due to software limitations, ambient noise, and hardware issues. Any formal questions or concerns about the content, text, or information contained within the body of this dictation should be directly addressed to the provider for clarification. documented in this encounter Nursing Notes * Burak Silva RN - 12/19/2023 2:55 PM EDT Examination Room: room 7 Name: Anastacia Zhong Date of : (1975). Reason for Visit: for follow up Interim Hospitalization(s): denies Problems/Concerns: c/o fatigue and stabbing chest pains Chest Pain/SOB: as above [facility] Discussed: Not applicable My [employer] is a way you can talk to your provider online through e-mail. Would you like to sign up? I can activate it for you? NO INTERNET ACCESS Patient was instructed to not get up on the exam table until directed and assisted by their provider; patient is to remain seated in the chair/ wheelchair/ exam table for fall prevention and safety reasons. Patient is aware to have assistance to step down off exam table with personnel. Patient voiced full comprehension of instructions. documented in this encounter Plan of Treatment Upcoming Encounters Date Type Department Care Team (Late st Contact Info) Description 12/25/2023 2:30 PM EDT Imaging Radiology [address] [place] [address] 01/12/2024 1:30 PM EDT Office Visit Rheumatology [address] [place] [phone] Yareli Burns CRNP [address] [place] [place] [address] 01/19/2024 9:20 AM EDT Office Visit Family Medicine [address] [place] [phone] Alexandra Carrion MD [address] [place] [address] [place] [address] 05/22/2024 8:40 AM EST Office Visit Dermatology [address] [place] [address] Beatriz Solis PA-C [address] [place] [address] [place] [address] Scheduled Orders Name Type Priority Associated Diagnoses Orde r Schedule LIPID PANEL WITH DIRECT LDL IF TG IS HIGH Lab Routine Coronary artery disease involving [place] coronary artery of [place] heart without angina pectoris NSVT (nonsustained ventricular tachycardia) (HCC) Dyslipidemia, goal LDL below 70 Expected: 01/18/2024, Expires: 12/18/2024 ECHO, COMPLETE (2D), TRANS-THORACIC Echocardiology Routine Coronary artery disease involving [place] coronary artery of [place] heart without angina pectoris NSVT (nonsustained ventricular tachycardia) (HCC) Dyslipidemia, goal LDL below 70 Expected: 12/19/2023 (Approximate), Expires: 01/17/2026 EXTERNAL EKG 8 TO 15 DAYS Holter Routine Coronary artery disease involving [place] coronary artery of [place] heart without angina pectoris NSVT (nonsustained ventricular tachycardia) (HCC) Dyslipidemia, goal LDL below 70 Expected: 12/20/2023 (Approximate), Expires: 12/18/2024 BASIC METABOLIC PANEL Lab Routine Coronary artery disease involving [place] coronary artery of [place] heart without angina pectoris NSVT (nonsustained ventricular tachycardia) (HCC) Dyslipidemia, goal LDL below 70 Expected: 01/18/2024, Expires: 12/18/2024 TSH WITH FREE T4 IF INDICATED Lab Routine Coronary artery disease involving [place] coronary artery of [place] heart without angina pectoris NSVT (nonsustained ventricular tachycardia) (HCC) Dyslipidemia, goal LDL below 70 Expected: 12/19/2023, Expires: 12/18/2024 CBC WITH WBC DIFFERENTIAL Lab Routine Coronary artery disease involving [place] coronary artery of [place] heart without angina pectoris NSVT (nonsustained ventricular tachycardia) (HCC) Dyslipidemia, goal LDL below 70 Expected: 12/19/2023, Expires: 12/18/2024 EKG COMPLETE (TRACING AND INTERP) EKG Routine Coronary artery disease involving [place] coronary artery of [place] heart without angina pectoris NSVT (nonsustained ventricular tachycardia) (HCC) Dyslipidemia, goal LDL below 70 Ordered: 12/19/2023 Scheduled Referrals Name Type Priority Associated Diagnoses Orde r Schedule CARDIAC REHAB REFERRAL OP Referral Within 10 days (routine) Coronary artery disease involving [place] coronary artery of [place] heart without angina pectoris NSVT (nonsustained ventricular tachycardia) (HCC) Dyslipidemia, goal LDL below 70 Ordered: 12/19/2023 Health Maintenance Due Date Last Done Comments [...] Depression Screening 05/09/2024 05/09/2023 GFR 11/29/2024 11/30/2023, 0409/2023, 05/09/2023, Additional history exists Albumin/Creatinine Ratio 05/10/2025 05/10/2022 Cervical Cancer Screening 05/10/2025 Pap Smear 05/10/2025 05/10/2022, 12/16, 05/17/2013 (Done elsewhere), Additional history exists Cologuard 05/25/2026 05/25/2023, 1107/2022, 05/17/2023 Colorectal Cancer Screening 05/25/2026 Diabetes Screening 10/17/2026 10/18/2023, 1 , 07/22/2022, Additional history exists Lipid Panel 11/29/2028 11/30/2023, 04/17, 05/10/2022, Additional history exists GARDASIL-HPV IMMUNIZATION SERIES Aged Out No longer eligible based on patient's age to complete this topic MENINGOCOCCAL (MENACTRA/MENVEO) Aged Out No longer eligible based on patient's age to complete this topic documented as of this encounter Medical Devices Not on filedocumented as of this encounter Visit Diagnoses Diagnosis Coronary artery disease involving [place] coronary artery of [place] heart without angina pectoris- Primary NSVT (nonsustained ventricular tachycardia) (HCC) Paroxysmal ventricular tachycardia Dyslipidemia, goal LDL below 70 Other and unspecified hyperlipidemia HTN, goal below 130/80 Unspecified essential hypertension documented in this encounter Care Teams Schedule Planning Manager Relationship Specialty Start Date End Date Alexandra Carrion MD [address] [place] [address] [place] [address] PCP - General Family Medicine 02/17/15 documented as of this encounter"
--- OUTSIDE RECORDS SUMMARY | 2024-01-30 21:31 | External Medical Summary ---
Author Name Unknown Address Unknown Organization [id number]:[facility] - [address] [facility] [address] Laboratory Report Ordering Provider Test Date Status CHERELLE CRISTINA 11/30/2023 08:25:27 Final Observation Date Value Abnormality Reference (Units ) Status Triglyceride 11/30/2023 08:25:27 132 <=174 ( mg/dL) Final Triglyceride Reference Range s (mg/dL):
<150 Acceptable
150-174 Borderline high
175-499 High
>=500 Very high Cholesterol 11/30/2023 08:25:27 166 <200 (mg /dL) Final Total Cholesterol Reference Ranges (mg/dL):
<200 Desirable
200-239 Borderline high
>=240 High HDL 11/30/2023 08:25:27 44 Below low normal >49 (mg/dL) Final HDL Cholesterol Reference Ra nges (mg/dL):
>=60 High (Desirable)
<50 Low (Undesirable) For Females
<40 Low (Undesirable) For Males NON-HDL CHOLESTEROL 11/30/2023 08:25:27 122 <=159 (mg/dL) Final Non-HDL Cholesterol Referenc e Range (mg/dL):
<100 Target level for high risk ASCVD patient
<130 Optimal for general population
130-159 Near optimal for general population
160-189 Borderline High
190-219 High
>=220 Very High LDL, (calculated) 11/30/2023 08:25:27 96 <= 129 (mg/dL) Final LDL Cholesterol Reference Ra nges (mg/dL):
<70 Target level for high risk ASCVD patient
<100 Optimal for general population
100-129 Near optimal for general population
130-159 Borderline high
160-189 High
>=190 Very high Performing Location [facility] - [address] [facility] [address]
--- OUTSIDE RECORDS SUMMARY | 2024-01-30 21:31 | External Medical Summary | Summary of Care ---
Author Name Unknown Organization [facility] Address [address] [facility] [address] Phone [phone] Care Team Providers Care Sorority Supervisor Name Role Phone Alexandra Carrion MD Primary Care Provide r Reason for Visit * Reason Comments Outpatient Testing Encounter Details Date Type Department Care Team (Late st Contact Info) Description 12/29/2023 12:50 PM EDT Laboratory Laboratory [address] [place] [phone] [place] [address] Familial hypercholesterolemia; Coronary artery disease involving port gamble coronary artery of port [place] heart without angina pectoris; NSVT (nonsustained ventricular tachycardia) ([facility]); Dyslipidemia, goal LDL below 70 Allergies Active Allergy Reactions Criticality Noted Date Comments Caffeine 05/07/2001 Ephedrine Pseudoephedrine 04/01/2008 documented as of this encounter (statuses as of 12/29/2023) Medications Medication Sig Dispensed Refills Start Date End Date Status Nystatin 569886 UNIT/GM External Powder (Nystop)Indications: Intertrigo Apply topically [...] Hour (toPROL XL)Indications:Coron dirk artery disease involving port gamble coronary artery of port gam[place] heart without angina pectoris,NSVT (nonsustained ventricular tachycardia) (HCC),Dyslipidemia, goal LDL below 70 Take 1.5 Tablets by mouth in the morning. 150 Tablet 3 12/19/2023 Active Aspirin 81 MG Oral Tablet Delayed ReleaseIndications:C oronary artery disease involving port gamble coronary artery of port gam[place] heart without angina pectoris,NSVT (nonsustained ventricular tachycardia) (HCC),Dyslipidemia, goal LDL below 70 Take 1 Tablet by mouth in the morning. 90 Tablet 3 12/19/2023 Active Clopidogrel Bisulfate 75 MG Oral Tablet (pLAVix)Indications: Coronary artery disease involving port gamble coronary artery of port gamble heart without angina pectoris,NSVT (nonsustained ventricular tachycardia) [...] as of this encounter (statuses as of 12/29/2023) Active Problems Problem Noted Date Diagnosed Date PSA (psoriatic arthritis) 04/20/2018 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 HTN, goal below 130/80 03/07/2011 Generalized anxiety disorder 04/01/2008 Other acne 04/01/2008 Allergic rhinitis due to pollen 09/08/2004 Adjustment disorder with depressed mood documented as of this encounter (statuses as of 12/29/2023) Resolved Problems Problem Noted Date Diagnosed Date Resolved Date Psoriasis 04/01/2008 10/28/2015 BMI 30.0-30.9,adult 08/23/19 19 documented as of this encounter (statuses as of 12/29/2023) Immunizations Name Administration Dates Next Due Pneumococcal [...] Care Team (Late st Contact Info) Description 12/29/2023 1:30 PM EDT Imaging Radiology [address] [place] [address] 01/03/2024 10:00 AM EDT Cardiac Studies [facility] [place] [address] 01/12/2024 1:30 PM EDT Office Visit Rheumatology [address] [place] [address] Yareli Burns CRNP [facility] [place] [address] 01/19/2024 9:20 AM EDT Office Visit Family Medicine [address] [place] [phone] Alexandra Carrion MD [address] [place] [address] [place] [address] 02/05/2024 10:30 AM EDT Office Visit Cardiology, [facility] [address] [facility] [place] [address] Annita Cooper CRNP [address] [facility] [place] [address] 05/22/2024 8:40 AM EST Office Visit Dermatology [address] [place] [address] Beatriz Solis PA-C [address] [place] [address] [place] [address] Pending Results Name Type Priority Associated Diagnoses Date /Time LIPID PANEL WITH DIRECT LDL IF TG IS HIGH Lab Routine Familial hypercholesterolemia 12/29/2023 12:53 PM EDT TSH WITH FREE T4 IF INDICATED Lab Routine Coronary artery disease involving port gamble coronary artery of port gamble heart without angina pectoris NSVT (nonsustained ventricular tachycardia) (HCC) Dyslipidemia, goal LDL below 70 12/29/2023 12:53 PM EDT CBC WITH WBC DIFFERENTIAL Lab Routine Coronary artery disease involving port gamble coronary artery of port gamble heart without angina pectoris NSVT (nonsustained ventricular tachycardia) (HCC) Dyslipidemia, goal LDL below 70 12/29/2023 12:53 PM EDT CBC Lab Routine Coronary artery disease involving port gamble coronary artery of port gamble heart without angina pectoris NSVT (nonsustained ventricular tachycardia) (HCC) Dyslipidemia, goal LDL below 70 12/29/2023 12:53 PM EDT DIFFERENTIAL, AUTOMATED Lab Routine Coronary artery disease involving port gamble coronary artery of port gamble heart without angina pectoris NSVT (nonsustained ventricular tachycardia) (HCC) Dyslipidemia, goal LDL below 70 12/29/2023 12:53 PM EDT Health Maintenance Due Date Last Done [...] Depression Screening 05/09/2024 05/09/2023 GFR 11/29/2024 11/30/2023, 040 09/2023, 05/09/2023, Additional history exists Albumin/Creatinine Ratio 05/10/2025 05/10/2022 Cervical Cancer Screening 05/10/2025 Pap Smear 05/10/2025 05/10/2022, 12/16, 05/17/2013 (Done elsewhere), Additional history exists Cologuard 05/25/2026 05/25/2023, 110 07/2022, 05/17/2023 Colorectal Cancer Screening 05/25/2026 Diabetes [...] as of this encounter Visit Diagnoses Diagnosis Familial hypercholesterolemia Pure hypercholesterolemia Coronary artery disease involving port gamble coronary artery of port gamble heart without angina pectoris NSVT (nonsustained ventricular tachycardia) (HCC) Paroxysmal ventricular tachycardia Dyslipidemia, goal LDL below 70 Other and unspecified hyperlipidemia documented in this encounter Care Teams Sorority Supervisor Relationship Specialty Start Date End Date Alexandra Carrion MD [address] [place] [address] [place] [address] PCP - General Family Medicine 02/17/15 documented as of this encounter
--- OUTSIDE RECORDS SUMMARY | 2024-01-30 21:31 | External Medical Summary ---
Author Name Unknown Address Unknown Organization K01:LABORATORY [facility] [place] - [facility] [address] [facility] [address] [facility] [address] Laboratory Report Ordering Provider Test Date Status ARTIE BARNARD 12/29/2023 12:53:16 Final Observation Date Value Abnormality Reference (Units ) Status WBC, Total 12/29/2023 12:53:16 8.69 4.00-10.80 (K/uL) Final RBC 12/29/2023 12:53:16 4.56 3.85-5.15 (M/uL) Final Hemoglobin 12/29/2023 12:53:16 14.4 12.0-15.3 (g/dL) Final HCT 12/29/2023 12:53:16 44.3 36.0-45.2 (%) Final MCV 12/29/2023 12:53:16 97.1 81.5-97.5 (fL) Final MCH 12/29/2023 12:53:16 31.6 27.0-34.0 (pg) Final MCHC 12/29/2023 12:53:16 32.5 32.0-36.0 (g/dL) Final RDW 12/29/2023 12:53:16 12.5 11.5-15.5 (%) Final Platelets 12/29/2023 12:53:16 299 140-400 (K/uL) Final MPV 12/29/2023 12:53:16 10.5 6.6-11.1 (fL) Final Nucleated erythrocytes/100 leukocytes [Ratio] in Blood by Automated count 12/29/2023 12:53:16 0 <=0 (/100 WBCs) Final Performing Location LABORATORY [facility] [place] - [address] [place] [address]
--- OUTSIDE RECORDS SUMMARY | 2024-01-30 21:31 | External Medical Summary | Summary of Care ---
Author Name Unknown Organization [facility] Address [address] [place] [address] Phone [phone] Care Team Providers Care Family Consumer Scientist Name Role Phone Alexandra Carrion MD Primary Care Provide r Reason for Visit * Reason Onset Date Comments Order Request 11/22/2023 Appointment 11/22/2023 Mamm Encounter Details Date Type Department Care Team (Late st Contact Info) Description 11/22/2023 Telephone Family Medicine [address] [phone] Olesya Sy PA-C [address] [place] [address] [place] [address] Order Request; Appointment (Mamm) Allergies Active Allergy Reactions Criticality Noted Date Comments Caffeine 05/07/2001 Ephedrine Pseudoephedrine 04/01/2008 documented as of this encounter (statuses as of 11/22/2023) Medications Medication Sig Dispensed Refills Start Date End Date Status Nystatin 490949 UNIT/GM External Powder (Nystop)Indication s:Intertrigo Apply topically to affected area 3 times a day . Apply to groin 60 g 1 09/16/2021 Active Ibuprofen 800 MG Oral Tablet (Motrin)Indication s:PSA (psoriatic arthritis) ([facility] [...] not needed. 1 mL 5 10/03/2023 Active hydroCHLOROthiazid e 25 MG Oral Tablet (Hydrodiuril)Indic ations:HTN, goal below 130/80 Take 1 Tablet by [...] topically on the skin daily. 0 Active Clindamycin Phosphate 1 % External GelIndications:Fol liculitis Put 1-2x daily to spots (2x daily when flared) and only 1x daily to areas to prevent spots when not flared 180 g 3 09/16/2021 4 Discontinue d(Refill) Clobetasol Propionate 0.05 % External Ointment (Temovate)Indicati ons:Pruritus of genitalia Apply topically to affected area 2 times a day. To affected area for up to two weeks. 60 g 1 05/09/2023 4 Discontinue d(Refill) Triamcinolone Acetonide 0.5 % External OintmentIndication s:Pustular psoriasis of palms and soles,PSA (psoriatic arthritis) ([facility]) Apply topically to affected area 2 times a day. Apply to hands and feet as directed or more if itchy instead of scratching 45 g 5 06/06/2023 Discontinue d(Medicatio n/Dose Changed) documented as of [...] encounter Miscellaneous Notes * Telephone Encounter - Padmini Zelaya OSA - 11/22/2023 2:22 PM EDT I left message on patient's VM to call me (RE: Scheduling Mamm). * Telephone Encounter - Merle Beendict OSA - 11/22/2023 7:50 AM EDT Anastacia would like a mammogram order placed. Please advise. documented in this encounter Plan of Treatment Upcoming Encounters Date Type Department Care Team (Late st Contact Info) Description 12/19/2023 3:00 PM EDT Office Visit Cardiology, [facility] [place] [address] Annita Cooper CRNP [address] [place] [address] 01/12/2024 1:30 PM EDT Office Visit Rheumatology [address] [place] [address] Yareli Burns CRNP [address] [facility] [place] [address] 01/19/2024 9:20 AM EDT Office Visit Family Medicine [address] [place] [address] Alexandra Carrion MD [address] [place] [address] [place] [address] 05/22/2024 8:40 AM EST Office Visit Dermatology [address] [place] [address] Beatriz Solis PA-C [address] [place] [address] [place] [address] Scheduled Orders Name Type Priority Associated Diagnoses Orde r Schedule MAMMOGRAM SCREENING MICA BILATERAL Medical Imaging Routine Encounter for screening mammogram for breast cancer Ordered: 11/22/2023 Health Maintenance Due Date Last Done Comments [...] this encounter Visit Diagnoses Diagnosis Encounter for screening mammogram for breast cancer- Primary documented in this encounter Care Teams Family Consumer Scientist Relationship Specialty Start Date End Date Alexandra Carrion MD [address] [place] [address] [place] [address] PCP - General Family Medicine 02/17/15 documented as of this encounter
--- OUTSIDE RECORDS SUMMARY | 2024-01-30 21:31 | External Medical Summary ---
Author Name Unknown Address Unknown Organization K01:LABORATORY [facility] [place] - [address] [place] [address] Laboratory Report Ordering Provider Test Date Status FREDRICK SANZ 11/30/2023 08:25:27 Final Observation Date Value Abnormality Reference (Units ) Status Albumin 11/30/2023 08:25:27 4.0 3.8-5.0 (g/dL) Final AST (Aspartate aminotransferase) 11/30/2023 08:25:27 22 10-35 (U/L) Final Alk Phos 11/30/2023 08:25:27 97 35-130 (U/L) Final ALT (Alanine aminotransferase) 11/30/2023 08:25:27 28 10-35 (U/L) Final Bilirubin, Total 11/30/2023 08:25:27 0.2 <=1.2 (mg/dL) Final Bilirubin, Direct 11/30/2023 08:25:27 <0.2 0.0-0.3 (mg/dL) Final Protein 11/30/2023 08:25:27 6.2 6.0-8.3 (g/dL) Final Performing Location LABOR[facility]ORY [facility] - [address] [place] [address]
--- OUTSIDE RECORDS SUMMARY | 2024-01-30 21:31 | External Medical Summary | Summary of Care ---
Author Name Unknown Organization [facility] Address [address] [facility] [address] Phone [phone] Care Team Providers Care Drop Forge Hand Name Role Phone Alexandra Carrion MD Primary Care Provide r Reason for Visit * Reason Onset Date Comments Test Results 12/07/2023 Encounter Details Date Type Department Care Team (Late st Contact Info) Description 12/07/2023 Telephone Cardiology, [facility] [address] [place] [address] Jesus Villanueva, [address] [place] [address] Test Results Allergies Active Allergy Reactions Criticality Noted Date Comments Caffeine 05/07/2001 Ephedrine Pseudoephedrine 04/01/2008 documented as of this encounter (statuses as of 12/07/2023) Medications Medication Sig Dispensed Refills Start Date End Date Status Nystatin 794026 UNIT/GM External Powder (Nystop)Indications :Intertrigo Apply topically [...] 1 Tablet by mouth in the morning. Active Clopidogrel Bisulfate 75 MG Oral Tablet (pLAVix) Take 1 Tablet by mouth in the morning. Active Metoprolol Succinate ER 25 MG Oral Tablet Extended Release 24 Hour (toPROL XL) Take 1 Tablet by mouth in the morning. Active Nicotine 7 MG/24HR Transdermal Patch 24 Hour (Nicoderm CQ) Place 1 Patch topically on the skin daily. Active Salicylic Acid 3 % External OintmentIndications :Pustular psoriasis of palms and soles Apply to psoriasis on hands and feet 2x daily when flaring and lesions are itchy 30 g 3 11/22/2023 Active Clobetasol Propionate 0.05 % External Ointment (Temovate)Indicatio ns:Pustular psoriasis of palms and soles To affected area for up to two weeks. 60 g 11/22/2023 Active Triamcinolone Acetonide 0.1 % External [...] the morning. 90 Tablet 3 12/07/2023 Active documented as of this encounter (statuses as of 12/07/2023) Active Problems Problem Noted Date Diagnosed Date PSA (psoriatic arthritis) 04/20/2018 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 HTN, goal below 130/80 03/07/2011 Generalized anxiety disorder 04/01/2008 Other acne 04/01/2008 Allergic rhinitis due to pollen 09/08/2004 Adjustment disorder with depressed mood documented as of this encounter (statuses as of 12/07/2023) Resolved Problems Problem Noted Date Diagnosed Date Resolved Date Psoriasis 04/01/2008 10/28/2015 BMI 30.0-30.9,adult 08/23/19 19 documented as of this encounter (statuses as of 12/07/2023) Immunizations Name Administration Dates Next Due Pneumococcal [...] encounter Miscellaneous Notes * Telephone Encounter - Jesus Villanueva DO - 12/07/2023 12:20 PM EDT In coverage of Dr. Beverly, I reviewed the patient's results of her recent genetic testing with regards to her dyslipidemia. Her genetic testing was negative. She does have an historically high cholesterol with LDL in the range of 172 to 192 in 2020 3 in 2021. Most recently her LDL is down to 96 milligrams/deciliter on atorvastatin 40 milligrams daily. Her goal cholesterol however is an LDL less than 70 given her recent coronary stents. Due to concerns of wanting to reduce the risk of side effects with atorvastatin 80 milligrams, I recommend continuing atorvastatin 40 milligrams daily and adding ezetimibe and repeating a lipid panelin a month. I attempted to reach the patient by phone to review these things with her. I had met her during herrecent hospital stay. I was unable to connect with her but left a detailed voicemail message. Jesus Villanueva DO documented in this encounter Plan of Treatment Upcoming Encounters Date Type Department Care Team (Late st Contact Info) Description 12/19/2023 3:00 PM EDT Office Visit Cardiology, [facility] [address] [place] [address] Annita Cooper CRNP [address] [place] [address] 01/12/2024 1:30 PM EDT Office Visit Rheumatology [address] [place] [address] Yareli Burns CRNP [address] [facility] [place] [address] 01/19/2024 9:20 AM EDT Office Visit Family Medicine [address] [place] [address] Alexandra Carrion MD [address] [place] [address] [place] [address] 05/22/2024 8:40 AM EST Office Visit Dermatology [address] [place] [address] Beatriz Solis PA-C [address] [place] [address] [place] [address] Scheduled Orders Name Type Priority Associated Diagnoses Orde r Schedule LIPID PANEL WITH DIRECT LDL IF TG IS HIGH Lab Routine Familial hypercholesterolemia Expected: 01/07/2024, Expires: 12/06/2024 Health Maintenance Due Date Last Done Comments [...] of this encounter Visit Diagnoses Diagnosis Familial hypercholesterolemia- Primary Pure hypercholesterolemia documented in this encounter Care Teams Drop Forge Hand Relationship Specialty Start Date End Date Alexandra Carrion MD [address] [place] [address] [place] [address] PCP - General Family Medicine 02/17/15 documented as of this encounter
--- OUTSIDE RECORDS SUMMARY | 2024-01-30 21:31 | External Medical Summary | Summary of Care ---
Author Name Unknown Organization [facility] Address [address] [place] [place] [place] [address] Phone [phone] Care Team Providers Care Sql Database Administrator Name Role Phone Alexandra Carrion MD Primary Care Provide r Reason for Visit * Reason Onset Date Comments Test Results 01/01/2024 Encounter Details Date Type Department Care Team (Late st Contact Info) Description 01/01/2024 Telephone Cardiology, [facility] [address] [place] [address] Annita Cooper CRNP [address] [place] [address] Test Results Allergies Active Allergy Reactions Criticality Noted Date Comments Caffeine 05/07/2001 Ephedrine Pseudoephedrine 04/01/2008 documented as of this encounter (statuses as of 01/01/2024) Medications Medication Sig Dispensed Refills Start Date End Date Status Nystatin 354776 UNIT/GM External Powder (Nystop)Indications: Intertrigo Apply topically [...] Hour (toPROL XL)Indications:Coron dirk artery disease involving three affiliated coronary artery of three affiliated heart without angina pectoris,NSVT (nonsustained ventricular tachycardia) (HCC),Dyslipidemia, goal LDL below 70 Take 1.5 Tablets by mouth in the morning. 150 Tablet 3 12/19/2023 Active Aspirin 81 MG Oral Tablet Delayed ReleaseIndications:C oronary artery disease involving three affiliated coronary artery of three affiliated heart without angina pectoris,NSVT (nonsustained ventricular tachycardia) (HCC),Dyslipidemia, goal LDL below 70 Take 1 Tablet by mouth in the morning. 90 Tablet 3 12/19/2023 Active Clopidogrel Bisulfate 75 MG Oral Tablet (pLAVix)Indications: Coronary artery disease involving three affiliated coronary artery of three affiliated heart without angina pectoris,NSVT (nonsustained ventricular tachycardia) [...] as of this encounter (statuses as of 01/01/2024) Active Problems Problem Noted Date Diagnosed Date PSA (psoriatic arthritis) 04/20/2018 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 HTN, goal below 130/80 03/07/2011 Generalized anxiety disorder 04/01/2008 Other acne 04/01/2008 Allergic rhinitis due to pollen 09/08/2004 Adjustment disorder with depressed mood documented as of this encounter (statuses as of 01/01/2024) Resolved Problems Problem Noted Date Diagnosed Date Resolved Date Psoriasis 04/01/2008 10/28/2015 BMI 30.0-30.9,adult 08/23/19 19 documented as of this encounter (statuses as of 01/01/2024) Immunizations Name Administration Dates Next Due Pneumococcal [...] Telephone Encounter - Demetri Hanson LPN - 01/01/2024 1:16 PM EDT Called patient and informed of Megan's message. Patient verbalized understanding. ----- Message from Megan Lee sent at 01/01/2024 12:55 PM EDT ----- Reviewed in coverage of SARA Rahman Please advise patient of the following: Heart monitor shows a predominant normal sinus rhythm. Rare extra beats. 1 episode lasting a total of 9 beats where the heart beat in a fast regular pattern. Annita increased her Metoprolol on day of visit 12/19/23. No further changes to medications at this time. Keep next follow up visit in January. CONCLUSION: Patient had a min HR of 46 bpm, max HR of 176 bpm, and avg HR of 72 bpm. Predominant underlying rhythm was Sinus Rhythm. 1 run of Supraventricular Tachycardia occurred lasting 9 beats with a max rate of 176 bpm (avg 121 bpm). Isolated SVEs were rare (<1.0%), SVE Couplets were rare (<1.0%), and SVE Triplets were rare (<1.0%). Isolated VEs were rare (<1.0%), VE Couplets were rare (<1.0%), and no VE Triplets were present. The patient recorded 15 event markers and 5 diary entries correlating with sinus rhythm with sensedventricular ectopy on 1 occasion No arrhythmias were observed documented in this encounter Plan of Treatment Upcoming Encounters Date Type Department Care Team (Late st Contact Info) Description 01/03/2024 10:00 AM EDT Cardiac Studies Cardiac Studies, [facility] [address] [facility] [place] [address] 01/12/2024 1:30 PM EDT Office Visit Rheumatology [address] [place] [phone] Yareli Burns CRNP [address] [place] [address] 01/19/2024 9:20 AM EDT Office Visit Family Medicine [address] [place] [phone] Alexandra Carrion MD [address] [place] [address] [place] [address] 02/05/2024 10:30 AM EDT Office Visit Cardiology, [facility] [address] [place] [address] Annita Cooper CRNP [address] [place] [address] 05/22/2024 8:40 AM EST Office Visit Dermatology [address] [place] [address] Beatriz Solis PA-C [address] [place] [address] [place] [address] Health Maintenance Due Date Last Done Comments [...] filedocumented as of this encounter Care Teams Sql Database Administrator Relationship Specialty Start Date End Date Alexandra Carrion MD [address] [place] [address] [place] [address] PCP - General Family Medicine 02/17/15 documented as of this encounter
--- OUTSIDE RECORDS SUMMARY | 2024-01-30 21:31 | External Medical Summary | Summary of Care ---
Author Name Unknown Organization [facility] Address [address] [place] [address] Phone [phone] Care Team Providers Care Card Hanger Name Role Phone Dulce Carrion MD Primary Care Provide r Reason for Visit * Reason Comments NEW PATIENT New pt. Here for pso riasis and folliculitis. Pt is currently treating with clobetasol, nystatin powder, triamcinolone ointment clindamycin gel, and Taltz. Pt states she feels the Taltz is effective, but not so much the topicals. * Evaluate & Treat - Unlimited Visits (Within 10 days (routine)) - Pending Review Specialty Diagnoses / Procedures Referred By Jason vail Referred To Contact Dermatology Diagnoses PSA (psoriatic arthritis) (HCC) Pustular psoriasis of palms and soles Dulce Carrion MD [address] [place] [address] [place] [address] Referral ID Status Reason Start Date Expiration Date Visits Requested Visits Authorized [id number] Pending Review Specialty Services Required [phone] Encounter Details Date Type Department Care Team (Late st Contact Info) Description 11/22/2023 10:00 AM EDT Office Visit Dermatology [address] [place] [address] Beatriz Solis PA-C [address] [place] [address] [place] [address] Pustular psoriasis of palms and soles*; Pruritus of genitalia; PSA (psoriatic arthritis) (HCC); Folliculitis; Hidradenitis suppurativa Allergies Active Allergy Reactions Criticality Noted Date Comments Caffeine 05/07/2001 Ephedrine Pseudoephedrine 04/01/2008 documented as of this encounter (statuses as of 11/22/2023) Medications Medication Sig Dispensed Refills Start Date End Date Status Nystatin 959220 UNIT/GM External Powder (Nystop)Indication s:Intertrigo Apply topically to affected area 3 times a day . Apply to groin 60 g 1 09/16/2021 Active Ibuprofen 800 MG Oral Tablet (Motrin)Indication s:PSA (psoriatic arthritis) ([facility]) Take by mouth 0.5 Tablets [...] 0 Active Salicylic Acid 3 % External OintmentIndication s:Pustular psoriasis of palms and soles Apply to psoriasis on hands and feet 2x daily when flaring and lesions are itchy 30 g 3 11/22/2023 Active Clobetasol Propionate 0.05 % External Ointment (Temovate)Indicati ons:Pustular psoriasis of palms and soles To affected area for up to two weeks. 60 g 0 11/22/2023 Active Triamcinolone Acetonide 0.1 % External Cream (Aristocort)Indica tions:Pustular psoriasis of palms and soles Apply to hands and feet as directed or more if itchy instead of scratching 454 g 1 11/22/2023 Active Clindamycin Phosphate 1 % External GelIndications:Fol liculitis,Hidraden itis suppurativa Put 1-2x daily to spots in groin region (2x daily when flared) and only 1x daily to areas to prevent spots when not flared, see printed routine from visit 60 g 2 11/22/2023 Active Clindamycin Phosphate 1 % External GelIndications:Fol [...] instead of scratching 45 g 5 06/06/2023 4 Discontinue d(Medicatio n/Dose Changed) documented as of [...] on file documented as of this encounter Patient Instructions * Patient Instructions* Beatriz Solis PA-C - 11/22/2023 10:08 AM EDT The side effects of chronic topical steroid use were discussed with patient and include but are notlimited to telangiectasia (broken blood vessels), striae (stretch mcdonnell), atrophy (thin skin), purpura (bruising), allergic contact dermatitis, acneiform eruptions and medicine addiction (rebound rash after cessation), cataracts, suppression of the bodys ability to create its own cortisol, weight gain, poor height growth, and high blood sugar. Advocated avoidance of use nears eyes (glaucoma and cataracts) and skin folds (enhanced effect = atrophy) unless otherwise directed. Advised to use the medication only as needed. Our plan will always be to use the lowest potency possible and to use a regimen that employs intermittent rather than constant use of topical steroids. If the rash clears then stop and transition to CERAVE CREAM for maintenance. FOLLICULITIS regimen (for groin area): 1) Complete "bleach baths" 2x weekly 2) Wash prone areas daily with Hibiclens anti-bacterial soap (hot pink liquid-to body, not near eyes or ears, TOXIC to those areas) 3) Clindamycin gel 2x daily to flaring spots and once daily to prone areas when not flaring Swimming pools are chlorinated to help cut-down on microbes living in the water. Together, you willmake your very own swimming pool right in the bathtub! This special water will help cut down on microbes on the skin. STEPS: 1. Start by adding lukewarm water to fill a tub for a normal bath (about 40 gallons). 2. Put 1/2 cup of common liquid bleach (for example, Clorox) into the bath water. Check the bleach bottle to make sure that the concentration of bleach (also known as sodium hypochlorite) is about 6%. 3. Completely mix the added bleach in the water. This should create a solution of diluted bleach (about 0.005%), which is just a little stronger than chlorinated swimming pool water. 4. Soak in the chlorinated water for about 10 minutes. 5. Thoroughly rinse the skin clear with lukewarm, fresh water at the end of the bleach bath. 6. As soon as you're finished rinsing off, pat dry. Do not rub dry as this is the same as scratching! 7. Immediately apply any prescribed medication and/or emollients. 8. Repeat bleach baths as prescribed by Beatriz Solis PA-C. The following restrictions may apply: Can potentially cause dryness and/or irritation. My burn or sting skin if there are multiple breaks/ fissures in skin. Do not use bleach baths in patients with aknown contact allergy to chlorine. documented in this encounter Progress Notes * Lalo Mcdonnell MD - 11/22/2023 1:27 PM EDT I have seen and examined the patient via teledermatology review of chart note and photos with Beatriz Solis PA-C. I have reviewed and agree with the assessment and plan. * Beatriz Solis PA-C - 11/22/2023 9:51 AM EDT SUBJECTIVE: History of Present Illness: Anastacia Zhong is a 48 year old female seen today for follow up of pustulosis/furunculosis. Previous appointment date: 04/11/2018 Last attempted treatments include: furunculosis tx; Hibiclens soap QD, bleach baths BIW, clindamycin gel QD-BID (DCN in past) Clobetasol ointment and triamcinolone ointment for pustulosis, Taltz for psoriatic arthritis (managed by Rheumatology), improved cutaneous lesions by "98%". Using Cerave Psoriasis cream (2% kymberly acid)and like to use that every 2-3 days for lesions and itch, wants to find Rx equivalent. Had tried Humira first without improvement but maybe some resolution of groin issues. Pt. declined full skin exam. REVIEW OF SYSTEMS: SKIN: No other new or changing moles. HEME/LYMPH: No new or enlarging lumps or bumps. CONSTITUTIONAL: No nausea, vomiting, fevers, chills, diarrhea. No recent unintended weight loss, night sweats, appetite or malaise. RESP: negative MSK/EXT: Negative or as per HPI GI: negative CV: Negative or as per HPI Rest of systems are negative or as per HPI SKIN CANCER HX: NONE Reviewed, same day as visit, 0 [facility] Dermatology lab work(s)/pathology report(s) as well as those sent by referring provider prior to seeing pt. MEDICA TIONS: Current Outpatient Medications Medication Sig Dispense Refill Clindamycin Phosphate 1 % External Gel Put 1-2x daily to spots (2x daily when flared) and only 1x daily to areas to prevent spots when not flared 180 g 3 Nystatin 045395 UNIT/GM External Powder (Nystop) Apply topically to [...] loading dose not needed. 1 mL 5 Atorvastatin Calcium 40 MG Oral Tablet (Lipitor) Take 1 Tablet by mouth in the morning. 30 Tablet 5 Aspirin 81 MG Oral Tablet Delayed Release Take 1 Tablet by mouth in the morning. Clopidogrel Bisulfate 75 MG Oral Tablet (pLAVix) Take 1 Tablet by mouth in the morning. Metoprolol Succinate ER 25 MG Oral Tablet Extended Release 24 Hour (toPROL XL) Take 1 Tablet by mouth in the morning. Nicotine 7 MG/24HR Transdermal Patch 24 Hour (Nicoderm CQ) Place 1 Patch topically on the skin daily. hydroCHLOROthiazide 25 MG Oral Tablet (Hydrodiuril) Take 1 Tablet by mouth in the morning. (Patientnot taking: Reported on 11/21/2023) 30 Tablet 11 No current facility-administered medications for this visit. ALLERG IES: Caffeine and Pseudo [pseudoephedrine] OBJECT JOSUE: GEN: alert, no distress, appears oriented, pleasant, and cooperative. SKIN: Detailed exam of abdomen, bilateral hand, bilateral foot, fingernails, toenails, inguinal areas, and groin (mons pubis) completed: 1. Palms and arches of feet bilaterally-Mostly xerosis (well defined on feet), desquamation withoutany current pustules or red-brown shiny papules, on pink base. 2. Lower abdomen/groin-Some resolving and few active erythematous inflammatory papules and no current boggy nodules but 2 sinus tracts present with drainage. ASSESS MENT/PLAN: 1. 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 -Switch from Cerave Psoriasis cream with 3% kymberly acid ointment 1-2x for itch and flaring. -Side effects of steroid medication discussed and treatment regimen written and printed on checkoutsheet. -Continue Taltz through Rheumatology, pt happy with current tx regimen (tried coverage for unit in past) -Will consider home light therapy at next visit if pt is flaring or desires more clearance. 2. Hidradenitis Suppurativa/folliculitis of lower abdomen/groin-Restart hibilcens soap QD, bleach baths BIW, clindamycin gel QD-BID. -Side effects of each medication discussed and treatment regimen written and printed on checkout sheet. Patient alone today. Photo(s) of #1-2 taken, pt verbally consented to having photo(s) taken. Follow-up: 6 months for HS/folliculitis Applicable photos (if any) and chart reviewed by Dr. Lalo Mcdonnell. Presumed diagnoses, expected natural histories, and management options discussed with the patient at length. Questions were addressed and anticipatory guidance provided. They were instructed to contact me if additional questions, concerns, or problems develop in the interim. -There were no barriers to learning and no other pain was related to today's visit. The patient and/or person accompanying patient demonstrates understanding of the visit and treatment. Beatriz Solis PA-C 11/22/2023 9:51 AM Ref: DULCE CARRION[[id number]] [address] [place] [address] [place] [address] (office) [phone] (fax) PCP: DULCE CARRION [address] [place] [address] [place] [address] [phone] documented in this encounter Nursing Notes * Stephany Mijares LPN - 11/22/2023 9:44 AM EDT Patient identified by full name and date of Chief Complaint Patient presents with NEW PATIENT New pt. Here for psoriasis and folliculitis. Pt is currently treating with clobetasol, nystatin powder, triamcinolone ointment clindamycin gel, and Taltz. Pt states she feels the Taltz is effective, but not so much the topicals. documented in this encounter Plan of Treatment Upcoming Encounters Date Type Department Care Team (Late st Contact Info) Description 12/19/2023 3:00 PM EDT Office Visit Cardiology, [facility] [address] [address] Annita Cooper CRNP [address] [place] [address] 01/12/2024 1:30 PM EDT Office Visit Rheumatology [address] [place] [phone] Yareli Burns CRNP [address] [place] [address] [place] [address] 01/19/2024 9:20 AM EDT Office Visit Family Medicine [address] [place] [address] Dulce Carrion MD [address] [place] [address] [place] [address] 05/22/2024 8:40 AM EST Office Visit Dermatology [address] [place] [address] Beatriz Solis PA-C [address] [place] [address] [place] [address] Health Maintenance Due Date Last Done Comments [...] study not interpreted or resulted by a [employer] or [employer] contracted radiologist. Beatriz Solis PA-C RADIOLOGY ([facility]) documented in this encounter Visit Diagnoses Diagnosis Pustular psoriasis of palms and soles- Primary Other psoriasis Pruritus of genitalia Pruritus of genital organs PSA (psoriatic arthritis) (HCC) Psoriatic arthropathy Folliculitis Other specified disease of hair and hair follicles Hidradenitis suppurativa Hidradenitis documented in this encounter Care Teams Card Hanger Relationship Specialty Start Date End Date Dulce Carrion MD [address] [place] [address] [place] [address] PCP - General Family Medicine 02/17/15 documented as of this encounter
--- OUTSIDE RECORDS SUMMARY | 2024-01-30 21:31 | External Medical Summary | Summary of Care ---
Author Name Unknown Organization [facility] Address [address] [facility] [place] [address] Phone [phone] Care Team Providers Care Sanding Machine Operator Or Tender Name Role Phone Alexandra Carrion MD Primary Care Provide r Encounter Details Date Type Department Care Team (Late st Contact Info) Description 11/24/2023 Orders Only PATIENT PORTAL DO NOT DELETE THIS DEPT USED BY [place]OB [id number] Allergies Active Allergy Reactions Criticality Noted Date Comments Caffeine 05/07/2001 Ephedrine Pseudoephedrine 04/01/2008 documented as of this encounter (statuses as of 11/24/2023) Medications Medication Sig Dispensed Refills Start Date End Date Status Nystatin 980264 UNIT/GM External Powder (Nystop)Indications :Intertrigo Apply topically to affected area 3 times a day . Apply to groin 60 g 1 09/16/2021 Active Ibuprofen 800 MG Oral Tablet (Motrin)Indications :PSA (psoriatic arthritis) ([facility]) Take by mouth 0.5 Tablets [...] as of this encounter (statuses as of 11/24/2023) Active Problems Problem Noted Date Diagnosed Date PSA (psoriatic arthritis) 04/20/2018 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 HTN, goal below 130/80 03/07/2011 Generalized anxiety disorder 04/01/2008 Other acne 04/01/2008 Allergic rhinitis due to pollen 09/08/2004 Adjustment disorder with depressed mood documented as of this encounter (statuses as of 11/24/2023) Resolved Problems Problem Noted Date Diagnosed Date Resolved Date Psoriasis 04/01/2008 10/28/2015 BMI 30.0-30.9,adult 08/23/19 19 documented as of this encounter (statuses as of 11/24/2023) Immunizations Name Administration Dates Next Due Pneumococcal [...] 12/19/2023 3:00 PM EDT Office Visit Cardiology, [facility] [address] [place] [address] Annita Cooper CRNP [address] [place] [address] 01/12/2024 1:30 PM EDT Office Visit Rheumatology [address] [place] [phone] Yareli Burns CRNP [facility] [place] [address] 01/19/2024 9:20 AM EDT Office Visit Family Medicine [address] [place] Alexandra Carrion MD [address] [place] [address] [place] [address] 05/22/2024 8:40 AM EST Office Visit Dermatology [address] [place] [address] Beatriz Solis PA-C [address] [place] [address] [place] [address] Health Maintenance Due Date Last Done Comments [...] filedocumented as of this encounter Care Teams Sanding Machine Operator Or Tender Relationship Specialty Start Date End Date Alexandra Carrion MD [address] [place] [address] [place] [id number] PCP - General Family Medicine 02/17/15 documented as of this encounter
--- OUTSIDE RECORDS SUMMARY | 2024-01-30 21:31 | External Medical Summary ---
Author Name Unknown Address Unknown Organization K01:[facility] [place] - [facility] [address] [place] [address] Laboratory Report Ordering Provider Test Date Status FREDRICK SANZ 11/30/2023 08:25:27 Final Observation Date Value Abnormality Reference (Units ) Status WBC, Total 11/30/2023 08:25:27 9.79 4.00-10.80 (K/uL) Final RBC 11/30/2023 08:25:27 4.41 3.85-5.15 (M/uL) Final Hemoglobin 11/30/2023 08:25:27 14.0 12.0-15.3 (g/dL) Final HCT 11/30/2023 08:25:27 41.6 36.0-45.2 (%) Final MCV 11/30/2023 08:25:27 94.3 81.5-97.5 (fL) Final MCH 11/30/2023 08:25:27 31.7 27.0-34.0 (pg) Final MCHC 11/30/2023 08:25:27 33.7 32.0-36.0 (g/dL) Final RDW 11/30/2023 08:25:27 11.9 11.5-15.5 (%) Final Platelets 11/30/2023 08:25:27 321 140-400 (K/uL) Final MPV 11/30/2023 08:25:27 10.3 6.6-11.1 (fL) Final Nucleated erythrocytes/100 leukocytes [Ratio] in Blood by Automated count 11/30/2023 08:25:27 0 <=0 (/100 WBCs) Final Performing Location [facility] [place] - [address] [place] [address]
--- OUTSIDE RECORDS SUMMARY | 2024-01-30 21:31 | External Medical Summary | Summary of Care ---
Author Name Unknown Organization [facility] Address [address] [place] [facility] [place] [address] Phone [phone] Care Team Providers Care Clerical Secretary Name Role Phone Alexandra Carrion MD Primary Care Provide r Reason for Referral * Evaluate & Treat - Unlimited Visits (Within 10 days (routine)) - Pending Review Specialty Diagnoses / Procedures Referred By Jason vail Referred To Contact CARDIAC REHAB / Cardiology Diagnoses Coronary artery disease involving [place] coronary artery of [place] heart without angina pectoris NSVT (nonsustained ventricular tachycardia) (HCC) Dyslipidemia, goal LDL below 70 Annita Cooper CRNP [address] [place] [address] Referral ID Status Reason Start Date Expiration Date Visits Requested Visits Authorized [id number] Pending Review Specialty Services Required 12/19/[phone] Question Answer Referral Priority Within 10 days (routine) Where should this appointment be scheduled? External - [facility] Cardiac Rehabilitation Modality Center Based Cardiac Rehab Only [facility] Identify Cardiac Risk Low to Moderate Risk * Precert (Within 10 days (routine)) - Pending Review Specialty Diagnoses / Procedures Referred By Jason vail Referred To Contact Cardiac Studies Diagnoses Coronary artery disease involving [place] coronary artery of [place] heart without angina pectoris NSVT (nonsustained ventricular tachycardia) (HCC) Dyslipidemia, goal LDL below 70 Procedures ECHO, COMPLETE (2D), TRANS-THORACIC Annita Cooper CRNP [address] [place] [address] Referral ID Status Reason Start Date Expiration Date Visits Requested Visits Authorized [id number] Pending Review Precert 12/19/[phone] Reason for Visit * Reason Comments Follow Up Encounter Details Date Type Department Care Team (Late st Contact Info) Description 12/19/2023 3:00 PM EDT Office Visit Cardiology, [facility] [address] [place] [address] Annita Cooper CRNP [address] [place] [address] Coronary artery disease involving [place] coronary artery of [place] heart without angina pectoris*; NSVT (nonsustained ventricular tachycardia) ([facility]); Dyslipidemia, goal LDL below 70; HTN, goal below 130/80 Allergies Active Allergy Reactions Criticality Noted Date Comments Caffeine 05/07/2001 Ephedrine Pseudoephedrine 04/01/2008 documented as of this encounter (statuses as of 12/19/2023) Medications Medication Sig Dispensed Refills Start Date End Date Status Nystatin 128312 UNIT/GM External Powder (Nystop)Indicatio ns:Intertrigo Apply topically [...] Hour (toPROL XL)Indications:Co ronary artery disease involving [place] coronary artery of [place] heart without angina pectoris,NSVT (nonsustained ventricular tachycardia) (HCC),Dyslipidemi a, goal LDL below 70 Take 1.5 Tablets by mouth in the morning. 150 Tablet 3 4 Active Aspirin 81 MG Oral Tablet Delayed ReleaseIndication s:Coronary artery disease involving [place] coronary artery of [place] heart without angina pectoris,NSVT (nonsustained ventricular tachycardia) (HCC),Dyslipidemi a, goal LDL below 70 Take 1 Tablet by mouth in the morning. 90 Tablet 3 4 Active Clopidogrel Bisulfate 75 MG Oral Tablet (pLAVix)Indicatio ns:Coronary artery disease involving [place] coronary artery of [place] heart without angina pectoris,NSVT (nonsustained ventricular tachycardia) [...] not included. Cardiology Outpatient Visit 12/19/2023 Primary Technical Aide: Keron Beverly Past medical history: Coronary artery [...] Outpatient Medications Medication Sig Dispense Refill Nystatin 088737 UNIT/GM External Powder (Nystop) Apply topically to [...] History: Procedure Laterality Date DENTAL SURGERY PROCEDURE [facility] 2011 Social History Tobacco Use Smoking status: [...] Lab data/imaging study review: Cardiac catheterization at [facility] 11/09/2023 Summary: 1. Multivessel coronary artery disease -95% mid RCA stenosis -70% mid LAD - 45% small distal circumflex 2. Normal intracardiac filling pressure 3. Successful PCI of mid RCA with single drug-eluting stent (2.75 x 22 mm [place]; postdilated with 3.5 NC). 4. Successful PCI of mid LAD with single drug-eluting stent (2.5 x 26 mm Pablo; postdilated with 2.75 NC). Echo at [facility] 11/08/2023 Zio 10/25/2023 Results: Patient had a [...] below diagnoses. 1. Coronary artery disease involving [place] coronary artery of [place] heart without angina pectoris -Status post CHRIS [...] rehab referral placed, to be completed at [facility]. 2. NSVT (nonsustained ventricular tachycardia) (HCC) -History [...] (wearing 14 day zio). Cardiac rehab referral-- [facility] I spent a total of 40 minutes on the date of service in preparation, delivery, and documentation ofthe care provided to Anastacia Zhong excluding any time spent in the performance of separately billed services. SARA Armenta, Department of Cardiology This chart was completed in part utilizing [employer] Speech Voice Recognition Software. Grammatical errors, random [...] stabbing chest pains Chest Pain/SOB: as above [facility] Discussed: Not applicable My [facility] is a way you can talk to [...] Description 12/25/2023 2:30 PM EDT Imaging Radiology [address] [place] [address] 01/12/2024 1:30 PM EDT Office Visit Rheumatology [address] [place] [phone] Yareli Burns CRNP [address] [facility] [place] [address] 01/19/2024 9:20 AM EDT Office Visit Family Medicine [address] [place] [id number] Alexandra Carrion MD [address] [place] [address] [place] [address] 03/05/2024 4:00 PM EDT Cardiac Studies Cardiac Studies, [facility] [address] [place] [address] 05/22/2024 8:40 AM EST Office Visit Dermatology [address] [place] [address] Beatriz Solis PA-C [address] [place] [address] [place] [address] Scheduled Orders Name Type Priority Associated Diagnoses Orde r Schedule LIPID PANEL WITH DIRECT LDL IF TG IS HIGH Lab Routine Coronary artery disease involving [place] coronary artery of [place] heart without angina pectoris NSVT (nonsustained ventricular tachycardia) (HCC) Dyslipidemia, goal LDL below 70 Expected: 01/18/2024, Expires: 12/18/2024 ECHO, COMPLETE (2D), TRANS-THORACIC Echocardiology Routine Coronary artery disease involving [place] coronary artery of [place] heart without angina pectoris NSVT (nonsustained ventricular tachycardia) (HCC) Dyslipidemia, goal LDL below 70 Expected: 12/19/2023 (Approximate), Expires: 01/17/2026 EXTERNAL EKG 8 TO 15 DAYS Holter Routine Coronary artery disease involving [place] coronary artery of [place] heart without angina pectoris NSVT (nonsustained ventricular tachycardia) (HCC) Dyslipidemia, goal LDL below 70 Expected: 12/20/2023 (Approximate), Expires: 12/18/2024 BASIC METABOLIC PANEL Lab Routine Coronary artery disease involving [place] coronary artery of [place] heart without angina pectoris NSVT (nonsustained ventricular tachycardia) (HCC) Dyslipidemia, goal LDL below 70 Expected: 01/18/2024, Expires: 12/18/2024 TSH WITH FREE T4 IF INDICATED Lab Routine Coronary artery disease involving [place] coronary artery of [place] heart without angina pectoris NSVT (nonsustained ventricular tachycardia) ([facility]) Dyslipidemia, goal LDL below 70 Expected: 12/19/2023, Expires: 12/18/2024 CBC WITH WBC DIFFERENTIAL Lab Routine Coronary artery disease involving [place] coronary artery of [place] heart without angina pectoris NSVT (nonsustained ventricular tachycardia) (HCC) Dyslipidemia, goal LDL below 70 Expected: 12/19/2023, Expires: 12/18/2024 EKG COMPLETE (TRACING AND INTERP) EKG Routine Coronary artery disease involving [place] coronary artery of [place] heart without angina pectoris NSVT (nonsustained ventricular tachycardia) (HCC) Dyslipidemia, goal LDL below 70 Ordered: 12/19/2023 Scheduled Referrals Name Type Priority Associated Diagnoses Orde r Schedule CARDIAC REHAB REFERRAL OP Referral Within 10 days (routine) Coronary artery disease involving [place] coronary artery of [place] heart without angina pectoris NSVT (nonsustained ventricular [...] Visit Diagnoses Diagnosis Coronary artery disease involving [place] coronary artery of [place] heart without angina pectoris- Primary NSVT (nonsustained ventricular tachycardia) (HCC) Paroxysmal ventricular tachycardia Dyslipidemia, goal LDL below 70 Other and unspecified hyperlipidemia HTN, goal below 130/80 Unspecified essential hypertension documented in this encounter Care Teams Clerical Secretary Relationship Specialty Start Date End Date Alexandra Carrion MD [address] [place] [address] [place] [id number] PCP - General Family Medicine 02/17/15 documented as of this encounter"
--- OUTSIDE RECORDS SUMMARY | 2024-01-30 21:31 | External Medical Summary ---
Author Name Unknown Address Unknown Organization K01:[facility] [place] - [address] [facility] [place] [address] Laboratory Report Ordering Provider Test Date Status FREDRICK SANZ 11/30/2023 08:25:27 Final Observation Date Value Abnormality Reference (Units ) Status SYNC LEUKOCYTES IN BLOOD BY AUTOMATED COUNT 11/30/2023 08:25:27 9.79 4.00-10.80 (K/uL) Final Segs 11/30/2023 08:25:27 64.3 40.0-75.0 (%) Final Lymphs % 11/30/2023 08:25:27 20.5 18.0-42.0 (%) Final Monos 11/30/2023 08:25:27 9.8 1.0-11.0 (%) Final Eosinophils 11/30/2023 08:25:27 4.5 0.0-6.0 (%) Final Basos 11/30/2023 08:25:27 0.6 0.0-2.0 (%) Final Immature Granulocyte, Percent 11/30/2023 08:25:27 0.3 0.0-2.0 (%) Final Absolute Segs 11/30/2023 08:25:27 6.29 1.80-7.70 (K/uL) Final Lymphs, absolute 11/30/2023 08:25:27 2.01 1.00-4.80 (K/ul) Final Monos, Abs 11/30/2023 08:25:27 0.96 0.00-1.10 (K/uL) Final Eos, Abs 11/30/2023 08:25:27 0.44 0.00-0.70 (K/uL) Final Basos, Abs 11/30/2023 08:25:27 0.06 0.00-0.20 (K/uL) Final Immature Granulocytes, Number 11/30/2023 08:25:27 0.03 0.00-0.20 (K/uL) Final Performing Location [facility] [place] - [facility] [address] [facility] [id number]
--- OUTSIDE RECORDS SUMMARY | 2024-01-30 21:32 | External Medical Summary | Summary of Care ---
Author Name Unknown Organization [facility] Address [address] [place] [place] [address] Phone [phone] Care Team Providers Care Multicut Line Operator Name Role Phone Alexandra Carrion MD Primary Care Provide r Reason for Visit * Reason Comments NEW PATIENT * Evaluate & Treat - Unlimited Visits (Within 10 days (routine)) - Pending Review Specialty Diagnoses / Procedures Referred By Jason vail Referred To Contact Cardiovascular Medicine / Cardiology Diagnoses Chest pain, unspecified type Olesya Sy PA-C [address] [place] [address] [place] [address] Referral ID Status Reason Start Date Expiration Date Visits Requested Visits Authorized [id number] Pending Review Specialty Services Required 10/25/[phone] Encounter Details Date Type Department Care Team (Late st Contact Info) Description 11/21/2023 1:00 PM EDT Office Visit Cardiology, [facility] [address] [place] [address] Adam Beverly, [address] [place] [address] Familial hypercholesterolemia* ; Coronary artery disease involving [place] coronary artery of [place] heart without angina pectoris; S/P primary angioplasty with coronary stent Allergies Active Allergy Reactions Criticality Noted Date Comments Caffeine 05/07/2001 Ephedrine Pseudoephedrine 04/01/2008 documented as of this encounter (statuses as of 11/21/2023) Medications Medication Sig Dispensed Refills Start Date End Date Status Clindamycin Phosphate 1 % External GelIndications:Foll iculitis Put 1-2x daily to spots (2x daily when flared) and only 1x daily to areas to prevent spots when not flared 180 g 3 09/16/2021 Active Nystatin 090270 UNIT/GM External Powder (Nystop)Indications :Intertrigo Apply topically to affected area 3 times a day . Apply to groin 60 g 1 09/16/2021 Active Ibuprofen 800 MG Oral Tablet (Motrin)Indications :PSA (psoriatic arthritis) ([facility]) Take by mouth 0.5 Tablets 2 times a day as needed for Pain, Severe. 100 Tablet 1 09/16/2021 Active Additional Information Patient not taking.Reported on 11/21/2023 Citalopram Hydrobromide 20 MG Oral Tablet (CeleXA) [...] psoriasis of palms and soles,PSA (psoriatic arthritis) ([facility]) Apply topically to affected area 2 times [...] topically on the skin daily. 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 HTN, goal below 130/80 03/07/2011 Generalized anxiety disorder 04/01/2008 Other acne 04/01/2008 Allergic rhinitis due to pollen 09/08/2004 Adjustment disorder with depressed mood documented as of this encounter (statuses as of 11/21/2023) Resolved Problems Problem Noted Date Diagnosed Date Resolved Date Psoriasis 04/01/2008 10/28/2015 BMI 30.0-30.9,adult 08/23/19 19 documented as of this encounter (statuses as of 11/21/2023) Immunizations Name Administration Dates Next Due Pneumococcal [...] Sign Reading Time Taken Comments Blood Pressure 126/70 11/21/2023 12:50 PM EDT Pulse 60 11/21/2023 12:50 PM EDT Temperature - - Respiratory Rate - - Oxygen Saturation - - Inhaled Oxygen Concentration - - Weight 78.9 kg (174 lb) 11/21/2023 12:50 PM EDT Height - - Body Mass Index 28.96 10/25/2023 10:45 AM EDT documented in this encounter Progress Notes * Adam Beverly, DO - 11/21/2023 1:23 PM EDT Cardiology Outpatient Follow-up Anastacia Zhong is a 48 year old female who is seen for follow-up of hospital admission. HPI: This is a 48-year-old female with a history of psoriatic arthritis. Recently she has been experiencing throat discomfort and shortness of breath with associated diaphoresis. She went to [place] where she was evaluated and discharged to outpatient follow-up. She saw her PCP who placed a Zio monitor. The Zio monitor when downloaded revealed a 12 second episode of torsades and the patient was referred to the emergency department. She underwent a cardiac catheterization that showed significant two-vessel coronary artery disease and she received drug-eluting stents in the mid right coronary artery and mid LAD. She was placed on GDM and discharged. She has been doing well at home and has no ongoing cardiac complaints. Her symptoms of throat discomfort and shortness of breath have resolved. This is most likely an angina equivalent. This patient has premature coronary artery disease. This may be the result of systemic inflammation from psoriatic arthritis however, she has a strongfamily history of early heart disease before the age of 60. Her cholesterol has been elevated [id number] and reaches the level for familial hypercholesterolemia. She has not been treated in the past for high cholesterol. Unfortunately, she is a smoker and I counseled her on the need to stop. She benjy nondiabetic. She has primary hypertension. Past Medical History: Diagnosis Date Acne Adjustment disorder with depressed mood Allergic rhinitis due to pollen BMI 30.0-30.9,adult Generalized anxiety disorder HTN, goal below 140/90 Psoriasis Patient Active Problem List Diagnosis Code Allergic rhinitis due to pollen J30.1 Generalized anxiety disorder F41.1 Other acne L70.8 HTN, goal below 130/80 I10 Adjustment disorder with depressed mood F43.21 Pustular psoriasis of palms and soles L40.3 PSA (psoriatic arthritis) (HCC) L40.50 Past Surgical History: Procedure Laterality Date DENTAL SURGERY PROCEDURE NEC 2011 Family History Problem Relation Age of Onset Arthritis Mother RA Other (Other) Brother suicide Heart disease Father Psoriasis Father Other (Other) Father aneurysm at 52 Genitourinary Disorder Grandfather (Paternal) Hypertension Aunt (Unspecified) Lung Disorder Uncle (Unspecified) Mental Disorder Uncle (Unspecified) Musculo-skeletal Disorder Uncle (Unspecified) Neurological Disorder Uncle (Unspecified) Sickle Cell Uncle (Unspecified) Stroke Uncle (Unspecified) Thyroid Disorder Uncle (Unspecified) No Past Hx Uncle (Unspecified) Social History Tobacco Use Smoking status: Every [...] when not flared 180 g 3 Nystatin 813763 UNIT/GM External Powder (Nystop) Apply topically to [...] itchy instead of scratching 45 g 5 Atorvastatin Calcium 40 MG Oral Tablet [...] 1 Patch topically on the skin daily. Ibuprofen 800 MG Oral Tablet (Motrin) Take by mouth 0.5 Tablets 2 times a day as needed for Pain, Severe. (Patient not taking: Reported on 11/21/2023) 100 Tablet 1 Taltz 80 MG/ML Subcutaneous Solution Auto-injector (IxekVidapp) Inject 1 mL under the skin every 4 weeks. Dx code L40.50, loading dose not needed. (Patient not taking: Reported on 10/25/2023) 1 mL 5 hydroCHLOROthiazide 25 MG Oral Tablet (Hydrodiuril) Take 1 Tablet by mouth in the morning. (Patientnot taking: Reported on 11/21/2023) 30 Tablet 11 No current facility-administered medications for this visit. ROS: Review of Systems: See HPI for pertinent positives. All other review of systems is negative. PHYSICAL EXAMINATION BP 126/70 | Pulse 60 | Wt 78.9 kg (174 lb) | BMI 28.96 kg/m | BSA 1.9 m Body mass index is 28.96 kg/m. General: no acute distress and stated age Head: normocephalic, no masses, lesions, tenderness or abnormalities Eyes: conjunctiva are pink and non-injected, sclera clear Neck: supple, no adenopathy, no bruits, normal jugular venous pulse, no hepatojugular reflux Chest: normal shape and normal respiratory effort Lungs: clear to auscultation and percussion Cardiac Exam: - regular rate & rhythm, no murmurs gallops or rubs - normal S1, normal S2 Pulses: 2(+) throughout Abdomen: abdomen soft, non-tender, no abnormal masses and no hepatosplenomegaly Musculoskeletal: no gait disturbance, no joint inflammation, no deforming arthritis Extremities: no edema and no cyanosis Neuro: grossly normal exam Laboratory Data Review: EKG today reveals a normal sinus rhythm and is within normal limits. Impression: 1. Premature coronary artery disease 2. Drug-eluting stents placed mid LAD and mid right coronary artery October 2023 3. Phenotypic for familial hypercholesterolemia 4. Psoriatic arthritis Plan: The patient is clinically stable and will continue her current medications. I have ordered lab workincluding a lipid panel now that she is on atorvastatin. I also ordered a lipoprotein A. The patient has a strong family history of early coronary artery disease and her previous blood cholesterol levels are in the range for familial hypercholesterolemia. I offered genetic testing to her and she accepted. I plan follow-up in about a month to review the labs and to monitor progress. This chart was completed in part utilizing [employer] Speech Voice Recognition Software. Grammatical errors, random word insertions, prounoun errors, and incomplete sentences are an occasional consequence of this system due to software limitations, ambient noise, and hardware issues. Any formal questions or concerns about the content, text, or information contained within the body of this dictation should be directly addressed to the provider for clarification. I spent a total of 40-54 minutes (exact time 43 mins) on the date of service in preparation, delivery, and documentation of the care provided to Anastacia Zhong excluding any time spent in the performance of separately billed services. Adam Beverly DO [place] [id number] 11/21/2023 documented in this encounter Nursing Notes * Burak Silva RN - 11/21/2023 12:46 PM EDT Examination Room: room 16 Name: Anastacia Zhong Date of : (1975). Reason for Visit: for new patient Interim Hospitalization(s): yes 11/08/2023 at [facility] had cardiac cath by Dr. Finney CHRIS X2 Problems/Concerns: denies Chest Pain/SOB: denies [facility] Discussed: Not applicable [facility] is a way you can talk to [...] 10:00 AM EDT Office Visit Dermatology [address] [place] [address] Beatriz Solis PA-C [address] [place] [address] [place] [address] 11/22/2023 12:20 PM EDT Office Visit Family Medicine [address] [place] [phone] Olesya Sy PA-C [address] [place] [address] [place] [address] 12/19/2023 3:00 PM EDT Office Visit Cardiology, [facility] [address] [place] [address] Annita Cooper CRNP [address] [place] [address] 01/12/2024 1:30 PM EDT Office Visit Rheumatology [address] [place] [phone] Yareli Burns CRNP [address] [place] [address] [place] [address] 01/19/2024 9:20 AM EDT Office Visit [place] [place] [phone] Alexandra Carrion MD [address] [place] [address] [place] [address] Scheduled Orders Name Type Priority Associated Diagnoses Orde r Schedule EKG COMPLETE (TRACING AND INTERP) EKG Routine Coronary artery disease involving [place] coronary artery of [place] heart without angina pectoris S/P primary angioplasty with coronary stent Ordered: 11/21/2023 FAMILIAL HYPERCHOLESTEROLEMIA PANEL, INVITAE Lab Routine Coronary artery disease involving [place] coronary artery of [place] heart without angina pectoris S/P primary angioplasty with coronary stent Familial hypercholesterolemia Expected: 11/21/2023, Expires: 11/20/2024 LIPID PANEL WITH DIRECT LDL IF TG IS HIGH Lab Routine Coronary artery disease involving [place] coronary artery of [place] heart without angina pectoris S/P primary angioplasty with coronary stent Familial hypercholesterolemia Expected: 11/21/2023, Expires: 11/20/2024 LIPOPROTEIN (A) Lab Routine Coronary artery disease involving [place] coronary artery of [place] heart without angina pectoris S/P primary angioplasty with coronary stent Familial hypercholesterolemia Expected: 11/21/2023, Expires: 11/20/2024 Health Maintenance Due Date Last Done Comments [...] Diagnoses Diagnosis Familial hypercholesterolemia- Primary Pure hypercholesterolemia Coronary artery disease involving [place] coronary artery of [place] heart without angina pectoris S/P primary angioplasty with coronary stent Postsurgical percutaneous transluminal coronary angioplasty status documented in this encounter Care Teams Multicut Line Operator Relationship Specialty Start Date End Date Alexandra Carrion MD [address] [place] [address] [place] [address] PCP - General Family Medicine 02/17/15 documented as of this encounter"
--- OUTSIDE RECORDS SUMMARY | 2024-01-30 21:32 | External Medical Summary | Summary of Care ---
Author Name Unknown Organization [facility] Address [address] [place] [place] [place] [address] Phone [phone] Care Team Providers Care Roving Technician Name Role Phone Alexandra Carrion MD Primary Care Provide r Reason for Visit * Reason Onset Date Comments Order Request 11/22/2023 Encounter Details Date Type Department Care Team (Late st Contact Info) Description 11/22/2023 Telephone Family Medicine [address] [phone] Olesya yS PA-C [address] [place] [address] [place] [address] Order Request Allergies Active Allergy Reactions Criticality Noted [...] flared 180 g 3 09/16/2021 Active Nystatin 663076 UNIT/GM External Powder (Nystop)Indications :Intertrigo Apply topically [...] of palms and soles,PSA (psoriatic arthritis) ([facility]) Apply topically to affected area 2 [...] encounter Miscellaneous Notes * Telephone Encounter - Merle Benedict OSA - 11/22/2023 7:50 AM EDT Anastacia would like a mammogram order placed. Please advise. documented in this encounter Plan of Treatment Upcoming Encounters Date Type Department Care Team (Late st Contact Info) Description 11/22/2023 10:00 AM EDT Office Visit Dermatology [address] [place] [address] Beatriz Solis PA-C [address] [place] [address] [place] [address] 12/19/2023 3:00 PM EDT Office Visit Cardiology, [facility] [address] [place] [address] Annita Cooper CRNP [address] [place] [address] 01/12/2024 1:30 PM EDT Office Visit Rheumatology [address] [place] [address] Yareli Burns CRNP [address] [facility] [place] [address] 01/19/2024 9:20 AM EDT Office Visit Family Medicine [address] [place] [phone] Alexandra Carrion MD [address] [place] [address] [place] [address] Scheduled Orders Name Type Priority Associated Diagnoses [...] Primary documented in this encounter Care Teams Roving Technician Relationship Specialty Start Date End Date Alexandra Carrion MD [address] [place] [address] [place] [address] PCP - General Family Medicine 02/17/15 documented as of this encounter
--- OUTSIDE RECORDS SUMMARY | 2024-01-30 21:32 | External Medical Summary | Summary of Care ---
Author Name Unknown Organization [facility] [address] [facility] [address] Phone [phone] Care Team Providers Care Mine Boss Name Role Phone Alexandra Carrion MD Primary Care Provide r Reason for Visit * Reason Onset Date Comments Follow Up 11/11/2023 Encounter Details Date Type Department Care Team (Late st Contact Info) Description 11/11/2023 Telephone [facility] Cardiology [address] [place] [address] Jesus Villanueva, DO [address] [place] [address] Follow Up Allergies Active Allergy Reactions Criticality Noted Date Comments Caffeine 05/07/2001 Ephedrine Pseudoephedrine 04/01/2008 documented as of this encounter (statuses as of 11/14/2023) Medications Medication Sig Dispensed Refills Start Date End Date Status Clindamycin Phosphate 1 % External GelIndications:Foll iculitis Put 1-2x daily to spots (2x daily when flared) and only 1x daily to areas to prevent spots when not flared 180 g 3 09/16/2021 Active Nystatin 007855 UNIT/GM External Powder (Nystop)Indications :Intertrigo Apply topically [...] as of this encounter (statuses as of 11/14/2023) Active Problems Problem Noted Date Diagnosed Date PSA (psoriatic arthritis) 04/20/2018 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 HTN, goal below 130/80 03/07/2011 Generalized anxiety disorder 04/01/2008 Other acne 04/01/2008 Allergic rhinitis due to pollen 09/08/2004 Adjustment disorder with depressed mood documented as of this encounter (statuses as of 11/14/2023) Resolved Problems Problem Noted Date Diagnosed Date Resolved Date Psoriasis 04/01/2008 10/28/2015 BMI 30.0-30.9,adult 08/23/19 19 documented as of this encounter (statuses as of 11/14/2023) Immunizations Name Administration Dates Next Due Pneumococcal [...] 11/21/2023 1:00 PM EDT Office Visit [facility], [facility] [place] [address] Adam Beverly, [address] [place] [address] 11/22/2023 10:00 AM EDT Office Visit Dermatology [address] [place] [address] Beatriz Solis PA-C [address] [place] [address] [place] [address] 11/22/2023 12:20 PM EDT Office Visit Family Medicine [address] [place] [phone] Olesya Sy PA-C [address] [place] [address] [place] [address] 01/12/2024 1:30 PM EDT Office Visit Rheumatology [address] [place] [phone] Yareli Burns, SARA [address] [facility] [place] [address] 01/19/2024 9:20 AM EDT Office Visit Family Medicine [address] [place] [phone] Alexandra Carrion MD [address] [place] [address] [place] [address] Health Maintenance Due Date Last Done Comments [...] filedocumented as of this encounter Care Teams Mine Boss Relationship Specialty Start Date End Date Alexandra Carrion MD [address] [place] [address] [place] [address] PCP - General Family Medicine 02/17/15 documented as of this encounter
--- OUTSIDE RECORDS SUMMARY | 2024-01-30 21:32 | External Medical Summary | Summary of Care ---
Author Name Unknown Organization [facility] Address [address] [facility] [place] [address] Phone [phone] Care Team Providers Care Internal Audit Manager Name Role Phone Alexandra Carrion MD Primary Care Provide r Reason for Visit * Reason Onset Date Comments Hospital Follow-Up 11/13/2023 [facility] for [facility] Encounter Details Date Type Department Care Team (Late st Contact Info) Description 11/13/2023 Telephone [address] [place] [phone] Leeanna Gunderson RN Hospital Follow-Up ([facility] for [facility]) Allergies Active Allergy Reactions Criticality Noted Date Comments Caffeine 05/07/2001 Ephedrine Pseudoephedrine 04/01/2008 documented as of this encounter (statuses as of 11/13/2023) Medications Medication Sig Dispensed Refills Start Date End Date Status Clindamycin Phosphate 1 % External GelIndications:Foll iculitis Put 1-2x daily to spots (2x daily when flared) and only 1x daily to areas to prevent spots when not flared 180 g 3 09/16/2021 Active Nystatin 711839 UNIT/GM External Powder (Nystop)Indications :Intertrigo Apply topically [...] the morning. 30 Tablet 11 10/25/2023 Active Atorvastatin Calcium 40 MG Oral Tablet (Lipitor) Take 1 Tablet by mouth in the morning. 30 Tablet 5 11/13/2023 Active documented as of this encounter (statuses as of 11/13/2023) Active Problems Problem Noted Date Diagnosed Date PSA (psoriatic arthritis) 04/20/2018 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 HTN, goal below 130/80 03/07/2011 Generalized anxiety disorder 04/01/2008 Other acne 04/01/2008 Allergic rhinitis due to pollen 09/08/2004 Adjustment disorder with depressed mood documented as of this encounter (statuses as of 11/13/2023) Resolved Problems Problem Noted Date Diagnosed Date Resolved Date Psoriasis 04/01/2008 10/28/2015 BMI 30.0-30.9,adult 08/23/19 19 documented as of this encounter (statuses as of 11/13/2023) Immunizations Name Administration Dates Next Due Pneumococcal [...] encounter Miscellaneous Notes * Telephone Encounter - Leeanna Gunderson RN - 11/13/2023 2:49 PM EDT Transitions of Care Note Reason for Referral:Recent Admission Phone visit for follow up: diamond Admitted to: [facility], Date: 11.08.23 Discharged to: home, Date: 11.11.23 Diagnosis driving hospitalization: Unstable angina status post cardiac cath and PCI with CHRIS x 1 mid RCA and mid LAD, nonsustained V. tach, hypertension Operation Date: 11/09/23 11:00 Actual Procedures p Cath, Left with Cors and Vent - David Finney MD s Cineradiography w/Routine Exam - David Finney MD p Drug Eluting Stent SGl Vessel - David Finney MD Source/Contact: Patient SUBJECTIVE Consent: Verbal consent for review of hospital discharge: Yes REVIEW OF SYSTEMS Patient/Other Reports: Current patient/caregiver problems or concerns: small little "pimple" smaller than a pencil eraser on right wrist, patient denies any bleeding or drainage CV: Denies problems Pulmonary: Denies problems Chills/Sweats/Fever:Denies chills/sweats Denies fever Appetite:Denies problems such as nausea, vomiting, burning, decreased appetite Current diet: reg Bowel: denies problems Bladder: denies problems Wound (If applicable): Site-very small red pimple, area is "itchy" Pain:Denies Sleep:Denies problems FUNCTIONAL STATUS: ADL'S: Needs Assistance With:N/A as pt is independent IADL'S: Needs Assistance With:N/A as pt is independent Cognitive and Mental Health: denies problems, alert and oriented x 3, and able to communicate, understand instructions, process information. MEDICATION RECONCILIATION Medications: Discharge med list reviewed with patient , I sent a message to [facility] patient only receive #3 pills of the atorvastatin, appointment with cardiology is 11/20 and with Olesya is 11/21 New atorvastatin 40 mg Tablet 40 mg PO QAM Qty: 3 0RF clopidogrel 75 mg Tablet 75 mg PO QAM Qty: 30 0RF aspirin 81 mg Tablet,Delayed Release (Dr/Ec) 81 mg PO QAM Qty: 30 0RF metoprolol succinate 25 mg Tablet Extended Release 24 Hr 25 mg PO QAM Qty: 30 0RF nicotine 7 mg/24 hr Patch 24 Hour 1 patch transdermal QAM Qty: 30 0RF Held Taltz Syringe 80 mg/mL Syringe 80 mg SUBCUT Q4WK Hold Instructions: Resume on 11/25/23. Do not start for 2 weeks and or as advised by customer operations manager Discontinued hydrochlorothiazide 25 mg tablet 25 mg PO QAM OBJECTIVE ASSESSMENT Medication Risk Assessment: needs prescription filled Did patient fail outpatient treatment? Yes, patient was advised by PCP to go from home to hosp Discharge instructions available for review? Yes PLAN Symptom Monitoring Interventions:Member/caregiver education - signs and symptoms to contact PrimaryCare (DO NOT DELETE-Three james symptoms patient is to report to PCP) 1. Chest pain 2. sob 3. If right wrist cath site, increases in redness or any bleeding or drainage. Salesforce AdministratorClient Service Executive of Care interventions/Action Plan: Patient offered sooner appointment with Dr. Rawls, patient cx seeing cardiology 11/20 and keeping ret appointment 11/21 with Olesya Educated on role of DIAMOND completed with patient/caregiver. Educated patient/caregiver on patient right to have input on DIAMOND plan of care. Verification of Home Health/DME if indicated: NO Identified Care Gaps: Yes Care Gaps closed this call: Transition of Care follow-up communication Re-evaluation of Plan of Care and progress towards goals achievement: Patient education this visit: Verbal, patient to make sure wrist does not get worse, offered same day appointment, but patient unable to come do to vet appointment. Aspirin 81 mg daily for lifelong and Plavix 75 mg daily for 1 year at least Do not restart your antirheumatic medication for at least 2 weeks Hydrochlorothiazide has been stopped I did see Dr. Carrion sent a prescription to pharmacy today for the atorvastatin. Leave message for patient on her VM Plan to follow-up as previously scheduled, instructed to call Primary Care Provider with change in symptoms or as needed before next follow-up, verbalizes understanding and agrees with plan. Leeanna Gunderson RN documented in this encounter Plan of Treatment Upcoming Encounters Date Type Department Care Team (Late st Contact Info) Description 11/21/2023 1:00 PM EDT Office Visit Cardiology, [facility] [address] [place] [address] Adam Beverly, [address] [place] [address] 11/22/2023 10:00 AM EDT Office Visit Dermatology [address] [place] [address] Beatriz Solis PA-C [address] [place] [address] [place] [address] 11/22/2023 12:20 PM EDT Office Visit Family Medicine [address] [place] [phone] Olesya Sy PA-C [address] [place] [address] [place] [address] 01/12/2024 1:30 PM EDT Office Visit Rheumatology [address] [place] [phone] Yareli Burns CRNP [facility] [place] [address] 01/19/2024 9:20 AM EDT Office Visit Family Medicine [address] [place] [phone] Alexandra Carrion MD [address] [place] [address] [place] [address] Health Maintenance Due Date Last Done Comments [...] filedocumented as of this encounter Care Teams Internal Audit Manager Relationship Specialty Start Date End Date Alexandra Carrion MD [address] [place] [address] [place] [address] PCP - General Family Medicine 02/17/15 documented as of this encounter
--- OUTSIDE RECORDS SUMMARY | 2024-01-30 21:32 | External Medical Summary | Summary of Care ---
Author Name Unknown Organization [facility] Address [address] [facility] [place] [address] Phone [phone] Care Team Providers Care Head Of Housekeeping Name Role Phone Alexandra Carrion MD Primary Care Provide r Encounter Details Date Type Department Care Team (Late st Contact Info) Description 11/09/2023 Result Scan Unspecified Department <No scans attached> [...] flared 180 g 3 09/16/2021 Active Nystatin 223964 UNIT/GM External Powder (Nystop)Indications :Intertrigo Apply topically [...] palms and soles,PSA (psoriatic arthritis) ([facility]) Apply topically to affected area 2 times [...] 11/21/2023 1:00 PM EDT Office Visit Cardiology, [facility] [address] [place] [address] Adam Beverly DO [address] [place] [address] 11/22/2023 10:00 AM EDT Office Visit Dermatology [address] [place] [address] Beatriz Solis PA-C [address] [place] [address] [place] [address] 11/22/2023 12:20 PM EDT Office Visit Family Medicine [address] [place] [phone] Olesya Sy PA-C [address] [place] [address] [place] [address] 01/12/2024 1:30 PM EDT Office Visit Rheumatology [address] [place] [phone] Yareli Burns CRNP [address] [place] [address] 01/19/2024 9:20 AM EDT Office Visit Family Medicine [address] [place] [phone] Alexandra Carrion MD [address] [place] [address] [place] [address] Health Maintenance Due Date Last Done Comments [...] Procedure Name Priority Date/Time Associated Diagnosis Comments CARDIAC CATH SCANNED RESULT 11/09/2023 documented in this encounter Results * CARDIAC CATH SCANNED RESULT (11/09/2023) 11/09/2023 No Physician Data Unknown CARD CATH documented in this encounter Care Teams Head Of Housekeeping Relationship Specialty Start Date End Date Alexandra Carrion MD [address] [place] [address] [place] [id number] PCP - General Family Medicine 02/17/15 documented as of this encounter
--- OUTSIDE RECORDS SUMMARY | 2024-01-30 21:32 | External Medical Summary | Summary of Care ---
Author Name Unknown Organization [facility] Address [address] [facility] [place] [address] Phone [phone] Care Team Providers Care Apparel Embroidery Digitizer Name Role Phone Dulce Carrion MD Primary [...] of palms and soles Dulce Carrion MD [address] [place] [address] [place] [address] Referral ID Status Reason Start Date Expiration Date Visits Requested Visits Authorized [id number] Pending Review Specialty Services Required [phone] Encounter Details Date Type Department Care Team (Late st Contact Info) Description 11/22/2023 10:00 AM EDT Office Visit Dermatology [address] [place] [address] Beatriz Solis PA-C [address] [place] [address] [place] [address] Pustular psoriasis of palms and soles*; Pruritus of genitalia; PSA (psoriatic arthritis) (HCC); Folliculitis; Hidradenitis suppurativa Allergies Active Allergy Reactions Criticality Noted Date Comments Caffeine 05/07/2001 Ephedrine Pseudoephedrine 04/01/2008 documented as of this encounter (statuses as of 11/22/2023) Medications Medication Sig Dispensed Refills Start Date End Date Status Nystatin 502840 UNIT/GM External Powder (Nystop)Indication s:Intertrigo Apply topically [...] medication only as needed. Our plan will alwaysbe to use the lowest potency possible and [...] documented in this encounter Progress Notes * Beatriz Solis PA-C - 11/22/2023 9:51 [...] NONE Reviewed, same day as visit, 0 [facility] Dermatology lab work(s)/pathology report(s) as well as those sent by referring provider prior to seeing pt. MEDICA TIONS: Current Outpatient Medications Medication Sig Dispense Refill Clindamycin Phosphate 1 % External Gel Put 1-2x daily to spots (2x daily when flared) and only 1x daily to areas to prevent spots when not flared 180 g 3 Nystatin 722391 UNIT/GM External Powder (Nystop) Apply topically to [...] Solis PA-C 11/22/2023 9:51 AM Ref: DULCE CARRION[[id number]] [address] [place] [address] [place] [address] (office) [phone] (fax) PCP: DULCE CARRION [address] [place] [address] [place] [address] [phone] documented in this encounter Nursing Notes * [...] 3:00 PM EDT Office Visit Cardiology, [facility] [place] [address] Annita Cooper CRNP [address] [place] [address] 01/12/2024 1:30 PM EDT Office Visit Rheumatology [address] [place] [phone] Yareli Burns CRNP [address] [place] [address] [place] [address] 01/19/2024 9:20 AM EDT Office Visit Family Medicine [address] [place] [phone] Dulce Carrion MD [address] [place] [address] [place] [address] 05/22/2024 8:40 AM EST Office Visit Dermatology [address] [place] [address] Beatriz Solis PA-C [address] [place] [address] [place] [address] Health Maintenance Due Date Last Done Comments [...] study not interpreted or resulted by a [employer] or [employer] contracted radiologist. Beatriz Solis PA-C RADIOLOGY ([facility]) documented in this encounter Visit Diagnoses Diagnosis Pustular psoriasis of palms and soles- Primary Other psoriasis Pruritus of genitalia Pruritus of genital organs PSA (psoriatic arthritis) (HCC) Psoriatic arthropathy Folliculitis Other specified disease of hair and hair follicles Hidradenitis suppurativa Hidradenitis documented in this encounter Care Teams Apparel Embroidery Digitizer Relationship Specialty Start Date End Date Dulce Carrion MD [address] [place] [address] [place] [id number] PCP - General Family Medicine 02/17/15 documented as of this encounter
--- OUTSIDE RECORDS SUMMARY | 2024-01-30 21:32 | External Medical Summary | Summary of Care ---
Author Name Unknown Organization [facility] Address [address] [place] [facility] [place] [place] [address] Phone [phone] Care Team Providers Care Electric Meter Inspector Name Role Phone Alexandra Carrion MD Primary Care Provide r Reason for Visit * Reason Onset Date Comments Appointment 11/22/2023 Return 6 months for psoriasis/HS/folliculitis. Encounter Details Date Type Department Care Team (Late st Contact Info) Description 11/22/2023 Tele[address] [place] [address] Beatriz oSlis PA-C [address] [place] [address] [place] [address] Appointment (Return 6 months for psoriasis... Allergies Active Allergy Reactions Criticality Noted Date Comments Caffeine 05/07/2001 Ephedrine Pseudoephedrine 04/01/2008 documented as of this encounter (statuses as of 11/22/2023) Medications Medication Sig Dispensed Refills Start Date End Date Status Nystatin 433075 UNIT/GM External Powder (Nystop)Indications :Intertrigo Apply topically [...] encounter Miscellaneous Notes * Telephone Encounter - Raul Floyd OSA - 11/22/2023 11:44 AM EDT I mailed appt to pt. * Telephone Encounter - Chantal Escamilla LPN - 11/22/2023 10:25 AM EDT Monday at 8:40 AM * Telephone Encounter - Raul Floyd OSA - 11/22/2023 10:13 AM EDT Nothing avail. Please schedule pt and I will mail to her. Thank you. documented in this encounter Plan of Treatment Upcoming Encounters Date Type Department Care Team (Late st Contact Info) Description 12/19/2023 3:00 PM EDT [facility] [place] [address] Annita Cooper CRNP [address] [place] [address] 01/12/2024 1:30 PM EDT Office Visit Rheumatology [address] [place] [phone] Yareli Burns CRNP [address] [facility] [place] [address] 01/19/2024 9:20 AM EDT Office Visit Family Medicine [address] [place] [address] Alexandra Carrion MD [address] [place] [address] [place] [address] 05/22/2024 8:40 AM EST Office Visit Dermatology [address] [place] [address] Beatriz Solis PA-C [address] [place] [address] [place] [address] Health Maintenance Due Date Last Done Comments [...] filedocumented as of this encounter Care Teams Electric Meter Inspector Relationship Specialty Start Date End Date Alexandra Carrion MD [address] [place] [address] [place] [id number] PCP - General Family Medicine 02/17/15 documented as of this encounter
--- OUTSIDE RECORDS SUMMARY | 2024-01-30 21:32 | External Medical Summary | Summary of Care ---
Author Name Unknown Organization [facility] Address [address] [place] [address] Phone [phone] Care Team Providers Care Regional Marketing Director Name Role Phone Alexandra Carrion MD Primary Care Provide r Reason for Visit * Reason Onset Date Comments Med Request 11/13/2023 Encounter Details Date Type Department Care Team (Late st Contact Info) Description 11/13/2023 Telephone Family [address] [phone] Alexandra Carrion MD [address] [place] [address] [place] [id number] Med Request Allergies Active Allergy Reactions Criticality [...] flared 180 g 3 09/16/2021 Active Nystatin [id number] UNIT/GM External Powder (Nystop)Indication s:Intertrigo Apply topically [...] Additional Information Patient not taking.Reported on 10/25/2023 hydroCHLOROthiazid e 25 MG Oral Tablet (Hydrodiuril)Indic ations:HTN, goal below 130/80 Take 1 Tablet by mouth in the morning. 30 Tablet 11 10/25/2023 Active Atorvastatin Calcium 40 MG Oral Tablet (Lipitor) Take 1 Tablet by mouth in the morning. 30 Tablet 5 11/13/2023 Active Atorvastatin Calcium 40 MG Oral Tablet (Lipitor) Take 1 Tablet by mouth in the morning. 0 11/11/2023 Discontinue d(Refill) documented as of this encounter [...] encounter Miscellaneous Notes * Telephone Encounter - Alexandra Carrion MD - 11/13/2023 1:44 PM EDT Sent to pharm * Telephone Encounter - Tatum Arellano LPN - 11/13/2023 1:12 PM EDT She has an lisa with [facility] on 11/21. Ok for Rx? * Telephone Encounter - Stefanie Lemus OSA - 11/13/2023 9:08 AM EDT Patient calling in stating just released from hospital ([facility]) on 11/11, was given new meds onnew med Artovistatin 40mg was only given 3 pills with no refills. documented in this encounter Plan of Treatment Upcoming Encounters Date Type Department Care Team (Late st Contact Info) Description 11/21/2023 1:00 PM EDT Office Visit Cardiology, [facility] [address] [place] [phone] Adam Beverly DO [address] [place] [id number] 11/22/2023 10:00 AM EDT Office Visit Dermatology [address] [place] [address] Beatriz Solis PA-C [address] [place] [address] [place] [id number] 11/22/2023 12:20 PM EDT Office Visit Family Medicine [address] [place] [phone] Olesya Sy PA-C [address] [place] [address] [place] [id number] 01/12/2024 1:30 PM EDT Office Visit Rheumatology [address] [place] [phone] Yareli Burns CRNP [address] [place] [address] [place] [address] 01/19/2024 9:20 AM EDT Office Visit Family Medicine [address] [place] [phone] Alexandra Carrion MD [address] [place] [address] [place] [address] Health Maintenance Due Date Last Done Comments [...] filedocumented as of this encounter Care Teams Regional Marketing Director Relationship Specialty Start Date End Date Alexandra Carrion MD [address] [place] [address] [place] [phone] PCP - General Family Medicine 02/17/15 documented as of this encounter
[2024-01-31 06:13] LABS: Basophils # (auto) 0.04 K/uL (0.00-0.20); Basophils % (auto) 0.4 %; Eosinophils # (auto) 0.39 K/uL (0.00-0.50); Eosinophils % (auto) 4.1 %; Hematocrit (blood only) 42.2 % (37.0-47.0); Hemoglobin 14.1 g/dl (12.0-16.0); Immature Granulocytes # (auto) 0.04 K/uL (0.01-0.20); Immature Granulocytes % (auto) 0.4 %; Lymphocytes # (auto) 2.55 K/uL (1.20-3.40); Lymphocytes % (auto) 26.7 %; Mean Corpuscular Hemoglobin 31.4 pg (25.0-34.0); Mean Corpuscular Hgb Conc 33.4 g/dL (32.0-36.0); Mean Platelet Volume 10.2 fL (9.4-12.4); Monocytes # (auto) 0.81 K/uL (0.11-0.59); Monocytes % (auto) 8.5 %; Neutrophils # (auto) 5.73 K/uL (1.40-6.50); Neutrophils % (auto) 59.9 %; Platelet Count 253 K/uL (130-400); RDW Coefficient of Variation 12.3 % (11.5-14.5); RDW Standard Deviation 42.6 fL (36.4-46.3); Red Blood Count 4.49 M/uL (4.20-5.40); White Blood Count 9.56 K/ul (4.8-10.8)
[2024-01-31 06:28] LABS: BUN Creatinine Ratio 14.7 (10-20); Calcium 9.3 mg/dl (8.6-10.3); Est GFR (African American) 120.7 ml/min; Est GFR (Non-African American) 104.2 ml/min; Potassium 4.3 mmol/L (3.5-5.1)
--- NOTE | 2024-01-31 07:16 | Hospitalist Progress Note ---
Date of Service January 31, 2024 Assessment & Plan (1) Chest pain: (2) CAD (coronary artery disease): (3) Familial hypercholesteremia: (4) History of ventricular tachycardia: Plan: 48 year old female with history of CAD, s/p PCI to RCA and LAD last October of this year, NSVT, HTN, Familial Hypercholesterolemia, presenting with chest pain today. CHEST PAIN R/O ACUTE CORONARY SYNDROME HISTORY OF CAD, S/P PCI TO RCA AND LAD APRL 2023 NON SUSTAINED V TACH FAMILIAL HYPERCHOLESTEROLEMIA resolved with Ativan given by EMS, did not receive Nitro chest pain free at the ER trop x 1 negative, trop x 2 pending EKG no signs of acute ischemia/infarct Echo ordered continue ASA, Plavix, Metoprolol, Lisinopril, Atorvastatin, Ezetimibe HYPERTENSION continue above meds PSORIASIS medication - Taltz- on hold SMOKING HISTORY Nicotine Full Code Disposition admit to PCU lives at home Admission and Anticipated Discharge Date Admission Date: January 30, 2024 Results & Data Results & Data Vital Signs (Past 12 Hours) Vital Signs Temp Pulse Pulse Resp BP Pulse Ox O2 Del Method 01/30/24 23:09 58 L 01/30/24 22:21 36.6 C 60 20 122/97 98 Room Air 01/30/24 21:29 Room Air (1) Chest pain Chest pain type: unspecified Qualified Code(s): R07.9 - Chest pain, unspecified
[2024-01-31] MEDS: CLOPIDOGREL BISULFATE 75 MG TAB PO SCH (08:26)
[2024-01-31] MEDS: ATORVASTATIN 40 MG TAB PO SCH (08:26)
[2024-01-31] MEDS: ASPIRIN 81 MG ECTAB PO SCH (08:26)
[2024-01-31] MEDS: CITALOPRAM 20 MG TAB PO SCH (08:26)
[2024-01-31] MEDS: lisinopril 40 MG TAB PO SCH (08:27)
[2024-01-31] MEDS: METOPROLOL SUCC 25MG EXT REL TAB PO SCH (08:27)
[2024-01-31] MEDS ORDERED: NICOTINE 14 MG/24 HR PATCH TD SCH (09:00)
--- NOTE | 2024-01-31 09:56 | Cardiology Progress Note ---
Date of Service January 31, 2024 Assessment & Plan (1) Heart palpitations: (2) History of ventricular tachycardia: (3) CAD (coronary artery disease): (4) Chest pain: (5) Hypertension: Plan Assessment: 48 year old female with atypical anginal equivalent in the past presents with episode of intense palpitations and pre-syncopal symptoms. Carries a strong family history of premature CAD with herself receiving drug-eluting stent to the mid LAD, drug-eluting stent to the right coronary artery October,. Plan: The patient's second troponin trended up minimally to 16.4 PG per mL (upper limit of normal is 14 PG per mL), and is trended down again in the meantime. No arrhythmias noted on telemetry. EKG performed this morning 01/31/2024 at 5:57 AM revealed sinus bradycardia 53 bpm, normal QT interval of 444 ms, normal EKG. Resting echocardiogram with normal LVEF, normal wall motion. Patient went on to have an exercise stress echocardiogram this morning supervised in person by the undersigned. Patient exercised into stage II of Leland protocol. Exercise test was terminated due to fatigue with no symptoms suggestive of angina reported. Heart rate response to exercise was appropriately attenuated due to metoprolol therapy. Stress EKG and echocardiogram negative for ischemia. Most recent lipid panel performed as an outpatient in December, included LDL level of 68 mg/dL. Recommend increasing metoprolol succinate from 37.5 mg 1 time per day to 25 mg twice daily. Next dose due this evening. Proceed with 2-week Zio patch monitor.Already had cardiology follow up scheduled for 02/05/24 and pt should keep this appointment. I have placed order for the Zio patch which can be placed during office visit or sooner depending on pt preference. Office will call her. Continue remaining [employer] medications, including aspirin, clopidogrel, atorvastatin, lisinopril, ezetimibe. Admission and Anticipated Discharge Date Admission Date: January 30, 2024 Subjective Patient seen in cardiology follow-up prior to and then again during and after exercise stress echocardiogram. Had 1 brief episode last night where she felt like she may have an episode of palpitations, but then it stopped spontaneously. No arrhythmias were noted on telemetry. Sinus rhythm in the 60s noted. Review of Systems Review of Systems: All systems reviewed & are unremarkable except as noted in HPI & below Physical Exam Constitutional: WD/WN, vitals as above Eyes: PERRL, conjunctivae normal, anicteric sclerae Respiratory: normal respiratory effort, lungs clear to auscultation Cardiovascular: RRR, no murmur, no edema Gastrointestinal (Abdomen): normal bowel sounds, soft, nontender, no hepatosplenomegaly Skin: no rashes, warm and dry Neurologic: PERRL, EOMI, accommodation nl, no face palsy, no dysarthria Results & Data Vital Signs (Past 12 Hours) Vital Signs Temp Pulse Pulse Resp BP Pulse Ox O2 Del Method 01/31/24 07:51 36.7 C 58 L 18 146/96 H 97 Room Air 01/30/24 23:09 58 L 01/30/24 22:21 36.6 C 60 20 122/97 98 Room Air Laboratory Results Cardiac Enzymes 01/30/24 01/30/24 01/30/24 Range/Units 12:35 15:28 18:31 AST 19 (13-39) U/L Troponin I High Sens 3.4 16.4 H D 14.3 H (0-14) pg/ml 01/31/24 Range/Units 05:43 AST (13-39) U/L Troponin I High Sens 8.0 D (0-14) pg/ml Coagulation 01/30/24 Range/Units 12:35 PT 10.9 (9.0-12.0) Seconds APTT 26 (21-31) Seconds CBC 01/30/24 01/31/24 Range/Units 12:35 05:43 WBC 8.90 9.56 (4.8-10.8) K/ul RBC 4.64 4.49 (4.20-5.40) M/uL Hgb 14.3 14.1 (12.0-16.0) g/dl Hct 43.4 42.2 (37.0-47.0) % Plt Count 270 253 (130-400) K/uL Neut # (Auto) 5.46 5.73 (1.40-6.50) K/uL Lymph # (Auto) 2.37 2.55 (1.20-3.40) K/uL Austin # (Auto) 0.67 H 0.81 H (0.11-0.59) K/uL Eos # (Auto) 0.31 0.39 (0.00-0.50) K/uL Baso # (Auto) 0.05 0.04 (0.00-0.20) K/uL Comprehensive Metabolic Panel 01/30/24 01/31/24 Range/Units 12:35 05:43 Sodium 140 141 (136-145) mmol/L Potassium 3.7 4.3 (3.5-5.1) mmol/L Chloride 108 H 107 (98-107) mmol/L Carbon Dioxide 26 29 (21-32) mmol/L BUN 10 10 (6-23) mg/dl Creatinine 0.61 0.68 (0.6-1.2) mg/dl Glucose 107 H 90 (70-99(Fasting)) mg/dl Calcium 9.5 9.3 (8.6-10.3) mg/dl AST 19 (13-39) U/L ALT 21 (7-52) U/L Alkaline Phosphatase 83 (34-104) U/L Total Protein 6.9 (6.0-8.3) gm/dl Albumin 4.0 (3.4-5.0) gm/dl Intake and Output 01/30/24 01/31/24 01/31/24 22:59 06:59 14:59 Intake Total 300 / 300 Balance 300 / 300 Intake: Oral 300 / 300 Other: Other Intake Source NPO Weight 81.8 kg 81.7 kg Weight Measurement Method Built in Bedscale Standing Scale (4) Chest pain Chest pain type: unspecified Qualified Code(s): R07.9 - Chest pain, unspecified
--- NOTE | 2024-01-31 11:31 | Electrocardiogram Report ---
Test Reason : Blood Pressure : / mmHG Vent. Rate : 053 BPM Atrial Rate : 053 BPM P-R Int : 164 ms QRS Dur : 076 ms QT Int : 474 ms P-R-T Axes : 054 074 064 degrees QTc Int : 444 ms Sinus bradycardia Otherwise normal ECG When compared with ECG of 30-JAN-2024 12:30, No significant change was found Confirmed by Quinten Rivera ([id number]) on 01/31/2024 11:31:07 AM Referred By: REFERRED SELF Confirmed By:Quinten Rivera
--- NOTE | 2024-01-31 16:08 | Discharge Summary ---
Discharge Summary Date of Service January 31, 2024 Principal Dx & Hospital Course #1 = Principal Diagnosis (1) Chest pain: (2) CAD (coronary artery disease): (3) Familial hypercholesteremia: (4) History of ventricular tachycardia: Plan Ms. Santamaria is a 48 year old female with history of CAD, s/p PCI to RCA and LAD last October of this year, NSVT, HTN, Familial Hypercholesterolemia, presenting with chest pain 01/29. Given patient's recent history with premature CAD s/p stent and NSVT, patient admitted and Cardiology evaluated. Exercise stress test performed on 01/30 and was negative for ischemia. Telemetry did not reveal any concerns for arrhytmia. Patient's metoprolol was increased. Patient declined any recurrence of symptoms while admitted. Patient was chest pain free on day of discharge and understood plan for zio patch and follow up with cardiology. 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 Patient was driving to [place] when she suddenly experienced chest pain- left sided, described as tightness, Associated with Palpitations, cold clammy skin, diaphoresis,reminiscent of her symptoms in October when she was diagnosed with CAD and subsequently underwent PCI. She managed to pot puller the road and call the EMS. EMS administered Ativan which resolved the symptoms. Upon arrival at the ED, BP 154/99, HR 63, O2 sat 95%. Trop negative EKG no acute ischemia No recurrence of chest pain while at the ED. On exam, patient seen resting in bed, echocardiogram in progress. States she feels tired, but denies active chest pain, shortness of breath, dizziness, nausea, palpitations. Admission Exam Per Admitting Provider General- oriented x 3, not in distress, speaks in sentences with no effort or accessory muscle use Eyes- anicteric Neck- no JVD Lungs- clear breath sounds bilaterally, no rales/wheezes Heart- normal rate, regular rhythm; no murmurs Abdomen- normal bowel sounds, nondistended, soft, nontender Extremities- no pretibial edema, no calf tenderness Neuro- alert, oriented x 3; no gross focal neurologic deficits Skin- warm & dry Discharge Exam Constitutional WD/WN, vitals as above Respiratory normal respiratory effort, lungs clear to auscultation Gastrointestinal (Abdomen) normal bowel sounds, soft, nontender, no hepatosplenomegaly Updated Medication List Medication Instructions Recorded Confirmed Type citalopram 20 mg tablet 20 mg PO DAILY 11/08/23 01/30/24 History clobetasol 0.05 % topical ointment 1 applic topical BID PRN Other 11/08/23 01/30/24 History ixekizumab 80 mg/mL subcutaneous 80 mg subcut Q4WK 11/08/23 01/30/24 History syringe (Taltz Syringe) lisinopril 40 mg tablet 40 mg PO QAM 11/08/23 01/30/24 History loratadine 10 mg tablet (Allergy 10 mg PO DAILY 11/08/23 01/30/24 History Relief (loratadine)) triamcinolone acetonide 0.5 % 1 applic topical BID PRN Other 11/08/23 01/30/24 History topical ointment aspirin 81 mg tablet,delayed 81 mg PO QAM #30 tabs 11/11/23 01/30/24 Rx release clopidogrel 75 mg tablet 75 mg PO QAM #30 tabs 11/11/23 01/30/24 Rx nicotine 7 mg/24 hr daily 1 patch transdermal QAM #30 ea 11/11/23 01/30/24 Rx transdermal patch atorvastatin 40 mg tablet 40 mg PO DAILY #30 tabs 11/13/23 01/30/24 Rx melatonin 10 mg tablet 10 mg PO HS PRN Sleep 01/30/24 01/30/24 History metoprolol succinate 25 mg 25 mg PO BID #60 tabs 01/31/24 Rx tablet,extended release 24 hr Hospital Stay Data Consultations 01/30/24 14:41 ED Decision to Admit Stat 01/30/24 17:02 Consult Cardiology Routine 01/30/24 18:18 Consult Psychiatry Routine Pending Results Patient Have Any Pending Studies at Discharge: No Discharge Instructions Given to Patient (Per Discharging Provider) You were admitted for evaluation of chest pain and palpitations. You underwent exercise stress echocardiogram this morning. =- Exercise test was terminated due to fatigue with no symptoms suggestive of chest pain reported. Heart rate response to exercise was appropriate. Stress EKG and echocardiogram negative for ischemia. The following recommendations were made: Increased your metoprolol succinate to 25 mg twice daily. Proceed with 2-week Zio patch monitor.Already had cardiology follow up scheduled for 02/05/24 Office will call for Zio patch placment Total Time Total Time Spent Total Time Spent (In Minutes): 45
[2024-01-31] MEDS ORDERED: METOPROLOL SUCC 25MG EXT REL TAB PO SCH (21:00)
== END 2024-01-31 12:29 | disposition home or self-care (01) ==
LOC: ED 12:24 → 2E 14:51 → INTOOBSV 14:51 → SUATTDRO 14:51 → 2E 16:25